=== PATIENT | female | born 1970 | race Caucasian/White ===

== ENCOUNTER 2022-06-29 19:08 | Outpatient (CLI) | payer BC, SELFPAY ==
--- OUTSIDE RECORDS SUMMARY | 2022-06-29 19:13 | XMS_ITS | Encounter Summary ---
:1970 Author Organization [facility] Address [address] [place] [address] Care Team Providers Name Role Phone Karel Gill M.D. Primary Care Provider [phone] Reason for Visit Reason Comments Med Refill Encounter Details Date Type Department Care Team Description 05/21/2022 Refill Department of Family Medicine, Karel Gill I., Med Refill [facility], in [place], [place] 300 [facility] [address] [place] [address] [place] [address] [phone] Social History Tobacco Use Types Packs/Day Years Used Date Smoking Tobacco: Former Cigarettes 0.5 Quit : 01/10/2020 Smokeless Tobacco: Never Alcohol Use Standard Drinks/Week Comments Yes 0 (1 standard drink = 0.6 oz pure alcoho l) Seldom Alcohol Habits Answer Date Recorded How often do you have a drink containing alcohol? Monthly or less 12/25/2021 How many drinks containing alcohol do you have on a 1 or 2 12/25/2021 typical day when you are drinking? How often do you have six or more drinks on one Never 12/25/2021 occasion? Comment: Seldom 03/14/2018 Social Isolation Answer Date Recorded In a typical week, how many times do you Twice a week 12/25/2021 talk on the phone with family, friends, or neighbors? How often do you get together with friends Once a week 12/25/2021 or relatives? How often do you attend buddhist or oriental orthodox More than 4 time s per year 12/25/2021 services? Do you belong to any clubs or organizations Yes 12/25/2021 such as buddhist groups, unions, fraternal or athletic groups, or school groups? How often do you attend meetings of the More than 4 times pe r year 12/25/2021 clubs or organizations you belong to? Are you now , , , 12/25/2021 , never or living with a partner? Physical Activity Answer Date Recorded On average, how many days per week do you engage in moderate to 1 day 12/25/2021 strenuous exercise (like walking fast, running, jogging, dancing, swimming, biking, or other activities that cause a light or heavy sweat)? On average, how many minutes do you engage in exercise at th is 20 min 12/25/2021 level? Stress Answer Date Recorded Do you feel stress - tense, restless, nervous, or anxious, R ather much 12/25/2021 or unable to sleep at night because your mind is troubled all the time - these days? Financial Resource Strain Answer Date Recorded How hard is it for you to pay for the very basics like Not isidro stephen hard 12/25/2021 food, housing, medical care, and heating? Intimate Partner Violence Answer Date Recorded Within the last year, have you been afraid of your partner o r No 12/25/2021 ex-partner? Within the last year, have you been humiliated or emotionall y No 12/25/2021 abused in other ways by your partner or ex-partner? Within the last year, have you been kicked, hit, slapped, or No 12/25/2021 otherwise physically hurt by your partner or ex-partner? Within the last year, have you been raped or forced to have any No 12/25/2021 kind of sexual activity by your partner or ex-partner? Food Insecurity Answer Date Recorded Within the past 12 months, you worried that your food Someti mes true 12/25/2021 would run out before you got money to buy more. Within the past 12 months, the food you bought just Patient refused 12/25/2021 didn't last and you didn't have money to get more. Transportation Needs Answer Date Recorded In the past 12 months, has lack of transportation kept you f rom No 12/25/2021 medical appointments or from getting medications? In the past 12 months, has lack of transportation kept you f rom No 12/25/2021 meetings, work, or getting things needed for daily living? Housing Stability Answer Date Recorded In the last 12 months, was there a time when you were not ab le No 12/25/2021 to pay the mortgage or rent on time? In the last 12 months, how many places have you lived? 1 12/25/2021 In the last 12 months, was there a time when you did not hav e a No 12/25/[address] to [address] or slept in a prison (including now)? Education Answer Date Recorded What is the highest level of school Associate degree: [employer], 12/24/2021 you have completed or the highest technical, or vocational p purnima degree you have received? 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 PCP - General Family Medicine 01/16/21 [address] [place] [address] documented as of this encounter
--- OUTSIDE RECORDS SUMMARY | 2022-06-29 19:13 | XMS_ITS | Encounter Summary ---
:1970 Author Organization [facility] Address [address] [place] [address] Care Team Providers Name Role Phone Karel Gill M.D. Primary Care Provider [phone] Encounter Details Date Type Department Care Team Description 06/25/2022 Hospital Encounter Department of Karel Gill [facility] For Laboratory Medicine Antonio Golden, [facility] in [place] [facility] [place] [address], [place] [phone] Social History Tobacco Use Types Packs/Day Years [...] or relatives? How often do you attend gnosticism or anabaptism More than 4 time s per year 12/25/2021 services? Do you belong to any clubs or organizations Yes 12/25/2021 such as gnosticism groups, unions, fraternal or athletic groups, or [...] pay for the very basics like Not v stephen hard 12/25/2021 food, housing, medical care, [...] place to sleep or slept in a alf (including now)? Education Answer Date Recorded What is the highest level of school Associate degree: [employer], 12/24/2021 you have completed or the highest technical, or vocational tavia felton degree you have received? 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 creamIndications: Insert 1 gram Atrophy Vagina Due To vaginally at bedtime Estrogen Deficiency 2-3 nights per week. fluticasone Inhale 1 puff 2 180 each 3 12/25/2021 propion-salmeteroL (two) times a day. (Advair Diskus) 250-50 Rinse mouth with mcg/dose diskus water after use to inhalerIndications: reduce aftertaste Asthma Mild Intermittent and incidence of (HCC) candidiasis. Do not swallow. fluticasone propionate Administer 2 sprays 16 g 3 12/08 (FLONASE) 50 into each nostril mcg/actuation nasal daily. spray lisinopriL Take 1 tablet (20 mg 90 tablet 3 12/25/2021 (PRINIVIL,ZESTRIL) 20 mg total) by mouth tabletIndications: daily. Hypertension Essential Primary LORazepam (ATIVAN) 0.5 TAKE 1 TABLET BY 10 tablet 0 022 mg tabletIndications: MOUTH AT BEDTIME Anxiety Generalized NEEDED FOR ANXIETY Disorder, Depression Major Single Episode Severe Without Psychotic Features (HCC) ondansetron ODT Dissolve 1 tablet (4 30 tablet 1 04/14/2022 (ZOFRAN-ODT) 4 mg mg total) in the disintegrating tablet mouth every 8 (eight) hours as needed for nausea or vomiting. ProAir HFA 90 Inhale 2 puffs every 25.5 g 3 12/25/2021 mcg/actuation 4 (four) hours as inhalerIndications: needed for wheezing Asthma Mild Intermittent or shortness of (HCC) breath. topiramate (TOPAMAX) 25 Take 50 mg by mouth 0 02/2022 mg tablet 2 (two) times a day. triamterene-hydroCHLOROt Take 1 tablet by 90 tablet 3 12/2512/25/2022 hiazide (MAXZIDE) 75-50 mouth daily. mg per tabletIndications: Hypertension Essential Primary venlafaxine XR Take 1 capsule (150 90 capsule 3 12/25/2021 (EFFEXOR-XR) 150 mg 24 mg total) by mouth hr capsuleIndications: daily. Depression Major Single Episode Severe Without Psychotic Features (HCC) documented as of this encounter Plan of Treatment Upcoming Encounters Date Type Specialty Care Team Description 07/16/2022 Office Visit Family Medicine Karel Gill M.B.B ChuckySChucky, MRadha [address] [place] [address], [place] [phone] (Wo rk) documented as of this encounter Procedures Procedure Name Priority Date/Time Associated Diagnosis Comme nts BASIC METABOLIC Routine 06/25/2022 2:23 PM Monitoring For Resu lts for this PANEL, S/P CDT Therapeutic Drug procedure a re in Therapy the results section. documented in this encounter Results Basic Metabolic Panel (06/25/2022 2:23 PM CDT) P athologist Signature Potassium, P 4.0 3.6 - 5.2 06/25/2022 [facility] mmol/L 4:12 PM CDT Sodium, P 140 135 - 145 06/25/2022 [facility] mmol/L 4:12 PM CDT Chloride, P 101 98 - 107 06/25/2022 [facility] mmol/L 4:12 PM CDT Bicarbonate, P 27 22 - 29 06/25/2022 [facility] mmol/L 4:12 PM CDT Anion Gap, P 12 7 - 15 06/25/2022 [facility] 4:12 PM CDT BUN (Blood Urea 14 6 - 21 06/25/2022 [facility] Nitrogen), P mg/dL 4:12 PM CDT Creatinine 0.67 0.59 - 06/25/2022 [facility] 1.04 mg/dL 4:12 PM CDT eGFR-Black/Afric >90 >=60 06/25/2022 [facility] an Ivorian mL/min/BSA 4:12 PM CDT Comment: ----ADDITIONAL INFORMATION---- Estimated GFR calculated using the 2009 CKD_EPI creatinine equation. eGFR Non-Black/ >90 >=60 mL/min/BSA 06/25/2022 4:12 PM CDT [facility] Comment: ----ADDITIONAL INFORMATION---- Estimated GFR calculated using the 2009 CKD_EPI creatinine equation. Calcium, Total, P 9.4 8.6 - 10.0 mg/dL 06/25/2022 4:12 PM CDT [facility] Glucose, P 131 70 - 140 mg/dL 06/25/2022 4:12 PM CDT O ANUM Specimen Anatomical Collection Method Collection Time Receive d Time (Source) Location / / Volume Laterality Blood (Blood, 06/25/2022 2:23 PM 06/25/20 22 3:27 Venous) CDT PM CDT Karel Alvarez M.D. LAB BLOOD ADD-ON Performing Organization Address City/State/ZIP Code Phon e Number [facility] [address] [place] [address] [facility] [place] [address] System in [place] [address] documented in this encounter Visit Diagnoses Diagnosis Monitoring For Therapeutic Drug Therapy documented in this encounter Additional Health Concerns Assessment Noted Time PHQ-9 Depression Total Score: 10 06/10/2022 9:37 AM CD T documented as of this encounter Care Teams Special Services Coordinator Relationship Specialty Start Date End Date Karel Gill M.B.B.S., M.D. PCP - General Family Medicine 01/16/[address] [place] [phone] documented as of this encounter
--- OUTSIDE RECORDS SUMMARY | 2022-06-29 19:13 | XMS_ITS | Encounter Summary ---
:1970 Author Organization [facility] Address [address] [place] [address] Care Team Providers Name Role Phone Karel Gill M.D. Primary Care Provider [phone] Reason for Visit Reason Comments Med Refill Encounter Details Date Type Department Care Team Description 06/18/2022 Refill Department of Family Medicine, Yvrose Akbar M.D. Med Refill [facility], in [address] [place] [phone] [place] [address] [place] [address] [phone] Social History Tobacco Use Types Packs/Day Years [...] or relatives? How often do you attend presybeterian or catholic More than 4 time s per year 12/25/2021 services? Do you belong to any clubs or organizations Yes 12/25/2021 such as presybeterian groups, unions, fraternal or athletic groups, or [...] place to sleep or slept in a senior living (including now)? Education Answer Date Recorded What is the highest level of school Associate degree: [employer], 12/24/2021 you have completed or the highest technical, or vocational p purnima degree you have received? 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 MAllegra. PCP - General Family Medicine 01/16/21 [address] [place] [phone] documented as of this encounter
--- OUTSIDE RECORDS SUMMARY | 2022-06-29 19:13 | XMS_ITS | Encounter Summary ---
:1970 Author Organization [facility] Address [address] [place] [address] Care Team Providers Name Role Phone Krael Gill M.D. Primary Care Provider [phone] Reason for Visit Reason Comments allergy order Encounter Details Date Type Department Care Team Description 06/16/2022 Clinical Communication Department of Karel Giron allergy order Medicine, Antonio Peraza, Clinic, in [place] [address] [place] [phone] Social History Tobacco Use Types Packs/Day Years [...] or relatives? How often do you attend latter-day or evangelical More than 4 time s per year 12/25/2021 services? Do you belong to any clubs or organizations Yes 12/25/2021 such as latter-day groups, unions, fraternal or athletic groups, or [...] place to sleep or slept in a half-way (including now)? Education Answer Date Recorded What is the highest level of school Associate degree: [employer], 12/24/2021 you have completed or the highest technical, or vocational p purnima degree you have received? 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 Gill 07/16 Telephone Encounter - Mahad Willett V. C.MChuckyAChucky - 06/21/2022 11:11 AM CDT Left message for patient to return call to clinic. Does the patient need to speak to nursing? yes Action needed: Inform patient that a visit is necessary prior to referral Telephone Encounter - Karel Gill M.B.B.S., M.D. - 06/21/2022 10:58 AM CDT Patient will need to be seen. Seasonal allergies are not enough reason to see an interline clerk. Telephone Encounter - Luis Petersly Luciano - 06/16/2022 11:16 AM CDT Patient called in requesting to see an Rate Reviewer, please place order and call her to schedule when placed. documented in this encounter Plan of Treatment Upcoming Encounters Date Type Specialty Care Team Description 07/16/2022 Office Visit Family Medicine Karel Gill M.B.B .S., M.D. [address] [place], [place] [phone] (Wo rk) documented as of this encounter Visit Diagnoses Not on filedocumented in this encounter Additional Health Concerns Assessment Noted Time PHQ-9 Depression Total Score: 10 06/10/2022 9:37 AM CD T documented as of this encounter Care Teams Gang Supervisor Pipe Lines Relationship Specialty Start Date End Date Karel Gill M.B.B.S., M.D. PCP - General Family Medicine 01/16/21 [address] [place] [phone] documented as of this encounter
--- OUTSIDE RECORDS SUMMARY | 2022-06-29 19:13 | XMS_ITS | Encounter Summary ---
:1970 Author Organization [facility] Address [address] [place] [address] Care Team Providers Name Role Phone Karel Gill M.D. Primary Care Provider [phone] Reason for Visit Reason Comments Med Refill Encounter Details Date Type Department Care Team Description 05/29/2022 Refill Department of Family Medicine, Karel Gill I., Med Refill [facility], in [place], [place] 300 [facility] 300 [place] [address] [place] [address] [phone] Social History Tobacco Use Types Packs/Day Years [...] or relatives? How often do you attend yazidism or congregational More than 4 time s per year 12/25/2021 services? 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 PCP - General Family Medicine 01/16/21 [address] [place] [phone] documented as of this encounter
--- OUTSIDE RECORDS SUMMARY | 2022-06-29 19:13 | XMS_ITS | Clinical Summary ---
:1970 Author Organization [facility] Address [address] [place] [address] Care Team Providers Name Role Phone Karel Gill M.D. Primary Care Provider [phone] Source Comments Patient records contain information from all sites at [facility]. For routine questions regarding patient records, call [phone] during business hours, M-F 8:00 AM - 5:00 PM Central Time. Record requests for emergency care only can be directed to [phone] at any time.[facility] Allergies Active Allergy Reactions Severity Noted Date Comments Latex Rash High 04/24/2014 Magnesium Sulfate Anaphylaxis 11/23/2016 Throat deysi sing Valsartan Other (see comments), High 04/24/2014 Unknow n - patient Anaphylaxis unable to provi de information Medications Medication Sig Dispensed Refills Start End Date Status Date topiramate Take 50 mg by 0 Activ e (TOPAMAX) 25 mg mouth 2 (two) 2 tablet times a day. triamterene-hydroCH Take 1 tablet by 90 tablet 3 Active LOROthiazide mouth daily. 2 23 (MAXZIDE) 75-50 mg per tabletIndications: Hypertension Essential Primary lisinopriL Take 1 tablet (20 90 tablet 3 A ctive (PRINIVIL,ZESTRIL) mg total) by 2 20 mg mouth daily. tabletIndications: Hypertension Essential Primary fluticasone Inhale 1 puff 2 180 each 3 Ac tive propion-salmeteroL (two) times a 2 (Advair Diskus) day. Rinse mouth 250-50 mcg/dose with water after diskus use to reduce inhalerIndications: aftertaste and Asthma Mild incidence of Intermittent (HCC) candidiasis. Do not swallow. ProAir HFA 90 Inhale 2 puffs 25.5 g 3 A ctive mcg/actuation every 4 (four) 2 inhalerIndications: hours as needed Asthma Mild for wheezing or Intermittent (HCC) shortness of breath. fluticasone Administer 2 16 g 3 Activ e propionate sprays into each 2 (FLONASE) 50 nostril daily. mcg/actuation nasal spray venlafaxine XR Take 1 capsule 90 capsule 3 Active (EFFEXOR-XR) 150 mg (150 mg total) by 2 24 hr mouth daily. 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 Insert creamIndications: 1 gram vaginally Atrophy Vagina Due at bedtime 2-3 To Estrogen nights per week. Deficiency ondansetron ODT Dissolve 1 tablet 30 tablet 1 Active (ZOFRAN-ODT) 4 mg (4 mg total) in 2 disintegrating the mouth every 8 tablet (eight) hours as needed for nausea or vomiting. LORazepam (ATIVAN) TAKE 1 TABLET BY 10 tablet 0 Active 0.5 mg MOUTH AT BEDTIME 2 tabletIndications: NEEDED FOR Anxiety Generalized ANXIETY Disorder, Depression Major Single Episode Severe Without Psychotic Features (HCC) albuterol 2.5 mg /3 USE 1 VIAL IN 150 mL 11 Active mL nebulizer NEBULIZER EVERY 4 2 solutionIndications HOURS NEEDED : Asthma Mild FOR WHEEZING Intermittent (HCC) albuterol 2.5 mg /3 Inhale 3 mL (2.5 150 mL 3 Discontinued mL nebulizer mg total) by 2 22 solutionIndications nebulization : Asthma Mild every 4 (four) Intermittent (HCC) hours as needed for wheezing. LORazepam (ATIVAN) TAKE 1 TABLET BY 20 tablet 0 05/08 Discontinued 0.5 mg MOUTH AT BEDTIME 2 22 tabletIndications: NEEDED FOR Anxiety Generalized ANXIETY Disorder, Depression Major Single Episode Severe Without Psychotic Features (HCC) Active Problems Problem Noted Date Preventive Gynecological Exam 01/08/2022 Overview: Formatting of this note is dif ferent from the original. Pap smear: 09/18/2018 NILM/-HPV. 022 obtained and pending. Gonorrhea/Chlamydia Screen: 01/08/2022 o btained and pending. Mammogram: 05/28/2021. Lipid panel: 12/25/2021. Diabetic screenin12/25/2021 with hemo globin A1c of 6.2%. Colon screening: ??Cologuard ordered. DEXA Scan: Begin at age 65. Tdap Vaccine: 05/08/2021. ?? Influenza Vaccine: 12/25/2021. COVID-19 Vaccine: Moderna: 01/21/2021 an d 02/18/2021. Discussed and declines booster at this time. Shingles Vaccine: Ordered and scheduled. - Discussed the importance of healthy di et and exercise for overall well-being. - Recommend at least 30 minutes of aerob ic exercise most days of the week. ?? - Recommend 1200 mg of calcium daily. Last Assessment & Plan: Discussed exam findings with patient. I will plan to portal message her with results and recommendations going forward. I do recommend that she return on an annual basis for her preventative health exam or sooner if she has any concerns or problems. Bleeding Dysfunctional Uterine 01/08/2022 Overview: Pap smear, GC chlamydia, EMB, and pelvic ultrasound obtained and pending. I will plan to portal message her with results. We discussed management options for dysfunctional uterine bleeding and menorrhag ia due to perimenopause. Will further di scuss options and implement management as desired. Endometriosis 01/08/2022 Depression Major Single Episode Severe Without Psychot ic Features 05/08/2021 Overview: Managed by PCP. Morbid Obesity Body Mass Index 50.0-59.9 Adult 019 Hypertriglyceridemia 12/22/2016 Overview: Managed by PCP. PreDiabetes 12/22/2016 Overview: Managed by PCP. Hypertension Essential Primary 12/07/2016 Overview: Managed by PCP. Anxiety Generalized Disorder 12/07/2016 Overview: Managed by PCP. Asthma Mild Intermittent 12/07/2016 Overview: Managed by PCP. Migraine Headache Classic 12/07/2016 Overview: Managed by PCP. No aura. Resolved Problems Problem Noted Date Resolved Date History Of Falling 01/02/2021 01/08/2022 Nicotine Dependence Cigarettes With Other Nicotine Induced 0 12/29/2018 01/08/2022 Disorder Abuse Tobacco Smoking 05/13/2017 04/03/2019 Menorrhagia 05/13/2017 01/08/2022 Dermatitis Atopic 05/31/2016 01/08/2022 Encounters Date Type Specialty Care Team Description 06/29/2022 Hospital Encounter Radiology [facility], Screening Mammogram Karel Golden, Breast Cancer JacoboB.SChucky, MRadha 06/25/2022 Hospital Encounter Laboratory Medicine Vin Gill For Luna FlorezB.SEmmanuelle Locke Therapy 06/18/2022 Refill [facility] Yvrose Carballo Med Reflinnette Hodge M.D. 06/16/2022 [facility] Karel Golden M.B.B.SChucky, MRadha 05/29[facility]20[facility] Karel Golden M.B.B.SChucky, MRadha 05/21/2022 Refill [facility] Leonietxchencho, Med Refill Karel Golden M.B.B.SChucky, MRadha 05/12/2022 Orders Only Candida Huff Monitoring Emmanuelle Pineda Therapy 04/14/2022 [facility]ill [facility] Refill Antonio Florez M.D. from Last 3 Months Immunizations Name Administration Dates Next Due Influenza (IM) Preservative Free 08/22/2017 Influenza TIV (IM) 08/01/2010 Influenza, Unspecified 08/02/2016 PPSV23 01/02/2021 SARS-COV-2 (COVID-19) - MODERNA 12/25/2021 (Deferred: Patien t decision) Tdap 05/08/2021, 04/21/2011 influenza vaccine quad 12/25/2021, 08/20/2020, 10/29/2019 (FLUZONE/FLUARIX) (6 months and older)(PF) Family History Medical History Relation Name Comments Cirrhosis Brother stage 4 Hemorrhagic stroke Brother Seizures Brother Anxiety depression Daughter Hyperlipidemia Father Hypertension Father TIA - Transient ischaemic attack Father Breast cancer Grandmother 1 Maternal Diabetes Grandmother 2 Paternal Lung cancer Grandmother 2 Paternal w/ mets to breas t Heart attack Maternal Grandfather Hyperlipidemia Mother Hypertension Mother Colon cancer Neg Hx Relation Name Status Comments Brother (Age 40) cardiac arrest , complications of stage 4 liver ci rrhosis Daughter Alive Father Alive Grandmother 1 Maternal Grandmother 2 Paternal Maternal Grandfather Mother Alive Paternal Grandfather Social History Tobacco Use Types Packs/Day Years [...] or relatives? How often do you attend jainism or baptist More than 4 time s per year 12/25/2021 services? Do you belong to any clubs or organizations Yes 12/25/2021 such as jainism groups, unions, fraternal or athletic groups, or [...] place to sleep or slept in a snf (including now)? Education Answer Date Recorded What is the highest level of school Associate degree: [employer], 12/24/2021 you have completed or the highest technical, or vocational p purnima degree you have received? 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 Last Filed Vital Signs Vital Sign Reading Time Taken Comments Blood Pressure 138/84 01/08/2022 1:51 PM BUS TRANSPORTATION MANAGER Pulse 88 01/08/2022 1:51 PM BUS TRANSPORTATION MANAGER Temperature 36 ??C (96.8 ??F) 12/25/2021 3:33 PM BUS TRANSPORTATION MANAGER Respiratory Rate 20 01/08/2022 1:51 PM BUS TRANSPORTATION MANAGER Oxygen Saturation 93% 11/06/2019 1:48 PM BUS TRANSPORTATION MANAGER Inhaled Oxygen Concentration - - Weight 143 kg (316 lb 4 oz) 01/08/2022 1:51 PM BUS TRANSPORTATION MANAGER Height 156.5 cm (5' 1.61) 01/08/2022 1:51 PM BUS TRANSPORTATION MANAGER Body Mass Index 58.57 01/08/2022 1:51 PM BUS TRANSPORTATION MANAGER Plan of Treatment Upcoming Encounters Date Type Specialty Care Team Description 07/16/2022 Office Visit Family Medicine Karel Gill M.B.B Deb, MRadha [address] [place] [address] [phone] (Wo rk) Health Maintenance Due Date Last Done Comments CT Colonography 1970 Colonoscopy 1970 FIT 1970 Hepatitis B Vaccines (1 of 3 - 1970 3-dose series) COVID-19 Vaccine (3 - Moderna risk 03/18/2021 02/18/2021, 0 01/21/2021 series) Asthma Action Plan 01/02/2022 01/02/2021, 12/07/2016 Pneumococcal vaccine (0-64 years) 01/02/2022 01/02/2021 (2 - PCV) Asthma Control Test Questionnaire 05/08/2022 05/08/2021, , 12/07/2016 Influenza Vaccine (#1) 2022 12/25/2021, 08/20/2020, 10/29/2019, Additional history exists Depression Monitoring (PHQ-9) 10/10/2022 06/10/2022 Fasting Lipid Panel 12/25/2022 12/25/2021, 01/02/2021, 09/29/2018, Additional history exists Visit: Chronic Disease, age 18+ 12/25/2022 12/25/2021 Office Visit for Blood Pressure 01/08/2023 01/08/2022 Check / Re-check Creatinine Level 06/25/2023 06/25/2022, 08/02/2021, 01/02/2021, Additional history exists Fasting Glucose for Diabetes 06/25/2023 06/25/2022, 022, Screening 08/02/2021, Additional history exists Potassium Level 06/25/2023 06/25/2022, 08/02/2021, 01/02/2021, Additional history exists Sodium Level 06/25/2023 06/25/2022, 08/02/2021, 01/02/2021, Additional history exists Mammogram 06/29/2023 06/29/2022, 05/28/2021, 08/07/2019, Additional history exists Cologuard 02/03/2025 02/03/2022 Colorectal Cancer Screening 02/03/2025 Cervical Cancer Screening 01/08/2027 01/08/2022, 01/08/2022 , 09/18/2018, Additional history exists DTaP,Tdap,and Td Vaccines (3 - Td 05/08/2031 05/08/2021, or Tdap) HIV Screening Completed 01/08/2022 Zoster Vaccines Completed 05/16/2022, 02/05/2022 Medical Devices Implanted Type Area Barrel Rifler Button Device Shelf Model / Identifier Expiration Serial / Date Lot Hardware Left Hardware Left: Knee e.g. Knee pins/screws/ rods Description: 2 Screws left knee Procedures Procedure Name Priority Date/Time Associated Comments Diagnosis BI BREAST SCREENING RAD - Routine 06/29/2022 12:03 Screening Res ults for BILATERAL WITH (most inpatients PM CDT Mammogram Breast this procedure TOMOSYNTHESIS and all Cancer are in the outpatients) results section. BASIC METABOLIC Routine 06/25/2022 2:23 Monitoring For Results for PANEL, S/P PM CDT Therapeutic Drug this proced ure Therapy are in the results section. from Last 3 Months Results BI Breast Screening Bilateral with Tomosynthesis (06/29/2022 12:03 PM CDT) Anatomical Region Laterality Modality Breast, Breast Imaging RST LOS, Breast Imaging ARZ LOS, [place] st Bilateral Mammography Imaging FLA LOS Specimen (Source) Anatomical Collection Method Collection Time Re ceived Time Location / / Volume Laterality 06/29/2022 1:48 PM CDT Impressions 06/29/2022 1:49 PM CDT Negative. RECOMMENDATION: ??Annual Screening Mammo gram ASSESSMENT: ??BI-RADS: 1: Negative. Narrative 06/29/2022 1:49 PM CDT EXAM: ??BI BREAST SCREENING BILATERAL WITH TOMOSYNTHESIS Current study was evaluated with a [employer] Aided Detection (CAD) system. INDICATION: ??Screening mammogram. COMPARISON: ??Prior exam(s) were availab le and reviewed for comparison. DENSITY: ??c. The breast(s) are heteroge neously dense, which may obscure small masses. FINDINGS: ??No mammographic findings of malignancy. Procedure Note Kwabena Ritter M.D. - 06/29/2022Formattin g of this note might be different from the original. EXAM: BI BREAST SCREENING BILATERAL WITH TOMOSYNTHESIS Current study was evaluated with a [employer] Aided Detection (CAD) system. INDICATION: Screening mammogram. COMPARISON: Prior exam(s) were available and reviewed for comparison. DENSITY: c. The breast(s) are heterogene ously dense, which may obscure small masses. FINDINGS: No mammographic findings of ma lignancy. IMPRESSION: Negative. RECOMMENDATION: Annual Screening Mammogr am ASSESSMENT: BI-RADS: 1: Negative. Karel Ch[place] Alvarez M.D. IMG BI PROCEDURES Basic Metabolic Panel (06/25/2022 2:23 PM CDT) [...] CDT eGFR-Black/Afric >90 >=60 06/25/2022 OWAT an Eritrean mL/min/BSA 4:12 PM CDT Comment: ----ADDITIONAL INFORMATION---- [...] Laterality Blood (Blood, 06/25/2022 2:23 PM 06/25/20 3:27 Venous) CDT PM CDT Karel Alvarez M.D. LAB BLOOD ADD-ON Performing Organization Address City/State/ZIP Code Phon e Number [facility] [address] [place] [address] [facility] [id number] System in [place] [address] from Last 3 Months Insurance Payer Benefit Plan Subscriber ID Effective Dates Phone Address Type / Group [employer] [place] [id number] 2021-Presen [phone] [address] [address] PPO BLUE SHIELD t [address] [place] [address] Care Teams Oracle Technical Developer Relationship Specialty Start Date End Date Karel Gill M.B.B.S., MAllegra. PCP - General Family Medicine 01/16/[address] [place] [address] [place] [phone]
--- OUTSIDE RECORDS SUMMARY | 2022-06-29 19:13 | XMS_ITS | Encounter Summary ---
:1970 Author Organization [facility] Address [address] [place] [address] Care Team Providers Name Role Phone Karel Gill M.D. Primary Care Provider [phone] [phone] Reason for Referral Outpatient (Routine) - Closed Specialty Diagnoses / Procedures Referred By Contact Refer red To Contact Diagnoses Screening Mammogram Breast Cancer Karel Gill [facility] Region Procedures BI Breast Screening Bilateral with Tomosyntheusha Alvarez M.D. [address] [place] [phone] Referral ID Status Reason Start Date Expiration Date Visits Requ ested Visits Authorized [id number] Closed 06/22/2022 06/22/2023 1 1 utpatient (Routine) - Closed Specialty Diagnoses / Procedures Referred By Contact Refer red To Contact Diagnoses Screening Mammogram Breast Cancer Karel Gill [facility] Region Procedures BI Breast Screening Bilateral with Tomosyntheusha Alvarze M.D. [address] [place] [phone] Referral ID Status Reason Start Date Expiration Date Visits Requ ested Visits Authorized [id number] Closed 06/22/2022 06/22/2023 1 1 Reason for Visit Outpatient (Routine) - Closed Specialty Diagnoses / Procedures Referred By Contact Refer red To Contact Diagnoses Screening Mammogram Breast Cancer Karel Gill I., [facility] Region Procedures BI Breast Screening Bilateral with Tomosynthesis Emmanuelle Alvarez [address] [facility] [place] [phone] Referral ID Status Reason Start Date Expiration Date Visits Requ ested Visits Authorized [id number] Closed 06/22/2022 06/22/2023 1 1 Encounter Details Date Type Department Care Team Description 06/29/2022 Hospital Encounter Department of Karel Gill Mammogram Radiology in Antonio Golden, Breast Cancer Jose Beck M.D. [address] [facility] [address] [place] [phone] Social History Tobacco Use Types Packs/Day Years [...] or relatives? How often do you attend faith or religion More than 4 time s per year 12/25/2021 services? Do you belong to any clubs or organizations Yes 12/25/2021 such as faith groups, unions, fraternal or athletic groups, or [...] place to sleep or slept in a long-term (including now)? Education Answer Date Recorded What is the highest level of school Associate degree: [employer], 12/24/2021 you have completed or the highest technical, or vocational p purnima degree you have received? 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 [address] [place] [address] [phone] (Wo rk) documented as of this encounter Procedures Procedure Name Priority Date/Time Associated Comments Diagnosis BI BREAST SCREENING RAD - Routine 06/29/2022 12:03 Screening Res ults for BILATERAL WITH (most inpatients PM CDT Mammogram Breast this procedure TOMOSYNTHESIS and all Cancer are in the outpatients) results section. documented in this encounter Results BI Breast Screening Bilateral with Tomosynthesis (06/29/2022 12:03 PM CDT) Anatomical Region Laterality Modality Breast, Breast Imaging RST LOS, Breast Imaging ARZ LOS, [place] st Bilateral Mammography Imaging FLA LOS Specimen (Source) Anatomical Collection Method Collection Time Re ceived Time Location / / Volume Laterality 06/29/2022 1:48 PM CDT Impressions 06/29/2022 1:49 PM CDT Negative. RECOMMENDATION: ??Annual Screening Mammo gram ASSESSMENT: ??BI-RADS: 1: Negative. Narrative 06/29/2022 1:49 PM CDT EXAM: ??BI BREAST SCREENING BILATERAL WITH TOMOSYNTHESIS Current study was evaluated with a Compu ter Aided Detection (CAD) system. INDICATION: ??Screening mammogram. [...] TOMOSYNTHESIS Current study was evaluated with a Compu ter Aided Detection (CAD) system. INDICATION: Screening mammogram. COMPARISON: Prior exam(s) were available and reviewed for comparison. DENSITY: c. The breast(s) are heterogene ously dense, which may obscure small masses. FINDINGS: No mammographic findings of ma lignancy. IMPRESSION: Negative. RECOMMENDATION: Annual Screening Mammogr am ASSESSMENT: BI-RADS: 1: Negative. Karel Alvarez M.D. IMG BI PROCEDURES documented in this encounter Visit Diagnoses Diagnosis Screening Mammogram Breast Cancer documented in this encounter Additional Health Concerns Assessment Noted Time PHQ-9 Depression Total Score: 10 06/10/2022 9:37 AM CD T documented as of this encounter Care Teams Pinball Machine Repairer Relationship Specialty Start Date End Date Karel Gill M.B.B.S., M.D. PCP - General Family Medicine 01/16/[address] [place] [phone] documented as of this encounter
--- OUTSIDE RECORDS SUMMARY | 2022-06-29 19:14 | XMS_ITS | Encounter Summary ---
:[address] [facility] Address [address] [place] [address] Care Team Providers Name Role Phone Karel Gill M.D. Primary Care Provider [phone] [phone] Encounter Details Date Type Department Care Team Description 01/09/2022 Orders Only Department of Darline Goyal Screening Colon Cancer Obstetrics and J, ELEVATOR ATTENDANT, C.N.P. Average Risk Gynecology in [address] [place], [place] 200 [facility] [address] [place], [place] [phone] [address] (Work) [phone] Social History Tobacco Use Types Packs/Day Years [...] or relatives? How often do you attend lutheran or temple More than 4 time s per year 12/25/2021 services? Do you belong to any clubs or organizations Yes 12/25/2021 such as lutheran groups, unions, fraternal or athletic groups, or [...] to sleep or slept in a senior care (including now)? Education Answer Date Recorded What is the highest level of school Associate degree: maria del carmen strong, 12/24/2021 you have completed or the highest technical, or vocational tavia felton degree you have received? 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 documented in this encounter Results Cologuard-Sent Out Lab (02/03/2022 5:49 PM CDT) athologist Signature Result Negative Negative 02/10/2022 EXLI 4:39 PM CDT Comment: NEGATIVE TEST RESULT. A negative Cologua rd result indicates a low likelihood that a colorectal cance r (CRC) or advanced adenoma (adenomatous polyps with more ad vanced pre-malignant features) ??is present. Th e chance that a person with a negative Cologuard test capellan s a colorectal cancer is less than 1 in 1500 (negative predictive value >99.9%) or has an ??advanced adenoma is less than ??5.3% (negative predictive value 94.7%). These data are based on a prospective cross-sectional study of 1 0,000 individuals at average risk for colorectal cancer wh o were screened with both Cologuard and colonoscopy. (Im wilson T. et al, N Engl J Med 2014;370(14):4402-0999) The n ormal value (reference range) for this assay is nega tive. COLOGUARD RE-SCREENING RECOMMENDATION: P eriodic colorectal cancer screening is an important part of preventive healthcare for asymptomatic individuals at average risk for colorectal cancer. ??Following a negativ e Cologuard result, the [place] Cancer Society and U.S. Mul ti-Society Task Force screening guidelines recommend a C ologuard re-screening interval of 3 years. References: [place] Cancer Society Kenny soares for Colorectal Cancer Screening: https://www.cancer.org/cancer/colon-rect al-cancer/detection- diagnosis-staging/acs-recommendations.ht ml.; Paul MATTHEWS, Sherrill CR, Jair BurtonK, Colorectal Cancer Scree rao: Recommendations for Physicians and Patie nts from the U.S. Multi-Society Task Force on Colorectal C ancer Screening , Am J Gastroenterology 2017; 112:1016-103 0. TEST DESCRIPTION: Composite algorithmic analysis of stool DNA-biomarkers with hemoglobin immunoass ay. ?? Quantitative values of individual biomarkers are not reportable and are not associated with individual biomarker result reference ranges. Cologuard is intended for colore ctal cancer screening of adults of either sex, 45 ye ars or older, who are at average-risk for colorectal cance r (CRC). Cologuard has been approved for use by the U.S. FD A. The performance of Cologuard was established in a cross sectional study of average-risk adults aged 50-84. Cologuar d performance in patients ages 45 to 49 years was estimat ed by sub-group analysis of near-age groups. Colonoscopi es performed for a positive result may find as the most cli nically significant lesion: colorectal cancer [4.0%], advanc ed adenoma (including sessile serrated polyps great er than or equal to 1cm diameter) [20%] or non- advanced valerie noma [31%]; or no colorectal neoplasia [45%]. These estima yefri are derived from a prospective cross-sectional ellen yeh study of 10,000 individuals at average risk for c olorectal cancer who were screened with both Cologuard an d colonoscopy. (Chris Roy et al, N Engl J Med 2014;3 70(14):0718-7457.) Cologuard may produce a false negative o r false positive result (no colorectal cancer or precance cecil polyp present at colonoscopy follow up). A negative Co loguard test result does not guarantee the absence of CRC or advanced adenoma (pre-cancer). The current Cologuard scre ening interval is every 3 years. ([place] Cancer Society and U.S. Multi-Society Task Force). Cologuard per formance data in a 10,000 patient pivotal study using colon oscopy as the reference method can be accessed at the following location: www.GlobalPay/results. Additional de scription of the Cologuard test process, warnings and pre cautions can be found at www.cologiTherXrd.Picolight. Specimen Anatomical Collection Method Collection Time Receive d Time (Source) Location / / Volume Laterality Stool (Stool) 02/03/2022 5:49 PM 02/06/20 9:06 CDT AM CDT Darline Goyal APRN, C.N.P. LAB BODY FLUIDS AND STO OLS ORDERABLES Performing Organization Address City/State/ZIP Code Phon e Number [facility] [address] [place] [address] 537 13 [place] [address] [place] [address], [address] documented in this encounter Visit Diagnoses Diagnosis Screening Colon Cancer Average Risk documented in this encounter Additional Health Concerns Assessment Noted Time PHQ-9 Depression Total Score: 10 12/08/2021 2:36 AM CS T documented as of this encounter Care Teams Pipe Processor Relationship Specialty Start Date End Date Karel Gill M.B.B.S., M.D. PCP - General Family Medicine 01/16/[address] [place] [address] [place] [phone] documented as of this encounter
--- OUTSIDE RECORDS SUMMARY | 2022-06-29 19:14 | XMS_ITS | Encounter Summary ---
:1970 Author Organization [facility] Address [address] [place] [address] Care Team Providers Name Role Phone Karel Gill M.D. Primary Care Provider [phone] Reason for Referral Specialty Diagnoses / Procedures Referred By Contact Refer red To Contact Karel Gill M.B.B.S., [facility] [address] [place] [address] Referral ID Status Reason Start Date Expiration Date Visits Requ ested Visits Authorized O VISUAL AIDE Encounter Details Date Type Department Care Team Description 09/30/2021 Orders Only [facility] PCP [facility] Karel Gill M.B.B.S., [address] [place], [place] [phone] (Wo rk) Social History Tobacco Use Types Packs/Day Years [...] or relatives? How often do you attend yazidi or oriental orthodox More than 4 time s per year 12/25/2021 services? Do you belong to any clubs or organizations Yes 12/25/2021 such as yazidi groups, unions, fraternal or athletic groups, or [...] What is the highest level of school you have Some college, n o degree 08/01/2020 completed or the highest degree you have received? Sex Assigned at Date Recorded Female 12/02/2017 9:31 AM AUDIO VISUAL AIDE documented as of this encounter Plan of Treatment Upcoming Encounters Date Type Specialty Care Team Description 07/16/2022 Office Visit Family Medicine Karel Gill M.B.B .S., MAllegra. [address] [place] [phone] (Wo rk) Scheduled Referrals Name Type Priority Associated Order Schedule Diagnoses Covid immunization Outpatient Referral Routine Ex pected: office visit Booster 021 (Approximate), Expires: 09/30/2022 documented as of this encounter Visit Diagnoses Not on filedocumented in this encounter Additional Health Concerns Assessment Noted Time PHQ-9 Depression Total Score: 15 06/05/2021 3:03 PM CD T documented as of this encounter Care Teams Fractionating Still Operator Relationship Specialty Start Date End Date Karel Gill M.B.B.S., Francesca. PCP - General Family Medicine 01/16/[address] [place] [address] [place] [address] documented as of this encounter
--- OUTSIDE RECORDS SUMMARY | 2022-06-29 19:14 | XMS_ITS | Encounter Summary ---
:1970 Author Organization [facility] Address [address] [place] [address] Care Team Providers Name Role Phone Karel Gill M.D. Primary Care Provider [phone] Reason for Visit Reason Comments Med Refill Encounter Details Date Type Department Care Team Description 04/08/2021 Refill Department of Family Medicine, Karel Gill I., Med Refill [facility], in [place] Al[place], [place] 300 [facility] [address] [place] [address] [place] [address] [phone] Social History Tobacco Use Types Packs/Day Years [...] or relatives? How often do you attend sikh or hinduism More than 4 time s per year 12/25/2021 services? 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 Telephone Encounter - Karel Gill M.B.B.S., M.D. - 04/12/2021 7:40 PM CDT I will need to taper her off this medication. This prescription should last 2 months. She may come in and see me. documented in this encounter Plan of Treatment Upcoming Encounters Date Type Specialty Care Team Description 07/16/2022 Office Visit Family Medicine Karel Gill M.B.B .S., M.D. 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 PCP - General Family Medicine 01/16/21 [address] [facility] [place] [address] documented as of this encounter
--- OUTSIDE RECORDS SUMMARY | 2022-06-29 19:14 | XMS_ITS | Encounter Summary ---
:1970 Author Organization [facility] Address [address] [place] [address] Care Team Providers Name Role Phone Karel Gill M.D. Primary Care Provider [phone] Encounter Details Date Type Department Care Team Description 01/08/2022 Hospital Encounter Department of Darline Goyal For Venereal Disease; Laboratory Medicine LAKHWINDER Burton, C.N .P. Bleeding Dysfunctional Uterine in [place], [address] [place], [place] 300 [facility] [address] [place], [place] [phone] [phone] (Work) [phone] Social History Tobacco Use Types Packs/Day Years [...] or relatives? How often do you attend rastafari or muslim More than 4 time s per year 12/25/2021 services? Do you belong to any clubs or organizations Yes 12/25/2021 such as rastafari groups, unions, fraternal or athletic groups, or [...] place to sleep or slept in a fdc (including now)? Education Answer Date Recorded What is the highest level of school Associate degree: mar[employer] car[employer] strong, 12/24/2021 you have completed or the highest technical, or vocational tavia felton degree you have received? 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 vaginal Insert 1 gram creamIndications: vaginally at bedtime Atrophy Vagina Due To 2-3 nights per week. Estrogen Deficiency fluticasone Inhale 1 puff 2 (two) 180 each 3 12/25/2021 propion-salmeteroL times a day. Rinse (Advair Diskus) 250-50 mouth with water after mcg/dose diskus use to reduce inhalerIndications: aftertaste and Asthma Mild incidence of Intermittent (HCC) candidiasis. Do not swallow. fluticasone propionate Administer 2 sprays 16 g 3 12/08 (FLONASE) 50 into each nostril mcg/actuation nasal daily. spray lisinopriL Take 1 tablet (20 mg 90 tablet 3 12/25/2021 (PRINIVIL,ZESTRIL) 20 total) by mouth daily. mg tabletIndications: Hypertension Essential Primary ProAir HFA 90 Inhale 2 puffs every 4 25.5 g 3 12/25/2021 mcg/actuation (four) hours as needed inhalerIndications: for wheezing or Asthma Mild shortness of breath. Intermittent (HCC) topiramate (TOPAMAX) Take 50 mg by mouth 2 0 02/2022 25 mg tablet (two) times a day. triamterene-hydroCHLOR Take 1 tablet by mouth 90 tablet 3 0 12/25/2021 12/25/2022 Othiazide (MAXZIDE) daily. 75-50 mg per tabletIndications: Hypertension Essential Primary venlafaxine XR Take 1 capsule (150 mg 90 capsule 3 2 (EFFEXOR-XR) 150 mg 24 total) by mouth daily. hr capsuleIndications: Depression Major Single Episode Severe Without Psychotic Features (HCC) albuterol 2.5 mg /3 mL Inhale 3 mL (2.5 mg 150 mL 3 12/0806/21/2022 nebulizer total) by nebulization solutionIndications: every 4 (four) hours Asthma Mild as needed for Intermittent (HCC) wheezing. LORazepam (ATIVAN) 0.5 TAKE 1 TABLET BY MOUTH 20 tablet 0 1 02/15/2022 mg tabletIndications: AT BEDTIME NEEDED Anxiety Generalized FOR ANXIETY Disorder, Depression Major Single Episode Severe Without Psychotic Features (HCC) documented as of this encounter Plan of Treatment Upcoming Encounters Date Type Specialty Care Team Description 07/16/2022 Office Visit Family Medicine Karel Gill M.B.B ChuckySChucky, M.Be [address] [place] [phone] (Wo rk) documented as of this encounter Procedures Procedure Name Priority Date/Time Associated Diagnosis Comme nts HIV-1/-2 AG AND AB Routine 01/08/2022 3:35 PM Screening For Ve nereal Results for this SCREEN, PLASMA SOLAR ELECTRIC PRACTITIONER Disease procedure are in the results section. HCV RNA Routine 01/08/2022 3:35 PM Results f or this DETECT/QUANT SOLAR ELECTRIC PRACTITIONER procedure are i n the results section. HCV AB W/REFLEX TO Routine 01/08/2022 3:35 PM Screening For Ve nereal Results for this HCV PCR, S SOLAR ELECTRIC PRACTITIONER Disease procedure are i n the results section. CBC WITH Routine 01/08/2022 3:35 PM Bleeding Dysfunctional Results for this DIFFERENTIAL, B SOLAR ELECTRIC PRACTITIONER Uterine procedure ar e in the results section. THYROID-STIMULATIN Routine 01/08/2022 3:35 PM Bleeding Dysfunc tional Results for this G SOLAR ELECTRIC PRACTITIONER Uterine procedure are i n HORMONE-SENSITIVE the result s (S-TSH) section. documented in this encounter Results HCV RNA Detect / Quant, Serum (01/08/2022 3:35 PM SOLAR ELECTRIC PRACTITIONER) [facility] Method Time Signature HCV RNA Undetected Undetected 01/10/2022 [facility] Detect/Quant, IU/mL 5:15 PM SOLAR ELECTRIC PRACTITIONER S Comment: Result in log IU/mL is Undetected. ----ADDITIONAL INFORMATION---- The quantification range of this assay i s 15 to 100,000,000 IU/mL (1.18 log to 8.00 log IU/mL). Testing was performe d using the jose luis HCV test ([employer] with the jose luis 6800 System. Specimen Anatomical Collection Method Collection Time Receive d Time (Source) Location / / Volume Laterality Blood 01/08/2022 3:35 PM 2 3:08 SOLAR ELECTRIC PRACTITIONER PM SOLAR ELECTRIC PRACTITIONER Darline Goyal APRN C.N.PChucky LAB MICROBIOLOGY - BLOO D ORDERABLES Performing Organization Address City/State/ZIP Code Phon e Number [facility] [address] [place], [place] [address] SUPPORT CENTER [facility] [place] [address] Laboratory Medicine and Pathology [address] [place] (ABNORMAL) CBC with Differential, Blood (01/08/2022 3:35 PM SOLAR ELECTRIC PRACTITIONER) [facility] Method Time Signature Hemoglobin 12.9 11.6 - 01/08/2022 FB60 15.0 g/dL 3:52 PM SOLAR ELECTRIC PRACTITIONER Hematocrit 39.5 35.5 - 01/08/2022 FB60 44.9 % 3:52 PM SOLAR ELECTRIC PRACTITIONER Erythrocytes 4.45 3.92 - 01/08/2022 FB60 5.13 3:52 PM SOLAR ELECTRIC PRACTITIONER x10(12)/L MCV 88.8 78.2 - 01/08/2022 FB60 97.9 fL 3:52 PM SOLAR ELECTRIC PRACTITIONER RBC Distrib Width 14.1 12.2 - 01/08/2022 FB60 16.1 % 3:52 PM SOLAR ELECTRIC PRACTITIONER Platelet Count 283 157 - 371 01/08/2022 FB60 x10(9)/L 3:52 PM SOLAR ELECTRIC PRACTITIONER Leukocytes 12.1 (H) 3.4 - 9.6 01/08/2022 FB60 x10(9)/L 3:52 PM SOLAR ELECTRIC PRACTITIONER Neutrophils 7.66 (H) 1.56 - 01/08/2022 FB60 6.45 3:52 PM SOLAR ELECTRIC PRACTITIONER x10(9)/L Lymphocytes 2.97 0.95 - 01/08/2022 FB60 3.07 3:52 PM SOLAR ELECTRIC PRACTITIONER x10(9)/L Monocytes 0.90 (H) 0.26 - 01/08/2022 FB60 0.81 3:52 PM SOLAR ELECTRIC PRACTITIONER x10(9)/L Eosinophils 0.50 (H) 0.03 - 01/08/2022 FB60 0.48 3:52 PM SOLAR ELECTRIC PRACTITIONER x10(9)/L Basophils 0.04 0.01 - 01/08/2022 FB60 0.08 3:52 PM SOLAR ELECTRIC PRACTITIONER x10(9)/L Specimen Anatomical Collection Method Collection Time Receive d Time (Source) Location / / Volume Laterality Blood (Blood, 01/08/2022 3:35 PM 01/09/20 22 3:36 Venous) SOLAR ELECTRIC PRACTITIONER PM SOLAR ELECTRIC PRACTITIONER Darline Goyal APRN, C.N.P. LAB BLOOD ADD-ON Performing Organization Address City/State/ZIP Code Phon e Number [address] [place] [address] [facility] [address] [place] [address] [address] S-TSH (Thyroid-Stimulating Hormone - Sensitive) (01/08/2022 3:35 PM SOLAR ELECTRIC PRACTITIONER) athologist Signature TSH, Sensitive 2.4 0.3 - 4.2 01/08/2022 [facility] mIU/L 6:31 PM SOLAR ELECTRIC PRACTITIONER Specimen Anatomical Collection Method Collection Time Receive d Time (Source) Location / / Volume Laterality Blood (Blood, 01/08/2022 3:35 PM 01/09/20 22 5:51 Venous) SOLAR ELECTRIC PRACTITIONER PM SOLAR ELECTRIC PRACTITIONER Darline Goyal APRN, C.N.P. LAB BLOOD ADD-ON Performing Organization Address City/State/ZIP Code Phon e Number [facility]- [address] [place] [address] [facility] [place] [address] System in [place] [address] HIV-1/-2 Ag and Ab Screen, Plasma (01/08/2022 3:35 PM SOLAR ELECTRIC PRACTITIONER) P athologist Signature HIV Ag/Ab Negative Negative 01/10/2022 [facility] Screen, P 10:17 AM SOLAR ELECTRIC PRACTITIONER Comment: Negative result does not rule out HIV in fection. If exposure to HIV infection occurred <14 d ays ago, contact the laboratory to request additi on of HIV-1 RNA detection / quantification test. HIV-1 p24 Ag Screen, P Negative Negative 01/10/2022 10:17 AM SOLAR ELECTRIC PRACTITIONER [facility] Comment: Negative result does not rule out HIV in fection. If exposure to HIV infection occurred <14 d ays ago, contact the laboratory to request additi on of HIV-1 RNA detection / quantification test. HIV-1 Ab Screen, P Negative Negative 01/10/2022 10:[address] [facility] Comment: Negative result does not rule out HIV in fection. If exposure to HIV infection occurred <14 d ays ago, contact the laboratory to request additi on of HIV-1 RNA detection / quantification test. HIV-2 Ab Screen, P Negative Negative 01/10/2022 10:[address] [facility] Comment: Negative result does not rule out HIV in fection. If exposure to HIV infection occurred <14 d ays ago, contact the laboratory to request additi on of HIV-1 RNA detection / quantification test. Specimen Anatomical Collection Method Collection Time Receive d Time (Source) Location / / Volume Laterality Blood (Blood, 01/08/2022 3:35 PM 01/10/20 5:21 Venous) SOLAR ELECTRIC PRACTITIONER PM SOLAR ELECTRIC PRACTITIONER Elizabeth Jerez APRNN.PChucky LAB MICROBIOLOGY - BLOO D ORDERABLES Performing Organization Address City/State/ZIP Code Phon e Number [facility]- [address] [place] [address] [place], [place] [address] [facility] [place] [address] System in [address] (ABNORMAL) HCV Ab w/Reflex to HCV PCR, Serum (01/08/2022 3:35 PM SOLAR ELECTRIC PRACTITIONER) athologist Signature HCV Ab, S Reactive (A) Negative 01/09/2022 [facility] 11:23 AM SOLAR ELECTRIC PRACTITIONER Comment: Supplemental testing for HCV RNA is orde red to rule out active HCV infection. Czsdfp-gr-qlxmqa ratio is >=1.00 and <8. 00. Specimen Anatomical Collection Method Collection Time Receive d Time (Source) Location / / Volume Laterality Blood (Blood, 01/08/2022 3:35 PM 01/10/20 22 8:52 Venous) SOLAR ELECTRIC PRACTITIONER AM SOLAR ELECTRIC PRACTITIONER Darline Goyal APRN, C.N.P. LAB MICROBIOLOGY - BLOO D ORDERABLES Performing Organization Address City/State/ZIP Code Phon e Number [facility] [address] [place], [place] [address] SUPPORT CENTER [facility] [place] [address] Laboratory Medicine and Pathology [address] [place] documented in this encounter Visit Diagnoses Diagnosis Screening For Venereal Disease Bleeding Dysfunctional Uterine documented in this encounter Additional Health Concerns Assessment Noted Time PHQ-9 Depression Total Score: 10 12/08/2021 2:36 AM CS T documented as of this encounter Care Teams Robotic Maintenance Technician Relationship Specialty Start Date End Date Karel Gill M.B.BFrancesca Boyd. PCP - General Family Medicine 01/16/[address] [place] [phone] documented as of this encounter
--- OUTSIDE RECORDS SUMMARY | 2022-06-29 19:14 | XMS_ITS | Encounter Summary ---
:1970 Author Organization [facility] Address [address] [place] [address] Care Team Providers Name Role Phone Karel Gill M.D. Primary Care Provider +1 [phone] Encounter Details Date Type Department Care Team Description 12/29/2021 Clinical Communication Department of Karel Giron [facility], [facility], in Emmanuel[place] 300 [facility] 300 [place] [phone] Social History Tobacco Use Types Packs/Day Years [...] or relatives? How often do you attend orthodoxy or church More than 4 time s per year 12/25/2021 services? Do you belong to any clubs or organizations Yes 12/25/2021 such as orthodoxy groups, unions, fraternal or athletic groups, or [...] place to sleep or slept in a chcf (including now)? Education Answer Date Recorded What is the highest level of school Associate degree: [employer], 12/24/2021 you have completed or the highest technical, or vocational p purnima degree you have received? 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 - 12/29/2021 10:04 AM METAL TRIMMER SUBJECTIVE CHIEF COMPLAINT / REASON FOR CALL No chief complaint on file. PLAN The following information was provided: A1c slightly went up to 6.2. ??I would stressed weight loss through healthy diet and exercise. ??Hercholesterol numbers are fine. ?? Information/Education: patient/caller able to teach back The following references were used: provider RYAN Farris MD L TRIMMER Telephone Encounter - Tavia Cole - 12/29/2021 9:59 AM CST Reason for Communication: Patient called returning your call Current Can Nursing/Provider leave a detailed message?: yes Did the patient refuse triage through Nurse line? (for symptom based concerns): Action Needed: please call again Name of Medication (if relevant): Please send all scheduling replies to scheduling pool. L TRIMMER Telephone Encounter - Samreen Mclaughlin L.P.N. - 12/29/2021 9:39 AM CST Left message for patient to return call to clinic. Does the patient need to speak to nursing? yes Action needed: A1c slightly went up to 6.2. ??I would stressed weight loss through healthy diet and exercise. ??Her cholesterol numbers are fine. L TRIMMER documented in this encounter Plan of Treatment Upcoming Encounters Date Type Specialty Care Team Description 07/16/2022 Office Visit Family Medicine Karel Gill M.B.B .S., MChuckyD. 300 [facility] [place] [phone] (Wo rk) documented as of this encounter Visit Diagnoses Not on filedocumented in this encounter Additional Health Concerns Assessment Noted Time PHQ-9 Depression Total Score: 10 12/08/2021 2:36 AM CS T documented as of this encounter Care Teams Coreroom Foundry Laborer Relationship Specialty Start Date End Date Karel Gill M.B.B.S., MChuckyD. PCP - General Family Medicine 01/16/21 300 [facility] [place] [address] documented as of this encounter
--- OUTSIDE RECORDS SUMMARY | 2022-06-29 19:14 | XMS_ITS | Encounter Summary ---
:1970 Author Organization [facility] Address [address] [place] [address] Care Team Providers Name Role Phone Karel Gill M.D. Primary Care Provider [phone] Reason for Visit Reason Comments Med Refill Encounter Details Date Type Department Care Team Description 12/02/2021 Refill Department of Family Medicine, Karel Gill I., Med Refill [facility], in [place]aveen Alvarez [place], [place] 300 [facility] 300 [place] [address] [place] [address] [phone] Social History Tobacco Use Types Packs/Day Years [...] or relatives? How often do you attend methodist or taoist More than 4 time s per year 12/25/2021 services? Do you belong to any clubs or organizations Yes 12/25/2021 such as methodist groups, unions, fraternal or athletic groups, or [...] place to sleep or slept in a skilled nursing (including now)? Education Answer Date Recorded What is the highest level of school you have Some college, n o degree 08/01/2020 completed or the highest degree you have received? 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 MRadha 300 [facility] [place], [place] [phone] (Wo rk) documented as of this encounter Visit Diagnoses Diagnosis Hypertension Essential Primary documented in this encounter Additional Health Concerns Assessment Noted Time PHQ-9 Depression Total Score: 15 06/05/2021 3:03 PM CD T documented as of this encounter Care Teams Manager Gift Relationship Specialty Start Date End Date Karel Gill M.B.B.S. MAllegra. PCP - General Family Medicine 01/16/21 300 [facility] [place] [address] documented as of this encounter
--- OUTSIDE RECORDS SUMMARY | 2022-06-29 19:14 | XMS_ITS | Encounter Summary ---
:1970 Author Organization [facility] Address [address] [place] [address] Care Team Providers Name Role Phone Karel Gill M.D. Primary Care Provider [phone] Encounter Details Date Type Department Care Team Description 08/11/2021 Orders Only [facility] Karel Gill M.B.B.S., MRadha 300 [place], [place] [phone] (Wo rk) Social History [...] or relatives? How often do you attend religion or uatsdin More than 4 time s per year 12/25/2021 services? 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 300 [place], [place] [phone] (Wo rk) documented as of this encounter Visit Diagnoses Not on filedocumented in this encounter Additional Health Concerns Assessment Noted Time PHQ-9 Depression Total Score: 15 06/05/2021 3:03 PM CD T documented as of this encounter Care Teams Edge Inker Heels Relationship Specialty Start Date End Date Karel Gill M.B.B.S., MAllegra. PCP - General Family Medicine 01/16/21 300 [place] [address] documented as of this encounter
--- OUTSIDE RECORDS SUMMARY | 2022-06-29 19:14 | XMS_ITS | Encounter Summary ---
:1970 Author Organization [facility] Address [address] [place] [address] Care Team Providers Name Role Phone Karel Gill M.D. Primary Care Provider [phone] Encounter Details Date Type Department Care Team Description 03/03/2021 Clinical Communication Department of Physical [facility], Medicine and D.O. Rehabilitation in [address] [place] [address] Dr Beck, [place], [place] [address] [address] [facility] [place] [place] [phone] [address] (Work) [phone] Social History Tobacco Use Types Packs/Day Years [...] or relatives? How often do you attend mormonism or judaism More than 4 time s per year 12/25/2021 services? Do you belong to any clubs or organizations Yes 12/25/2021 such as mormonism groups, unions, fraternal or athletic groups, or [...] place to sleep or slept in a halfway (including now)? Education Answer Date Recorded What is the highest level of school you have Some college, n o degree 08/01/2020 completed or the highest degree you have received? 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 - 03/11/2021 8:05 AM CDT Called and left a message with the patient. Telephone Encounter - Jordan Roth D.O. - 03/10/2021 8:02 AM CDT Please call the patient back to ask how much % improvement from completion of her left knee intra-articular corticosteroid injection with ultrasound guidance in August 2020 was noted and if improvement was noted for how long to help determine appropriate further medical care/treatment moving forward.Please ask the patient what else she has done for treatment since that time to determine next best steps of care for her as well. Jordan Roth DO, KALLIE Instructor/Veterinary Toxicologist Tableau Developer Department of Physical Medicine & Rehabilitation Telephone Encounter - Yissel Galicia - 03/09/2021 5:14 PM CDT Reason for Communication: Patient called for an update on scheduling this appt for a knee injection.Please call her back to update. Current Can Nursing/Provider leave a detailed message?: Yes Did the patient refuse triage through Nurse line? (for symptom based concerns): Action Needed: Please call pt back to update as to when she can schedule this appt. Name of Medication (if relevant): Telephone Encounter - Jairo Patel A.T.C. - 03/04/2021 8:36 AM CDT Called and left a message with the patient. Telephone Encounter - Osiel Reilly - 03/03/2021 4:11 PM CDT Reason for Communication: Patient called in wanting to schedule another guided injection of her leftknee by Dr. Roth. There is currently no order for this. Patient would also like to know if she has to wait a certain amount of time after her 2nd COVID shoton 02/18. Current Can Nursing/Provider leave a detailed message: Yes Did the patient refuse triage through Nurse line? (for symptom based concerns): N/a Action Needed: Please call patient back. Name of Medication (if relevant): N/a documented in this encounter Plan of Treatment Upcoming Encounters Date Type Specialty Care Team Description 07/16/2022 Office Visit Family Medicine Karel Gill M.B.B .S., M.Miracle. [address] [place] [phone] (Wo rk) documented as of this encounter Visit Diagnoses Not on filedocumented in this encounter Additional Health Concerns Assessment Noted Time PHQ-9 Depression Total Score: 15 12/25/2019 8:50 AM CS T documented as of this encounter Care Teams Quill Buncher And Sorter Relationship Specialty Start Date End Date Karel Gill M.B.B.S., M.D. PCP - General Family Medicine 01/16/[address] [place] [address] [place] [phone] documented as of this encounter
--- OUTSIDE RECORDS SUMMARY | 2022-06-29 19:14 | XMS_ITS | Encounter Summary ---
:1970 Author Organization [facility] Address [address] [place] [address] Care Team Providers Name Role Phone Karel Gill M.D. Primary Care Provider +[phone] Reason for Visit Reason Comments Med Refill Encounter Details Date Type Department Care Team Description 04/14/2022 Refill Department of Family Medicine, Karel Gill I., Med Refill [facility], in [place]en Alvarez [place], [place] 300 [facility] 300 [place] [address] [place] [address] [phone] Social History Tobacco Use Types Packs/Day Years [...] How often do you attend latter-day or alevism More than 4 time s per year [...] place to sleep or slept in a nursing home (including now)? Education Answer Date Recorded What is the highest level of school Associate degree: [employer], 12/24/2021 you have completed or the highest technical, or vocational p purnima degree you have received? 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 MAllegra. PCP - General Family Medicine 01/16/21 300 [place] [address] documented as of this encounter
--- OUTSIDE RECORDS SUMMARY | 2022-06-29 19:14 | XMS_ITS | Encounter Summary ---
:1970 Author Organization [facility] Address [address] [place] [address] Care Team Providers Name Role Phone Karel Gill M.D. Primary Care Provider [phone] Reason for Referral Outpatient (Routine) - Closed Specialty Diagnoses / Procedures Referred By Contact Refer red To Contact Diagnoses Screening Mammogram Breast Cancer Karel Gill [facility] Region Procedures BI Breast Screening Bilateral with Tomosynthesis Emmanuelle Alvarez 300 [place] [address] Referral ID Status Reason Start Date Expiration Date Visits Requ ested Visits Authorized [id number] Closed 05/19/2021 05/19/2022 1 1 Reason for Visit Outpatient (Routine) - Closed Specialty Diagnoses / Procedures Referred By Contact Refer red To Contact Diagnoses Screening Mammogram Breast Cancer Karel Gill [facility] Region Procedures BI Breast Screening Bilateral with Tomosyntheusha Alvarez M.D. 300 [place] [address] Referral ID Status Reason Start Date Expiration Date Visits Requ ested Visits Authorized [id number] Closed 05/19/2021 05/19/2022 1 1 Encounter Details Date Type Department Care Team Description 05/28/2021 Hospital Encounter Department of Karel Gill Mammogram Radiology in [place] Golden, Breast Cancer [place], [place] Emmanuelle 300 [facility] 300 [facility] [phone] Social History Tobacco Use Types Packs/Day Years [...] or relatives? How often do you attend restoration or pentecostalism More than 4 time s per year 12/25/2021 services? Do you belong to any clubs or organizations Yes 12/25/2021 such as restoration groups, unions, fraternal or athletic groups, or [...] minutes do you engage in exercise at is 20 min 12/25/2021 level? Stress Answer [...] place to sleep or slept in a fpc (including now)? Education Answer Date Recorded What is the highest level of school you have Some college, n o degree 08/01/2020 completed or the highest degree you have received? 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 Advair Diskus 250-50 USE 1 INHALATION 180 each 3 1 12/08/2021 mcg/act diskus TWICE A DAY, RINSE inhalerIndications: MOUTH WITH WATER Asthma Mild AFTER USE TO REDUCE Intermittent (HCC) AFTERTASTE AND INCIDENCE OF CANDIDIASIS, DO NOT SWALLOW albuterol (ACCUNEB) 2.5 USE 1 VIAL IN 150 mL 3 1 12/25/2021 mg /3 mL nebulizer NEBULIZER 4 TIMES solutionIndications: DAILY NEEDED FOR Asthma Mild SHORTNESS OF BREATH Intermittent (HCC) FOR WHEEZING fluconazole (DIFLUCAN) Take 1 tablet (150 mg 2 tablet 0 06/05/2021 150 mg tablet total) by mouth See Admin Instructions. Take one tab now. Repeat in 7 days if symptoms persist. fluticasone propionate USE 2 SPRAY(S) IN 6 201812/25/2021 (FLONASE) 50 EACH NOSTRIL ONCE mcg/actuation nasal DAILY NEEDED FOR spray RHINITIS OR ALLERGIES lisinopriL Take 1 tablet (10 mg 90 tablet 3 01/14/2021 07 (PRINIVIL,ZESTRIL) 10 total) by mouth mg tabletIndications: daily. 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 triamterene-hydroCHLORO Take 1 capsule by 90 capsule 3 05/0106/05/2021 thiazide (DYAZIDE) mouth daily. 37.5-25 mg per capsuleIndications: Hypertension Essential Primary venlafaxine XR Take 1 capsule (150 90 capsule 3 01/19/2021 0 12/25/2021 (EFFEXOR-XR) 150 mg 24 mg total) by mouth hr capsuleIndications: daily. 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 Take with Anxiety Generalized food. 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 - 05/29/2021 11:07 AM CDT There are no findings of malignancy on mammogram. Annual screening mammogram is recommended. documented in this encounter Plan of Treatment Upcoming Encounters Date Type Specialty Care Team Description 07/16/2022 Office Visit Family Medicine Karel Gill M.B.B .S., M.D. [address] [place] [phone] (Wo rk) documented as of this encounter Procedures Procedure Name Priority Date/Time Associated Comments Diagnosis BI BREAST SCREENING RAD - Routine 05/28/2021 1:04 Screening Resu lts for BILATERAL WITH (most inpatients PM CDT Mammogram Breast this procedure TOMOSYNTHESIS and all Cancer are in the outpatients) results section. documented in this encounter Results BI Breast Screening Bilateral with Tomosynthesis (05/28/2021 1:04 PM CDT) Anatomical Region Laterality Modality Breast, Breast Imaging RST LOS, Breast Imaging ARZ LOS, [address] st Bilateral Mammography Imaging FLA LOS Specimen (Source) Anatomical Collection Method Collection Time Re ceived Time Location / / Volume Laterality 05/28/2021 4:35 PM CDT Impressions 05/28/2021 4:38 PM CDT Negative. RECOMMENDATION: ??Annual Screening Mammo gram Elevated risk factor(s) for breast cance r have been identified. This patient may benefit from referral to the Breast Cent er for discussion of possible supplemental imaging to improve breast c ancer detection, medications that may lower the risk of developing breast canc er, or genetic counseling. Lifetime calculated risk 19.8% with 2 secondary r elative with history of breast cancer. ASSESSMENT: ??BI-RADS: 1: Negative. Narrative 05/28/2021 4:38 PM CDT EXAM: ??BI BREAST SCREENING BILATERAL WITH TOMOSYNTHESIS Current study was evaluated with a QMCODES Aided Detection (CAD) system. INDICATION: ??Screening mammogram. COMPARISON: ??Dating back to 2015 DENSITY: ??c. The breast(s) are heteroge neously dense, which may obscure small masses. FINDINGS: ??No mammographic findings of malignancy. Procedure Note New Gordon M.D. - 05/28/2021Formatt ing of this note might be different from the original. EXAM: BI BREAST SCREENING BILATERAL WITH TOMOSYNTHESIS Current study was evaluated with a QMCODES Aided Detection (CAD) system. INDICATION: Screening mammogram. COMPARISON: Dating back to 2015 DENSITY: c. The breast(s) are heterogene ously dense, which may obscure small masses. FINDINGS: No mammographic findings of ma lignancy. IMPRESSION: Negative. RECOMMENDATION: Annual Screening Mammogr am Elevated risk factor(s) for breast cance r have been identified. This patient may benefit from referral to the Breast Cent er for discussion of possible supplemental imaging to improve breast c ancer detection, medications that may lower the risk of developing breast canc er, or genetic counseling. Lifetime calculated risk 19.8% with 2 secondary r elative with history of breast cancer. ASSESSMENT: BI-RADS: 1: Negative. Karel Alvarez M.D. IMG BI PROCEDURES documented in this encounter Visit Diagnoses Diagnosis Screening Mammogram Breast Cancer documented in this encounter Additional Health Concerns Assessment Noted Time PHQ-9 Depression Total Score: 20 05/08/2021 2:56 PM CD T documented as of this encounter Care Teams Cottage Master Relationship Specialty Start Date End Date Karel Gill M.B.B.S., M.D. PCP - General Family Medicine 01/16/[address] [place] [address] [place] [phone] documented as of this encounter
--- OUTSIDE RECORDS SUMMARY | 2022-06-29 19:14 | XMS_ITS | Encounter Summary ---
:1970 Author Organization [facility] Address [address] [place] [address] Care Team Providers Name Role Phone Karel Gill M.D. Primary Care Provider [phone] Reason for Visit Reason Comments Medication follow up Discuss anxiety meds and blo od pressure. Appointment Request (Routine) - Closed Specialty Diagnoses / Procedures Referred By Contact Refer red To Contact Family Medicine Referral ID Status Reason Start Date Expiration Date Visits Requ ested Visits Authorized [id number] Closed 05/19/2021 05/19/2022 1 1 Encounter Details Date Type Department Care Team Description 06/05/2021 Office Visit Department of [facility] Karel Gill Hypchristopher rtension Essential Primary; Medicine, [facility], Anxiety Generalized Disorder; Clinic, in [place] Depression Major Single Episode Severe [facility] Psychotic Features (HCC) [place] [address] [facility] [address] [place], [place] [facility] [place] [id number] [phone] Social History Tobacco Use Types Packs/Day Years [...] or relatives? How often do you attend congregational or anabaptist More than 4 time s per year 12/25/2021 services? Do you belong to any clubs or organizations Yes 12/25/2021 such as congregational groups, unions, fraternal or athletic groups, or [...] 12 months, you worried that your food Somebrodie mes true 12/25/2021 would run out before [...] place to sleep or slept in a longterm (including now)? Education Answer Date Recorded What is the highest level of school you have Some college, n o degree 08/01/2020 completed or the highest degree you have received? 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 - 06/05/2021 2:45 PM CDT SUBJECTIVE CHIEF COMPLAINT / REASON FOR VISIT Shanda Masterson is a 50 y.o. female who presents for evaluation of Medication follow up (Discuss anxiety meds and blood pressure.). HISTORY OF PRESENT ILLNESS Shanda Masterson is a 50-year-old female here for follow-up of multiple issues. Patient has a history of hypertension and is currently on lisinopril and Maxzide. Blood pressure control has been poor and lisinopril was doubled from 10-20 mg daily. Although she denies chest pain, palpitations, lower extremity edema or focal weakness, her blood pressure remains elevated. She also has a history of depression and anxiety. She is on venlafaxine which was increased to 225 mg daily. She also uses Ativan for panic attacks. She has not needed any in the last week. PHQ-9 score 15 Patient denies suicidal or homicidal ideations. Although her numbers have improved, she still feels apathetic and depressed. She is having trouble sleeping at night. The following portions of the patient's history were reviewed and updated as appropriate: allergies,current medications, family history, medical history, social history, surgical history and problem list. REVIEW OF SYSTEMS Pertinent items are noted in HPI. OBJECTIVE BP (!) 139/91 (BP Location: Right arm, Patient Position: Sitting, Cuff Size: Large) Pulse 88 Temp 36.2 ??C (Temporal) Resp 16 Ht 156.5 cm Wt (!) 136 kg BMI 55.71 kg/m?? PHYSICAL EXAM General Appearance: healthy, alert, no distress, cooperative. Skin: skin color, texture, turgor normal, no suspicious rashes or lesions. Head: normocephalic, no masses, lesions, tenderness or abnormalities. Eyes: Anicteric sclera. Pupils are equally round and reactive to light. Extraocular movements are intact. Neck: Supple, no adenopathy; thyroid symmetric, normal size, no bruits. Lungs: clear to auscultation. Heart: RRR without murmur, gallop, or rubs. Musculoskeletal: Range of motion normal in hips, knees, shoulders, and spine. 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 Blood pressure is still poorly controlled so will increase her Maxzide from 1 tablet to 2. This would increase triamterene to 75 mg and hydrochlorothiazide to 50 mg. Depression and anxiety have improved significantly but treatment is still suboptimal. I will start her on trazodone 50 mg daily to be taking at night. She may increase this to 100 mg. She may follow-upwith me in 2 months. documented in this encounter Plan of Treatment Upcoming Encounters Date Type Specialty Care Team Description 07/16/2022 Office Visit Family Medicine Karel Gill M.B.B .S., M.D. [address] [facility] [place] [phone] (Wo rk) documented as of this encounter Visit Diagnoses Diagnosis Hypertension Essential Primary Anxiety Generalized Disorder Depression Major Single Episode Severe W ithout Psychotic Features (HCC) documented in this encounter Additional Health Concerns Assessment Noted Time PHQ-9 Depression Total Score: 15 06/05/2021 3:03 PM CD T documented as of this encounter Care Teams Goat Driver Relationship Specialty Start Date End Date Karel Gill M.B.B.S., M.D. PCP - General Family Medicine 01/16/21 [address] [place] [address] documented as of this encounter
--- OUTSIDE RECORDS SUMMARY | 2022-06-29 19:14 | XMS_ITS | Encounter Summary ---
:1970 Author Organization [facility] Address [address] [place] [address] Care Team Providers Name Role Phone Karel Gill M.D. Primary Care Provider [phone] Encounter Details Date Type Department Care Team Description 05/04/2021 Clinical Communication Department of Karel [facility], [facility], Clinic, in [place] [address] [facility] [address] [place] [phone] Social History Tobacco Use Types Packs/Day Years [...] or relatives? How often do you attend pentecostal or methodist More than 4 time s per year 12/25/2021 services? 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 - 05/04/2021 11:22 AM CDT SUBJECTIVE CHIEF COMPLAINT / REASON FOR CALL No chief complaint on file. Information Discussed Contacted and discussed with patient recent test results, patient did show an understanding of results. PLAN Disposition/Recommendation: recommended continue engagement in self-management activities Information/Education: patient/caller able to teach back Caller agreeable to plan of care: yes The following references were used: provider Karel Gill M.D. Telephone Encounter - Silvana William - 05/04/2021 11:15 AM CDT Patient is returning a call to the nurse. I wasn't able to reach the nurse. Please call the patient back. Patient stated it's okay to leave a detailed message if she doesn't answer. Telephone Encounter - Stephani Joseph R.M.A. - 05/04/2021 11:04 AM CDT Left message for patient to return call to clinic. Does the patient need to speak to nursing? yes Action needed: per Karel Gill MD BNP is a protein found in the heart. ??It is usually elevated with significant heart disease like heart failure. ??A low BNP indicates that her shortness of breath is not associated with heart failure. If symptoms persist, we will re-evaluate looking for other causes. ?? documented in this encounter Plan of Treatment Upcoming Encounters Date Type Specialty Care Team Description 07/16/2022 Office Visit Family Medicine Karel Gill M.B.B .S., M.D. [address] [place], [place] [phone] (Wo rk) documented as of this encounter Visit Diagnoses Not on filedocumented in this encounter Additional Health Concerns Assessment Noted Time PHQ-9 Depression Total Score: 15 12/25/2019 8:50 AM CS T documented as of this encounter Care Teams Chicken Handler Relationship Specialty Start Date End Date Karel Gill M.B.B.S., M.D. PCP - General Family Medicine 01/16/21 [address] [place] [phone] documented as of this encounter
--- OUTSIDE RECORDS SUMMARY | 2022-06-29 19:14 | XMS_ITS | Encounter Summary ---
:1970 Author Organization [facility] Address [address] [place] [address] Care Team Providers Name Role Phone Karel Gill M.D. Primary Care Provider [phone] Reason for Visit Reason Comments Weight Gain Has had weight gain, and uri nary frequency , tingling in hands - has been borderline diabetic and is w orried what her levels may be (*has fasted for the last eight hours) Encounter Details Date Type Department Care Team Description 12/25/2021 Office Visit Department of Family Yvrose Carballo, Katrina Diabetes (Primary Dx); Medicine, [place] Hypertension Essential Primary; Clinic, in [place], [facility] [address] Asthma Mild Intermittent ([facility]); [place], [place] Anxiety Generalized Disorder ; [address] [address] Depression Major Single Episode Severe W ithout Psychotic Features ([facility]); [place], [place] [phone] Screening Lipi d; [phone] (Work) Morbid Obesity Body Mass Index 45.0-49.9 Adult ([facility]) [phone] Social History Tobacco Use Types Packs/Day Years [...] or relatives? How often do you attend mosque or confucianist More than 4 time s per year 12/25/2021 services? Do you belong to any clubs or organizations Yes 12/25/2021 such as mosque groups, unions, fraternal or athletic groups, or [...] place to sleep or slept in a usp (including now)? Education Answer Date Recorded What is the highest level of school Associate degree: mar[employer] del [employer] strong, 12/24/2021 you have completed or the highest technical, or vocational p purnima degree you have received? 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 MANAGER documented as of this encounter Last Filed Vital Signs Vital Sign Reading Time Taken Comments Blood Pressure 132/86 12/25/2021 3:33 PM TECHNOLOGY MANAGER Pulse 106 12/25/2021 3:33 PM TECHNOLOGY MANAGER Temperature 36 ??C (96.8 ??F) 12/25/2021 3:33 PM TECHNOLOGY MANAGER Respiratory Rate 16 12/25/2021 3:33 PM TECHNOLOGY MANAGER Oxygen Saturation - - Inhaled Oxygen Concentration - - Weight 144 kg (317 lb 2.1 oz) 12/25/2021 3:33 PM TECHNOLOGY MANAGER Height 156.5 cm (5' 1.61) 12/25/2021 3:33 PM TECHNOLOGY MANAGER Body Mass Index 58.73 12/25/2021 3:33 PM TECHNOLOGY MANAGER documented in this encounter H&P Notes Ayuob, Mysoon M, M.D. - 12/25/2021 3:45 PM CST SUBJECTIVE CHIEF COMPLAINT / REASON FOR VISIT Weight Gain (Has had weight gain, and urinary frequency , tingling in hands - has been borderline diabetic and is worried what her levels may be (*has fasted for the last eight hours)) HISTORY OF PRESENT ILLNESS Shanda Masterson is a 51 y.o. female who has history of hypertension, morbid obesity, former smoker, hypertension, hyperlipidemia, hepatitis C status post treatment in remission, prediabetes, asthma who presented today to the clinic to discuss weight gain concern as well as asthma and get labs for prediabetes. Patient has history of asthma. She is currently on Advair and albuterol. She has not been using Advair recently, she stated that she ran out of prescription and would like it to be refilled. Over the last couple of weeks, she has had cough, shortness of breath, exertional dyspnea and persistent wheezing episodes. She has needed to use her albuterol inhaler 6-7 times a day. She also has history of allergies and she was on Flonase in the past. She stated that she things are allergy exacerbate her symptoms. She quit smoking in January 2020. She has also been experiencing weight gain over the last year. She has been diagnosed with pre diabetes and is trying do intermittent fasting and keto diet. She stated that she has not noticed great improvement in her weight. She has history of hypertension. She is currently on lisinopril 20 mg daily and Maxzide 75/50 mg daily.. Her blood pressure is well control. She has history of depression anxiety. She is currently on Effexor 150 mg daily. She stated that shehas been doing very well. Contracted safety. REVIEW OF SYSTEMS REVIEW OF SYSTEMS Pertinent positive ROS are listed above in HPI. Current Outpatient Medications: ??? albuterol 2.5 mg /3 mL nebulizer solution, Inhale 3 mL (2.5 mg total) by nebulization every 4 (four) hours as needed for wheezing., Disp: 150 mL, Rfl: 3 ??? fluticasone propion-salmeteroL (Advair Diskus) 250-50 mcg/dose diskus inhaler, Inhale 1 puff 2 (two) times a day. Rinse mouth with water after use to reduce aftertaste and incidence of candidiasis.Do not swallow., Disp: 180 each, Rfl: 3 ??? fluticasone propionate (FLONASE) 50 mcg/actuation nasal spray, Administer 2 sprays into each nostril daily., Disp: 16 g, Rfl: 3 ??? lisinopriL (PRINIVIL,ZESTRIL) 20 mg tablet, Take 1 tablet (20 mg total) by mouth daily., Disp: 90 tablet, Rfl: 3 ??? LORazepam (ATIVAN) 0.5 mg tablet, TAKE 1 TABLET BY MOUTH AT BEDTIME NEEDED FOR ANXIETY, Disp:20 tablet, Rfl: 0 ??? ProAir HFA 90 mcg/actuation inhaler, Inhale 2 puffs every 4 (four) hours as needed for wheezing or shortness of breath., Disp: 25.5 g, Rfl: 3 ??? topiramate (TOPAMAX) 25 mg tablet, Take 50 mg by mouth 2 (two) times a day., Disp: , Rfl: ??? triamterene-hydroCHLOROthiazide (MAXZIDE) 75-50 mg per tablet, Take 1 tablet by mouth daily., Disp: 90 tablet, Rfl: 3 ??? venlafaxine XR (EFFEXOR-XR) 150 mg 24 hr capsule, Take 1 capsule (150 mg total) by mouth daily.,Disp: 90 capsule, Rfl: 3 ??? estradioL (ESTRACE) 0.1 mg/g (0.01%) vaginal cream, Insert 1 g into the vagina as directed. Insert 1 gram vaginally at bedtime 2-3 nights per week., Disp: 42.5 g, Rfl: 12 ALLERGIES Latex, Valsartan, and Magnesium sulfate PAST MEDICAL HISTORY Past Medical History: Diagnosis Date ??? Abuse Tobacco Smoking ??? Anxiety Generalized Disorder 12/07/2016 ??? Asthma (HCC) ??? Asthma Mild Intermittent (HCC) 12/07/2016 ??? Dermatitis Atopic 05/31/2016 ??? Dermatitis Eczematoid ??? Hypertension Essential Primary ??? Hypertriglyceridemia ??? Menorrhagia ??? Migraine Headache ??? Migraine Headache Classic 12/07/2016 ??? Morbid Obesity Body Mass Index 50.0-59.9 Adult (HCC) ??? PreDiabetes PAST SURGICAL HISTORY Past Surgical History: Procedure Laterality Date ??? APPENDECTOMY N/A ??? SECTION N/A 1992 with delivery ??? ESOPHAGOSCOPY / EGD 12/19/2017 KIRILL/Shy Chaidez ??? HAND SURGERY Left dislocated 3rd and 4th metacarpal on left hand ??? LAPAROSCOPIC CHOLECYSTECTOMY ??? OVARIAN CYST REMOVAL Right ??? RECONSTRUCTION OF ANTERIOR CRUCIATE LIGAMENT OF KNEE Left with cadevar material STAFFING ACCOUNT MANAGER HISTORY No LMP recorded. FAMILY HISTORY Family History Problem Relation Age of Onset ??? Hyperlipidemia Mother ??? Hypertension Mother ??? Hyperlipidemia Father ??? Hypertension Father ??? TIA - Transient ischaemic attack Father ??? Cirrhosis Brother stage 4 ??? Seizures Brother ??? Hemorrhagic stroke Brother ??? Breast cancer Grandmother 58 ??? Diabetes Grandmother ??? Lung cancer Grandmother w/ mets to breast ??? Heart attack Maternal Grandfather ??? Anxiety depression Daughter ??? Colon cancer Neg Hx SOCIAL HISTORY Social History Socioeconomic History ??? Marital status: Spouse name: Not on file ??? Number of children: Not on file ??? Years of education: Not on file ??? Highest education level: Associate degree: occupational, technical, or vocational program Occupational History ??? Not on file Tobacco Use ??? Smoking status: Former Smoker Packs/day: 0.50 Types: Cigarettes Quit date: 01/10/2020 Years since quittin.0 ??? Smokeless tobacco: Never Used Substance and Sexual Activity ??? Alcohol use: Yes Comment: Seldom ??? Drug use: No ??? Sexual activity: Yes Partners: Male Other Topics Concern ??? Not on file Social History Narrative She is and has one daughter. She works at [employer] in [place]. Social Determinants of Health Financial Resource Strain: Low Risk ??? Difficulty of Paying Living Expenses: Not very hard Food Insecurity: Food Insecurity Present ??? Worried About Running Out of Food in the Last Year: Sometimes true ??? Ran Out of Food in the Last Year: Patient refused Transportation Needs: No Transportation Needs ??? Lack of Transportation (Medical): No ??? Lack of Transportation (Non-Medical): No Physical Activity: Insufficiently Active ??? Days of Exercise per Week: 1 day ??? Minutes of Exercise per Session: 20 min Stress: Stress Concern Present ??? Feeling of Stress : Rather much Social Connections: Socially Integrated ??? Frequency of Communication with Friends and Family: Twice a week ??? Frequency of Social Gatherings with Friends and Family: Once a week ??? Attends Buddhism Services: More than 4 times per year ??? Active Member of Clubs or Organizations: Yes ??? Attends Club or Organization Meetings: More than 4 times per year ??? Marital Status: Intimate Partner Violence: Not At Risk ??? Fear of Current or Ex-Partner: No ??? Emotionally Abused: No ??? Physically Abused: No ??? Sexually Abused: No Housing Stability: Low Risk ??? Unable to Pay for Housing in the Last Year: No ??? Number of Places Lived in the Last Year: 1 ??? Unstable Housing in the Last Year: No OBJECTIVE BP 132/86 (BP Location: Right arm, Patient Position: Sitting, Cuff Size: Large) Pulse 106 Temp 36 ??C (Temporal) Resp 16 Ht 156.5 cm Wt (!) 144 kg BMI 58.73 kg/m?? PHYSICAL EXAMINATION General: Alert, pleasant female appearing in no acute distress. Neuro: Oriented x 3, responds appropriately to questions and follows commands without difficulty. Pupils equal and reactive to light. Cranial nerves II-XII grossly intact. EOMs intact. Muscle tone and strength normal and equal bilaterally without weakness or involuntary movements. Sensation intact to light touch in all extremities. Head: Normocephalic, atraumatic. Eyes: Sclerae clear without injection, conjunctivae without drainage, erythema or matting. RAEANN. Ears: Normal auditory canals and external ears. Tympanic membranes pearly bilaterally. Nontender. Oropharynx: Moist and pink without exudate. Normal buccal mucosa. Dental hygiene adequate. Neck: Supple without lymphadenopathy. No thyromegaly or carotid bruits. Heart: Normal S1, S2 with regular rate and rhythm. No murmurs, rubs, or clicks heard. Lungs: Clear to auscultation bilaterally posteriorly without rhonchi, wheezes, or crackles. No coughon exam today. Respirations are easy and unlabored. Abdomen: Soft, nondistended, nontender to palpation without palpable masses or organomegaly. Musculoskeletal: Back is straight and non-tender, full range of motion of upper and lower extremities. Feet: Good pedal pulses, no lesions, nail hygiene good. Extremities: No upper or lower extremity edema or cyanosis. Skin: Warm and dry without rashes on the visible areas. Psychiatric: Appropriate mood and affect. Makes good eye contact. Dressed appropriately. Contributesmeaningfully to conversation. ASSESSMENT / PLAN #1 Hypertension Essential Primary - triamterene-hydroCHLOROthiazide (MAXZIDE) 75-50 mg per tablet; Take 1 tablet by mouth daily., Starting Tue12/25/2021, Until 12/25/2022, Normal - lisinopriL (PRINIVIL,ZESTRIL) 20 mg tablet; Take 1 tablet (20 mg total) by mouth daily., Starting Tue12/25/2021, Normal Blood pressure well controlled. Refill sent to the pharmacy. She will continue monitoring her blood pressure. #2 Asthma Mild Intermittent (HCC) - fluticasone propion-salmeteroL (Advair Diskus) 250-50 mcg/dose diskus inhaler; Inhale 1 puff 2 (two) times a day. Rinse mouth with water after use to reduce aftertaste and incidence of candidiasis. Do not swallow., Starting Tue12/25/2021, Normal - ProAir HFA 90 mcg/actuation inhaler; Inhale 2 puffs every 4 (four) hours as needed for wheezing orshortness of breath., Starting Tue12/25/2021, Normal - albuterol 2.5 mg /3 mL nebulizer solution; Inhale 3 mL (2.5 mg total) by nebulization every 4 (four) hours as needed for wheezing., Starting Tue12/25/2021, Normal Patient with recent mild asthma exacerbation. I would resume her Advair to help control her asthma. Within the prescription for prednisone 20 mg for for 7 days. She will continue using albuterol every 4 hours as needed. Will follow-up in 1 week. She will receive flu shot today. She declined COVID shot today. 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 Refill on Effexor 10 to the pharmacy. Contracted safety. #5 PreDiabetes - Hemoglobin A1c; Future; Expected date: 12/25/2021 #6 Screening Lipid - Lipid Panel; Future; Expected date: 12/25/2021 She is currently not on any medications. We will check her lipid profile and call her with the result. #7 Morbid Obesity Body Mass Index 45.0-49.9 Adult ([facility]) Had lengthy discussion regarding healthy diet and exercise. We also discussed regarding intermittentfasting and low carb diet. We provided information and books to help with managing her weight. #8 Health maintenance Other orders - predniSONE (DELTASONE) 20 mg tablet; Take 1 tablet (20 mg total) by mouth daily for 7 days., Starting Tue12/25/2021, Until Tue01/01/2022, Normal - fluticasone propionate (FLONASE) 50 mcg/actuation nasal spray; Administer 2 sprays into each nostril daily., Starting Tue12/25/2021, Normal - influenza vaccine quad (FLUZONE/FLUARIX) (6 months and older) (PF) - SARS-COV-2 (COVID-19) - RENATA Carballo M.D. NOLOGY MANAGER documented in this encounter Plan of Treatment Upcoming Encounters Date Type Specialty Care Team Description 07/16/2022 Office Visit Family Medicine Karel Gill M.B.B .S., M.D. [address] [place] [address] [phone] (Wo rk) documented as of this encounter Results (ABNORMAL) Lipid Panel (12/25/2021 4:36 PM TECHNOLOGY MANAGER) athologist Signature Cholesterol, 184 mg/dL 12/25/2021 OW[place] Total 6:20 PM TECHNOLOGY MANAGER Comment: ----REFERENCE VALUE---- Desirable: < 200 Borderline high: 200 - 239 High: > or = 240 Triglycerides 144 mg/dL 12/25/2021 6:20 PM TECHNOLOGY MANAGER OWA T Comment: ----REFERENCE VALUE---- Normal: <150 Borderline high: 150-199 High: 200-499 Very high: > or =500 Cholesterol, HDL 47 (L) >=50 mg/dL 12/25/2021 6:20 PM TECHNOLOGY MANAGER OWAT Calculated LDL 108 mg/dL 12/25/2021 6:20 PM TECHNOLOGY MANAGER OW AT Comment: ----REFERENCE VALUE---- Desirable: <100 mg/dL Above Desirable: 100-129 mg/dL Borderline High: 130-159 mg/dL High: 160-189 mg/dL Very High: >=190 mg/dL Cholesterol, Non-HDL, Calculated 137 mg/dL 022 6:20 PM TECHNOLOGY MANAGER OWAT Comment: ----REFERENCE VALUE---- Desirable: <130 Above Desirable: 130-159 Borderline high: 160-189 High: 190-219 Very high: > or =220 Specimen Anatomical Collection Method Collection Time Receive d Time (Source) Location / / Volume Laterality Blood (Blood, 12/25/2021 4:36 PM 12/25/19 6:04 Venous) TECHNOLOGY MANAGER PM TECHNOLOGY MANAGER Yvrose Carballo M.D. LAB BLOOD ADD-ON Performing Organization Address City/State/ZIP Code Phon e Number [facility] [address] [place] [address] [place] [address] System in [place] [address] (ABNORMAL) Hemoglobin A1c (12/25/2021 4:36 PM TECHNOLOGY MANAGER) P athologist Signature Hemoglobin A1c, 6.2 (H) 4.2 - 5.6 12/25/2021 OW[place] B % 6:22 PM TECHNOLOGY MANAGER Comment: Hemoglobin A1c values of 5.7-6.4 percent indicate an increased risk for developing diabetes manuel dave. In diabetic patients, HbA1c goals should be discussed with healthcare provider. Specimen Anatomical Collection Method Collection Time Receive d Time (Source) Location / / Volume Laterality Blood (Blood, 12/25/2021 4:36 PM 12/25/19 6:04 Venous) TECHNOLOGY MANAGER PM TECHNOLOGY MANAGER Yvrose Carballo M.D. LAB BLOOD ADD-ON Performing Organization Address City/State/ZIP Code Phon e Number [facility]- [address] [address] [facility] [place] [address] System in [place] [address] documented in this encounter Visit Diagnoses Diagnosis PreDiabetes - Primary Hypertension Essential Primary Asthma Mild Intermittent (HCC) Anxiety Generalized Disorder Depression Major Single Episode Severe W ithout Psychotic Features (HCC) Screening Lipid Morbid Obesity Body Mass Index 45.0-49.9 Adult (HCC) documented in this encounter Additional Health Concerns Assessment Noted Time PHQ-9 Depression Total Score: 10 12/08/2021 2:36 AM CS T documented as of this encounter Care Teams Clean Energy Policy Analyst Relationship Specialty Start Date End Date Karel Gill M.B.B.S., M.D. PCP - General Family Medicine 01/16/[address] [place] [address] [place] [id number] documented as of this encounter
--- OUTSIDE RECORDS SUMMARY | 2022-06-29 19:14 | XMS_ITS | Encounter Summary ---
:1970 Author Organization [facility] Address [address] [place] [address] Care Team Providers Name Role Phone Karel Gill M.D. Primary Care Provider [phone] Encounter Details Date Type Department Care Team Description 05/12/2022 Orders Only [facility] P[facility] Candida Schwab Mo nitoring For M.D. Therapeutic Drug [address] [place] [phone] Social History Tobacco Use Types Packs/Day Years [...] or relatives? How often do you attend sabianist or denominational More than 4 time s per year 12/25/2021 services? Do you belong to any clubs or organizations Yes 12/25/2021 such as sabianist groups, unions, fraternal or athletic groups, or [...] place to sleep or slept in a custodial (including now)? Education Answer Date Recorded What is the highest level of school Associate degree: mar[employer] del [employer] strong, 12/24/2021 you have completed or the highest technical, or vocational tavia felton degree you have received? 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 [address] [place] [address] [phone] (Wo rk) documented as of this encounter Results Basic Metabolic Panel (06/25/2022 [...] CDT eGFR-Black/Afric >90 >=60 06/25/2022 OWAT an Swiss mL/min/BSA 4:12 PM CDT Comment: ----ADDITIONAL INFORMATION---- [...] Organization Address City/State/ZIP Code Phon e Number [facility]- [address] [place] [address] [facility] [place] [address] System in [place] [address] documented in this encounter Visit Diagnoses Diagnosis Monitoring For Therapeutic Drug Therapy documented in this encounter Additional Health Concerns Assessment Noted Time PHQ-9 Depression Total Score: 13 03/17/2022 12:36 PM C DT documented as of this encounter Care Teams Tableau Architect Relationship Specialty Start Date End Date Karel Gill M.B.B.S., M.D. PCP - General Family Medicine 01/16/[address] [place] [address] [place] [phone] documented as of this encounter
--- OUTSIDE RECORDS SUMMARY | 2022-06-29 19:14 | XMS_ITS | Encounter Summary ---
:1970 Author Organization [facility] Address [address] [place] [address] Care Team Providers Name Role Phone Karel Gill M.D. Primary Care Provider [phone] Reason for Visit Reason Comments Med Refill Encounter Details Date Type Department Care Team Description 08/16/2021 Refill Department of Family Medicine, Karel Gill I., Med Refill [facility], in [place], [place] [address] [facility] [address] [place] [address] [place] [address] [phone] Social History Tobacco Use Types Packs/Day Years [...] or relatives? How often do you attend uatsdin or pentecostal More than 4 time s per year 12/25/2021 services? 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 [facility] [place] [phone] (Wo rk) documented as of this encounter Visit Diagnoses Diagnosis Anxiety Generalized Disorder Depression Major Single Episode Severe W ithout Psychotic Features (HCC) documented in this encounter Additional Health Concerns Assessment Noted Time PHQ-9 Depression Total Score: 15 06/05/2021 3:03 PM CD T documented as of this encounter Care Teams Data Control Clerk Relationship Specialty Start Date End Date Karel Gill M.B.B.S., M.D. PCP - General Family Medicine 01/16/21 [address] [facility] [place] [phone] documented as of this encounter
--- OUTSIDE RECORDS SUMMARY | 2022-06-29 19:14 | XMS_ITS | Encounter Summary ---
:1970 Author Organization [facility] Address [address] [place] [address] Care Team Providers Name Role Phone Karel Gill M.D. Primary Care Provider [phone] Encounter Details Date Type Department Care Team Description 11/12/2021 Orders Only [facility] MNT Karel Gill M.B.B.S., M. D. [address] [place] [phone] Social History Tobacco Use Types Packs/Day Years [...] or relatives? How often do you attend tenriism or mandaeism More than 4 time s per year 12/25/2021 services? Do you belong to any clubs or organizations Yes 12/25/2021 such as tenriism groups, unions, fraternal or athletic groups, or [...] place to sleep or slept in a correction (including now)? Education Answer Date Recorded What is the highest level of school you have Some college, n o degree 08/01/2020 completed or the highest degree you have received? 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 PCP - General Family Medicine 01/16/21 [address] [place] [phone] documented as of this encounter
--- OUTSIDE RECORDS SUMMARY | 2022-06-29 19:14 | XMS_ITS | Encounter Summary ---
:1970 Author Organization [facility] Address [address] [place] [address] Care Team Providers Name Role Phone Karel Gill M.D. 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 - 04/17/2021 11:48 AM CDT Please help patient schedule appt with one of the PA's in General Surgery for a consult . Thanks Telephone Encounter - Yissel Galicia - 04/17/2021 9:50 AM CDT Reason for Communication: Patient would like to schedule an appt with Dr De Leon for veins on her legs. Current Can Nursing/Provider leave a detailed message?: Yes Did the patient refuse triage through Nurse line? (for symptom based concerns): Action Needed: Please call back to advise Name of Medication (if relevant): documented in this encounter Plan of Treatment Upcoming Encounters Date Type Specialty Care Team Description 07/16/2022 Office Visit Family Medicine Karel Gill M.B.B .S., MRadha [address] [facility] [place], [place] [phone] (Wo rk) documented as of this encounter Visit Diagnoses Not on filedocumented in this encounter Additional Health Concerns Assessment Noted Time PHQ-9 Depression Total Score: 15 12/25/2019 8:50 AM CS T documented as of this encounter Care Teams Drill Grinder Relationship Specialty Start Date End Date Karel Gill M.B.BChuckySChucky, MAllegra. PCP - General Family Medicine 01/16/21 300 [facility] [place] [address] documented as of this encounter
--- OUTSIDE RECORDS SUMMARY | 2022-06-29 19:14 | XMS_ITS | Encounter Summary ---
:1970 Author Organization [facility] Address [address] [place] [address] Care Team Providers Name Role Phone Karel Gill M.D. Primary Care Provider [phone] Reason for Referral Outpatient (Routine) - Closed Specialty Diagnoses / Procedures Referred By Contact Refer red To Contact Diagnoses Palpitations Karel Gill M.B.BDeb, [facility] Region Procedures ECG 12 Lead M.DChucky [address] [place] [phone] Referral ID Status Reason Start Date Expiration Date Visits Requ ested Visits Authorized [id number] Closed 05/01/2021 05/01/2022 1 1 Reason for Visit Reason Comments Other BP check Appointment Request (Routine) - Closed Specialty Diagnoses / Procedures Referred By Contact Refer red To Contact Family Medicine Referral ID Status Reason Start Date Expiration Date Visits Requ ested Visits Authorized [id number] Closed 04/17/2021 04/17/2022 1 1 Encounter Details Date Type Department Care Team Description 05/01/2021 Office Visit Department of Family Karel Gill rtension Essential Primary (Primary Dx); Medicine, Antonio Peraza, [facility] [place] [address] [facility] [address] [facility] [place] [phone] Social History Tobacco Use Types Packs/Day Years [...] or relatives? How often do you attend anglican or holiness More than 4 time s per year 12/25/2021 services? 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 - 05/01/2021 2:45 PM CDT SUBJECTIVE CHIEF COMPLAINT / REASON FOR VISIT Shanda Masterson is a 50 y.o. female who presents for evaluation of Other (BP check). HISTORY OF PRESENT ILLNESS Shanda Masterson is a morbidly obese 50-year-old female with a history of hypertension and asthma here for follow-up. She is on triamterene-hydrochlorothiazide and lisinopril. Blood pressure readings have remained elevated over 140 systolic. She claims consistency with her medications. Today, patient reports that over the last 6 months she has felt her heart running all the time. She reports associated fatigue, orthopnea, PND and exertional dyspnea. She has had no chest pain or diaphoresis. The following portions of the patient's history were reviewed and updated as appropriate: allergies,current medications, family history, medical history, social history, surgical history and problem list. REVIEW OF SYSTEMS Pertinent items are noted in HPI. OBJECTIVE BP 148/83 (BP Location: Left arm, Patient Position: Sitting, Cuff Size: Large) Comment: Second reading Pulse 104 Temp 36.1 ??C (Temporal) Resp 16 Ht 159 cm Wt 134 kg BMI 53.04 kg/m?? PHYSICAL EXAM General Appearance: healthy, alert, [...] / PLAN #1 Hypertension Essential Primary #2 Palpitations 50-year-old morbidly obese female with a history of prediabetes and hypertension. She has cardiac symptoms which are concerning and a blood pressure that is not well controlled. Will increase her lisinopril to 20 mg daily. Will also review with an EKG and BNP. Palpitations might represent worsening anxiety but I believe it would be prudent to do a cardiac workup. She will follow-up with me next week. documented in this encounter Plan of Treatment Upcoming Encounters Date Type Specialty Care Team Description 07/16/2022 Office Visit Family Medicine Karel Gill M.B.B .S., M.D. [address] [place] [phone] (Wo rk) documented as of this encounter Procedures Procedure Name Priority Date/Time Associated Diagnosis Comme nts ECG Routine 05/01/2021 3:34 PM Palpitations Results f or this CDT procedure are i n the results section. NT-PRO B-TYPE Routine 05/01/2021 3:26 PM Hypertension Results for this NATRIURETIC PEPTIDE CDT Essential Pr imary procedure are in (BNP), S Palpitations the results section. documented in this encounter Results ECG 12 Lead (05/01/2021 3:34 PM CDT) P athologist Signature Ventricular Rate 103 BPM MUSE ECG/Min ID Interval 144 ms MUSE QRSD Interval 84 ms MUSE QT Interval 350 ms MUSE QTC Interval 458 ms MUSE P [place] 54 degrees MUSE R [place] 71 degrees MUSE T Wave [place] 40 degrees MUSE Specimen Anatomical Collection Method Collection Time Receive d Time (Source) Location / / Volume Laterality 05/01/2021 3:34 PM 3:41 CDT PM CDT Impressions MUSE - 05/01/2021 3:41 PM CDT Sinus tachycardia Otherwise normal ECG When compared with ECG of 02-JAN-2021 10 :27, No significant change was found Reviewed by MICHAEL Owens Narrative This result has an attachment that is no t available. Procedure Note Zander Charles M.D. - 05/01/2021Forma tting of this note might be different from the original. IMPRESSION: Sinus tachycardia Otherwise normal ECG When compared with ECG of 02-JAN-2021 10 :27, No significant change was found Reviewed by MICHAEL Owens Karel Alvarez M.D. ECG ORDERABLES Performing Organization Address City/State/[facility] Code Phon e Number GABRIELLE ANTHONY NA NT-Pro B-Type Natriuretic Peptide (BNP) (05/01/2021 3:26 PM CDT) P athologist Signature NT-Pro BNP 33 <=146 pg/mL 05/01/2021 OWAT 6:23 PM CDT Comment: NT-proBNP values less than 300 pg/mL hav e a 99% negative predictive value for excluding acute congestive heart rosangela lure. A cutoff of 1200 pg/mL for patients with an eGFR<60 yields a diagno stic sensitivity and specificity of 89% and 72% for acute congestive heart f ailure. ??NT-proBNP values greater than 450 pg/mL are consistent with CHF i n adults under 50 years of age. Biotin has been identified by the jessica gastelum as a potential interfering substance. ??Higher concentr ations of biotin may be found in multivitamins, hair/nail supple ments, and workout supplements. ??If the result does not ma [facility] clinical observations, repeat testing after patient refrains fr om the use of supplements for at least 12 hours. Specimen Anatomical Collection Method Collection Time Receive d Time (Source) Location / / Volume Laterality Blood (Blood, 05/01/2021 3:26 PM 05/01/20 5:44 Venous) CDT PM CDT Karel Alvarez M.D. LAB BLOOD ADD-ON Performing Organization Address City/State/ZIP Code Phon e Number [facility] [address] [place] [address] [place] [address] System in [place] [address] documented in this encounter Visit Diagnoses Diagnosis Hypertension Essential Primary - Primary Palpitations documented in this encounter Additional Health Concerns Assessment Noted Time PHQ-9 Depression Total Score: 15 12/25/2019 8:50 AM CS T documented as of this encounter Care Teams Crystal Grower Relationship Specialty Start Date End Date Karel iGll M.B.B.S., M.D. PCP - General Family Medicine 01/16/[address] [place] [address] [place] [phone] documented as of this encounter
--- OUTSIDE RECORDS SUMMARY | 2022-06-29 19:14 | XMS_ITS | Encounter Summary ---
:1970 Author Organization [facility] Address [address] [place] [address] Care Team Providers Name Role Phone Karel Gill M.D. 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 - 06/01/2021 9:56 AM CDT Letter was mailed to patient on 05/28/21 by Radiology informing patient of mammogram results. Telephone Encounter - Mahad Willett V. C.M.AChucky - 06/01/2021 8:24 AM CDT Left message for patient to return call to clinic. ?? Does the patient need to speak to nursing? no ?? Action needed: patient needs to be informed of the following results per Dr. Jairo M.D. ?? There are no findings of malignancy on mammogram. ??Annual screening mammogram is recommended. ? Telephone Encounter - Joan Lovelace - 05/29/2021 11:14 AM CDT Left message for patient to return call to clinic. Does the patient need to speak to nursing? no Action needed: patient needs to be informed of the following results per Dr. Jairo M.D. There are no findings of malignancy on mammogram. ??Annual screening mammogram is recommended. documented in this encounter Plan of Treatment Upcoming Encounters Date Type Specialty Care Team Description 07/16/2022 Office Visit Family Medicine Karel Gill M.B.B .S., M.D. [address] [facility] [place] [phone] (Wo rk) documented as of this encounter Visit Diagnoses Not on filedocumented in this encounter Additional Health Concerns Assessment Noted Time PHQ-9 Depression Total Score: 20 05/08/2021 2:56 PM CD T documented as of this encounter Care Teams Central Service Supply Distributor Relationship Specialty Start Date End Date Karel Gill M.B.B.S., M.D. PCP - General Family Medicine 01/16/21 300 [facility] [place] [phone] documented as of this encounter
--- OUTSIDE RECORDS SUMMARY | 2022-06-29 19:14 | XMS_ITS | Encounter Summary ---
:1970 Author Organization [facility] Address [address] [place] [address] Care Team Providers Name Role Phone Karel Gill M.D. Primary Care Provider [phone] Reason for Visit Reason Comments Med Refill Encounter Details Date Type Department Care Team Description 10/17/2021 Refill Department of Family Medicine, Karel Gill I., Med Refill [facility], in [place] Al[place], [place] [address] [facility] [address] [place] [address] [place] [address] [phone] Social History Tobacco Use Types Packs/Day Years [...] or relatives? How often do you attend jain or taoism More than 4 time s per year 12/25/2021 services? Do you belong to any clubs or organizations Yes 12/25/2021 such as jain groups, unions, fraternal or athletic groups, or [...] place to sleep or slept in a [place] [facility] (including now)? Education Answer Date Recorded What is the highest level of school you have Some college, n o degree 08/01/2020 completed or the highest degree you have received? 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 PCP - General Family Medicine 01/16/21 300 [facility] [place] [phone] documented as of this encounter
--- OUTSIDE RECORDS SUMMARY | 2022-06-29 19:14 | XMS_ITS | Encounter Summary ---
:1970 Author Organization [facility] Address [address] [place] [address] Care Team Providers Name Role Phone Karel Gill M.D. Primary Care Provider [phone] Reason for Referral Outpatient (Routine) - Authorized Specialty Diagnoses / Procedures Referred By Contact Refer red To Contact Diagnoses Bleeding Dysfunctional Uterine Morbid Obesity Body Mass Index 50.0-59.9 Adult ([facility]) Darline Goyal APRN, [facility] Region Procedures Endometrial Sampling C.N.P. [address] [place] [address] Referral ID Status Reason Start Date Expiration Date Visits V isits Requested Authorized [id number] Authorized 01/08/2022 01/08/2023 1 1 utpatient (Routine) - Authorized Specialty Diagnoses / Procedures Referred By Contact Refer red To Contact Diagnoses Need Vaccine Immunization Shingles Zoster Darline Goyal APRN, [facility] C.N.P. [address] [place] [phone] Referral ID Status Reason Start Date Expiration Date Visits V isits Requested Authorized [id number] Authorized 01/08/2022 01/08/2023 1 1 utpatient (Routine) - Authorized Specialty Diagnoses / Procedures Referred By Contact Refer red To Contact Diagnoses Bleeding Dysfunctional Uterine Darline Goyal, [facility] Region Procedures US Pelvis Transvaginal and Transabdominal LAKHWINDER, C.N.P. [address] [phone] Referral ID Status Reason Start Date Expiration Date Visits V isits Requested Authorized [id number] Authorized 01/08/2022 01/08/2023 1 1 Y ROLLER Reason for Visit Reason Comments Annual Exam Encounter Details Date Type Department Care Team Description 01/08/2022 Comprehensive [facility] MRadha [address] [place] [address] Preventive Gynecological Exam (Primary D x); Obstetrics and Darline Goyal APRN, C.N.P. [address] [phone] Screening Colon Cancer Average Risk; Gynecology in Screening For Venereal Disease; Navarro, [facility] Vaccine Im munization Shingles Zoster; [place] Bleeding Dysfunctional Uteri ne; [address] PreDiabetes; [place], [place] Morbid Obesity Body Mass Index 50.0-59.9 Adult ([facility]); [id number] Hypertension Essential Prima ry; [phone] Hypertriglyceri demia; Depression Katherine r Single Episode Severe Without Psychotic Features ([facility]); Anxiety General ized Disorder; Asthma Mild Int ermittent ([facility]); Migraine Headac he Classic; Atrophy Vagina Due To Estrogen Deficiency; Endometriosis Social History Tobacco Use Types Packs/Day Years [...] or relatives? How often do you attend hinduism or temple More than 4 time s per year 12/25/2021 services? Do you belong to any clubs or organizations Yes 12/25/2021 such as hinduism groups, unions, fraternal or athletic groups, or [...] place to sleep or slept in a penitentiary (including now)? Education Answer Date Recorded What is the highest level of school Associate degree: [employer], 12/24/2021 you have completed or the highest technical, or vocational p purnima degree you have received? Sex Assigned at Date Recorded Female 12/02/2017 9:31 AM CANDY ROLLER documented as of this encounter Last Filed Vital Signs Vital Sign Reading Time Taken Comments Blood Pressure 138/84 01/08/2022 1:51 PM CANDY ROLLER Pulse 88 01/08/2022 1:51 PM CANDY ROLLER Temperature - - Respiratory Rate 20 01/08/2022 1:51 PM CANDY ROLLER Oxygen Saturation - - Inhaled Oxygen Concentration - - Weight 143 kg (316 lb 4 oz) 01/08/2022 1:51 PM CANDY ROLLER Height 156.5 cm (5' 1.61) 01/08/2022 1:51 PM CANDY ROLLER Body Mass Index 58.57 01/08/2022 1:51 PM CANDY ROLLER documented in this encounter H&P Notes Darline Goyal APRN, C.N.P. - 01/08/2022 2:00 PM CST SUBJECTIVE Chief Complaint Patient presents with ??? Annual Exam HISTORY OF PRESENT ILLNESS Shanda is a 51 y.o. ( section x1) female who presents for her Annual Exam. Patient's last menstrual period was 12/30/2021. She does have some concerns surrounding her menses. She notesthat for the last 8 months her cycles have been slightly irregular occurring about every other month. Her bleeding will last for 8-9 days and is very heavy. She notes ???gushing?? . She does admit to history of endometriosis diagnosed surgically in 2007, when she had an endometrioma removed from her ovary. Endometriosis was treated at that time and she completed 6 months of Depo Lupron injections following her surgery. She does note menarche at age 11. She has also been experiencing weight gain over the last year. She has been diagnosed with pre diabetes and is trying to cut carbs and just started walking a week ago. Her is diabetic, so she feels as if she has a good grasp of recommendations for managing prediabetes. She does have history of tobacco use on and off until 2 years ago. Two years ago she quit smoking with the assistance of [employer]. Admits that it worked very well and she has no desire to smoke at this time. She does have history of hypertension and hypertriglyceridemia. This is managed by her see PCP and she takes her medication as prescribed. She also has history of depression and anxiety managed by her PCP. Current medication has been effective. She does admit to some recent emotional instability common is wondering if that could be in relationship to her abnormal periods and possibly perimenopause. She does admit to vaginal dryness. She tried [id number] lubricant, but found that her body absorb did very quickly. She also accidentally purchased a product that made both she and her partner experience a burning sensation. I recommended silicone based lubricant and vaginal estrogen therapy. This was discussed in detail. We discussed the COVID booster and she declines today. She would like to proceed with her shingles vaccine series. We will get this ordered. She states that several years ago she went to give blood and was told that she had hepatitis-C. She notes that she son infectious disease doctor and underwent treatment with interferon. She was told that she no longer had hepatitis C, but that she will always have antigens. She is interested in proceeding with hepatitis C and HIV screening today, as well as gonorrhea and chlamydia screening. Last Pap smear was in 2018 and was normal. She has no history of abnormal. She would like to proceedwith Pap smear today. She denies any family history of any uterine, colon, or ovarian cancer. Her maternal grandmother wasdiagnosed with breast cancer at the age of 58. Her paternal grandmother had lung cancer with metastasis to the breast. She also notes that she had a maternal aunt who underwent hysterectomy for an unknown reason. OB History 1 Para 1 Term 1 AB Living 1 SAB IAB Ectopic Molar Multiple Live Births 1 REVIEW OF SYSTEMS Respiratory: Positive for dyspnea and wheezing. Genitourinary: Positive for decreased libido and menses change or abnormal. Musculoskeletal: Positive for back pain. Psychiatric/Behavioral: Positive for decreased libido. The following systems were negative: Constitutional, Skin, Eyes, ENT, CV, GI, Hematologic, Neuro The patient's allergies, current medications, problem list, family and social history were reviewed and updated as appropriate. PREVENTATIVE HEALTH Last Pap Result Date: 09/21/2018 NILM/-HPV. Obtained and pending. Depression: PHQ 2 score of 2 today. PHQ9 Score 12/08/2021 PHQ-9 Total Score (max 27) 10 Immunization History Administered Date(s) Administered ??? Influenza (IM) Preservative Free 08/22/2017 ??? Influenza TIV (IM) 08/01/2010 ??? Influenza, Unspecified 08/02/2016 ??? PPSV23 01/02/2021 ??? SARS-COV-2 (COVID-19) - MODERNA 01/21/2021, 02/18/2021 ??? Tdap 04/21/2011, 05/08/2021 ??? influenza vaccine quad (FLUZONE/FLUARIX) (6 months and older)(PF) 10/29/2019, 08/20/2020, 12/25/2021 OBJECTIVE BP 138/84 Pulse 88 Resp 20 Ht 156.5 cm Wt (!) 143 kg LMP 12/30/2021 BMI 58.57 kg/m?? PHYSICAL EXAM General: She is a well-appearing female, in no acute distress. SKIN: Warm, dry and pink. No rashes, lesions or bruising. HEENT: Vision and hearing grossly intact. Lymph Nodes: No cervical, axillary, or inguinal lymphadenopathy. No masses or tenderness. Thyroid: No thyromegaly. No tenderness to palpation. Breasts: Symmetrical. No lesions or dimpling of the skin noted. No dominant masses palpable. Nippleswithout inversion or drainage. Heart: Regular rate and rhythm. No murmurs, rubs, or gallops. Lungs: Breathing nonlabored. Lungs clear to auscultation bilaterally. No wheezes or rales. Abdomen: Soft, nontender, nondistended. No masses palpable. Pelvis: External genitalia appears healthy and normal. BUS is negative. Upon speculum exam vaginal mucosa appears mildly atrophic and intact. Cervix is visualized, appears pink and intact. Pap smear and GC chlamydia obtained. Please see procedure note for details surrounding endometrial biopsy. Upon bimanual exam there is no cervical motion tenderness, uterus is small mobile and nontender. Adnexa without masses or tenderness. Extremities: Lower extremities are nontender. No edema. Gait normal. Mental: Alert and oriented x3. Affect pleasant. Mood happy. Decorating Kiln Operator: Tanya Stanton LPN ASSESSMENT / PLAN #1 Preventive Gynecological Exam Overview: Pap smear: 09/18/2018 NILM/-HPV. 01/08/2022 obtained and pending. Gonorrhea/Chlamydia Screen: 01/08/2022 obtained and pending. Mammogram: 05/28/2021. Lipid panel: 12/25/2021. Diabetic screenin12/25/2021 with hemoglobin A1c of 6.2%. Colon screening: ??Cologuard ordered. DEXA Scan: Begin at age 65. Tdap Vaccine: 05/08/2021. ?? Influenza Vaccine: 12/25/2021. COVID-19 Vaccine: Moderna: 01/21/2021 and 02/18/2021. Discussed and declines booster at this time. Shingles Vaccine: Ordered and scheduled. - Discussed the importance of healthy diet and exercise for overall well-being. - Recommend at least 30 minutes of aerobic exercise most days of the week. ?? - Recommend 1200 mg of calcium daily. Assessment & Plan: Discussed exam findings with patient. I will plan to portal message her with results and recommendations going forward. I do recommend that she return on an annual basis for her preventative health exam or sooner if she has any concerns or problems. Orders: - ThinPrep w/HPV Co-Test Screen #2 Screening Colon Cancer Average Risk - Cologuard-Sent Out Lab; Future; Expected date: 01/09/2022 #3 Screening For Venereal Disease - HCV Ab w/Reflex to HCV PCR, Serum; Future; Expected date: 01/08/2022 - HIV-1/-2 Ag and Ab Screen, Plasma; Future; Expected date: 01/08/2022 - Chlamydia / Gonorrhoeae Amplified RNA #4 Need Vaccine Immunization Shingles Zoster - RZV: herpes zoster (SHINGRIX) vaccine (50 years and older); Future; Expected date: 01/08/2022 - RZV: herpes zoster (SHINGRIX) vaccine (50 years and older); Future; Expected date: 04/10/2022 - Primary Care nurse visit (clinic) - [facility]; Medication injection (order medication); Other; Shigrix Vaccine; Future; Expected date: 01/08/2022 #5 Bleeding Dysfunctional Uterine Overview: Pap smear, GC chlamydia, EMB, and pelvic ultrasound obtained and pending. I will plan to portal message her with results. We discussed management options for dysfunctional uterine bleeding and menorrhagia due to perimenopause. Will further discuss options and implement management as desired. Orders: - Surgical Pathology - S-TSH (Thyroid-Stimulating Hormone - Sensitive); Future; Expected date: 01/08/2022 - US Pelvis Transvaginal and Transabdominal; Future; Expected date: 01/08/2022 - CBC with Differential, Blood; Future; Expected date: 01/08/2022 #6 PreDiabetes Overview: Managed by PCP. #7 Morbid Obesity Body Mass Index 50.0-59.9 Adult ([facility]) #8 Hypertension Essential Primary Overview: Managed by PCP. #9 Hypertriglyceridemia Overview: Managed by PCP. #10 Depression Major Single Episode Severe Without Psychotic Features ([facility]) Overview: Managed by PCP. #11 Anxiety Generalized Disorder Overview: Managed by PCP. #12 Asthma Mild Intermittent ([facility]) Overview: Managed by PCP. #13 Migraine Headache Classic Overview: Managed by PCP. No aura. #14 Atrophy Vagina Due To Estrogen Deficiency - estradioL (ESTRACE) 0.1 mg/g (0.01%) vaginal cream; Insert 1 g into the vagina as directed. Insert1 gram vaginally at bedtime 2-3 nights per week., Starting 01/08/2022, Until 01/08/2023 at 2359,Normal #15 Endometriosis Other orders - HPV with Genotyping, PCR, ThinPrep All questions have been answered and those present are in agreement with this plan. Darline Goyal APRN, C.N.PChucyk Patient Education Ready to learn, no apparent learning barriers were identified; learning preferences include listening. Explained diagnosis and treatment plan; patient expressed understanding of the content. Y ROLLER documented in this encounter Procedure Notes Darline Goyal APRN, C.NCarli. - 01/08/2022 2:00 PM CSTAssociated Order(s): Endometrial Sampling Post-Procedure Diagnose(s): Bleeding Dysfunctional Uterine; Morbid Obesity Body Mass Index 50.0-59.9Adult ([facility]) Endometrial Sampling Date/Time: 01/08/2022 3:24 PM Performed by: Darline Goyal APRN, C.N.P. Authorized by: Darline Goyal APRN CChuckyN.P. Care team members present 1. Tanya Stanton L.PKameron PROCEDURE DETAILS Cervix dilated: Yes Single tooth tenaculum applied: Yes Uterus sounded: yes Uterus sound depth (cm): 8 Biopsy instrument: Pipelle Specimen collected: Yes Number of endometrial biopsies: 1 Number of passes: 2 Specimen(s) sent to pathology: Yes CONSENT Consent obtained: written UNIVERSAL PROTOCOL All relevant documentation and testing were reviewed and available. All required blood products, implants, devices and or special equipment were made available as applicable. Pre-procedure verificationwas conducted and the correct site was marked if required. A fire risk assessment was done as applicable. The procedural time-out was conducted prior to performing the procedure and confirmed in a procedural pause. PRE-PROCEDURE DETAILS Assessment - reasonably exclude based on: PREG criteria Indications: Dysfunctional uterine bleeding and menorrhagia Appropriate hand hygiene, gown, cap, mask, protective eyewear, sterile gloves, skin preparation, sterile drape, and strict aseptic technique were utilized as applicable for the procedure.: yes Site preparation: Povidone-iodine SEDATION / ANESTHESIA Anesthesia method: none POST-PROCEDURE DETAILS Procedure completed successfully: yes Complications: no apparent complications Comments Endometrial biopsy WAITER/WAITRESS TAVERN Y ROLLER documented in this encounter Miscellaneous Notes Assessment & Plan Note - Darline Goyal APRN, C.N.P. - 01/08/2022 3:23 PM CSTAssociated Problem(s): Preventive Gynecological Exam Discussed exam findings with patient. I will plan to portal message her with results and recommendations going forward. I do recommend that she return on an annual basis for her preventative health exam or sooner if she has any concerns or problems. Y ROLLER documented in this encounter Plan of Treatment Upcoming Encounters Date Type Specialty Care Team Description 07/16/2022 Office Visit Family Medicine Karel Gill M.B.B .S., MRadha [address] [place] [phone] (Wo rk) Scheduled Orders Name Type Priority Associated Diagnoses [facility] Transvaginal Imaging RAD - Routine Bleeding Expe cted: and Transabdominal (most inpatients Dysfunctional Uter ine 01/08/2022 and all (Approximate), outpatients) Expires: 01/08/2023 Scheduled Referrals Name Type Priority Associated Diagnoses Order [facility] Outpatient Referral Routine Need Vaccine Ex pected: visit (clinic) - Immunization Shingles [facility] Region; Zoster (Approxim ate), Medication Expires: injection (order 04/10/2023 medication); Other; Shigrix Vaccine documented as of this encounter Procedures Procedure Name Priority Date/Time Associated Diagnosis Comme nts [place] BX ENDOMETRIAL WO Routine 01/08/2022 3:24 PM Bleeding R esults for this CERVIX DIL CANDY ROLLER Dysfunctional Ut erine procedure are in Morbid Obesity Body the resu lts Mass Index 50.0-59.9 section . Adult (HCC) THINPREP W/HPV Routine 01/08/2022 3:16 PM Preventive Results for this CO-TEST SCREEN CANDY ROLLER Gynecological Exam procedu re are in the results section. SURGICAL PATHOLOGY Routine 01/08/2022 3:15 PM Bleeding Res ults for this CANDY ROLLER Dysfunctional Uterine proced ure are in the results section. HPV WITH GENOTYPING, Routine 01/08/2022 3:15 PM R esults for this PCR, THINPREP CANDY ROLLER procedure are in the results section. CHLAMYDIA/GONORRHOEA Routine 01/08/2022 3:15 PM Screening For Results for this E AMPLIFIED RNA CANDY ROLLER Venereal Disease procedur e are in the results section. documented in this encounter Results Cologuard-Sent Out [...] were screened with both Cologuard and colonoscopy. (Sarah rachel T. et al, N Engl J Med 2014;370(14):8195-4017) The n ormal value (reference range) for this assay is nega tive. COLOGUARD RE-SCREENING RECOMMENDATION: P eriodic colorectal cancer screening is an important part of preventive healthcare for asymptomatic individuals at average risk for colorectal cancer. ??Following a negativ e Cologuard result, the [place] Cancer Society and U.S. Mul ti-Society Task Force screening guidelines recommend a C ologuard re-screening interval of 3 years. References: [place] [employer] Kenny rodger for Colorectal Cancer Screening: https://www.cancer.org/cancer/colon-rect al-cancer/detection- diagnosis-staging/acs-recommendations.ht ml.; Paul MATTHEWS, Sherrill FIGUEROA, Jair WESTON, Colorectal Cancer Ellen borjag: Recommendations for Physicians and Patie nts from [...] are derived from a prospective cross-sectional ellen borjag study of 10,000 individuals at average risk for c olorectal cancer who were screened with both Cologuard an d colonoscopy. (Chris Roy et al, N Engl J Med 2014;3 70(14):5544-0321.) Cologuard may produce a false negative o r false positive result (no colorectal cancer or precance cecil polyp present at colonoscopy follow up). A negative Co loguard test result does not guarantee the absence of CRC or advanced adenoma (pre-cancer). The current Cologuard scre ening interval is every 3 years. ([place] Cancer Society and U.S. Multi-Society Task Force). Cologuard per formance data in a 10,000 patient pivotal study using colon oscopy as the reference method can be accessed at the following location: www.[employer]/results. Additional de scription of the Cologuard test process, warnings and pre cautions can be found at www.cologuard.com. Specimen Anatomical Collection Method Collection Time Receive d Time (Source) Location / / Volume Laterality Stool (Stool) 02/03/2022 5:49 PM 02/06/20 22 9:06 CDT AM CDT Darline Goyal APRN, C.N.P. LAB BODY FLUIDS AND STO OLS ORDERABLES Performing Organization Address City/State/ZIP Code Phon e Number [facility] [address] [place] [address] [address] [place] [address] [place] [address], [address] (ABNORMAL) CBC with Differential, Blood (01/08/2022 3:35 PM CANDY ROLLER) [facility] gist Method Time Signature Hemoglobin 12.9 11.6 - 01/08/2022 FB60 15.0 g/dL 3:52 PM CANDY ROLLER Hematocrit 39.5 35.5 - 01/08/2022 FB60 44.9 % 3:52 PM CANDY ROLLER Erythrocytes 4.45 3.92 - 01/08/2022 FB60 5.13 3:52 PM CANDY ROLLER x10(12)/L MCV 88.8 78.2 - 01/08/2022 FB60 97.9 fL 3:52 PM CANDY ROLLER RBC Distrib Width 14.1 12.2 - 01/08/2022 FB60 16.1 % 3:52 PM CANDY ROLLER Platelet Count 283 157 - 371 01/08/2022 FB60 x10(9)/L 3:52 PM CANDY ROLLER Leukocytes 12.1 (H) 3.4 - 9.6 01/08/2022 FB60 x10(9)/L 3:52 PM CANDY ROLLER Neutrophils 7.66 (H) 1.56 - 01/08/2022 FB60 6.45 3:52 PM CANDY ROLLER x10(9)/L Lymphocytes 2.97 0.95 - 01/08/2022 FB60 3.07 3:52 PM CANDY ROLLER x10(9)/L Monocytes 0.90 (H) 0.26 - 01/08/2022 FB60 0.81 3:52 PM CANDY ROLLER x10(9)/L Eosinophils 0.50 (H) 0.03 - 01/08/2022 FB60 0.48 3:52 PM CANDY ROLLER x10(9)/L Basophils 0.04 0.01 - 01/08/2022 FB60 0.08 3:52 PM CANDY ROLLER x10(9)/L Specimen Anatomical Collection Method Collection Time Receive d Time (Source) Location / / Volume Laterality Blood (Blood, 01/08/2022 3:35 PM 01/09/20 22 3:36 Venous) CANDY ROLLER PM CANDY ROLLER Darline Goyal APRN, C.N.P. LAB BLOOD ADD-ON Performing Organization Address City/State/ZIP Code Phon e Number [address] [place] [address] [facility] [address]60 [place] [address] [address] S-TSH (Thyroid-Stimulating Hormone - Sensitive) (01/08/2022 3:35 PM CANDY ROLLER) P athologist Signature TSH, Sensitive 2.4 0.3 - 4.2 01/08/2022 OWAT mIU/L 6:31 PM CANDY ROLLER Specimen Anatomical Collection Method Collection Time Receive d Time (Source) Location / / Volume Laterality Blood (Blood, 01/08/2022 3:35 PM 01/09/20 22 5:51 Venous) CANDY ROLLER PM CANDY ROLLER Darline Goyal APRN, C.N.P. LAB BLOOD ADD-ON Performing Organization Address City/State/ZIP Code Phon e Number [facility]- [address] [place] [address] [place] [address] System in [place] [address] HIV-1/-2 Ag and Ab Screen, Plasma (01/08/2022 3:35 PM CANDY ROLLER) P athologist Signature HIV Ag/Ab Negative Negative 01/10/2022 [facility] Screen, P 10:17 AM CANDY ROLLER Comment: Negative result does not rule out HIV in fection. If exposure to HIV infection occurred <14 d ays ago, contact the laboratory to request additi on of HIV-1 RNA detection / quantification test. HIV-1 p24 Ag Screen, P Negative Negative 01/10/2022 10:17 AM CANDY ROLLER [facility] Comment: Negative result does not rule [...] Blood (Blood, 01/08/2022 3:35 PM 01/10/20 22 5:21 Venous) CANDY ROLLER PM CANDY ROLLER Darline Goyal APRN, C.N.P. LAB MICROBIOLOGY - BLOO D ORDERABLES Performing Organization Address City/State/ZIP Code Phon e Number [facility]- [address] [place] [address] [place] [address] (ABNORMAL) HCV Ab w/Reflex to HCV PCR, Serum (01/08/2022 3:35 PM CANDY ROLLER) athologist Signature HCV Ab, S Reactive (A) Negative 01/09/2022 [facility] 11:23 AM CANDY ROLLER Comment: Supplemental testing for HCV RNA is orde red to rule out active HCV infection. Icoygl-in-esftwe ratio is >=1.00 and <8. 00. Specimen Anatomical Collection Method Collection Time Receive d Time (Source) Location / / Volume Laterality Blood (Blood, 01/08/2022 3:35 PM 01/10/20 22 8:52 Venous) CANDY ROLLER AM CANDY ROLLER Darline Goyal APRN, C.N.P. LAB MICROBIOLOGY - BLOO D ORDERABLES Performing Organization Address City/State/ZIP Code Phon e Number [facility] [address] [place], [place] [address] [facility] [place] [address] Laboratory Medicine and Pathology [address] [place] BX ENDOMETRIAL WO CERVIX DIL (01/08/2022 3:24 PM CANDY ROLLER) Narrative [facility]ODAL - 01/08/2022 3:24 PM CANDY ROLLER Darline Goyal APRN, C.N.P. ? 01/08/2022 ??3:24 PM Endometrial Sampling Date/Time: 01/08/2022 3:24 PM Performed by: Darline Goyal APRN, C.N.P. Authorized by: Darline Goyal APRN C.N.P. Care team members present 1. Tanya Stanton L.P.N. PROCEDURE DETAILS ??Cervix dilated: Yes ?Single tooth tenaculum applied: Yes ?Uterus sounded: yes ?Uterus sound depth (cm): ??8 ??Biopsy instrument: ??Pipelle ??Specimen collected: Yes ?Number of endometrial biopsies: ??1 ??Number of passes: ??2 ??Specimen(s) sent to pathology: Yes ?? CONSENT Consent obtained: written UNIVERSAL PROTOCOL All relevant documentation and testing w ere reviewed and available. All required blood products, implants, devic es and or special equipment were made available as applicable. Pre-proced ure verification was conducted and the correct site was marked if required. A fire risk assessment was done as applicable. The procedural time-out w as conducted prior to performing the procedure and confirmed in a procedu ral pause. PRE-PROCEDURE DETAILS ?? Assessment - reas onably exclude based on: ??PREG criteria ??Indications: ??Dysfunctional uterine bleeding and menorrhagia ??Appropriate hand hygiene, gown, cap, mask, protective eyewear, sterile gloves, skin preparation, sterile drape, and strict aseptic technique were utilized as applicable for the procedure .: yes ?Site preparation: ??Povidone-iodine SEDATION / ANESTHESIA Anesthesia method: none POST-PROCEDURE DETAILS ?? Procedure completed successfully: yes ?? Complications: no apparent complications Comments Endometrial biopsy Darline Goyal APRN, C.N.P. OB GYNE ORDERABLES Performing Organization Address City/State/ZIP Code Phon e Number MMODAL MMODAL NA ThinPrep w/HPV Co-Test Screen (01/08/2022 3:16 PM CANDY ROLLER) Component Value Ref Test Analysis Performed Pathologis t Range Method Time At Signature 01/13/2022 [facility] 1:34 PM CANDY ROLLER Report ANNAMARIE Foster(ASCP) 01/13/2022 [facility] electronically 1:34 PM signed by CANDY ROLLER I verify that I have examined all relevant slides/materials for the specimen(s) and rendered or confirmed the diagnosis. Gross Description Received specimen 01/13/2022 [facility] Y in a ThinPrep 1:34 PM vial. CANDY ROLLER Pap Test Source Cervical/Endocervi 01/13/2022 [facility] aruna 1:34 PM CANDY ROLLER Clinical History well woman 01/13/2022 [facility] 1:34 PM CANDY ROLLER Menstrual 01-04-2022 01/13/2022 [facility] Status(LMP, PM, 1:34 PM ) CANDY ROLLER Hormone none 01/13/2022 [facility] Therapy/Contracep 1:34 PM tives CANDY ROLLER Interpretation Cervical/Endocervical ??(ThinPrep): 01/13/2022 [facility] 1:34 PM Satisfactory for Evaluation CANDY ROLLER Negative for Intraepithelial Lesion or Malignancy High Risk HPV: ??Negative Negative for High Risk HPV by nucleic acid amplification. The following High Risk HPV types were not detected: 16, 18, 31, 33, 35, 39, 45, 51, 52, 56, 58, 59, 66, and 68. Specimen Anatomical Collection Method Collection Time Receive d Time (Source) Location / / Volume Laterality Varies 01/08/2022 3:16 PM 8:45 (Cervix/Endocerv CANDY ROLLER AM CANDY ROLLER ix) Narrative This result has an attachment that is no t available. Darline Goyal APRN, ElizabethN.P. LAB PAP PATHDX ORDERABL ES Performing Organization Address City/State/ZIP Code Phon e Number [facility]- [address] [place] [address] [facility] [address] [facility] [address] [place] [address] HPV with Genotyping, PCR, ThinPrep (01/08/2022 3:15 PM CANDY ROLLER) athologist Signature HPV with Negative Negative 01/12/2022 [facility] Genotyping, 7:40 PM CANDY ROLLER ThinPrep, PCR Comment: Negative for high risk HPV by nucleic ac id amplification. ??The following high risk HPV types were not detected: 16, 18, 31, 33, 35, 39, 45, 51, 52, 56, 58, 59, 66, and 68 Specimen Anatomical Collection Method Collection Time Receive d Time (Source) Location / / Volume Laterality Varies 01/08/2022 3:15 PM 2 8:45 CANDY ROLLER AM CANDY ROLLER Darline Goyal APRN, C.N.P. LAB MICROBIOLOGY - GENE RAL ORDERABLES Performing Organization Address City/[facility] Phon e Number [address] [address] [place] [address] [address] Surgical Pathology (01/08/2022 3:15 PM CANDY ROLLER) Component Value Ref Test Analysis Performed Pathologis t Range Method Time At [facility] 01/11/2022 [facility] 10:52 AM CANDY ROLLER Report Marcos Lr 01/11/2022 [facility] electronically MD Jose 10:52 AM signed by CANDY ROLLER Specimen Received A. Endometrial 01/11/2022 [facility] biopsy 10:52 AM CANDY ROLLER Clinical History Dysfunctional 01/11/2022 [facility] uterine bleeding 10:52 AM CANDY ROLLER Gross Description Submitted as endometrium are hemorrhagic mane tiss ue 01/11/2022 [facility] fragments filtering to 1.5 cm. ??ESB, one block. ?bhc/dm s 10:52 AM CANDY ROLLER Interpretation FINAL DIAGNOSIS 01/11/2022 [facility] 10:52 AM Endometrium, biopsy: ??Proliferative endometrium. CANDY ROLLER Specimen Anatomical Collection Method Collection Time Receive d Time (Source) Location / / Volume Laterality Varies 01/08/2022 3:15 PM 2 7:49 CANDY ROLLER AM CANDY ROLLER Narrative This result has an attachment that is no t available. Reese Jerez APRN.N.P. LAB SURG PATH ORDERABLE S Performing Organization Address City/[facility]/ZIP Code Phon e Number [address] [address] [place] [address] System [address] Chlamydia / Gonorrhoeae Amplified RNA (01/08/2022 3:15 PM CANDY ROLLER) [facility] Method Time Signature Source Swab, Vagina 01/08/2022 [facility] 11:39 PM CANDY ROLLER Chlamydia Negative Negative 01/08/2022 [facility] trachomatis 11:39 PM CANDY ROLLER amplified RNA Source Swab, Vagina 01/08/2022 [facility] 11:39 PM CANDY ROLLER Neisseria Negative Negative 01/08/2022 [facility] gonorrhoeae 11:39 PM CANDY ROLLER amplified RNA Specimen Anatomical Collection Method Collection Time Receive d Time (Source) Location / / Volume Laterality Varies (Vagina) 01/08/2022 3:15 PM 2021 7:05 CANDY ROLLER PM CANDY ROLLER Darline Goyal APRN, C.N.P. 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 PCP - General Family Medicine 01/16/[address] [place] [address] [place] [address] documented as of this encounter
--- OUTSIDE RECORDS SUMMARY | 2022-06-29 19:14 | XMS_ITS | Encounter Summary ---
:1970 Author Organization [facility] Address [address] [place] [address] Care Team Providers Name Role Phone Karel Gill M.D. Primary Care Provider [phone] Encounter Details Date Type Department Care Team Description 12/25/2021 Hospital Encounter Department of Yvrose Carballo PreD iabetes; Laboratory Medicine in M.DChucky Screening Lipid [place], [place] [address] [place] [phone] Social History Tobacco Use Types Packs/Day Years [...] How often do you attend restoration or scientology More than 4 time s per year [...] place to sleep or slept in a detention (including now)? Education Answer Date Recorded What is the highest level of school Associate degree: [employer], 12/24/2021 you have completed or the highest technical, or vocational p purnima degree you have received? Sex Assigned at Date Recorded Female 12/02/2017 9:31 AM FLY RAIL OPERATOR documented as of this encounter Medications at Time of Discharge Medication Sig Dispensed Refills Start Date End Date fluticasone Inhale 1 puff 2 (two) 180 [...] Single Episode Severe Without Psychotic Features (HCC) predniSONE (DELTASONE) Take 1 tablet (20 mg 7 tablet 0 01/01/2022 20 mg tablet total) by mouth daily for 7 days. albuterol 2.5 mg /3 mL Inhale 3 [...] Family Medicine Karel Gill M.B.B .S., MRadha [address] [place] [phone] (Wo rk) documented as of this encounter Procedures Procedure Name Priority Date/Time Associated Diagnosis Comme nts LIPID PANEL, S Routine 12/25/2021 4:36 PM Screening Lipid Resu lts for this FLY RAIL OPERATOR procedure are i n the results section. HEMOGLOBIN A1C, B Routine 12/25/2021 4:36 PM PreDiabetes Resu lts for this FLY RAIL OPERATOR procedure are i n the results section. documented in this encounter Results (ABNORMAL) Lipid Panel (12/25/2021 4:36 PM FLY RAIL OPERATOR) athologist Signature Cholesterol, 184 mg/dL 12/25/2021 [facility] Total 6:20 PM FLY RAIL OPERATOR Comment: ----REFERENCE VALUE---- Desirable: < 200 Borderline high: 200 - 239 High: > or = 240 Triglycerides 144 mg/dL 12/25/2021 6:20 PM FLY RAIL OPERATOR OWA T Comment: ----REFERENCE VALUE---- Normal: <150 Borderline high: 150-199 High: 200-499 Very high: > or =500 Cholesterol, HDL 47 (L) >=50 mg/dL 12/25/2021 6:20 PM FLY RAIL OPERATOR OWAT Calculated LDL 108 mg/dL 12/25/2021 6:20 PM FLY RAIL OPERATOR OW AT Comment: ----REFERENCE VALUE---- Desirable: <100 mg/dL Above Desirable: 100-129 mg/dL Borderline High: 130-159 mg/dL High: 160-189 mg/dL Very High: >=190 mg/dL Cholesterol, Non-HDL, Calculated 137 mg/dL 022 6:20 PM FLY RAIL OPERATOR OWAT Comment: ----REFERENCE VALUE---- Desirable: <130 Above Desirable: 130-159 Borderline high: 160-189 High: 190-219 Very high: > or =220 Specimen Anatomical Collection Method Collection Time Receive d Time (Source) Location / / Volume Laterality Blood (Blood, 12/25/2021 4:36 PM 12/25/19 6:04 Venous) FLY RAIL OPERATOR PM FLY RAIL OPERATOR Yvrose Carballo M.D. LAB BLOOD ADD-ON Performing Organization Address City/State/ZIP Code Phon e Number [facility]- [address] [place] [address] [facility] [place] [address] System in [place] [address] [facility] (ABNORMAL) Hemoglobin A1c (12/25/2021 4:36 PM FLY RAIL OPERATOR) P athologist Signature Hemoglobin A1c, 6.2 (H) 4.2 - 5.6 12/25/2021 OW[facility] B % 6:22 PM FLY RAIL OPERATOR Comment: Hemoglobin A1c values of 5.7-6.4 percent indicate an increased risk for developing diabetes manuel dave. In diabetic patients, HbA1c goals should be discussed with healthcare provider. Specimen Anatomical Collection Method Collection Time Receive d Time (Source) Location / / Volume Laterality Blood (Blood, 12/25/2021 4:36 PM 12/25/19 6:04 Venous) FLY RAIL OPERATOR PM FLY RAIL OPERATOR Yvrose Carballo M.D. LAB BLOOD ADD-ON Performing Organization Address City/State/ZIP Code Phon e Number [facility]- [address] [place] [address] [place] [address] System in [place] [address] documented in this encounter Visit Diagnoses Diagnosis PreDiabetes Screening Lipid documented in this encounter Additional Health Concerns Assessment Noted Time PHQ-9 Depression Total Score: 10 12/08/2021 2:36 AM CS T documented as of this encounter Care Teams Sat Math Tutor Relationship Specialty Start Date End Date Karel Gill M.B.B.S., M.D. PCP - General Family Medicine 01/16/[address] [place] [address] [place] [address] documented as of this encounter
--- OUTSIDE RECORDS SUMMARY | 2022-06-29 19:14 | XMS_ITS | Encounter Summary ---
:1970 Author Organization [facility] Address [address] [place] [address] Care Team Providers Name Role Phone Karel Gill M.D. Primary Care Provider [phone] Reason for Visit Reason Comments Follow-up test results- Appointment Request (Routine) - Closed Specialty Diagnoses / Procedures Referred By Contact Refer red To Contact Family Medicine Referral ID Status Reason Start Date Expiration Date Visits Requ ested Visits Authorized [id number] Closed 05/01/2021 05/01/2022 1 1 Encounter Details Date Type Department Care Team Description 05/08/2021 Office Visit Department of [facility] Karel Gill Hypchristopher rtension Essential Primary (Primary Dx); Medicine, Antonio Peraza, Anxiety Generalized Disorder; Clinic, in [place] Beck Depression Major Single Episode [facility] ([facility] [place] [address] [facility] [address] [facility] [place] [address] [phone] Social History Tobacco Use Types Packs/Day Years [...] or relatives? How often do you attend confucianism or advent More than 4 time s per year 12/25/2021 services? Do you belong to any clubs or organizations Yes 12/25/2021 such as confucianism groups, unions, fraternal or athletic groups, or [...] at Date Recorded Female 12/02/2017 9:31 AM CLAM SHOVEL OPERATOR documented as of this encounter Last Filed Vital Signs Vital Sign Reading Time Taken Comments Blood Pressure 139/87 05/08/2021 2:23 PM CDT Pulse 96 05/08/2021 2:23 PM CDT Temperature 36.1 ??C (97 ??F) 05/08/2021 2:23 PM CDT Respiratory Rate 18 05/08/2021 2:23 PM CDT Oxygen Saturation - - Inhaled Oxygen Concentration - - Weight 135 kg (297 lb 4.6 oz) 05/08/2021 2:23 PM CDT Height 159 cm (5' 2.6) 05/08/2021 2:23 PM CDT Body Mass Index 53.34 05/08/2021 2:23 PM CDT documented in this encounter Progress Notes WaribokKarel paiz M.B.B.S., M.D. - 05/08/2021 2:45 PM CDT SUBJECTIVE CHIEF COMPLAINT / REASON FOR VISIT Shanda Masterson is a 50 y.o. female who presents for evaluation of Follow-up (test results- ). HISTORY OF PRESENT ILLNESS Shanda Masterson is a 50-year-old female seen last week with elevated blood pressures. At that time, patient reported palpitations as well. Her lisinopril was increased to 20 mg and she is still on triamterene-hydrochlorothiazide. BNP was not elevated and EKG showed sinus tachycardia with no ST abnormalities. Today, patient reports that she is still having palpitations. She denies chest pain, shortness of breath, exertional dyspnea, orthopnea or lower extremity edema. She has a history of depression and anxiety. She has been on venlafaxine 150 mg daily and as needed Ativan. She takes 1-2 tablets every week. Although she denies suicidal or homicidal ideations, patient reports difficulty sleeping, anxiety and decreased motivation. Her symptoms are significantly better compared to last year before she started antidepressants. She is not in therapy. She reports family stressors that have to do with her 's job. The following portions of the patient's history were reviewed and updated as appropriate: allergies,current medications, family history, medical history, social history, surgical history and problem list. REVIEW OF SYSTEMS Pertinent items are noted in HPI. OBJECTIVE BP 139/87 (BP Location: Right arm, Patient Position: Sitting, Cuff Size: Large) Pulse 96 Temp 36.1 ??C (Temporal) Resp 18 Ht 159 cm Wt 135 kg LMP 05/02/2021 (Exact Date) BMI 53.34 kg/m?? PHYSICAL EXAM General Appearance: healthy, alert, no distress, cooperative. Skin: skin color, texture, turgor normal, no suspicious rashes or lesions. Head: normocephalic, no masses, lesions, tenderness or abnormalities. Eyes: Anicteric sclera. Pupils are equally round and reactive to light. Extraocular movements are intact. Lungs: clear to auscultation. Heart: RRR without murmur, gallop, or rubs. Musculoskeletal: Range of motion normal in hips, knees, shoulders, and spine. Neurologic: Gait normal. Reflexes normal and symmetric. Sensation grossly intact. Psychiatric Orientation: oriented times three. Level of consciousness: Patient is awake and alert, cooperative. Appearance: Well groomed Behaviors: pleasant, interactive, not tearful Memory: intact Cooperation: reliable, forthcoming Affect: congruent with self-description of mood Speech: within normal limits for volume, rate and tone Thought form: logical, goal-directed Thought content: no abnormality observed Perceptions: no evidence of auditory or visual hallucinations, no evidence of internal stimuli Judgment: intact, as evidenced by acknowledging depression and seeking help Insight: intact, as evidenced by acknowledging depression Personal safety: denies suicidal ideation Aggression/homicidality: denies homicidal ideation ASSESSMENT / PLAN #1 Hypertension Essential Primary #2 Anxiety Generalized Disorder #3 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 EKG and BMP were within normal limits. Patient's blood pressure has improved. Will continue with her current antihypertensive plan. She will keep monitoring her blood pressure 2 to 3 times a week. I have also recommended a low-salt diet andregular exercise. Patient screening for depression and anxiety today were significant. I have increased her venlafaxine to 225 mg extended release daily. Will re-evaluate this in 2 weeks and consider starting her on a 2nd medication as well. She should continue using Ativan infrequently. documented in this encounter Plan of Treatment Upcoming Encounters Date Type Specialty Care Team Description 07/16/2022 Office Visit Family Medicine Karel Gill M.B.B .S. MRadha [address] [place] [phone] (Wo rk) documented as of this encounter Visit Diagnoses Diagnosis Hypertension Essential Primary - Primary Anxiety Generalized Disorder Depression Major Single Episode Severe W ithout Psychotic Features (HCC) documented in this encounter Additional Health Concerns Assessment Noted Time PHQ-9 Depression Total Score: 20 05/08/2021 2:56 PM CD T documented as of this encounter Care Teams Lan Analyst Relationship Specialty Start Date End Date Karel Gill M.B.B.S., M.D. PCP - General Family Medicine 01/16/[address] [place] [address] Steve MARQUIS Beck [phone] documented as of this encounter
--- OUTSIDE RECORDS SUMMARY | 2022-06-29 19:14 | XMS_ITS | Encounter Summary ---
:[address] [facility] Address [address] [place] [address] Care Team Providers Name Role Phone Karel Gill M.D. Primary Care Provider [phone] Reason for Visit Reason Comments Med Refill Encounter Details Date Type Department Care Team Description 02/11/2022 Refill Department of Family Medicine, Karel Gill I., Med Refill [facility], in [place] Al[place], [place] [address] [facility] [address] [place] [address] [place] [address] [phone] Social History Tobacco Use Types Packs/Day Years [...] or relatives? How often do you attend evangelical or religion More than 4 time s per year 12/25/2021 services? Do you belong to any clubs or organizations Yes 12/25/2021 such as evangelical groups, unions, fraternal or athletic groups, or [...] at Date Recorded Female 12/02/2017 9:31 AM SAMPLER AND TEST PREPARER documented as of this encounter Plan of Treatment Upcoming Encounters Date Type Specialty Care Team Description 07/16/2022 Office Visit Family Medicine Karel Gill M.B.B .S., MAllegra. [address] [place], [place] [phone] (Wo rk) documented as of this encounter Visit Diagnoses Diagnosis Anxiety Generalized Disorder Depression Major Single Episode Severe W ithout Psychotic Features (HCC) documented in this encounter Additional Health Concerns Assessment Noted Time PHQ-9 Depression Total Score: 10 12/08/2021 2:36 AM CS T documented as of this encounter Care Teams White Sugar Pan Tank Operator Relationship Specialty Start Date End Date Karel Gill M.B.B.S., MAllegra. PCP - General Family Medicine 01/16/21 [address] [place] [address] documented as of this encounter
--- OUTSIDE RECORDS SUMMARY | 2022-06-29 19:14 | XMS_ITS | Encounter Summary ---
:1970 Author Organization [facility] Address [address] [place] [address] Care Team Providers Name Role Phone Karel Gill M.D. Primary Care Provider [phone] Reason for Visit Reason Comments Med Refill Encounter Details Date Type Department Care Team Description 06/09/2021 Refill Department of Family Medicine, Karel Gill I., Med Refill [facility], in [place] Alvarez [place], [place] [address] [facility] [address] [place] [address] [place] [address] [phone] Social History Tobacco Use Types Packs/Day Years [...] or relatives? How often do you attend restorationism or samaritan More than 4 time s per year 12/25/2021 services? Do you belong to any clubs or organizations Yes 12/25/2021 such as restorationism groups, unions, fraternal or athletic groups, or [...] at Date Recorded Female 12/02/2017 9:31 AM DIAMOND SIZER AND GRADER documented as of this encounter Plan of Treatment Upcoming Encounters Date Type Specialty Care Team Description 07/16/2022 Office Visit Family Medicine Karel Gill M.B.B .S., MRadha [address] [facility] [place] [phone] (Wo rk) documented as of this encounter Visit Diagnoses Diagnosis Anxiety Generalized Disorder Depression Major Single Episode Severe W ithout Psychotic Features (HCC) documented in this encounter Additional Health Concerns Assessment Noted Time PHQ-9 Depression Total Score: 15 06/05/2021 3:03 PM CD T documented as of this encounter Care Teams Shared Services Representative Relationship Specialty Start Date End Date Karel Gill M.B.B.S., M.D. PCP - General Family Medicine 01/16/21 [address] [facility] [place] [address] documented as of this encounter
--- OUTSIDE RECORDS SUMMARY | 2022-06-29 19:15 | XMS_ITS | Encounter Summary ---
:1970 Author Organization [facility] Address [address] [place] [address] Care Team Providers Name Role Phone Odalys Contreras APRN, C.N.P. Primary Care Provider [phone] Reason for Visit Reason Comments Med Refill Encounter Details Date Type Department Care Team Description 12/29/2020 Refill Department of Family Medicine, Erin Contreras APRN, Med Refill [facility], [place] [address] [place] [address] [place] [address] [phone] Social History Tobacco Use Types Packs/Day Years [...] or relatives? How often do you attend zoroastrianism or worship More than 4 time s per year 12/25/2021 services? Do you belong to any clubs or organizations Yes 12/25/2021 such as zoroastrianism groups, unions, fraternal or athletic groups, or [...] place to sleep or slept in a long term (including now)? Education Answer Date Recorded What is the highest level of school you have Some college, n o degree 08/01/2020 completed or the highest degree you have received? Sex Assigned at Date Recorded Female 12/02/2017 9:31 AM FABRIC SOURCER documented as of this encounter Miscellaneous Notes Telephone Encounter - Chelo Duran L.P.N. - 12/29/2020 10:50 AM FABRIC SOURCER SB: Insurance will no longer cover Ventolin, pharmacy requesting Albuterol. AR: Albuterol pended with a note they may substitute with an equivalent if needed. Please route response or any follow-up needed to the shared [facility] Primary Care Nurse Rx Renewal in basket pool. Thank you. IC SOURCER Telephone Encounter - Letty Moraes - 12/29/2020 8:59 AM CST Images from the original note were not included. CLARIFICATION NEEDED Nurse Review: Pharmacy Communication Provider: Odalys Contreras APRN, C.N.P. Medication: Pharmacy: [facility] [place] IC SOURCER documented in this encounter Plan of Treatment Upcoming Encounters Date Type Specialty Care Team Description 07/16/2022 Office Visit Family Medicine Karel Gill M.B.B .S., M.D. [address] [place] [phone] (Wo rk) documented as of this encounter Visit Diagnoses Diagnosis Asthma Mild Intermittent (HCC) documented in this encounter Additional Health Concerns Assessment Noted Time PHQ-9 Depression Total Score: 15 12/25/2019 8:50 AM CS T documented as of this encounter Care Teams Medical Instructor Relationship Specialty Start Date End Date Odalys Contreras, LAKHWINDER, C.N.P. PCP - General 04/21/17 01/15/21 [address], [place] [address] documented as of this encounter
--- OUTSIDE RECORDS SUMMARY | 2022-06-29 19:15 | XMS_ITS | Encounter Summary ---
:1970 Author Organization [facility] Address [address] [place] [address] Care Team Providers Name Role Phone Karel Gill M.D. Primary Care Provider [phone] Reason for Visit Reason Comments Rash Encounter Details Date Type Department Care Team Description 02/03/2021 Nurse Triage Department of Hermelinda Lauren R.N. Rash Medicine, [facility], [address] [facility] in [place], [place] [address] [id number] [place] [address] [phone] Social History Tobacco Use Types Packs/Day Years [...] How often do you attend mosque or judaism More than 4 time s [...] place to sleep or slept in a residential (including now)? Education Answer Date Recorded What is the highest level of school you have Some college, n o degree 08/01/2020 completed or the highest degree you have received? 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 - 02/03/2021 9:00 AM CDT COVID-19 Nurse Line Screening ASSESSMENT Region Select appropriate region: : [place] Age Pathway Select approprite pathway: : Adult Have you had close contact* with a person who has a LABORATORY CONFIRMED case of COVID-19 in the past 14 days?: No (Continue Screening) In the last 48 hours, have you had a fever* OR symptoms that are unrelated to a preexisting illness?: No symptoms noted (Continue Screening) Have you tested positive for COVID-19 in the last 90 days?: No (Continue Screening) Have you been advised to undergo testing or are you requesting testing?: No, testing not recommended(End Screening) Testing Recommendation Endpoint Is testing recommended? : Not recommended to test PLAN Endpoint recommendation: Screening negative, testing not indicated at this time Care Points: -Wash hands frequently with soap and water for at least 20 seconds -If soap and water are not available, use a hand health care marketing specialist -Avoid touching your eyes, nose and mouth. -Clean and disinfect high-touch surfaces routinely. -Wear a mask over your nose and mouth. A cloth face cover is not a substitute for social distancing -Continue to keep about 6 feet between yourself and others. -Avoid public areas and public transportation. Asymptomatic without exposure Carepoints: Testing is not recommended at this time. If you become symptomatic, please call back for additional screening. Education: Patient/caregiver able to teach back Patient agreeable to plan of care: Yes The following references were used: [facility] novel coronavirus (COVID- 19) resources Telephone Encounter - Bridget Jeff R.N. - 02/03/2021 8:43 AM CDT Chief Complaint / Reason for Call Patient is a 50 y.o. female calling regarding Rash. Assessment Concern: Red, itchy, rash on face Present for: 2 days Home cares tried: Cool compress, allergy pill Calling to request: An appointment The recommended disposition is Home Care. Appointment scheduled for Tuesday at 1425 Reason for Disposition ??? Mild localized rash Protocols used: RASH OR REDNESS - [id number]-NI Care Advice Patient/Caregiver understands and will follow care advice?: Yes, able to teach back LOCAL COLD: Apply ice or soak in cold water for 20 minutes every 3 or 4 hours to reduce itching or pain. CALL BACK IF: * Rash spreads or becomes worse * Rash lasts over 1 week * You become worse. HYDROCORTISONE CREAM FOR ITCHING: * You can use hydrocortisone for very itchy spots. * Put 1% hydrocortisone cream on the itchy area(s) 3 times a day. Use it for a couple days, until itfeels better. This will help decrease the itching. * This is an rjze-ugc-agrooek (OTC) drug. You can buy it at the drugstore. * Some people like to keep the cream in the refridgerator. It feels even better if the cream is usedwhen it is cold. * CAUTION: Do not use hydrocortisone cream for more than 1 week without talking to your doctor. * CAUTION: Do not use if the cause is ringworm, impetigo, Jock Itch, or Athlete's Foot. * Read the instructions and warnings on the package insert for all medicines you take. documented in this encounter Plan of Treatment Upcoming Encounters Date Type Specialty Care Team Description 07/16/2022 Office Visit Family Medicine Karel Gill M.B.B .S., Emmanuelle [address] [facility] [place], [place] [phone] (Wo rk) documented as of this encounter Visit Diagnoses Not on filedocumented in this encounter Additional Health Concerns Assessment Noted Time PHQ-9 Depression Total Score: 15 12/25/2019 8:50 AM CS T documented as of this encounter Care Teams Home Lending Officer Relationship Specialty Start Date End Date Karel Gill M.B.B.S., MAllegra. PCP - General Family Medicine 01/16/21 [address] [facility] [place] [id number] documented as of this encounter
--- OUTSIDE RECORDS SUMMARY | 2022-06-29 19:15 | XMS_ITS | Encounter Summary ---
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 How often do you attend sabianism or church More than 4 time s per year 12/25/2021 services? 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 PCP - General 04/21/17 01/15/21 [address], [place] [phone] documented as of this encounter
--- OUTSIDE RECORDS SUMMARY | 2022-06-29 19:15 | XMS_ITS | Encounter Summary ---
:1970 Author Organization [facility] Address [address] [place] [address] Care Team Providers Name Role Phone Odalys Contreras APRN, C.N.P. Primary Care Provider [phone] Reason for Referral Outpatient (Routine) - Closed Specialty Diagnoses / Procedures Referred By Contact Refer red To Contact Diagnoses Hypertension Essential Primary Karel Gill I., [facility] Procedures ECG 12 Lead Naveen.BChuckyBEmmanuelle [address] [place] [address] Referral ID Status Reason Start Date Expiration Date Visits Requ ested Visits Authorized [id number] Closed 01/02/2021 01/02/2022 1 1 [place] Reason for Visit Reason Comments Annual Exam Other Asthma concerns Appointment Request (Routine) - Closed Specialty Diagnoses / Procedures Referred By Contact Refer red To Contact Family Medicine Referral ID Status Reason Start Date Expiration Date Visits Requ ested Visits Authorized [id number] Closed 12/30/2020 12/30/2021 1 1 Encounter Details Date Type Department Care Team Description 01/02/2021 Office Visit Department of [place] Asthma Moderat e Persistent (HCC) (Primary Dx); Family MedicineKarel I., Hypertensio n Essential Primary; [facility] Morbid Obesity Body Mass Index 45.0-49.9 Adult (HCC); in [place] [address] PreDiabetes; [place], [place] Anxiety Generalized Disorder ; [address] [address] Hypertriglyceridemia MARQUIS CLITFON [phone] (Work) [phone] Social History Tobacco Use Types Packs/Day Years [...] or relatives? How often do you attend bahai or jehovah's witness More than 4 time s per year 12/25/2021 services? Do you belong to any clubs or organizations Yes 12/25/2021 such as bahai groups, unions, fraternal or athletic groups, or [...] at Date Recorded Female 12/02/2017 9:31 AM [place] documented as of this encounter Last Filed Vital Signs Vital Sign Reading Time Taken Comments Blood Pressure 146/95 01/02/2021 9:09 AM [place] Pulse 91 01/02/2021 9:00 AM [place] Temperature 36.7 ??C (98.1 ??F) 01/02/2021 9:00 AM [place] Respiratory Rate 16 01/02/2021 9:00 AM [place] Oxygen Saturation - - Inhaled Oxygen Concentration - - Weight 131 kg (289 lb 6 oz) 01/02/2021 9:00 AM [place] Height - - Body Mass Index 53.25 08/11/2020 3:10 PM CDT documented in this encounter Progress Notes Karel Gill M.D. - 01/02/2021 9:00 AM CST Physical Note HPI Shanda Masterson is a 50 y.o. female who presents for an annual exam. She has a history of asthma which is usually controlled with Advair and albuterol. Over the last 2 weeks, she has had cough, shortness of breath, exertional dyspnea and persistent wheezing episodes. She has needed to use her albuterol inhaler 40 5 times a day. She quit smoking in January 2020. Patient has a history of hypertension. She reports consistency with her medications. Her blood pressure was elevated in the office today. She has had weight gain since her last visit. She admits and inactive lifestyle but has recently made dietary changes. She is on Effexor and Ativan as needed for anxiety. She feels her anxiety has increased in recent weeks. FRANCISCO-7 score 14. PHQ-9 score 2. She denies homicidal or suicidal ideations. Patient Active Problem List Diagnosis ??? Hypertension Essential Primary ??? Anxiety Generalized Disorder ??? Asthma Mild Intermittent (HCC) ??? Dermatitis Atopic ??? Hypertriglyceridemia ??? Menorrhagia ??? Migraine Headache Classic ??? PreDiabetes ??? Morbid Obesity Body Mass Index 45.0-49.9 Adult (HCC) ??? Nicotine Dependence Cigarettes With Other Nicotine Induced Disorder ??? History Of Falling Past Medical History: Diagnosis Date ??? Abuse Tobacco Smoking ??? Anxiety Generalized Disorder 12/07/2016 ??? Asthma (HCC) ??? Asthma Mild Intermittent (HCC) 12/07/2016 ??? Dermatitis Atopic 05/31/2016 ??? Dermatitis Eczematoid ??? Hypertension Essential Primary ??? Hypertriglyceridemia ??? Menorrhagia ??? Migraine Headache ??? Migraine Headache Classic 12/07/2016 ??? Morbid Obesity Body Mass Index 50.0-59.9 Adult (HCC) ??? PreDiabetes Family History Problem Relation Age of Onset ??? Hyperlipidemia Mother ??? Hypertension Mother ??? Hyperlipidemia Father ??? Hypertension Father ??? Stroke Father ??? Cirrhosis Brother stage 4 ??? Breast cancer Grandmother ??? Diabetes Grandmother ??? Breast cancer Grandmother ??? Colon cancer Neg Hx Review of Systems: GENERAL: No weight gain, no weight loss, no fever in past month, no chills, no sweats, no fatigue. HEENT: No blurred vision, no double vision, no eye pain, no sinus problems, no hoarseness, no difficulty swallowing, no mouth sores, no diminished hearing, no ringing in ears, no enlarged glands. PULMONARY: No shortness of breath, no cough, no wheezing, no sputum, no hemoptysis. CARDIAC: No valve problems, no chest pain, no chest pressure, no rapid beating, no irregular beating, no dependent edema, pain in calves or with walking, no difficulty moving arms and legs. GI: No heartburn, no nausea, no vomiting, no stomach trouble, no constipation, no diarrhea, no bloodin BMs, no change in Bms. REPRODUCTIVE: Is heterosexual , no change in sex drive or performance. : No burning/pain with urination, no difficulty starting stream, no difficulty emptying bladder, no excessive urination. MUSCULOSKELETAL: No joint pain, no joint swelling, no joint stiffness, no muscle pain, no muscle stiffness, no back pain, no back stiffness. SKIN: No skin rashes, no skin sores, no change in moles. NEURO: No significant headaches, no slurred speech, no seizures, no dizziness, no loss of consciousness, no memory loss. PSYCH: + mood change. Sleep is okay. Social History Social History Socioeconomic History ??? Marital status: Spouse name: Not on file ??? Number of children: Not on file ??? Years of education: Not on file ??? Highest education level: Some college, no degree Occupational History ??? Not on file Social Needs ??? Financial resource strain: Not very hard ??? Food insecurity Worry: Sometimes true Inability: Sometimes true ??? Transportation needs Medical: No Non-medical: No Tobacco Use ??? Smoking status: Former Smoker Packs/day: 0.50 Types: Cigarettes Quit date: 01/10/2020 Years since quittin.9 ??? Smokeless tobacco: Never Used Substance and Sexual Activity ??? Alcohol use: Yes Frequency: Monthly or less Drinks per session: 1 or 2 Binge frequency: Never Comment: Seldom ??? Drug use: No ??? Sexual activity: Defer Lifestyle ??? Physical activity Days per week: 3 days Minutes per session: 10 min ??? Stress: Rather much Relationships ??? Social connections Talks on phone: More than three times a week Gets together: Once a week Attends jehovah's witness service: More than 4 times per year Active member of club or organization: Yes Attends meetings of clubs or organizations: More than 4 times per year Relationship status: ??? Intimate partner violence Fear of current or ex partner: No Emotionally abused: No Physically abused: No Forced sexual activity: No Other Topics Concern ??? Not on file Social History Narrative She is and has one daughter. She works at [employer] in [place]. Marital Status: Marital Status: Who lives in your household? 3 Has anyone hurt you physically, for example by pushing, hitting, slapping or kicking you or forcing you to have sex? No Do you feel threatened or controlled by a partner, ex-partner or anyone in your life? No Sexual Health Sexual concerns: No STI History: Never History:The patient reports 1 previous . Menstrual Hx and Pap Hx: periods are regular no unusual pelvic pain no unusual vaginal discharge no previous abnormal Pap tests no family or personal history of cervical cancer Last Pap Smear Date: No results found for: PAP Recommended Screening Female Preventative: Mammogram is due Last PAP was 09/18/2018. Cholesterol screening is up to date Physical Exam: Vitals: BP (!) 146/95 (BP Location: Right arm, Patient Position: Sitting, Cuff Size: Large) Pulse 91 Temp 36.7 ??C (Temporal) Resp 16 Wt 131 kg LMP 01/02/2021 BMI 53.25 kg/m?? BMI= Body mass index is 53.25 kg/m??. GENERAL: Patient is in no distress. Capable of full communication without difficulty. Patient is polite and cooperative. Appropriately dressed and normal hygiene. HEENT: Normocephalic. EOMI, PERRLA, Canals patent, TMs normal. Oropharynx without lesion of mucosa. Pharyngeal rises symmetrically without exudate. NECK: No nodes, no thyromegaly. No bruit auscultated. HEART: Regular rate and rhythm. No murmurs, gallops or rubs noted. LUNGS: Clear to auscultation bilaterally. No expiratory wheeze. No accessory muscles of respiration noted. ABDOMEN: Nontender to palpation. Non-distended. No mass. Normal bowel sounds in all 4 quadrants. EXTREMITIES: No neurovascular compromise. No cyanosis, clubbing or edema. No abnormal limb length. ENDOCRINE: No purple striae, oneill faces or buffalo hump. NEUROLOGIC: strength and tone- normal, sensory exam- grossly normal, mentation- intact, speech- normal, reflexes- symmetric PSYCHIATRIC: Alert and oriented times 3; speech- coherent , normal rate and volume; able to articulate logical thoughts LYMPHATICS: ant. cervical- normal, post. cervical- normal SKIN: No lesion, rash or bruising. Assessment and Plan Shanda was seen today for annual exam and other. Diagnoses and all orders for this visit: Asthma Moderate Persistent (HCC) - azithromycin (ZITHROMAX) 250 mg tablet; Take 500 mg (2 tablets) by mouth the first day then 250 mg(1 tablet) by mouth for 4 more days. Hypertension Essential Primary - Comprehensive Metabolic Panel - CBC with Differential, Blood - S-TSH (Thyroid-Stimulating Hormone - Sensitive) - lisinopriL (PRINIVIL,ZESTRIL) 10 mg tablet; Take 1 tablet (10 mg total) by mouth daily. - Family Medicine office visit (clinic); Future Morbid Obesity Body Mass Index 45.0-49.9 Adult (HCC) - CBC with Differential, Blood - S-TSH (Thyroid-Stimulating Hormone - Sensitive) PreDiabetes - Hemoglobin A1c Anxiety Generalized Disorder - S-TSH (Thyroid-Stimulating Hormone - Sensitive) Hypertriglyceridemia - Lipid Panel Other orders - PPSV23: pneumococcal polysaccharide vaccine (24 months and older) 50-year-old female with a history of hypertension and asthma here for her physical. Today, she reports worsening anxiety and she has had weight gain as well. She is needing her rescue inhaler more frequently. 1. Considering her smoking history, will go ahead and treat with a five-day course of azithromycin. She will also use her rescue inhaler every 4 hours for the next 48 hours. If her symptoms persist, especially exertional dyspnea, will consider a stress test. 2. Blood pressure remains elevated in the office. Will increase her lisinopril to 10 mg daily and encouraged her to stay consistent on her other medications. We also discussed the need for regular exercise a low-sodium diet. She will follow-up with me in 3 months for blood pressure check. 3. Will make no changes to her current anxiety treatment even though her score is significant. 4. Patient has had weight gain and increased stress levels. Will screen with a TSH and check her labs today. We also discussed strategies for healthy living including regular exercise, a healthy diet and limited alcohol intake. I congratulated her on almost 1 year of nonsmoking. Options for treatment and follow-up care were reviewed with the patient . Shanda Masterson engagedin the decision making process and verbalized understanding of the options discussed and agreed withthe final plan. Karel Gill M.D. [place] documented in this encounter Miscellaneous Notes Result Encounter Note - Karel Gill M.D. - 01/05/2021 7:31 AM [place] Labs showed no significant abnormalities. However, HDL which represents good cholesterol is low. This responds well to a diet high in fresh fruits and vegetables. I would also recommend regular exercise. Although patient is not diabetic, hemoglobin A1c is borderline which increases her risk of developing diabetes in the future. I would recommend maintaining a low-carbohydrate diet and exercising regularly to reduce insulin resistance. I would recommend following up in 1 year for repeat A1c. [place] documented in this encounter Plan of Treatment Upcoming Encounters Date Type Specialty Care Team Description 07/16/2022 Office Visit Family Medicine Karel Gill M.B.B .S., Emmanuelle [address] [place] [address] [phone] (Wo rk) documented as of this encounter Procedures Procedure Name Priority Date/Time Associated Diagnosis Comme nts ECG Routine 01/02/2021 Hypertension Essential Resul ts for 10:27 AM [place] Primary this procedure are in the results section. LIPID PANEL, S Routine 01/02/2021 Hypertriglyceridemia Resul ts for 10:11 AM [place] this procedure are in the results section. CBC WITH Routine 01/02/2021 Hypertension Essential Resul ts for DIFFERENTIAL, B 10:11 AM [place] Primary this procedure Morbid Obesity Body Mass are in the Index 45.0-49.9 Adult result s (HCC) section. THYROID-STIMULATING Routine 01/02/2021 Hypertension Essentia l Results for HORMONE-SENSITIVE 10:11 AM [place] Primary this procedure (S-TSH) Morbid Obesity Body Mass are in the Index 45.0-49.9 Adult result s (HCC) section. Anxiety Generalized Disorder HEMOGLOBIN A1C, B Routine 01/02/2021 PreDiabetes Results fo r 10:11 AM [place] this procedure are in the results section. COMPREHENSIVE Routine 01/02/2021 Hypertension Essential Resu lts for METABOLIC PANEL, S/P 10:11 AM [place] Primary this pr ocedure are in the results section. documented in this encounter Results ECG 12 Lead (01/02/2021 10:27 AM [place]) P athologist Signature Ventricular Rate 86 BPM MUSE ECG/Min IN Interval 152 ms MUSE QRSD Interval 88 ms MUSE QT Interval 372 ms MUSE QTC Interval 445 ms MUSE P [place] 55 degrees MUSE R [place] 50 degrees MUSE T Wave [place] 29 degrees MUSE Specimen Anatomical Collection Method Collection Time Receive d Time (Source) Location / / Volume Laterality 01/02/2021 10:27 01/02/2021 AM [place] 10:28 AM [place] Impressions MUSE - 01/02/2021 10:28 AM [place] Normal sinus rhythm Normal ECG No previous ECGs available Reviewed by MICHAEL Rawls Narrative This result has an attachment that is no t available. Procedure Note Chano Mcdermott M.D., Ph.D. - 1 IMPRESSION: Normal sinus rhythm Normal ECG No previous ECGs available Reviewed by Jazz Rodriguez, CRAT aKrel Alvarez M.D. ECG ORDERABLES Performing Organization Address City/State/ZIP Code Phon e Number [facility] S-TSH (Thyroid-Stimulating Hormone - Sensitive) (01/02/2021 10:11 AM [place]) athologist Signature TSH, Sensitive 1.5 0.3 - 4.2 01/02/2021 [place] mIU/L 2:00 PM [place] Specimen Anatomical Collection Method Collection Time Receive d Time (Source) Location / / Volume Laterality Blood (Blood, 01/02/2021 10:11 01/02/2021 1:34 Venous) AM [place] PM [place] Karel Alvarez M.D. LAB BLOOD ADD-ON Performing Organization Address City/State/ZIP Code Phon e Number [facility]- [address] [place] [address] [place] [address] System in [place] [address] CBC with Differential, Blood (01/02/2021 10:11 AM [place]) athologist Signature Hemoglobin 13.2 11.6 - 01/02/2021 FB60 15.0 g/dL 10:17 AM [place] Hematocrit 40.9 35.5 - 01/02/2021 FB60 44.9 % 10:17 AM [place] Erythrocytes 4.62 3.92 - 01/02/2021 FB60 5.13 10:17 AM [place] x10(12)/L MCV 88.5 78.2 - 01/02/2021 FB60 97.9 fL 10:17 AM [place] RBC Distrib Width 14.0 12.2 - 01/02/2021 FB60 16.1 % 10:17 AM [place] Platelet Count 283 157 - 371 01/02/2021 FB60 x10(9)/L 10:17 AM [place] Leukocytes 9.4 3.4 - 9.6 01/02/2021 FB60 x10(9)/L 10:17 AM [place] Neutrophils 6.44 1.56 - 01/02/2021 FB60 6.45 10:17 AM [place] x10(9)/L Lymphocytes 1.85 0.95 - 01/02/2021 FB60 3.07 10:17 AM [place] x10(9)/L Monocytes 0.62 0.26 - 01/02/2021 FB60 0.81 10:17 AM [place] x10(9)/L Eosinophils 0.43 0.03 - 01/02/2021 FB60 0.48 10:17 AM [place] x10(9)/L Basophils 0.02 0.01 - 01/02/2021 FB60 0.08 10:17 AM [place] x10(9)/L Specimen Anatomical Collection Method Collection Time Receive d Time (Source) Location / / Volume Laterality Blood (Blood, 01/02/2021 10:11 01/02/2021 Venous) AM [place] 10:11 AM [place] Karel Alvarez M.D. LAB BLOOD ADD-ON Performing Organization Address City/State/ZIP Code Phon e Number [facility]- [address] [place] [address] [place] [address] [facility] [place] [address] System [address] (ABNORMAL) Hemoglobin A1c (01/02/2021 10:11 AM [place]) P athologist Signature Hemoglobin A1c, 5.7 (H) 4.2 - 5.6 01/02/2021 OW B % 1:54 PM [place] Comment: Hemoglobin A1c values of 5.7-6.4 percent indicate an increased risk for developing diabetes m ellitus. In diabetic patients, HbA1c goals should be discussed with healthcare provider. Specimen Anatomical Collection Method Collection Time Receive d Time (Source) Location / / Volume Laterality Blood (Blood, 01/02/2021 10:11 01/02/2021 1:34 Venous) AM [place] PM [place] Karel Alvarez M.D. LAB BLOOD ADD-ON Performing Organization Address City/State/ZIP Code Phon e Number [facility]- [address] [facility] [place] [address] [facility] [place] [address] System in [place] [address] Comprehensive Metabolic Panel (01/02/2021 10:11 AM [place]) P athologist Signature Potassium, P 4.5 3.6 - 5.2 01/02/2021 [place] mmol/L 1:50 PM [place] Sodium, P 138 135 - 145 01/02/2021 [place] mmol/L 1:50 PM [place] Chloride, P 104 98 - 107 01/02/2021 [place] mmol/L 1:50 PM [place] Bicarbonate, P 27 22 - 29 01/02/2021 [place] mmol/L 2:07 PM [place] Anion Gap, P 7 7 - 15 01/02/2021 [place] 2:07 PM [place] BUN (Blood Urea 11 6 - 21 01/02/2021 [place] Nitrogen), P mg/dL 2:07 PM [place] Creatinine 0.64 0.59 - 01/02/2021 [place] 1.04 mg/dL 2:07 PM [place] eGFR-Black/Afric >90 >=60 01/02/2021 [place] an Omani mL/min/BSA 2:07 PM [place] Comment: ----ADDITIONAL INFORMATION---- Estimated GFR calculated using the 2009 CKD_EPI creatinine equation. eGFR Non-Black/ >90 >=60 mL/min/BSA 01/02/2021 2:07 PM [place] Comment: ----ADDITIONAL INFORMATION---- Estimated GFR calculated using the 2009 CKD_EPI creatinine equation. Calcium, Total, P 8.7 8.6 - 10.0 mg/dL 01/02/2021 2:07 PM [place] Glucose, P 104 70 - 140 mg/dL 01/02/2021 2:07 PM [place] O ANUM Protein, Total, P 7.4 6.3 - 7.9 g/dL 01/02/2021 2:07 P M [place] Albumin, P 4.1 3.5 - 5.0 g/dL 01/02/2021 1:50 PM [place] O ANUM Aspartate Aminotransferase 26 8 - 43 U/L 01/02/2021 2 :07 PM [place] P Alkaline Phosphatase, P 67 35 - 104 U/L 01/02/2021 1: 50 PM [place] Alanine Aminotransferase (ALT), 24 7 - 45 U/L 021 2:07 PM [place] P Bilirubin, Total, P 0.3 <=1.2 mg/dL 01/02/2021 2:07 PM [place] Specimen Anatomical Collection Method Collection Time Receive d Time (Source) Location / / Volume Laterality Blood (Blood, 01/02/2021 10:11 01/02/2021 1:34 Venous) AM [place] PM [place] Karel Alvarez M.D. LAB BLOOD ADD-ON Performing Organization Address City/State/ZIP Code Phon e Number [facility]- [address] [place] [address] [place] [address] System in [place] [address] (ABNORMAL) Lipid Panel (01/02/2021 10:11 AM [place]) athologist Signature Cholesterol, 179 mg/dL 01/02/2021 [place] Total 2:07 PM [place] Comment: ----REFERENCE VALUE---- Desirable: < 200 Borderline high: 200 - 239 High: > or = 240 Triglycerides 142 mg/dL 01/02/2021 2:07 PM [place] OWA T Comment: ----REFERENCE VALUE---- Normal: <150 Borderline high: 150-199 High: 200-499 Very high: > or =500 Cholesterol, HDL 48 (L) >=50 mg/dL 01/02/2021 2:07 PM [place] Calculated LDL 103 mg/dL 01/02/2021 2:07 PM [place] OW AT Comment: ----REFERENCE VALUE---- Desirable: <100 Above Desirable: 100-129 Borderline high: 130-159 High: 160-189 Very high: > or =190 Cholesterol, Non-HDL, Calculated 131 mg/dL 021 2:07 PM [place] [facility] Comment: ----REFERENCE VALUE---- Desirable: <130 Above Desirable: 130-159 Borderline high: 160-189 High: 190-219 Very high: > or =220 Specimen Anatomical Collection Method Collection Time Receive d Time (Source) Location / / Volume Laterality Blood (Blood, 01/02/2021 10:11 01/02/2021 1:34 Venous) AM [place] PM [place] Karelglenn Alvarez M.D. LAB BLOOD ADD-ON Performing Organization Address City/State/ZIP Code Phon e Number [facility] [address] [place] [address] [place] [address] System in [place] [address] documented in this encounter Visit Diagnoses Diagnosis Asthma Moderate Persistent (HCC) - Prima ry Hypertension Essential Primary Morbid Obesity Body Mass Index 45.0-49.9 Adult (HCC) PreDiabetes Anxiety Generalized Disorder Hypertriglyceridemia documented in this encounter Additional Health Concerns Assessment Noted Time PHQ-9 Depression Total Score: 15 12/25/2019 8:50 AM CS T documented as of this encounter Care Teams Furniture Packer Relationship Specialty Start Date End Date Odalys Contreras, VICE PRESIDENT PAYER, C.N.P. PCP - General 04/21/17 01/15/[address] [place] [address] documented as of this encounter
--- OUTSIDE RECORDS SUMMARY | 2022-06-29 19:15 | XMS_ITS | Encounter Summary ---
:[address] [facility] Address [address] [place] [address] Care Team Providers Name Role Phone Odalys Contreras APRN, C.N.P. Primary Care Provider [phone] Reason for Visit Reason Comments Med Refill Encounter Details Date Type Department Care Team Description 11/25/2020 Refill Department of Family Medicine, Erin Contreras APRN, Med Refill [facility], [place] [address] [address] [place] [address] [phone] Social History Tobacco Use Types Packs/Day Years [...] or relatives? How often do you attend sikhism or samaritan More than 4 time s per year 12/25/2021 services? 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 PCP - General 04/21/17 01/15/21 [address], [place] [address] documented as of this encounter
--- OUTSIDE RECORDS SUMMARY | 2022-06-29 19:15 | XMS_ITS | Encounter Summary ---
:1970 Author Organization [facility] Address [address] [place] [address] Care Team Providers Name Role Phone Odalys Contreras APRN, C.NChip Primary Care Provider [phone] Reason for Referral Outpatient (Routine) - Closed Specialty Diagnoses / Procedures Referred By Referred To Contact Contact Physical Medicine and Diagnoses Pain Knee Left Disruption Anterior Cruciate Ligament Initial Left Secondary Osteoarthritis Knee Left Disruption Anterior Cruciate Ligament Subsequent Left Romeo Mayberry [facility] Region Rehabilitation Procedures PMR Peripheral injection/USGI (Procedure Only) [facility] [address] [place] [address] Referral ID Status Reason Start Date Expiration Date Visits Requ ested Visits Authorized [id number] Closed 08/11/2020 08/11/2021 1 1 Reason for Visit Reason Comments Injury Pain Appointment Request (Routine) - Closed Specialty Diagnoses / Procedures Referred By Contact Refer red To Contact Orthopedic Surgery Diagnoses [facility] Region Procedures ORS EST Referral ID Status Reason Start Date Expiration Date Visits Requ ested Visits Authorized [id number] Closed 08/05/2020 08/05/2021 1 1 Encounter Details Date Type Department Care Team Description 08/11/2020 Office Visit Department of Romeo Mayberry Pain Knee Left (Primary Dx); Orthopedic Surgery in [place] Disruption Anterior Cruciate Ligament In itial Left; [place], [place] [address] Secondary Osteoarthritis Knee Left; [address] [place] Disruption Anterior Cruciate Ligament Subsequent [place]; [place] [address] Effusion Knee Left; [address] Morbid Obesity (HCC) Social History Tobacco Use Types Packs/Day Years [...] How often do you attend sikhism or methodist More than 4 time s [...] for the very basics like Not isidro mitchell hard 12/25/2021 food, housing, medical care, and [...] at Date Recorded Female 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 - 08/11/2020 3:30 PM CDT HPI: Shanda is a pleasant 49-year-old female who I am seeing in consultation from Dr. Jordan hardy today in regards to left knee injury. She fell and twisted her left knee about a month ago. She recalls hearing a very faint pop at the time but nothing like when she originally tore her ACL. She have a cortisone injection shortly after at [facility]. She notes the injection immediately made her pain much worse and she is barely able to walk out of the clinic. She has a history of a previous ACLreconstruction done in another facility. This was in 2007. She has continued pain since his fall. She feels like if she walks for a long time her knee becomes fatigued and feels like it might give out on her. The pain is in the front and medial side of her knee. Please see Electronic Medical Record for past medical history, medications, allergies, past surgicalhistory, family history, social history, and review of systems. I did personally review all of thesesections. PHYSICAL EXAM: She is a healthy-appearing female no acute distress. Examination of her left knee reveals benign skin. Previous incisions are well healed. Range of motion 0- 110 degrees. She has tenderness significantly over the medial joint line. She has no lateral tenderness. She does have some laxity anterior drawer. Jesus's testing is difficult due to body habitus. She is stable to varus and valgus. IMAGING: X-rays and MRI reviewed. She is developing significant degenerative joint disease with moderate narrowing of the medial joint space. She has [address] from previous ACL reconstruction.Her ACL graft appears completely torn but this does not appear to be an acute injury. ASSESSMENT AND PLAN: Shanda is a pleasant 49-year-old female who is developing significant osteoarthritis of the left knee and has an ACL deficiency. I do not think her torn ACL graft is necessarily acute in appearance. Ithink the degenerative changes are knee are too much to consider a revision ACL reconstruction. I do suspect that the cortisone injection she had was not intra-articular due to the history of her increased pain afterwards. I did recommend sending her back to Dr. Jordan Mendoza for an ultrasound-guided cortisone injection. I prescribed her physical therapy. I will see her back on an as-needed basis. documented in this encounter Plan of Treatment Upcoming Encounters Date Type Specialty Care Team Description 07/16/2022 Office Visit Family Medicine Karel Gill M.B.B .S., M.D. [address] [place] [phone] (Wo rk) documented as of this encounter Results ND ARTHCS ASP/INJ MJR JT W US (09/01/2020 8:30 AM CDT) Specimen (Source) Anatomical Location Collection Method / Collectio n Time Received Time / Laterality Volume Narrative MMODAL - 09/01/2020 8:30 AM CDT Jordan Roth D.O. ? 09/01/2020 ??9:03 AM Knee site- L knee joint : injection only Date/Time: 09/01/2020 8:36 AM Performed by: Jordan Roth D.O. Authorized by: Romeo Mayberry M.D. Care team members present 1. Jairo Patel, A.TChuckyCChucky PROCEDURE DETAILS Pre procedure pain score: 8/10 Post procedure pain score: 5/10 Procedure Location knee Knee site: L knee joint Patient position: supine Procedural approach: anterior Procedure performed: injection only Needle gauge: 25 G, length: 2 in Image guidance Ultrasound The use of direct ultrasound visualizati on of the needle was required (rather than a non-guided injection) to ensure accurate injection delivery and to maximize clinical benefit beyond that obtained with a non-guided injection. ??Additionally, there can be diagnostic specificity when evaluating effectiveness of the injectio n, and for safety purposes to minimize risk of bleeding or injury to s urrounding structures. Images saved: yes Pre-procedure image guidance used to loc jose target and identify at risk structures, and plan approach and site w as marked using indelible marker. Probe: linear mid-frequency Needle approach: lateral to medial Ultrasound visualization: combined in-pl ane and caf-aq-utjmg Procedural Medication The following medications were administe red at the target site(s) Local anesthetic: 3 mL ropivacaine (PF) 2 mg/mL (0.2 %) Corticosteroid: 40 mg methylPREDNISolone acetate 40 mg/mL CONSENT Consent obtained: written UNIVERSAL PROTOCOL All [...] in a procedu ral pause. PRE-PROCEDURE DETAILS Procedure purpose: therapeutic Skin preparation: chlorhexidine SEDATION / ANESTHESIA Anesthesia method: none POST-PROCEDURE DETAILS Procedure completed successfully: yes Complications: no apparent complications ?? Post-procedure instructions: avoid stren uous activity for 2 days, avoid submersion of procedure site for 48 hour s and post-procedure activity instructions provided Discharge instructions: ice area as need ed for comfort and medications and side effects Other procedure detail: PPE use informat ion for possible contact monitoring: PPE used during visit: Provider was wear ing a mask and eye protection throughout entire session. Patient and spouse/assistant reading teacher or both wer e wearing a mask throughout the entire session. Additional person present and PPE use: A TC, Surgical mask and Eye protection Romeo Mayberry M.D. PROCEDURE/MINOR SURGICAL ORD ERABLES Performing Organization Address City/State/ZIP Code Phon e Number MMODAL MMODAL NA documented in this encounter Visit Diagnoses Diagnosis Pain Knee Left - Primary Disruption Anterior Cruciate Ligament In itial Left Secondary Osteoarthritis Knee Left Disruption Anterior Cruciate Ligament Clements bsequent Left Effusion Knee Left Morbid Obesity (HCC) Pain Knee Left - Primary Secondary Osteoarthritis Knee Left Disruption Anterior Cruciate Ligament Clements bsequent Left Morbid Obesity (HCC) documented in this encounter Additional Health Concerns Assessment Noted Time PHQ-9 Depression Total Score: 15 12/25/2019 8:50 AM CS T documented as of this encounter Care Teams Wash Mill Operator Relationship Specialty Start Date End Date Odalys Contreras APRN, C.N.P. PCP - General 04/21/17 01/15/21 [address] [address] documented as of this encounter
--- OUTSIDE RECORDS SUMMARY | 2022-06-29 19:15 | XMS_ITS | Encounter Summary ---
:1970 Author Organization [facility] Address [address] [place] [address] Care Team Providers Name Role Phone Karel Gill M.D. Primary Care Provider [phone] Encounter Details Date Type Department Care Team Description 01/19/2021 Clinical Communication Department of Karel Giron [facility], [facility], in [place] [address] [facility] [address] [place] [phone] Social History Tobacco Use Types Packs/Day Years [...] or relatives? How often do you attend hindu or advent More than 4 time s per year 12/25/2021 services? Do you belong to any clubs or organizations Yes 12/25/2021 such as hindu groups, unions, fraternal or athletic groups, or [...] place to sleep or slept in a group home (including now)? Education Answer Date Recorded What is the highest level of school you have Some college, n o degree 08/01/2020 completed or the highest degree you have received? 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 - 01/19/2021 2:48 PM CDT SUBJECTIVE CHIEF COMPLAINT / REASON FOR CALL No chief complaint on file. Information Discussed Contacted the pharmacy to verify that they did receive the medication. Pharmacy staff informed me that they did. No further actions needed. PLAN Disposition/Recommendation: recommended continue engagement in self-management activities Information/Education: patient/caller able to teach back Caller agreeable to plan of care: yes The following references were used: provider Karel Gill M.D. Telephone Encounter - Karel Gill M.D. - 01/19/2021 2:26 PM CDT Prescription has been changed to ProAir. Telephone Encounter - Tova Brown - 01/19/2021 9:33 AM CDT Reason for Communication: [facility] called and stated that Ventolin is not covered by pt's insurance and they need authorization to change it to albuterol Pro-Air inhaler Current Ref#[id number] Can Nursing/Provider leave a detailed message?: Did the patient refuse triage through Nurse line? (for symptom based concerns): Action Needed: please call [facility] and advise Name of Medication (if relevant): ProAir documented in this encounter Plan of Treatment Upcoming Encounters Date Type Specialty Care Team Description 07/16/2022 Office Visit Family Medicine Karel Gill M.B.B .S. MRadha [address] [place], [place] [phone] (Wo rk) documented as of this encounter Visit Diagnoses Diagnosis Asthma Mild Intermittent (HCC) - Primary documented in this encounter Additional Health Concerns Assessment Noted Time PHQ-9 Depression Total Score: 15 12/25/2019 8:50 AM CS T documented as of this encounter Care Teams Product Applications Engineer Relationship Specialty Start Date End Date Karel Gill M.B.B.S., MAllegra. PCP - General Family Medicine 01/16/21 [address] [place] [address] documented as of this encounter
--- OUTSIDE RECORDS SUMMARY | 2022-06-29 19:15 | XMS_ITS | Encounter Summary ---
:1970 Author Organization [facility] Address [address] [place] [address] Care Team Providers Name Role Phone Odalys Contreras APRN, C.N.P. Primary Care Provider [phone] Reason for Visit Reason Comments Med Refill Encounter Details Date Type Department Care Team Description 10/06/2020 Refill Department of Family Medicine, Erin Contreras APRN, Med Refill [facility], [place] [address] [place] [address] [place], [place] [address] [phone] Social History Tobacco Use Types Packs/Day Years [...] or relatives? How often do you attend spiritism or confucianism More than 4 time s per year 12/25/2021 services? 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 documented as of this encounter Miscellaneous Notes Telephone Encounter - Jennifer Goyal - 10/07/2020 1:59 PM CST Sent to [facility] 10/06/20 #90 3 refills DECORATOR documented in this encounter Plan of Treatment Upcoming Encounters Date Type Specialty Care Team Description 07/16/2022 Office Visit Family Medicine Karel Gill M.B.B ChuckySChucky, M.DChucky [address] [place], [place] [phone] (Wo rk) documented as of this encounter Visit Diagnoses Diagnosis 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 PCP - General 04/21/17 01/15/21 [address], [place] [address] documented as of this encounter
--- OUTSIDE RECORDS SUMMARY | 2022-06-29 19:15 | XMS_ITS | Encounter Summary ---
:1970 Author Organization [facility] Address [address] [place] [address] Care Team Providers Name Role Phone Odalys Contreras APRN, C.N.P. Primary Care Provider [phone] Reason for Visit Reason Comments Med Refill Encounter Details Date Type Department Care Team Description 11/20/2020 Refill Department of Family Medicine, Erin Contreras APRN, Med Refill [facility], [place] [address] [address] [place] [address] [phone] Social History Tobacco Use Types Packs/Day Years [...] or relatives? How often do you attend hoahaoism or nondenominational More than 4 time s per year 12/25/2021 services? 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 [address] [place] [phone] (Wo rk) documented as of this encounter Visit Diagnoses Diagnosis Asthma Mild Intermittent (HCC) documented in this encounter Additional Health Concerns Assessment Noted Time PHQ-9 Depression Total Score: 15 12/25/2019 8:50 AM CS T documented as of this encounter Care Teams Supervisor Parking Lot Relationship Specialty Start Date End Date Odalys Contreras, CONSTRUCTION PROJECT MGR, C.N.P. PCP - General 04/21/17 01/15/21 [address], [place] [address] documented as of this encounter
--- OUTSIDE RECORDS SUMMARY | 2022-06-29 19:15 | XMS_ITS | Encounter Summary ---
:1970 Author Organization [facility] Address [address] [place] [address] Care Team Providers Name Role Phone Odalys Contreras APRN, C.NChip Primary Care Provider [phone] Encounter Details Date Type Department Care Team Description 09/01/2020 Ancillary Procedure Department of Physical Medicine and Rehab Social History Tobacco Use Types Packs/Day Years [...] How often do you attend restoration or mormonism More than 4 time s per year [...] place to sleep or slept in a jail (including now)? Education Answer Date Recorded What is the highest level of school you have Some college, n o degree 08/01/2020 completed or the highest degree you have received? 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 [address] [place] [phone] (Wo rk) documented as of this encounter Procedures Procedure Name Priority Date/Time Associated Diagnosis Comme nts PHYSICAL MEDICINE Routine 09/01/2020 8:10 AM Resu lts for this AND REHAB IMAGE CDT procedure ar e in EXAM the results section. documented in this encounter Results Non-Radiology Image-Physical Medicine And Rehab Image Exam (09/01/2020 8:10 AM CDT) Specimen (Source) Anatomical Collection Method Collection Time Re ceived Time Location / / Volume Laterality 09/01/2020 8:08 AM CDT Narrative [facility] - 09/01/2020 10:01 AM CDT This order has been created and auto-finalized to support the import of images acquired without order. The clini aruna documentation to support these images can be found on the encounter harsh t produced images. Provider Not In System IMG NON RAD IMAGING PROCEDUR ES Performing Organization Address City/State/ZIP Code Phon e Number IIMS IIMS NA documented in this encounter Visit Diagnoses Not on filedocumented in this encounter Additional Health Concerns Assessment Noted Time PHQ-9 Depression Total Score: 15 12/25/2019 8:50 AM CS T documented as of this encounter Care Teams Cashier General Relationship Specialty Start Date End Date Odalys Contreras, FINISHING AREA OPERATOR, C.N.P. PCP - General 04/21/17 01/15/21 [address], [place] [address] documented as of this encounter
--- OUTSIDE RECORDS SUMMARY | 2022-06-29 19:15 | XMS_ITS | Encounter Summary ---
:[address] [facility] Address [address] [place] [address] Care Team Providers Name Role Phone Karel Gill M.D. 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 Left a voicemail. This is thethird attempt to contact the patient, will be sending out a letter of the results to the patient. PLAN Disposition/Recommendation: N/A Information/Education: not applicable Caller agreeable to plan of care: no N/A The following references were used: provider Karel Gill M.D. L PHOTOGRAPHER Telephone Encounter - Mahad Willett C.MSean - 01/06/2021 10:00 AM STILL PHOTOGRAPHER Left message for patient to return call to clinic. Does the patient need to speak to nursing? yes Action needed: Inform patient of the following - Labs showed no significant abnormalities. ??However, HDL which represents good cholesterol is low. ??This responds well to a diet high in fresh fruits and vegetables. ??I would also recommend regular exercise. Although patient is not diabetic, hemoglobin A1c is borderline which increases her risk of developing diabetes in the future. ??I would recommend maintaining a low-carbohydrate diet and exercising regularly to reduce insulin resistance. ??I would recommend following up in 1 year for repeat A1c. -Dr. Karel Gill L PHOTOGRAPHER Telephone Encounter - Idalia Malone C.M.A. - 01/05/2021 10:34 AM STILL PHOTOGRAPHER Left message for patient to return call to clinic. Does the patient need to speak to nursing? no Action needed: The patient needs to be informed of the information listed below as per Dr. Gill. Labs showed no significant abnormalities. ??However, HDL which represents good cholesterol is low. ??This responds well to a diet high in fresh fruits and vegetables. ??I would also recommend regular exercise. Although patient is not diabetic, hemoglobin A1c is borderline which increases her risk of developing diabetes in the future. ??I would recommend maintaining a low-carbohydrate diet and exercising regularly to reduce insulin resistance. ??I would recommend following up in 1 year for repeat A1c. L PHOTOGRAPHER documented in this encounter Plan of Treatment Upcoming Encounters Date Type Specialty Care Team Description 07/16/2022 Office Visit Family Medicine Karel Gill M.B.B .S., M.D. [address] [place] [phone] (Wo rk) documented as of this encounter Visit Diagnoses Not on filedocumented in this encounter Additional Health Concerns Assessment Noted Time PHQ-9 Depression Total Score: 15 12/25/2019 8:50 AM CS T documented as of this encounter Care Teams Direct Care Provider Relationship Specialty Start Date End Date Karel Gill M.B.B.S., M.D. PCP - General Family Medicine 3/12/[address] [place] [address] [place] [address] documented as of this encounter
--- OUTSIDE RECORDS SUMMARY | 2022-06-29 19:15 | XMS_ITS | Encounter Summary ---
:1970 Author Organization [facility] Address [address] [place] [address] Care Team Providers Name Role Phone Odalys Contreras APRN, C.N.P. Primary Care Provider [phone] Reason for Visit Reason Comments Med Refill Encounter Details Date Type Department Care Team Description 01/14/2021 Refill Department of Family Medicine, Erin Contreras APRN, Med Refill [facility], [place] [address] [address] [place] [address] [phone] Social History Tobacco Use Types Packs/Day Years [...] or relatives? How often do you attend taoist or synagogue More than 4 time s per year 12/25/2021 services? Do you belong to any clubs or organizations Yes 12/25/2021 such as taoist groups, unions, fraternal or athletic groups, or [...] at Date Recorded Female 12/02/2017 9:31 AM CAN WORKER documented as of this encounter Plan of Treatment Upcoming Encounters Date Type Specialty Care Team Description 07/16/2022 Office Visit Family Medicine Karel Gill M.B.B Deb, M.DChucky [address] [place] [phone] (Wo rk) documented as of this encounter Visit Diagnoses Diagnosis Hypertension Essential Primary documented in this encounter Additional Health Concerns Assessment Noted Time PHQ-9 Depression Total Score: 15 12/25/2019 8:50 AM CS T documented as of this encounter Care Teams Physicians Assistant Relationship Specialty Start Date End Date Odalys Contreras, WARRANTY COORDINATOR, C.N.P. PCP - General 04/21/17 01/15/21 [address], [place] [address] documented as of this encounter
--- OUTSIDE RECORDS SUMMARY | 2022-06-29 19:15 | XMS_ITS | Encounter Summary ---
:1970 Author Organization [facility] Address [address] [place] [address] Care Team Providers Name Role Phone Odalys Contreras APRN, C.NChip Primary Care Provider [phone] Reason for Visit Reason Comments COVID Inquiry Encounter Details Date Type Department Care Team Description 12/03/2020 Clinical Communication Central Appointment [facility] Office in [address] [phone] Social History Tobacco Use Types Packs/Day Years [...] or relatives? How often do you attend advent or protestant More than 4 time s per year 12/25/2021 services? Do you belong to any clubs or organizations Yes 12/25/2021 such as advent groups, unions, fraternal or athletic groups, or [...] place to sleep or slept in a assisted (including now)? Education Answer Date Recorded What is the highest level of school you have Some college, n o degree 08/01/2020 completed or the highest degree you have received? Sex Assigned at Date Recorded Female 12/02/2017 9:31 AM ACTUARIAL SCIENCE TEACHER documented as of this encounter Miscellaneous Notes Telephone Encounter - Lien Sinha - 12/03/2020 9:41 AM CST What is the purpose of the call?: Symptomatic (Calling PCP Office) Calling [facility] In the past 14 days are any of the following symptoms new to you and not related to an existing health condition?: Fever*, New chills, New headache, New cough, New change or loss of taste sensation, New sore throat, New diarrhea, New nausea Because of symptoms, transfer patient to: : [facility] Nurse Line (End Screening) Symptom Onset Date of symptom onset: 11/29/20 Testing Recommendation Endpoint Is testing recommended? : Transferred to nursing call line Plan: Endpoint recommendation: Transferred to Nursing/COVID Line/Care Team *Reminder if sending patient for testing in [facility] or [facility], route encounter to the correct testing pool. ARIAL SCIENCE TEACHER documented in this encounter Plan of Treatment Upcoming Encounters Date Type Specialty Care Team Description 07/16/2022 Office Visit Family Medicine Karel Gill M.B.B .S., MAllegra. [address] [place] [phone] (Wo rk) documented as of this encounter Visit Diagnoses Not on filedocumented in this encounter Additional Health Concerns Assessment Noted Time PHQ-9 Depression Total Score: 15 12/25/2019 8:50 AM CS T documented as of this encounter Care Teams Water Attendant Relationship Specialty Start Date End Date Odalys Contreras, LAKHWINDER, C.N.P. PCP - General 04/21/17 01/15/21 [address], [place] [phone] documented as of this encounter
--- OUTSIDE RECORDS SUMMARY | 2022-06-29 19:15 | XMS_ITS | Encounter Summary ---
:1970 Author Organization [facility] Address [address] [place] [address] Care Team Providers Name Role Phone Karel Gill M.D. Primary Care Provider [phone] Reason for Visit Reason Comments Med Refill Encounter Details Date Type Department Care Team Description 01/16/2021 Refill Department of Family Medicine, Erin Contreras APRN, Med Refill [facility], in [place], [place] [address] [place] [address] [place], [place] [address] [phone] Social History Tobacco Use Types Packs/Day Years [...] or relatives? How often do you attend buddhism or taoism More than 4 time s per year 12/25/2021 services? 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 MAllegra. PCP - General Family Medicine 01/16/21 [address] [facility] [place] [address] documented as of this encounter
--- OUTSIDE RECORDS SUMMARY | 2022-06-29 19:15 | XMS_ITS | Encounter Summary ---
:1970 Author Organization [facility] Address [address] [place] [address] Care Team Providers Name Role Phone Karel Gill M.D. Primary Care Provider [phone] Encounter Details Date Type Department Care Team Description 01/15/2021 Orders Only Pharmacy Prior Auth RO Elsewhere, Pcp [phone] Social History Tobacco Use Types Packs/Day Years [...] or relatives? How often do you attend synagogue or gnosticist More than 4 time s per year 12/25/2021 services? Do you belong to any clubs or organizations Yes 12/25/2021 such as synagogue groups, unions, fraternal or athletic groups, or school groups? How often do you attend meetings of the More than 4 times pe donna year 12/25/2021 clubs or organizations you belong [...] place to sleep or slept in a mcfp (including now)? Education Answer Date Recorded What is the highest level of school you have Some college, n o degree 08/01/2020 completed or the highest degree you have received? Sex Assigned at Date Recorded Female 12/02/2017 9:31 AM DIRECTOR OF CONSULTING SERVICES documented as of this encounter Plan of Treatment Upcoming Encounters Date Type Specialty Care Team Description 07/16/2022 Office Visit Family Medicine Karel Gill M.B.B .S., MAllegra. [address] [place], [place] [phone] (Wo rk) documented as of this encounter Visit Diagnoses Not on filedocumented in this encounter Additional Health Concerns Assessment Noted Time PHQ-9 Depression Total Score: 15 12/25/2019 8:50 AM CS T documented as of this encounter Care Teams Erp Developer Relationship Specialty Start Date End Date Karel Gill M.B.B.S., MChuckyD. PCP - General Family Medicine 01/16/21 300 [facility] [place] [address] documented as of this encounter
--- OUTSIDE RECORDS SUMMARY | 2022-06-29 19:15 | XMS_ITS | Encounter Summary ---
:1970 Author Organization [facility] Address [address] [place] [address] Care Team Providers Name Role Phone Karel Gill M.D. Primary Care Provider [phone] Reason for Visit Reason Comments Med Refill Encounter Details Date Type Department Care Team Description 02/11/2021 Refill Department of Family Medicine, Erin Contreras APRN, Med Refill [facility], in [place], [place] [address] [place] [address] [place], [place] [address] [phone] Social History Tobacco Use Types Packs/Day Years [...] or relatives? How often do you attend mandaen or taoist More than 4 time s per year 12/25/2021 services? Do you belong to any clubs or organizations Yes 12/25/2021 such as mandaen groups, unions, fraternal or athletic groups, or [...] at Date Recorded Female 12/02/2017 9:31 AM HUMAN RESOURCES TRAINER documented as of this encounter Miscellaneous Notes Telephone Encounter - Karel Gill M.B.B.S., M.D. - 02/23/2021 7:34 AM CDT That appointment should be fine. Thank you Telephone Encounter - Letty Moraes - 02/19/2021 1:41 PM CDT Nurse review: FYI - appt recommended. Telephone Encounter - Karel Gill M.B.B.S., M.D. - 02/19/2021 11:09 AM CDT She will need an appointment to deal with her worsening anxiety and taper off ativan. I do not plan on keeping her on this medication adjunct faculty for medical terminology. documented in this encounter Plan of Treatment Upcoming Encounters Date Type Specialty Care Team Description 07/16/2022 Office Visit Family Medicine Karel Gill M.B.B .S., M.D. 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 PCP - General Family Medicine 01/16/21 [address] [facility] [place] [address] documented as of this encounter
--- OUTSIDE RECORDS SUMMARY | 2022-06-29 19:15 | XMS_ITS | Encounter Summary ---
:1970 Author Organization [facility] Address [address] [place] [address] Care Team Providers Name Role Phone Odalys Contreras APRN, C.N.P. Primary Care Provider [phone] Reason for Visit Reason Comments Med Refill Encounter Details Date Type Department Care Team Description 12/26/2020 Refill Department of Family Medicine, Erin Contreras APRN, Med Refill [facility], [place], [place] [address] [place] [address] [place] [address] [phone] Social History Tobacco Use Types Packs/Day Years [...] or relatives? How often do you attend denominational or taoist More than 4 time s per year 12/25/2021 services? Do you belong to any clubs or organizations Yes 12/25/2021 such as denominational groups, unions, fraternal or athletic groups, or [...] at Date Recorded Female 12/02/2017 9:31 AM COMMERCIAL LAWN SPECIALIST documented as of this encounter Plan of Treatment Upcoming Encounters Date Type Specialty Care Team Description 07/16/2022 Office Visit Family Medicine Karel Gill M.B.B .SChucky, M.D. 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 PCP - General 04/21/17 01/15/21 [address] [place] [address] documented as of this encounter
--- OUTSIDE RECORDS SUMMARY | 2022-06-29 19:15 | XMS_ITS | Encounter Summary ---
:1970 Author Organization [facility] Address [address] [place] [address] Care Team Providers Name Role Phone Karel Gill M.D. Primary Care Provider [phone] Reason for Visit Reason Comments Med Refill Encounter Details Date Type Department Care Team Description 01/19/2021 Refill Department of Family Medicine, Karel Gill I., Med Refill [facility], in [place], [place] 300 [facility] [address] [place] [address] [place] [address] [phone] Social History Tobacco Use Types Packs/Day Years [...] or relatives? How often do you attend orthodox or presybeterian More than 4 time s per year 12/25/2021 services? Do you belong to any clubs or organizations Yes 12/25/2021 such as orthodox groups, unions, fraternal or athletic groups, or [...] at Date Recorded Female 12/02/2017 9:31 AM INSPECTOR FLOOR documented as of this encounter Plan of Treatment Upcoming Encounters Date Type Specialty Care Team Description 07/16/2022 Office Visit Family Medicine Karel Gill M.B.B .S., M.D. 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 PCP - General Family Medicine 01/16/21 300 [facility] [address] documented as of this encounter
--- OUTSIDE RECORDS SUMMARY | 2022-06-29 19:15 | XMS_ITS | Encounter Summary ---
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 Procedures PMR Peripheral injection/USGI (Procedure Only) Emmanuelle Kaplan [address] [address] Referral ID Status Reason Start Date Expiration Date Visits Requ ested Visits Authorized [id number] Closed 08/11/2020 08/11/2021 1 1 Encounter Details Date Type Department Care Team Description 09/01/2020 Procedure visit Department of Physical GonzalezJordan P ainabeel Knee Left (Primary Dx); Medicine and D.O. Secondary Osteoarthritis Knee [place] [place] [address] [facility] Subsequent Left; [place] Morbid Obesity (HCC) [address] [place], [place] [address] Social History Tobacco Use Types Packs/Day [...] or relatives? How often do you attend christianity or samaritan More than 4 time s per year 12/25/2021 services? Do you belong to any clubs or organizations Yes 12/25/2021 such as christianity groups, unions, fraternal or athletic groups, or [...] at Date Recorded Female 12/02/2017 9:31 AM HOT PRESS OPERATOR documented as of this encounter Patient Instructions Patient InstructionsJordan Roth D.O. - 09/01/2020 8:30 AM CDT Follow-Up Plan: ?? Prescription medication(s): None ?? Referrals/labs/imaging/procedures/DME (orders): Left knee intra-articular corticosteroid injection with ultrasound guidance completed in clinic today; continue with formal physical therapy as prescribed for further treatment purposes along with home exercises; weight loss ?? Follow-up phone call/portal message: 2 weeks with the results of your pain log to review to determine appropriate further medical care moving forward; In 4 weeks if no improvement of symptoms to your satisfaction for further evaluation/medical care; if interested in a knee brace as discussed for treatm ent purposes ?? Follow-up clinic appointment: As needed for further evaluation/medical care ?? Please feel free to call ([phone] - medical record administrator or [phone] - appointments) or message me on the [facility] Patient Portal if you have any questions (clinic days - Tuesday-). ?? Your feedback is very important to us. You may soon receive either a paper survey by mail or an electronic survey. Please complete this survey if you are able as your input provides us information to improve the services we provide to you and other patients at [facility]. Post Procedure Home Care Instructions Activity: -Avoid strenuous activity for 24-72 hours -Return to work if you feel comfortable doing so -Resume normal day to day activities if you feel comfortable and physical therapy/home exercises if applicable in 2-3 days -May shower, however no swimming, soaking tub baths, whirlpool, sauna, or hot tubs for 48-72 hours following the procedure(s) -Remove your adhesive bandage(s) before showering -Resume your usual diet unless told otherwise Pain: -May experience injection site soreness for 1-2 days (normal - will go away soon) -Use ice 15-20 minutes every hour as needed for the first 24-48 hours, repeating every 4-6 hours as needed after -Do not apply a heating pad or any form of heat to the procedure(s) site for the first 48 hours -May use Acetaminophen up to 3000 grams/day, Ibuprofen 3200 mg/day, or other pain medications as directed -It may be about 2 weeks after the procedure before you feel the greatest pain relief Common Side Effects: -Increased blood sugars in diabetic patients (few days), short-term facial flushing, feeling of warmth, brief increase in pain or soreness, difficulty sleep and/or feeling very alert, mood swings, etc. Contact Office: -Fevers (temperature of 100.0 degrees Fahrenheit or higher), other signs of infection (chills, redness, warmth, swelling, or drainage), increased pain or tenderness at the procedure site that cannot berelieved with pain medication, etc. -If you need immediate attention, recommend hospital emergency room evaluation (do not drive yourself if you are able) or dialing 911 if you have bleeding that does not stop after putting ice on the area for 10 minutes, signs of an allergic reaction (rash, swelling in your throat, difficulty swallowing, wheezing or difficulty with breathing, etc.), etc. documented in this encounter Procedure Notes Jordan Roth D.O. - 09/01/2020 8:30 AM CDTAssociated Order(s): PMR Peripheral injection/USGI (Procedure Only): L knee joint Pre-Procedure Diagnose(s): Pain Knee Left Post-Procedure Diagnose(s): Pain Knee Left; Secondary Osteoarthritis Knee Left; Disruption Anterior Cruciate Ligament Subsequent Left Knee site- L knee joint : injection only Date/Time: 09/01/2020 8:36 AM Performed by: Jordan Roth D.O. Authorized by: Romeo Mayberry M.D. Care team members present 1. Jairo Patel, A.TChuckyC. PROCEDURE DETAILS Pre procedure pain score: 8/10 Post procedure pain score: 5/10 Procedure Location knee Knee site: L knee joint Patient position: supine Procedural approach: anterior Procedure performed: injection only Needle gauge: 25 G, length: 2 in Image guidance Ultrasound The use of direct ultrasound visualization of the needle was required (rather than a non-guided injection) to ensure accurate injection delivery and to maximize clinical benefit beyond that obtained with a non-guided injection. Additionally, there can be diagnostic specificity when evaluating effectiveness of the injection, and for safety purposes to minimize risk of bleeding or injury to surroundingstructures. Images saved: yes Pre-procedure image guidance used to localize target and identify at risk structures, and plan approach and site was marked using indelible marker. Probe: linear mid-frequency Needle approach: lateral to medial Ultrasound visualization: combined in-plane and [id number] Procedural Medication The following medications were administered at the target site(s) Local anesthetic: 3 [...] confirmed in a procedural pause. PRE-PROCEDURE DETAILS Procedure purpose: therapeutic Skin preparation: chlorhexidine SEDATION / ANESTHESIA Anesthesia method: none POST-PROCEDURE DETAILS Procedure completed successfully: yes Complications: no apparent complications Post-procedure instructions: avoid strenuous activity for 2 days, avoid submersion of procedure sitefor 48 hours and post-procedure activity instructions provided Discharge instructions: ice area as needed for comfort and medications and side effects Other procedure detail: PPE use information for possible contact monitoring: PPE used during visit: Provider was wearing a mask and eye protection throughout entire session. Patient and spouse/director of pupil personnel program or both were wearing a mask throughout the entire session. Additional person present and PPE use: ATC, Surgical mask and Eye protection documented in this encounter Plan of Treatment Upcoming Encounters Date Type Specialty Care Team Description 07/16/2022 Office Visit Family Medicine Karel Gill M.B.B .S., MRadha [address] [place] [phone] (Wo rk) documented as of this encounter Procedures Procedure Name Priority Date/Time Associated Diagnosis Comme nts FL ARTHCS ASP/INJ Routine 09/01/2020 8:30 AM Pain Knee L eft Results for this MJR JT W US CDT Secondary procedure are i n Osteoarthritis Knee the resu lts Left section. Disruption Anterior Cruciate Ligament Subsequent Left documented in this encounter Results FL ARTHCS ASP/INJ MJR JT W US (09/01/2020 [...] M.D. Care team members present 1. Jairo Patel A.T.C. PROCEDURE DETAILS Pre procedure pain score: 8/10 [...] medial Ultrasound visualization: combined in-pl ane and [id number] Procedural Medication The following medications were administe [...] eye protection throughout entire session. Patient and spouse/director of pupil personnel program or both wer e wearing a mask throughout the entire session. Additional person present and PPE use: A TC, Surgical mask and Eye protection Romeo Mayberry M.D. 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 Clements bsequent Left Morbid Obesity (HCC) documented in this encounter Administered Medications Inactive Administered Medications - up to 3 most recent administrations Medication Order MAR Action Action Date Dose Rate Site methylPREDNISolone acetate Given 09/01/2020 8:36 AM CDT 40 mg injection 40 mg (DEPO-Medrol) 40 mg, intra-articular, One-Time Injection, Starting on Tue09/01/20 at 0836, For 1 dose ropivacaine (PF) 2 mg/mL (0.2 %) injection 3 mL Given 09/01/2020 8:36 AM CDT 3 mL (NAROPIN) 3 mL, One-Time Injection, Starting on Tue09/01/20 at 0836, For 1 dose documented in this encounter Additional Health Concerns Assessment Noted Time PHQ-9 Depression Total Score: 15 12/25/2019 8:50 AM CS T documented as of this encounter Care Teams Sales Program Manager Relationship Specialty Start Date End Date Odalys Contreras, LAKHWINDER, C.N.P. PCP - General 04/21/17 01/15/[address] [address] documented as of this encounter
--- OUTSIDE RECORDS SUMMARY | 2022-06-29 19:15 | XMS_ITS | Encounter Summary ---
:1970 Author Organization [facility] Address [address] [place] [address] Care Team Providers Name Role Phone Odalys Contreras APRN, C.N.P. Primary Care Provider [phone] Reason for Visit Reason Comments Med Refill Encounter Details Date Type Department Care Team Description 10/03/2020 Refill Department of Family Medicine, Erin Contreras APRN, Med Refill [facility], [place] [address] [place] [address] [place], [place] [phone] [phone] Social History Tobacco Use Types Packs/Day Years [...] How often do you attend methodist or temple More than 4 time s [...] at Date Recorded Female 12/02/2017 9:31 AM SURGICAL ELASTIC KNITTER HAND FRAME documented as of this encounter Plan of Treatment Upcoming Encounters Date Type Specialty Care Team Description 07/16/2022 Office Visit Family Medicine Karel Gill M.B.B .S., M.D. 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 PCP - General 04/21/17 01/15/[address] [address] documented as of this encounter
--- OUTSIDE RECORDS SUMMARY | 2022-06-29 19:15 | XMS_ITS | Encounter Summary ---
:[address] [facility] Address [address] [place] [address] Care Team Providers Name Role Phone Odalys Contreras APRN, C.NChuckyPChucky Primary Care Provider [phone] Encounter Details Date Type Department Care Team Description 08/11/2020 Orders Only Department of [facility] Jennifer Ramirez Medicine, [facility] -[facility]. in [facility] [address] [place] [phone] (Wo rk) Social History Tobacco Use Types [...] or relatives? How often do you attend alevism or hinduism More than 4 time s per year 12/25/2021 services? Do you belong to any clubs or organizations Yes 12/25/2021 such as alevism groups, unions, fraternal or athletic groups, or [...] at Date Recorded Female 12/02/2017 9:31 AM HIGH CLIMBER documented as of this encounter Plan of Treatment Upcoming Encounters Date Type Specialty Care Team Description 07/16/2022 Office Visit Family Medicine Karel Gill M.B.B .S., MRadha [address] [place] [phone] (Wo rk) documented as of this encounter Visit Diagnoses Not on filedocumented in this encounter Additional Health Concerns Assessment Noted Time PHQ-9 Depression Total Score: 15 12/25/2019 8:50 AM CS T documented as of this encounter Care Teams Curtain Fitter Relationship Specialty Start Date End Date Odalys Contreras, LAKHWINDER, C.N.P. PCP - General 04/21/17 01/15/21 [address] [place] [address] documented as of this encounter
--- OUTSIDE RECORDS SUMMARY | 2022-06-29 19:15 | XMS_ITS | Encounter Summary ---
:1970 Author Organization [facility] Address [address] [place] [address] Care Team Providers Name Role Phone Karel Gill M.D. Primary Care Provider [phone] Encounter Details Date Type Department Care Team Description 02/06/2021 Orders Only [facility] PCP TH Yoni David Jr., M.D. [address] [place] [phone] (Wo rk) Social History Tobacco Use Types [...] or relatives? How often do you attend zoroastrian or lutheran More than 4 time s per year 12/25/2021 services? 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 PCP - General Family Medicine 01/16/21 [address] [place] [address] documented as of this encounter
--- OUTSIDE RECORDS SUMMARY | 2022-06-29 19:15 | XMS_ITS | Encounter Summary ---
:1970 Author Organization [facility] Address [address] [place] [address] Care Team Providers Name Role Phone Odalys Contreras APRN, C.N.P. Primary Care Provider [phone] Encounter Details Date Type Department Care Team Description 12/03/2020 Admin Visit Department of Family Medicine, [address] [address] [facility] [phone] Social History Tobacco Use Types Packs/Day Years [...] or relatives? How often do you attend taoism or muslim More than 4 time s per year 12/25/2021 services? Do you belong to any clubs or organizations Yes 12/25/2021 such as taoism groups, unions, fraternal or athletic groups, or [...] at Date Recorded Female 12/02/2017 9:31 AM GROUND CREWMAN AIRCRAFT SUPPORT documented as of this encounter Plan of Treatment Upcoming Encounters Date Type Specialty Care Team Description 07/16/2022 Office Visit Family Medicine Karel Gill M.B.B .S., M.DChucky [address] [place] [phone] (Wo rk) documented as of this encounter Visit Diagnoses Not on filedocumented in this encounter Additional Health Concerns Infection Onset Date Last Indicated Resolved Time COVID19 Pending 12/03/2020 12/03/2020 12/04/2020 1:47 AM GROUND CREWMAN AIRCRAFT SUPPORT Assessment Noted Time PHQ-9 Depression Total Score: 15 12/25/2019 8:50 AM CS T documented as of this encounter Care Teams Intranet Developer Relationship Specialty Start Date End Date Odalys Contreras, LIQUOR STORES AND AGENCIES SUPERVISOR, C.N.P. PCP - General 04/21/17 01/15/21 [address], [place] [phone] documented as of this encounter
--- OUTSIDE RECORDS SUMMARY | 2022-06-29 19:15 | XMS_ITS | Encounter Summary ---
:1970 Author Organization [facility] Address [address] [place] [address] Care Team Providers Name Role Phone Odalys Contreras APRN C.NChuckyPChucky Primary Care Provider [phone] Reason for Visit Reason Comments LENY Nurse Line Encounter Details Date Type Department Care Team Description 12/03/2020 Clinical Communication Division of [facility] Flores Nurse [facility] Patricia Wolf R.N. [facility] [address] [facility], in [place], [place] [address] [address] [facility] [phone] [place] (Work) [phone] Social History Tobacco Use Types Packs/Day Years [...] or relatives? How often do you attend latter day or scientologist More than 4 time s per year 12/25/2021 services? Do you belong to any clubs or organizations Yes 12/25/2021 such as latter day groups, unions, fraternal or athletic groups, or [...] at Date Recorded Female 12/02/2017 9:31 AM TRY ON BASTER documented as of this encounter Miscellaneous Notes Telephone Encounter - Patricia Flores R.N. - 12/03/2020 9:49 AM CST COVID-19 Nurse Line Screening ASSESSMENT Region Select appropriate region: : [place] Age Pathway Select approprite pathway: : Adult Have you had close contact* with a person who has a LABORATORY CONFIRMED case of COVID-19 in the past 14 days?: No (Continue Screening) In the last 48 hours, have you had a fever* OR symptoms that are unrelated to a preexisting illness?: Fever, New cough, New shortness of breath, New respiratory distress (fast breathing), New sore throat, New diarrhea, New nausea, New chills, New muscle aches, New headache, New loss of smell, New change or loss of taste sensation Have you received a COVID-19 vaccine in the last 72 hours? : No vaccine received (Continue Screening) Do you have any of the following urgent symptoms?: No urgent symptoms noted (Continue Screening) Have you tested positive for COVID-19 in the last 45 days?: No (Continue Screening) Are ALL the following criteria met: age between 18 to 75 yrs, main symptom is a sore throat with duration of 24 hrs to 7 days, onset of sore throat not associated with new upper respiratory symptoms*? : Yes, COVID + Strep testing is recommended (End Screening) Symptom Onset Date of symptom onset: 11/29/20 Testing Recommendation Endpoint Is testing recommended? : Recommended to test PLAN Endpoint recommendation: Screening positive, testing indicated, advised to be swabbed for COVID-19 and Group A Strep (age 3 - 75 only), sent to [facility] located at [address] [place] [address]. The entrance is on the north side of the building. You must call [phone] for an appointment time.Testing hours are Daily 9 am to 5 pm.When you arrive at the testing site: Remain in your vehicle and check-in by phone using the same appointment line number. Please avoid using public transportation per CDC recommendation. If you do not have personal transportation please self-quarantine until a personal transportationoption is available. Care Points: -Wash hands frequently with soap and water for at least 20 seconds -If soap and water are not available, use a hand pan devulcanizer -Avoid touching your eyes, nose and mouth. -Clean and disinfect high-touch surfaces routinely. -Wear a mask over your nose and mouth. A cloth face cover is not a substitute for social distancing -Continue to keep about 6 feet between yourself and others. -Avoid public areas and public transportation. -Find new ways to connect with family and friends, get support and share feelings. -Seek emergent care if any of the following occur Trouble breathing Bluish lips or face Persistent pain or pressure in the chest New confusion or inability to rouse. -Notify your regular care provider of any new or worsening symptoms. Symptomatic Carepoints: Separate yourself from others and stay in a specific sick room if able. Avoid sharing personal or household items. Rest. Hydrate. Take Acetaminophen/Ibuprofen as needed to control fever and muscles aches. Use over the counter medications as needed for other symptoms. Education: Patient/caregiver able to teach back Patient agreeable to plan of care: Yes The following references were used: [facility] novel coronavirus (COVID- 19) resources CDC web site https://www.cdc.gov/coronavirus/2019-ncov/summary.html Nursing judgement ON BASTER documented in this encounter Plan of Treatment Upcoming Encounters Date Type Specialty Care Team Description 07/16/2022 Office Visit Family Medicine Karel Gill M.B.B .S., MRadha [address] [place] [phone] (Wo rk) documented as of this encounter Visit Diagnoses Not on filedocumented in this encounter Additional Health Concerns Assessment Noted Time PHQ-9 Depression Total Score: 15 12/25/2019 8:50 AM CS T documented as of this encounter Care Teams Deposit Refund Clerk Relationship Specialty Start Date End Date Odalys Contreras, LAKHWINDER, C.N.P. PCP - General 04/21/17 01/15/21 [address], [place] [address] documented as of this encounter
--- OUTSIDE RECORDS SUMMARY | 2022-06-29 19:15 | XMS_ITS | Encounter Summary ---
:1970 Author Organization [facility] Address [address] [place] [address] Care Team Providers Name Role Phone Odalys Contreras APRN, C.N.P. Primary Care Provider Encounter Details Date Type Department Care Team Description 11/10/2020 Orders Only [facility] PCP TH MNT Odalys Contreras, A PRN, C.N.P. 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 PCP - General 04/21/17 01/15/21 [address], [place] [address] documented as of this encounter
--- OUTSIDE RECORDS SUMMARY | 2022-06-29 19:15 | XMS_ITS | Encounter Summary ---
:1970 Author Organization [facility] Address [address] [place] [address] Care Team Providers Name Role Phone Odalys Contreras APRN, C.N.P. Primary Care Provider Reason for Visit Reason Comments COVID Inquiry Encounter Details Date Type Department Care Team Description 12/30/2020 Clinical Communication Department of Karel Giron Medicine, [facility], in [address] [phone] Social History Tobacco Use Types Packs/Day Years [...] How often do you attend methodist or yazidi More than 4 time s per year [...] at Date Recorded Female 12/02/2017 9:31 AM APPRENTICESHIP TRAINING REPRESENTATIVE documented as of this encounter Miscellaneous Notes Telephone Encounter - Sofia Fish - 12/30/2020 3:42 PM CST What is the purpose of the call?: Standard Appointment Process Standard Appointment Process Have you tested positive for COVID-19 in the last 20 days OR do you have a pending COVID-19 test because you had symptoms?: No, neither apply What region is the appointment being requested?: Less than 20 days [facility], [facility] or [facility] In the past 14 days are any of the following symptoms new to you and not related to an existing health condition?: No symptoms noted In the past 14 days have you had close contact* with a person who has a LABORATORY CONFIRMED case ofCOVID-19?: No exposure noted, follow appt process (End Screening) Testing Recommendation Endpoint Is testing recommended? : Not recommended to test Plan: Endpoint recommendation: Followed regional OTG *Reminder if sending patient for testing in [facility] or [facility], route encounter to the correct testing pool. ENTICESHIP TRAINING REPRESENTATIVE documented in this encounter Plan of Treatment Upcoming Encounters Date Type Specialty Care Team Description 07/16/2022 Office Visit Family Medicine Karel Gill M.B.B .S., Emmanuelle [address] [place] [phone] (Wo rk) documented as of this encounter Visit Diagnoses Not on filedocumented in this encounter Additional Health Concerns Assessment Noted Time PHQ-9 Depression Total Score: 15 12/25/2019 8:50 AM CS T documented as of this encounter Care Teams Spike Machine Heater Relationship Specialty Start Date End Date Odalys Contreras, LAKHWINDER, C.N.P. PCP - General 04/21/17 01/15/21 [address] [address] documented as of this encounter
--- OUTSIDE RECORDS SUMMARY | 2022-06-29 19:15 | XMS_ITS | Encounter Summary ---
:1970 Author Organization [facility] Address [address] [place] [address] Care Team Providers Name Role Phone Odalys Contreras APRN, C.N.P. 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 PCP - General 04/21/17 01/15/[address] [phone] documented as of this encounter
--- OUTSIDE RECORDS SUMMARY | 2022-06-29 19:15 | XMS_ITS | Encounter Summary ---
:1970 Author Organization [facility] Address [address] [place] [address] Care Team Providers Name Role Phone Odalys Contreras APRN, C.N.P. Primary Care Provider [phone] Encounter Details Date Type Department Care Team Description 08/11/2020 Orders Only [facility] PCP TH MNT Odalys Contreras, S creening Mammogram LAKHWINDER, C.N.P. Breast Cancer [address] [place] [phone] Social History Tobacco Use Types Packs/Day Years [...] How often do you attend religion or yazidi More than 4 time s [...] at Date Recorded Female 12/02/2017 9:31 AM SUGAR LABORATORY ASSISTANT documented as of this encounter Plan of Treatment Upcoming Encounters Date Type Specialty Care Team Description 07/16/2022 Office Visit Family Medicine Karel Gill M.B.B .S., MRadha [address] [place] [phone] (Wo rk) documented as of this encounter Visit Diagnoses Diagnosis Screening Mammogram Breast Cancer documented in this encounter Additional Health Concerns Assessment Noted Time PHQ-9 Depression Total Score: 15 12/25/2019 8:50 AM CS T documented as of this encounter Care Teams Unit Secy Relationship Specialty Start Date End Date Odalys Contreras, LEVEL VIAL SEALER, C.N.P. PCP - General 04/21/17 01/15/[address] [phone] documented as of this encounter
--- OUTSIDE RECORDS SUMMARY | 2022-06-29 19:15 | XMS_ITS | Encounter Summary ---
:1970 Author Organization [facility] Address [address] [place] [address] Care Team Providers Name Role Phone Odalys Contreras APRN, C.N.P. Primary Care Provider [phone] Reason for Visit Reason Onset Date Comments Testing For Upper Respiratory Virus Symptoms 12/03/2020 Encounter Details Date Type Department Care Team Description 12/03/2020 External Outreach Department of [facility] Karan Louise Contact With And (Suspected) Exposure To COVID-19; [facility], [facility] Alondra Burton Infection Upper Respiratory Building, in [address] [place] [address] [address] [place], [place] [phone] [address] (Work) [phone] Social History Tobacco Use Types Packs/Day Years [...] How often do you attend sabianism or latter day More than 4 time s per year [...] at Date Recorded Female 12/02/2017 9:31 AM PARALEGALS documented as of this encounter Progress Notes Natalee Alberto, L.P.N. - 12/03/2020 10:12 AM CST Encounter created for symptomatic infectious disease screening with possible COVID, Influenza, RSV, and/or Group A Strep testing. LEGALS documented in this encounter Plan of Treatment Upcoming Encounters Date Type Specialty Care Team Description 07/16/2022 Office Visit Family Medicine Karel Gill M.B.B .S., Emmanuelle [address] [place] [phone] (Wo rk) documented as of this encounter Procedures Procedure Name Priority Date/Time Associated Diagnosis Comme nts SARS CORONAVIRUS-2 Routine 12/03/2020 11:54 AM Contact With An d Results for this RNA, V PARALEGALS (Suspected) Exposure procedu re are in To COVID-19 the results section. documented in this encounter Results SARS Coronavirus-2 RNA, V Symptomatic (12/03/2020 11:54 AM PARALEGALS) [facility] Method Time Signature SARS-CoV-2 Swab, 12/04/2020 MKTO Specimen Nasopharynx 1:46 AM PARALEGALS Source SARS CoV-2 Undetected Undetected 12/04/2020 MKTO RNA, TMA 1:46 AM PARALEGALS Comment: SARS-CoV-2 RNA absent. This result does not rule out COVID-19 in the patient, as the sensitivity of the test depends o n the timing of the specimen collection and the quality of the specim en. Result should be correlated with patient's history and clinical presentat ion. ----ADDITIONAL INFORMATION---- This molecular amplification test was pe rformed using the Aptima SARS-CoV-2 assay ([employer] on the Birch[employer] tem under emergency use authorization (EUA) by the U.S. Food and Drug Administ ration. Fact sheets for this EUA assay can be fo und at the following links: For Healthcare Providers: https://www.Flinqer a.gov/media/315883/download For Patients: https://www.fda.gov/media/ 682412/download Specimen Anatomical Collection Method Collection Time Receive d Time (Source) Location / / Volume Laterality Varies 12/03/2020 11:54 12/03/2020 8:49 (Nasopharynx) AM PARALEGALS PM PARALEGALS Karan Louise D.O. LAB MICROBIOLOGY - GENERAL O SOHEILA Performing Organization Address City/State/ZIP Code Phon e Number [facility]- [address] [place] [phone] [place] [address] [place] [address] System in [address] documented in this encounter Visit Diagnoses Diagnosis Contact With And (Suspected) Exposure To COVID-19 Infection Upper Respiratory documented in this encounter Additional Health Concerns Infection Onset Date Last Indicated Resolved Time COVID19 Pending 12/03/2020 12/03/2020 12/04/2020 1:47 AM PARALEGALS Assessment Noted Time PHQ-9 Depression Total Score: 15 12/25/2019 8:50 AM CS T documented as of this encounter Care Teams Manager Clinical Informatics Relationship Specialty Start Date End Date Odalys Contreras, LAKHWINDER, C.N.P. PCP - General 04/21/17 01/15/21 [address], [place] [address] documented as of this encounter
--- OUTSIDE RECORDS SUMMARY | 2022-06-29 19:16 | XMS_ITS | Encounter Summary ---
:1970 Author Organization [facility] Address [address] [place] [address] Care Team Providers Name Role Phone Odalys Contreras APRN, C.NChip Primary Care Provider [phone] Reason for Visit Reason Comments Follow-up medication check Appointment Request (Routine) - Closed Specialty Diagnoses / Procedures Referred By Contact Refer red To Contact Family Medicine Referral ID Status Reason Start Date Expiration Date Visits Requ ested Visits Authorized [id number] Closed 10/16/2019 10/15/2020 1 1 Encounter Details Date Type Department Care Team Description 10/29/2019 Office Visit Department of Family Karel Gill [facility] Medicine, [place] Jacobo GoldenBChuckySChucky, Single Episode Severe Clinic, in [facility] Without Psychotic [place] [address] Features ([facility]) [address] [facility] [place] [phone] Social History Tobacco Use Types Packs/Day Years Used Date Smoking Tobacco: Every Day Cigarettes 0.5 Smokeless Tobacco: Never Alcohol Use Standard Drinks/Week [...] or relatives? How often do you attend roman catholic or anabaptist More than 4 time s per year 12/25/2021 services? Do you belong to any clubs or organizations Yes 12/25/2021 such as roman catholic groups, unions, fraternal or athletic groups, or [...] place to sleep or slept in a care home (including now)? Education Answer Date Recorded What is the highest level of school you have GED or equivale nt 08/02/2019 completed or the highest degree you have received? Sex Assigned at Date Recorded Female 12/02/2017 9:31 AM LAUNDRY SUPERINTENDENT documented as of this encounter Last Filed Vital Signs Vital Sign Reading Time Taken Comments Blood Pressure 136/80 10/29/2019 1:05 PM LAUNDRY SUPERINTENDENT Pulse 88 10/29/2019 1:05 PM LAUNDRY SUPERINTENDENT Temperature 37.3 ??C (99.1 ??F) 10/29/2019 1:05 PM LAUNDRY SUPERINTENDENT Respiratory Rate 16 10/29/2019 1:05 PM LAUNDRY SUPERINTENDENT Oxygen Saturation - - Inhaled Oxygen Concentration - - Weight 117 kg (257 lb 15 oz) 10/29/2019 1:05 PM LAUNDRY SUPERINTENDENT Height - - Body Mass Index 48.7 12/15/2018 9:13 AM LAUNDRY SUPERINTENDENT documented in this encounter Progress Notes Karel Gill M.B.B.S. MAllegra. - 10/29/2019 1:30 PM CST SUBJECTIVE CHIEF COMPLAINT / REASON FOR VISIT Shanda Masterson is a 48 y.o. female who presents for evaluation of Follow-up (medication check). HISTORY OF PRESENT ILLNESS The nusrat moulton is a pleasant 48-year-old female with a history of anxiety and depression here for follow-up. She had previously been on Prozac which was helpful but worsened her anxiety and made her feel tired all the time. She has been on Effexor since August. This was increased to 75 mg in September. She has been on thisdose for the last 6 weeks. She reports that her anxiety has improved significantly. She was having panic attacks several times a day but these now occur 1 to 2 times a week. She is having very vivid dreams with occasional nightmares on Effexor but she denies any suicidal ideations. There has been no depression in her sex drive. She denies palpitations, shortness of breath,abdominal discomfort or change in bowel habits. The following portions of the patient's history were reviewed and updated as appropriate: allergies,current medications, family history, medical history, social history, surgical history and problem list. REVIEW OF SYSTEMS Pertinent items are noted in HPI. OBJECTIVE BP 136/80 (BP Location: Left arm, Patient Position: Sitting, Cuff Size: Large) Pulse 88 Temp 37.3 ??C (Temporal) Resp 16 Wt 117 kg BMI 48.70 kg/m?? PHYSICAL EXAM General Appearance: healthy, alert, no distress, cooperative. Skin: skin color, texture, turgor normal, no suspicious rashes or lesions. Head: normocephalic, no masses, lesions, tenderness or abnormalities. Eyes: Anicteric sclera. Pupils are equally round and reactive to light. Extraocular movements are intact. . Lungs: clear to auscultation. Heart: RRR without murmur, gallop, or rubs. 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 We discussed possible side effects and if she cannot tolerate this dose, we will go back to 75 mg. We also discussed the possibility of using benzodiazepines for panic attacks. I do not believe it is indicated at this time; however, if these episodes continue we will reconsider. We agreed that she will probably benefit from psychotherapy. She would like to hold off on this option for now partly for financial reasons. 25 minutes of this visit was spent in [id number] care including counseling on management of depression. DRY SUPERINTENDENT documented in this encounter Plan of Treatment Upcoming Encounters Date Type Specialty Care Team Description 07/16/2022 Office Visit Family Medicine Karel Gill M.B.B .S., M.D. 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 PCP - General 04/21/17 01/15/[address] [phone] documented as of this encounter
--- OUTSIDE RECORDS SUMMARY | 2022-06-29 19:16 | XMS_ITS | Encounter Summary ---
:1970 Author Organization [facility] Address [address] [place] [address] Care Team Providers Name Role Phone Odalys Contreras APRN, C.N.P. Primary Care Provider [phone] Encounter Details Date Type Department Care Team Description 12/04/2019 Orders Only [facility] PCP [facility] MNT Odalys Contreras, S creening Examination Diabetes Mellitus; LAKHWINDER, C.N.P. Monitoring For Therapeutic Drug Therapy [address] [place] [address] Social History Tobacco Use Types Packs/Day Years [...] or relatives? How often do you attend samaritan or anabaptist More than 4 time s per year 12/25/2021 services? Do you belong to any clubs or organizations Yes 12/25/2021 such as samaritan groups, unions, fraternal or athletic groups, or [...] at Date Recorded Female 12/02/2017 9:31 AM CHILD CARE EDUCATION COORDINATOR documented as of this encounter Plan of Treatment Upcoming Encounters Date Type Specialty Care Team Description 07/16/2022 Office Visit Family Medicine Karel Gill M.B.B .S., M.D. [address] [place] [phone] (Wo rk) documented as of this encounter Results Potassium (06/25/2020 10:22 AM CDT) P athologist Signature Potassium, P 4.1 3.6 - 5.2 06/25/2020 [facility] mmol/L 3:40 PM CDT Specimen Anatomical Collection Method Collection Time Receive d Time (Source) Location / / Volume Laterality Blood (Blood, 06/25/2020 10:22 06/25/2020 1:06 Venous) AM CDT PM CDT Odalys Contreras APRN, C.N.P. LAB BLOOD ADD-ON Performing Organization Address City/State/ZIP Code Phon e Number [facility]- [address] [place] [address] [facility] [place] [address] System in [place] [address] Creatinine with Estimated GFR (06/25/2020 10:22 AM CDT) athologist Signature Creatinine 0.63 0.59 - 06/25/2020 [facility] 1.04 mg/dL 3:40 PM CDT eGFR-Black/Afric >90 >=60 06/25/2020 [facility] an Vietnamese mL/min/BSA 3:40 PM CDT Comment: ----ADDITIONAL INFORMATION---- Estimated GFR calculated using the 2009 CKD_EPI creatinine equation. eGFR Non-Black/ >90 >=60 mL/min/BSA 06/25/2020 3:40 PM CDT [facility] Comment: ----ADDITIONAL INFORMATION---- Estimated GFR calculated using the 2009 CKD_EPI creatinine equation. Specimen Anatomical Collection Method Collection Time Receive d Time (Source) Location / / Volume Laterality Blood (Blood, 06/25/2020 10:22 06/25/2020 1:06 Venous) AM CDT PM CDT Odalys Contreras APRN, C.N.P. LAB BLOOD ADD-ON Performing Organization Address City/State/ZIP Code Phon e Number [facility]- [address] [place] [address] [place] [address] System in [place] [address] Glucose, Fasting (06/25/2020 10:22 AM CDT) athologist Signature Glucose, P 99 70 - 100 06/25/2020 [facility] mg/dL 3:31 PM CDT Last Intake 15 hr 06/25/2020 [facility] 1:06 PM CDT Specimen Anatomical Collection Method Collection Time Receive d Time (Source) Location / / Volume Laterality Blood (Blood, 06/25/2020 10:22 06/25/2020 1:06 Venous) AM CDT PM CDT Odalys Contreras APRN, C.N.P. LAB BLOOD NON ADD-ON Performing Organization Address City/State/ZIP Code Phon e Number [facility] [address] [facility] [place] [address] [facility] [place] [address] System in [place] [address] documented in this encounter Visit Diagnoses Diagnosis Screening Examination Diabetes Mellitus Monitoring For Therapeutic Drug Therapy documented in this encounter Additional Health Concerns Assessment Noted Time PHQ-9 Depression Total Score: 19 08/07/2019 1:45 PM CD T documented as of this encounter Care Teams Cold Working Supervisor Relationship Specialty Start Date End Date Odalys Contreras, LAKHWINDER, C.N.P. PCP - General 04/21/17 01/15/21 [address], [place] [phone] documented as of this encounter
--- OUTSIDE RECORDS SUMMARY | 2022-06-29 19:16 | XMS_ITS | Encounter Summary ---
:1970 Author Organization [facility] Address [address] [place] [address] Care Team Providers Name Role Phone Odalys Contreras APRN C.NChuckyPChucky Primary Care Provider [phone] Reason for Referral MRI/CAT/PET Scan (Routine) - Closed Specialty Diagnoses / Procedures Referred By Contact Refer red To Contact Radiology Diagnoses Pain Knee Left Injury Knee Initial Left Secondary Osteoarthritis Knee Left Jordan Roth D.O. [facility] [place] [facility] Procedures MR Knee Left without IV Contrast [place] MRI LWR EXT JOINT WO CNTRST [id number] [place] [address] [id number] Referral ID Status Reason Start Date Expiration Date Visits Requ ested Visits Authorized [id number] Closed 08/04/2020 09/02/2020 1 1 utpatient (Routine) - Closed Specialty Diagnoses / Referred By Contact Referred To Contact Procedures Physical Medicine and Diagnoses PAR REVIEW Jordan Roth D.O. [facility] [place] [facility] Rehabilitation Procedures VIDEO ANYPLACE EXTENDED [id number] [place] [address] [id number] Referral ID Status Reason Start Date Expiration Date Visits Requ ested Visits Authorized [id number] Closed 08/04/2020 08/04/2021 1 1 Scheduling Instructions 30 minute appointment - Dr. Jordan Roth - virtual or F2F appointment per patient preference after left knee x-rays and MR I of the left knee without IV contrast in [place] Reason for Visit Reason Comments Knee Pain Left Appointment Request (Routine) - Closed Specialty Diagnoses / Referred By Contact Referred To Contact Procedures Physical Medicine and Diagnoses par [facility] Rehabilitation Procedures PMR EST LONG Referral ID Status Reason Start Date Expiration Date Visits Requ ested Visits Authorized [id number] Closed 07/21/2020 07/21/2021 1 1 Encounter Details Date Type Department Care Team Description 08/04/2020 Office Visit Department of Physical Jordan Roth, Pain Knee Left (Primary Dx); Medicine and D.OChucky Injury Knee Initial Left; [place] [address] [address] [place] Osteoarthritis Knee Left; [place] [place] [facility] ([facility]) [address], [place] [facility] [place] [id number] [phone] Social History Tobacco Use Types Packs/Day Years [...] How often do you attend spiritism or anglican More than 4 time s per year [...] at Date Recorded Female 12/02/2017 9:31 AM CRT documented as of this encounter Last Filed Vital Signs Vital Sign Reading Time Taken Comments Blood Pressure 145/87 08/04/2020 8:17 AM CDT Pulse 88 08/04/2020 8:17 AM CDT Temperature 36.2 ??C (97.2 ??F) 08/04/2020 8:17 AM CDT Respiratory Rate - - Oxygen Saturation - - Inhaled Oxygen Concentration - - Weight 129 kg (284 lb 9.8 oz) 08/04/2020 8:17 AM CDT Height - - Body Mass Index 52.38 11/06/2019 1:48 PM CRT documented in this encounter Patient Instructions Patient Jordan Rao D.O. - 08/04/2020 8:30 AM CDT Follow-Up Plan: Prescription medication(s): None Referrals/labs/imaging/procedures/DME (orders): Radiology & Imaging [facility] - call [phone] extension [phone] to schedule your MRI test; left knee x-rays in Radiology; weight loss as discussed Follow-up phone call/portal message: None Follow-up clinic or video appointment: 1-2 business days upon completion of further diagnostic testing to discuss results to determine appropriate further medical care moving forward Please feel free to call ([phone]) or message me on the [facility] Patient Portal if you have any questions related to your medical care/treatment (clinic days - Tuesday-). Call Patient Account Services ( ) if you have questions regarding your account. Your feedback is very important to us. You may soon receive either a paper survey by mail or an electronic survey. Please complete this survey if you are able as your input provides us information to improve the services we provide to you and other patients at [facility]. I want to thank you for coming into the clinic today. I enjoyed meeting you and am happy that you have trusted us to provide medical care for you today and beyond. I take pride in getting to know to mypatients and understanding their medical history and conditions. This allows me to work with each individual patient on designing an individualized treatment plan to provide the best medical care to optimize improving pain and/or function. As a PM&R (physical medicine & rehabilitation) and sports medicine physician/pallet rectifier (expert in bone, joint, ligament, tendon, muscle, and nerve), my main goal is to help patients like you restore movement and function so you can remain as active as possible. I treat non-surgical/non-operative musculoskeletal, orthopedic, and sports medicine conditions including, but not limited to: ??? Neck pain (disc disease/arthritis, herniated disc, spinal stenosis, strain) ??? Shoulder pain (rotator cuff tears, tendonitis, bursitis, frozen shoulder, impingement) ??? Elbow pain (tennis elbow, golfers elbow, bursitis) ??? Wrist/hand pain (tendonitis, trigger finger, ganglion cysts) ??? Low back pain (disc disease/arthritis, herniated disc, spinal stenosis, strain) ??? Knee pain (tendonitis, Lozano???s cyst, meniscus tears, sprains, IT band) ??? Foot/ankle pain (sprains, tendonitis, plantar fasciitis, andrea splints) ??? Fractures (stress fractures, compression fractures) ??? Arthritis (knee, shoulder, hip, wrist/hand, elbow, foot/ankle) ??? Adult and pediatric sports medicine ??? Sports-related concussions ??? Ligament, joint and tendon injuries, conditions and disorders ??? Nerve disorders (sciatica, carpal tunnel, tarsal tunnel) Advanced technology that I use to treat patients like yourself includes musculoskeletal ultrasound, steroid injections, platelet rich plasma (PRP) injections, and TENEX, that have benefits that includeimproving pain and providing faster recovery times. For more information about the services I offer or for my full profile, I invite you to visit [email or web address]. If you are in need of a clinic appointment for any of the additional services I provide, please call to schedule an appointment at your convenience. documented in this encounter Consult Notes Jordan Roth D.O. - 08/04/2020 8:30 AM CDT Physical Medicine & Rehabilitation Clinic Note Shanda Masterson (Shanda) is a 49 y.o. female who is seen in consultation [id number] as self referral for evaluation of left knee pain/injury. SUBJECTIVE Symptoms began approximately 1 month ago when she fell and twisted her left knee at that time with apop noted. Presented to [facility] on 07/25/2020 with left knee x-rays ordered that were noted to be negative for fracture with a left knee corticosteroid injection completed at that time with some relief of symptoms noted per the patient. Currently notes left anterior knee pain that is 9/10 at its worst and 6/10 at its best. Symptoms areworse with sitting, stairs, standing, kneeling, walking, and with increased physical activities and better with rest, heat, and ice. Other treatment has included Advil as needed. Previously completed formal physical therapy after her left anterior cruciate ligament reconstruction in 2007 when she fellon ice at that time with surgical intervention completed at [facility]. Notes intermittent weakness of theleft knee. Notes swelling and locking of the left knee. Notes intermittent clicking of the left knee. Denies any popping, catching, or bruising of the left knee. Denies any fevers or chills. Denies any numbness/tingling of the left lower extremity. Denies any recent weight loss. Notes difficulty sleeping. Notes falls in the last year. Constitutional: Negative for fever. Skin: Negative for skin rash. Eyes: Negative for visual problems. ENT: Negative for difficulty hearing. Respiratory: Negative for dyspnea. Cardiovascular: Negative for chest pain, pressure or tightness. Neurological: Negative for numbness or shooting pain in hands, arms, legs, or feet. Psychiatric/Behavioral: Positive for sleep disturbance. The following systems were negative: GI, The following portions of the patient's history were reviewed and updated as appropriate: allergies,surgical history, current medications, problem list, family history, medical history and social history OBJECTIVE Vitals: 08/04/20 0817 BP: 145/87 Pulse: 88 Temp: 36.2 ??C BMI Readings from Last 3 Encounters: 12/25/19 48.18 kg/m?? 11/06/19 47.37 kg/m?? 10/29/19 48.70 kg/m?? Wt Readings from Last 3 Encounters: 12/25/19 119 kg 11/06/19 117 kg 10/29/19 117 kg Physical Exam General: alert, morbidly obese, and in mild distress Eyes: anicteric eyes ENT: mucous membranes moist Skin: no suspicious lesions or rashes Hematologic: no bruising or ecchymosis Psych: no acute distress Cardiovascular: no pedal edema Respiratory: normal respiratory effort without conversational dyspnea Neurologic: motor strength as noted below Musculoskeletal: Left knee Inspection: No erythema, ecchymosis, or swelling present Palpation: Tenderness - medial joint line and medial tibial plateau No tenderness - patellar tendon, distal quadriceps insertion, lateral femoral condyle, medial femoral condyle, lateral joint line and lateral tibial plateau Effusion - absent Patellofemoral crepitus - present Active Range of Motion: -5--10 0 extension Passive Range of Motion: 100-105 0 flexion Strength: Extension - 4+/5 Extensor mechanism intact Special Tests: Positive: bounce home, Thessaly's and single leg squatting Negative: lateral patella apprehension, patellar grind, ballottement, Jesus's, Kojo's, valgus stress (Grade I) and varus stress (Grade I) Diagnostics none Lab Results Component Value Date HGBA1C 5.6 12/22/2016 Lab Results Component Value Date NA 142 12/15/2018 K 4.1 06/25/2020 CL 106 12/15/2018 HCO3 26 12/15/2018 CREATININE 0.63 06/25/2020 EGFR >90 06/25/2020 BUN 10 12/15/2018 ANIONGAP 10 12/15/2018 GLUCOSE 105 12/15/2018 CALCIUM 9.4 12/15/2018 Lab Results Component Value Date ALT 20 12/29/2018 AST 20 12/29/2018 ALKPHOS 61 12/29/2018 BILITOT 0.4 12/29/2018 ASSESSMENT / PLAN #1 Left knee pain #2 Left knee injury #3 Secondary left knee osteoarthrosis #4 Morbid obesity Discussed further treatment options with the patient today including medication management, formal physical therapy, aqua therapy, injection therapy, knee bracing, and potential surgical intervention along with potential need for further diagnostic imaging/testing. Recommend that repeat left knee x-rays be completed in Radiology as ordered as the patient is in agreement with proceeding with these as unable to review previous left knee x-rays completed at [facility] on 07/25/2020. Because of mechanical symptoms noted, MRI of the left knee without IV contrast has been ordered to be completed in [place] for further evaluation. Instructed to use Tylenol/Advil/ice/heat as needed for improvement pain/discomfort will hold on initiation of formal physical therapy, aqua therapy, knee bracing, and further injection therapy until after completion of further diagnostic imaging/discussion of results. Informed the patient that 1 pound of weight loss is equivalent to 3-4 pounds of less weight/stress through the knee(s). Instructed the patient to attempt to lose 0.5-1.5 pounds/week to help with their current symptoms. Follow-up clinical appointment or video visit to occur 1-2 business days uponcompletion of further diagnostic imaging to review results to help determine appropriate further medical care/treatment moving forward. Jordan Roth DO, CAQSM Instructor/Military Analyst Food Safety Coordinator Department of Physical Medicine & Rehabilitation Division of Sports Medicine, Department of Orthopedics PPE use information for possible contact monitoring: PPE used during visit: Provider was wearing a mask and eye protection throughout entire session. Patient was wearing a mask throughout entire session. documented in this encounter Plan of Treatment Upcoming Encounters Date Type Specialty Care Team Description 07/16/2022 Office Visit Family Medicine Karel Gill M.B.B Deb, MRadha [address] [place] [address] [phone] (Wo rk) Scheduled Referrals Name Type Priority Associated Order Schedule Diagnoses Physical Medicine and Outpatient Referral Routine Expected: Rehabilitation office 2019 visit (clinic) (Approximate) , Expires: 08/04/2023 documented as of this encounter Results MR Knee Left without IV Contrast (08/04/2020 12:10 PM CDT) Anatomical Region Laterality Modality Lower Extremity, Knee, Musculoskeletal RST LOS, Left Magnetic Resonance Musculoskeletal ARZ LOS, Muskuloskeletal FLA LOS Specimen (Source) Anatomical Collection Method Collection Time Re ceived Time Location / / Volume Laterality 08/04/2020 12:38 PM CDT Impressions 08/04/2020 1:09 PM CDT 1. ??Probable complete tearing of the prior anterior cruciate ligament reconstruction. 2. ??Mild/moderate fraying along the oniel e edges of the medial meniscus. No discrete tears or disruptions are identi fied which extends or free articular surface. 3. ??Mild/moderate chondromalacia involv ing the medial and to lesser extent lateral knee joint compartment. Moderate chondromalacia involving the pa tellofemoral joint space more pronounced medially. Narrative 08/04/2020 1:09 PM CDT EXAM: MR KNEE LEFT WITHOUT IV CONTRAST COMPARISON: July 27, 2020 FINDINGS: Technically limited evaluation due to metallic susceptibility artifact related to right anterior cruciate ligam ent reconstruction anchors, large body habitus preventing use of dedicated knee coil. Best possible images obtained. ANTERIOR CRUCIATE LIGAMENT: ??Probable c omplete tearing of the prior anterior cruciate ligament reconstruction. POSTERIOR CRUCIATE LIGAMENT: ??Mild, chr onic appearing thickening of the posterior cruciate ligament without disc rete tear or disruption of the posterior cruciate ligament MEDIAL COLLATERAL LIGAMENT: ??Chronic ap pearing thickening of the proximal superficial and deep fibers of the media l collateral ligament complex without discrete tearing or disruption. LATERAL COLLATERAL LIGAMENT: ??Intact/no rmal POSTEROLATERAL CORNER: ??Intact/normal IT BAND: ??Intact/normal MEDIAL MENISCUS: ??Mild/moderate fraying along the free edges of the medial meniscus. No discrete tears or disruptio ns are identified which extends or free articular surface. LATERAL MENISCUS: ??Slight fraying along the free edges of the lateral meniscus. No discrete tears or disruptions are mckenzie ntified which extends or free articular surface. CHONDROMALACIA: ??Mild/moderate chondrom alacia involving the medial and to lesser extent lateral knee joint compartment. Moderate chondromalacia involving the pa tellofemoral joint space more pronounced medially. PATELLAR LOCATION: ??Currently neutral MEDIAL PATELLOFEMORAL RETINACULUM: ??Int act/normal EXTENSOR MECHANISM: ??Trace tendinopathy of the distal quadriceps tendon. BONES: ??No stress or insufficiency frac tures. No contusions. No AVN. Postop changes prior anterior cruciate ligament reconstruction anchors with associated metallic susceptibility artifact. JOINT EFFUSION: ??Spwwy-[id number]-[id number] kne e joint effusion POPLITEAL CYST: ??Trace popliteal fluid MUSCLES, ARTERIES, VEINS, AND NERVES: ?? Intact/normal Procedure Note Jordan Castro M.D. - 08/04/2020Forma tting of this note might be different from the original. EXAM: MR KNEE LEFT WITHOUT IV CONTRAST COMPARISON: July 27, 2020 FINDINGS: Technically limited evaluation due to metallic susceptibility artifact related to right anterior cruciate ligam ent reconstruction anchors, large body habitus preventing use of dedicated knee coil. Best possible images obtained. ANTERIOR CRUCIATE LIGAMENT: Probable com plete tearing of the prior anterior cruciate ligament reconstruction. POSTERIOR CRUCIATE LIGAMENT: Mild, chron ic appearing thickening of the posterior cruciate ligament without disc rete tear or disruption of the posterior cruciate ligament MEDIAL COLLATERAL LIGAMENT: Chronic appe aring thickening of the proximal superficial and deep fibers of the media l collateral ligament complex without discrete tearing or disruption. LATERAL COLLATERAL LIGAMENT: Intact/norm al POSTEROLATERAL CORNER: Intact/normal IT BAND: Intact/normal MEDIAL MENISCUS: Mild/moderate fraying a long the free edges of the medial meniscus. No discrete tears or disruptio ns are identified which extends or free articular surface. LATERAL MENISCUS: Slight fraying along t he free edges of the lateral meniscus. No discrete tears or disruptions are mckenzie ntified which extends or free articular surface. CHONDROMALACIA: Mild/moderate chondromal acia involving the medial and to lesser extent lateral knee joint compartment. Moderate chondromalacia involving the pa tellofemoral joint space more pronounced medially. PATELLAR LOCATION: Currently neutral MEDIAL PATELLOFEMORAL RETINACULUM: Intac t/normal EXTENSOR MECHANISM: Trace tendinopathy o f the distal quadriceps tendon. BONES: No stress or insufficiency fractu res. No contusions. No AVN. Postop changes prior anterior cruciate ligament reconstruction anchors with associated metallic susceptibility artifact. JOINT EFFUSION: [id number] knee joint effusion POPLITEAL CYST: Trace popliteal fluid MUSCLES, ARTERIES, VEINS, AND NERVES: In tact/normal IMPRESSION: 1. Probable complete tearing of the prio r anterior cruciate ligament reconstruction. 2. Mild/moderate fraying along the free edges of the medial meniscus. No discrete tears or disruptions are identi fied which extends or free articular surface. 3. Mild/moderate chondromalacia involvin g the medial and to lesser extent lateral knee joint compartment. Moderate chondromalacia involving the pa tellofemoral joint space more pronounced medially. Jordan Roth D.O. [facility] PROCEDURES documented in this encounter Visit Diagnoses Diagnosis Pain Knee Left - Primary Injury Knee Initial Left Secondary Osteoarthritis Knee Left Morbid Obesity (HCC) Pain Knee Left Injury Knee Initial Left Secondary Osteoarthritis Knee Left documented in this encounter Additional Health Concerns Assessment Noted Time PHQ-9 Depression Total Score: 15 12/25/2019 8:50 AM CS T documented as of this encounter Care Teams Hot Knife Cutter Relationship Specialty Start Date End Date Odalys Contreras, COIL TESTER, C.N.P. PCP - General 04/21/17 01/15/[address] [id number] documented as of this encounter
--- OUTSIDE RECORDS SUMMARY | 2022-06-29 19:16 | XMS_ITS | Encounter Summary ---
:1970 Author Organization [facility] Address [address] [place] [address] Care Team Providers Name Role Phone Odalys Contreras APRN, C.NChip Primary Care Provider [phone] Reason for Referral MRI/CAT/PET Scan (Routine) - Closed Specialty Diagnoses / Procedures Referred By Contact Refer red To Contact Radiology Diagnoses Pain Knee Left Injury Knee Initial Left Secondary Osteoarthritis Knee Left Jordan Roth D.O. [facility] [place] [facility] Procedures MR Knee Left without IV Contrast [place] [facility] LWR EXT JOINT WO CNTRST [address] [place] [address] Referral ID Status Reason Start Date Expiration Date Visits Requ ested Visits Authorized [id number] Closed 08/04/2020 09/02/2020 1 1 Reason for Visit MRI/CAT/PET Scan (Routine) - Closed Specialty Diagnoses / Procedures Referred By Contact Refer red To Contact Radiology Diagnoses Pain Knee Left Injury Knee Initial Left Secondary Osteoarthritis Knee Left Jordan Roth D.O. [facility] [place] [facility] Procedures MR Knee Left without IV Contrast [place] LWR EXT JOINT [place] CNTRST [address] [place] [address] Referral ID Status Reason Start Date Expiration Date Visits Requ ested Visits Authorized [id number] Closed 08/04/2020 09/02/2020 1 1 Encounter Details Date Type Department Care Team Description 08/04/2020 Hospital Encounter Department of Jordan Roth, Pain Kn ee Left; Radiology in [place] 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 RINSE inhalerIndications: MOUTH WITH WATER Asthma Mild Intermittent AFTER USE TO REDUCE (HCC) AFTERTASTE AND INCIDENCE OF CANDIDIASIS. DO NOT SWALLOW albuterol (ACCUNEB) 2.5 USE 1 VIAL IN 150 mL 0 0 08/11/2020 mg /3 mL nebulizer NEBULIZER 4 TIMES solutionIndications: DAILY NEEDED FOR Asthma Mild Intermittent SHORTNESS OF BREATH (HCC) FOR WHEEZING albuterol (Ventolin HFA) Inhale 2 puffs by 1 Inhaler 11 01/0612/29/2020 inhalerIndications: mouth every 4 hr as Asthma Mild Intermittent needed for shortness (HCC) of breath and wheezing. butalbital-acetaminophen Take 1 tablet by 0 05/1905/01/2021 -caff (FIORICET, ESGIC) mouth. 50-325-40 mg per tablet clobetasol (TEMOVATE) Apply 1 application 30 g 3 09/1805/01/2021 0.05 % topically 2 (two) ointmentIndications: times a day as Dermatitis Atopic needed (Eczema). fluocinonide (LIDEX) Apply 1 application 120 g 2 201911/25/2020 0.05 % creamIndications: topically 2 (two) Dermatitis Atopic times a day as needed for irritation or rash. fluticasone propionate USE 2 SPRAY(S) IN 6 201812/25/2021 (FLONASE) 50 EACH NOSTRIL ONCE mcg/actuation nasal DAILY NEEDED FOR spray RHINITIS OR ALLERGIES hydrOXYzine (ATARAX) 10 Take 1 tablet (10 mg 30 tablet 0 01/02/2021 mg tablet total) by mouth 4 (four) times a day as needed for itching or anxiety. lisinopriL Take 1 tablet (5 mg 90 tablet 1 01/28/202012/29 (PRINIVIL,ZESTRIL) 5 mg total) by mouth tabletIndications: daily. 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 triamterene-hydroCHLOROt Take 1 capsule by 90 capsule 1 01/0605/01/2021 hiazide (DYAZIDE) mouth daily. 37.5-25 mg per capsuleIndications: Hypertension Essential Primary venlafaxine XR Take 1 capsule (150 90 capsule 1 01/28/2020 1 12/06/2019 (EFFEXOR-XR) 150 mg 24 mg total) by mouth hr capsuleIndications: daily. 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 (HCC) documented as of this encounter Plan of Treatment Upcoming Encounters Date Type Specialty Care Team Description 07/16/2022 Office Visit Family Medicine Karel Gill M.B.B .S., M.D. [address] [place] [phone] (Wo rk) documented as of this encounter Procedures Procedure Name Priority Date/Time Associated Diagnosis Comme nts MR KNEE LEFT RAD - Routine 08/04/2020 12:10 Pain Knee Left Results for WITHOUT IV (most inpatients PM CDT Injury Knee Initial this procedure CONTRAST and all Left are in the outpatients) Secondary results Osteoarthritis Knee section. Left documented in this encounter Results MR Knee Left without [...] with associated metallic susceptibility artifact. JOINT EFFUSION: ??Adxnc-rkcecv-shzhk kne e joint effusion POPLITEAL CYST: ??Trace [...] with associated metallic susceptibility artifact. JOINT EFFUSION: Kfdxw-kmptcq-hikyz knee joint effusion POPLITEAL CYST: Trace popliteal [...] tellofemoral joint space more pronounced medially. Jordan VELAZCO MRI PROCEDURES documented in this encounter Visit Diagnoses Diagnosis Pain Knee Left Injury Knee Initial Left Secondary Osteoarthritis Knee Left documented in this encounter Additional Health Concerns Assessment Noted Time PHQ-9 Depression Total Score: 15 12/25/2019 8:50 AM CS T documented as of this encounter Care Teams Retail Marketing Coordinator Relationship Specialty Start Date End Date Odalys Contreras, LAKHWINDER, C.N.P. PCP - General 04/21/17 01/15/[address] [phone] documented as of this encounter
--- OUTSIDE RECORDS SUMMARY | 2022-06-29 19:16 | XMS_ITS | Encounter Summary ---
:1970 Author Organization [facility] Address [address] [place] [address] Care Team Providers Name Role Phone Odalys Contreras APRN, C.N.P. Primary Care Provider [phone] Encounter Details Date Type Department Care Team Description 11/06/2019 Hospital Encounter Department of Lois Madrigal M.D. 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 predniSONE (DELTASONE) Take 1 tablet (50 mg 7 tablet 0 11/13/2019 50 mg tablet total) by mouth daily for 7 days. With food albuterol (ACCUNEB) 2.5 Take 3 mL (2.5 mg 180 mL 0 11/0601/21/2020 mg /3 mL nebulizer total) by solution nebulization 4 (four) times a day as needed for wheezing or shortness of breath. albuterol (VENTOLIN Inhale 2 puffs by 1 Inhaler 8 01/28/2020 HFA) 90 mcg/actuation mouth every 4 hr as inhalerIndications: needed for shortness Asthma Mild of breath and Intermittent (HCC) wheezing. butalbital-acetaminophe Take 1 tablet by 0 201505/01/2021 n-caff (FIORICET, mouth. ESGIC) 50-325-40 mg per tablet clobetasol (TEMOVATE) Apply 1 application 30 g 3 09/1805/01/2021 0.05 % topically 2 (two) ointmentIndications: times a day as needed Dermatitis Atopic (Eczema). FLUoxetine (PROzac) 20 Take 1 capsule (20 mg 60 capsule 0 12/25/2019 mg capsuleIndications: total) by mouth Anxiety Generalized daily. 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 Rinse mcg/dose diskus mouth with water inhalerIndications: after use to reduce Asthma Mild aftertaste and Intermittent (HCC) incidence of candidiasis. Do not swallow. lisinopril Take 1 tablet (5 mg 90 tablet 3 05/21/201901/27 (PRINIVIL,ZESTRIL) 5 mg total) by mouth tabletIndications: daily. Hypertension Essential Primary LORazepam (ATIVAN) 0.5 Take 1 tablet (0.5 mg 30 tablet 0 12/25/2019 mg tabletIndications: total) by mouth at Anxiety Generalized bedtime as needed for Disorder, Depression anxiety. Major Single Episode Severe Without Psychotic Features (HCC) nystatin (NYSTOP) Apply 1 application 15 g 0 9 01/21/2020 100,000 unit/gram topically 3 (three) powder times a day. ondansetron ODT Take 1 tablet (4 mg 30 tablet 3 12/13/2018 01/28/2020 (ZOFRAN-ODT) 4 mg total) by mouth every disintegrating 8 (eight) hours as tabletIndications: needed for nausea or Nausea And Vomiting vomiting. triamterene-hydroCHLORO Take 1 capsule by 90 capsule 3 05/2101/28/2020 thiazide (DYAZIDE) mouth daily. 37.5-25 mg per capsuleIndications: Hypertension Essential Primary venlafaxine XR Take 1 capsule (150 60 capsule 0 10/29/2019 0 12/25/2019 (EFFEXOR-XR) 150 mg 24 mg total) by mouth hr capsuleIndications: daily. 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 - 11/08/2019 11:21 AM GAS TURBINE MECHANIC Left message for patient to return our call. TURBINE MECHANIC documented in this encounter Plan of Treatment Upcoming Encounters Date Type Specialty Care Team Description 07/16/2022 Office Visit Family Medicine Karel Gill M.B.B .S., M.D. [address] [place] [phone] (Wo rk) documented as of this encounter Procedures Procedure Name Priority Date/Time Associated Comments Diagnosis DX CHEST AP OR PA RAD - Routine 11/06/2019 2:21 Sinusitis Acute Res ults for this AND LATERAL 2 (most inpatients PM GAS TURBINE MECHANIC Maxillary procedure are in VIEWS and all Bronchitis Acute the results outpatients) Tobacco Use section. Hypertension Essential Primary documented in this encounter Results DX Chest AP or PA and Lateral 2 Views (11/06/2019 2:21 PM GAS TURBINE MECHANIC) Anatomical Region Laterality Modality Chest, Thoracic RST LOS, Thoracic ARZ LOS, Thoracic N/A Digital Radiography FLA LOS Specimen (Source) Anatomical Collection Method Collection Time Re ceived Time Location / / Volume Laterality 11/06/2019 2:25 PM GAS TURBINE MECHANIC Impressions 11/06/2019 2:26 PM GAS TURBINE MECHANIC 1. No acute findings. Narrative 11/06/2019 2:26 PM GAS TURBINE MECHANIC EXAM: DX CHEST AP OR PA AND LATERAL 2 VIEWS COMPARISON: None FINDINGS: No focal areas of consolidatio n. No pneumothorax. Chest otherwise negative for acute findi ngs. Procedure Note Jordan Castro M.D. - 12/31/2019Forma tting of this note might be different from the original. EXAM: DX CHEST AP OR PA AND LATERAL 2 EWS COMPARISON: None FINDINGS: No focal areas of consolidatio n. No pneumothorax. Chest otherwise negative for acute findi ngs. IMPRESSION: 1. No acute findings. Lois Madrigal M.D. IMRosaura DIAGNOSTIC IMAGING PROCE EDUARDO documented in this encounter Visit Diagnoses Diagnosis Sinusitis Acute Maxillary Bronchitis Acute Tobacco Use Hypertension Essential Primary documented in this encounter Additional Health Concerns Assessment Noted Time PHQ-9 Depression Total Score: 19 08/07/2019 1:45 PM CD T documented as of this encounter Care Teams Administrative Asst Relationship Specialty Start Date End Date Odalys Contreras, CORPORATE LIBRARIAN, C.N.P. PCP - General 04/21/17 01/15/21 [address] [place] [phone] documented as of this encounter
--- OUTSIDE RECORDS SUMMARY | 2022-06-29 19:16 | XMS_ITS | Encounter Summary ---
:1970 Author Organization [facility] Address [address] [place] [address] Care Team Providers Name Role Phone Odalys Contreras APRN, C.N.P. Primary Care Provider Encounter Details Date Type Department Care Team Description 07/17/2020 Clinical Communication Department of Jorge Hill, Orthopedic Surgery in [place], [place] [address] [phone] Social History Tobacco Use Types Packs/Day Years [...] How often do you attend spiritism or oriental orthodox More than 4 time [...] at Date Recorded Female 12/02/2017 9:31 AM CRNA documented as of this encounter Miscellaneous Notes Telephone Encounter - Elza Shabazz R.N. - 07/18/2020 11:28 AM CDT Called patient back, left a message to call back. Please schedule patient with provider of her preference for an appointment at her convenience. Telephone Encounter - Jannet Barragan - 07/17/2020 4:50 PM CDT Reason for Communication: Patient states she had a total ACL replacement a few years ago, not at [place] and L knee is starting to bother her and would like to discuss injections. Current Can Nursing/Provider leave a detailed message?: YES Did the patient refuse triage through Nurse line? (for symptom based concerns): na Action Needed: Please advise Name of Medication (if relevant): documented in this encounter Plan of Treatment Upcoming Encounters Date Type Specialty Care Team Description 07/16/2022 Office Visit Family Medicine Karel Gill M.B.B DebEmmanuelle [address] [place], [place] [address], [place] [phone] (Wo rk) documented as of this encounter Visit Diagnoses Not on filedocumented in this encounter Additional Health Concerns Assessment Noted Time PHQ-9 Depression Total Score: 15 12/25/2019 8:50 AM CS T documented as of this encounter Care Teams Log Inspector Relationship Specialty Start Date End Date Odalys Contreras, FOAM DISPENSER, C.N.P. PCP - General 04/21/17 01/15/21 [address] [place] [phone] documented as of this encounter
--- OUTSIDE RECORDS SUMMARY | 2022-06-29 19:16 | XMS_ITS | Encounter Summary ---
:1970 Author Organization [facility] Address [address] [place] [address] Care Team Providers Name Role Phone Odalys Contreras APRN, C.N.P. Primary Care Provider [phone] Encounter Details Date Type Department Care Team Description 09/16/2019 Orders Only Department of [facility] Karel Gill [facility] Medicine, Jacobo PerazaBChuckySChucky, Episode Severe Without Clinic, in Emmanuelle Beck Psychotic Features [place] [address] [facility] ([facility]) (Primary Dx) [address] [place] [phone] Social History Tobacco Use Types Packs/Day Years [...] or relatives? How often do you attend catholic or orthodoxy More than 4 time s per year 12/25/2021 services? Do you belong to any clubs or organizations Yes 12/25/2021 such as catholic groups, unions, fraternal or athletic groups, [...] at Date Recorded Female 12/02/2017 9:31 AM CAR EXAMINER documented as of this encounter Plan of Treatment Upcoming Encounters Date Type Specialty Care Team Description 07/16/2022 Office Visit Family Medicine Karel Gill M.B.B ChuckySChucky, M.D. [address] [place] [phone] (Wo rk) documented as of this encounter Visit Diagnoses Diagnosis Depression Major Single Episode Severe W ithout Psychotic Features (HCC) - Primary documented in this encounter Additional Health Concerns Assessment Noted Time PHQ-9 Depression Total Score: 19 08/07/2019 1:45 PM CD T documented as of this encounter Care Teams Vocational Aide Relationship Specialty Start Date End Date Odalys Contreras, WIRE HARNESS ASSEMBLER, C.N.P. PCP - General 04/21/17 01/15/[address] [phone] documented as of this encounter
--- OUTSIDE RECORDS SUMMARY | 2022-06-29 19:16 | XMS_ITS | Encounter Summary ---
:1970 Author Organization [facility] Address [address] [place] [address] Care Team Providers Name Role Phone Odalys Contreras APRN, C.N.P. Primary Care Provider [phone] Reason for Visit Reason Comments Other Spot on left breast noticed a month ago Anxiety Encounter Details Date Type Department Care Team Description 08/07/2019 Office Visit Department of Family Karel Gill etsisi Generalized Disorder (Primary Dx); Medicine, Elizabeth PerazaSChucky, Depress ion Major Single Episode Severe Without Psychotic Features (HCC); Clinic, in [place] Beck Screening Mammogram Average Risk Patient [place] [address] [facility] 300 [place], [place] [facility] [place] [phone] [phone] Social History Tobacco Use Types Packs/Day Years [...] or relatives? How often do you attend anabaptist or baptism More than 4 time s per year 12/25/2021 services? Do you belong to any clubs or organizations Yes 12/25/2021 such as anabaptist groups, unions, fraternal or athletic groups, or [...] at Date Recorded Female 12/02/2017 9:31 AM FAMILY MEDICINE RESIDENT documented as of this encounter Last Filed Vital Signs Vital Sign Reading Time Taken Comments Blood Pressure 124/80 08/07/2019 1:41 PM CDT Pulse 68 08/07/2019 1:41 PM CDT Temperature 36.4 ??C (97.5 ??F) 08/07/2019 1:41 PM CDT Respiratory Rate 16 08/07/2019 1:41 PM CDT Oxygen Saturation - - Inhaled Oxygen Concentration - - Weight 121 kg (266 lb 13.9 oz) 08/07/2019 1:41 PM CDT Height - - Body Mass Index 50.38 12/15/2018 9:13 AM FAMILY MEDICINE RESIDENT documented in this encounter Progress Notes Karel Gill M.B.BDeb, M.Miracle. - 08/07/2019 2:00 PM CDT SUBJECTIVE CHIEF COMPLAINT / REASON FOR VISIT Shanda Masterson is a 48 y.o. female who presents for evaluation of Other (Spot on left breast noticed a month ago) and Anxiety. HISTORY OF PRESENT ILLNESS 48-year-old female with a history of anxiety disorder and panic attacks here for follow-up. Patient's last FRANCISCO-7 was 3. She usually uses lorazepam for panic attacks which occur 3 to 5 times a year. However, in April she was laid off and has been job hunting since then. She lives at home with her and 3 step kids who are teenagers. She has a college graduate daughter who is moving to [place]. She reports her episodes consist of sudden onset of sweating, hyperventilation, shortness of breath,anxiety and chest tightness. They usually last about 45 minutes but do respond to lorazepam. The now occur 3 to 4 times a week and drain or kinds of activity. Patient had previously been on Prozac for anxiety and depression but this was tapered off several years ago. FRANCISCO-7 score 18 PHQ-9 score 19 Patient also reports itching and discoloration on her left breast for the last 1 month. She has had no pain or swelling. There has been no discharge from her nipples. She gets yearly mammograms and reports a history of breast cancer in both grandmothers. The following portions of the patient's history were reviewed and updated as appropriate: allergies,current medications, family history, medical history, social history, surgical history and problem list. REVIEW OF SYSTEMS Pertinent items are noted in HPI. OBJECTIVE BP 124/80 (BP Location: Right arm, Patient Position: Sitting, Cuff Size: Large) Pulse 68 Temp 36.4 ??C (Temporal) Resp 16 Wt 121 kg BMI 50.38 kg/m?? PHYSICAL EXAM General Appearance: healthy, alert, no distress, cooperative. Skin: skin color, texture, turgor normal, no suspicious rashes or lesions. Head: normocephalic, no masses, lesions, tenderness or abnormalities. Eyes: Anicteric sclera. Pupils are equally round and reactive to light. Extraocular movements are intact. . Lungs: clear to auscultation. Breast: Inspection negative. No nipple discharge or bleeding. No palpable mass. There is small air with a macular rash on the underside of her left pendulous breast Musculoskeletal: Range of motion normal in hips, knees, shoulders, and spine, No joint swelling, deformity, or tenderness. General: alert, Psychiatric Orientation: oriented times three. Level of consciousness: Patient is awake and alert, cooperative. Appearance: Not in any distress; looks well groomed. 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 Discussed methods to manage it, stressing the importance of wellness behaviors as well as cognitive-behavioral therapy and medication. Discussed SSRIs and anxiolytics. Depression Reviewed with patient criteria for diagnosis and usual course of disease. Discussed importance of good nutrition, adequate sleep, exercise and personal time. Encouraged counseling when patient is interested. Discussed indications for and side effects of medication. Will begin Prozac 20 mg daily and increase to 40 mg in two to four weeks. Recheck in four to six weeks, sooner if necessary. She is due for her annual mammogram which we will order today. Treat her rash with nystatin. Total time was 30 minutes; more than 50% was spent in counseling. documented in this encounter Plan of Treatment Upcoming Encounters Date Type Specialty Care Team Description 07/16/2022 Office Visit Family Medicine Karel Gill M.B.B .S. MRadha [address] [place] [phone] (Wo rk) documented as of this encounter Results BI Breast Screening Bilateral (08/07/2019 2:56 PM CDT) Anatomical Region Laterality Modality Breast, Breast Imaging RST LOS, Breast Imaging ARZ LOS, [address] st Bilateral Mammography Imaging FLA LOS Specimen (Source) Anatomical Collection Method Collection Time Re ceived Time Location / / Volume Laterality 08/07/2019 3:34 PM CDT Impressions 08/07/2019 3:39 PM CDT Negative. RECOMMENDATION: ??Annual Screening Mammo gram ASSESSMENT: ??BI-RADS: 1: Negative. Narrative 08/07/2019 3:39 PM CDT EXAM: ??BI BREAST SCREENING BILATERAL Current study was evaluated with a Compu ter Aided Detection (CAD) system. INDICATION: ??Screening mammogram. COMPARISON: ??Prior exam(s) were availab le and reviewed for comparison. DENSITY: ??c. The breast(s) are heteroge neously dense, which may obscure small masses. FINDINGS: ??No mammographic findings of malignancy. Procedure Note Jordan Castro M.D. - 08/07/2019Forma tting of this note might be different from the original. EXAM: BI BREAST SCREENING BILATERAL Current study was evaluated with a Compu [...] documented in this encounter Visit Diagnoses Diagnosis Anxiety Generalized Disorder - Primary Depression Major Single Episode Severe W ithout Psychotic Features (HCC) Screening Mammogram Average Risk Patient Screening Mammogram Average Risk Patient documented in this encounter Additional Health Concerns Assessment Noted Time PHQ-9 Depression Total Score: 19 08/07/2019 1:45 PM CD T documented as of this encounter Care Teams Internal Combustion Engine Inspector Relationship Specialty Start Date End Date Odalys Contreras, PRODUCT DEMONSTRATOR, C.N.P. PCP - General 04/21/17 01/15/[address] [phone] documented as of this encounter
--- OUTSIDE RECORDS SUMMARY | 2022-06-29 19:16 | XMS_ITS | Encounter Summary ---
:1970 Author Organization [facility] Address [address] [place] [address] Care Team Providers Name Role Phone Odalys Contreras APRN, C.N.P. Primary Care Provider [phone] Encounter Details Date Type Department Care Team Description 08/04/2020 Hospital Encounter Department of Jordan Roth, Pain Kn ee Left; Radiology in [place] Injury Knee Initial Left; [facility], [address] [place] Secondary Ost eoarthritis Knee [place] [phone] Social History Tobacco Use Types Packs/Day Years [...] How often do you attend buddhist or rastafari More than 4 time s per year [...] at Date Recorded Female 12/02/2017 9:31 AM CYTOLOGY MANAGER documented as of this encounter Medications at [...] HFA) Inhale 2 puffs by 1 Inhaler 01/0612/29/2020 inhalerIndications: mouth every 4 hr as [...] Family Medicine Karel Gill M.B.B .S., M.D. [address] [place] [address] [place], [place] [phone] (Wo rk) documented as of this encounter Procedures Procedure Name Priority Date/Time Associated Diagnosis Comme nts DX KNEE LEFT 4+ RAD - Routine 08/04/2020 9:39 Pain Knee Left Results for VIEWS (most inpatients AM CDT Injury Knee Initial this procedure and all Left are in the outpatients) Secondary results Osteoarthritis Knee section. Left documented in this encounter Results DX Knee Left 4+ Views (08/04/2020 9:39 AM CDT) Anatomical Region Laterality Modality Lower Extremity, Knee, Musculoskeletal RST LOS, Left Digital Radiography Musculoskeletal ARZ LOS, Muskuloskeletal FLA LOS Specimen (Source) Anatomical Collection Method Collection Time Re ceived Time Location / / Volume Laterality 08/04/2020 9:41 AM CDT Impressions 08/04/2020 9:42 AM CDT Postop changes prior left anterior cruciate ligament reconstruction. Left knee joint effusion. Moderate scattered degenerative changes of the left knee. Marginal osteophytes left knee. No appreciable acute osseous injury of t he left knee. If pain persists consider follow-up imag ing. Narrative 08/04/2020 9:42 AM CDT EXAM: DX KNEE LEFT 4+ VIEWS COMPARISON: None Procedure Note Jordan Castro M.D. - 08/04/2020Forma tting of this note might be different from the original. EXAM: DX KNEE LEFT 4+ VIEWS COMPARISON: None IMPRESSION: Postop changes prior left anterior cruci ate ligament reconstruction. Left knee joint effusion. Moderate scattered degenerative changes of the left knee. Marginal osteophytes left knee. No appreciable acute osseous injury of t he left knee. If pain persists consider follow-up imag ing. Jordan [facility] EDUARDO documented in this encounter Visit Diagnoses Diagnosis Pain Knee Left Injury Knee Initial Left Secondary Osteoarthritis Knee Left documented in this encounter Additional Health Concerns Assessment Noted Time PHQ-9 Depression Total Score: 15 12/25/2019 8:50 AM CS T documented as of this encounter Care Teams Commercial Fisher Relationship Specialty Start Date End Date Odalys Contreras, PARTICLEBOARD FACTORY WORKER, C.N.P. PCP - General 04/21/17 01/15/21 [address] [place] [address] documented as of this encounter
--- OUTSIDE RECORDS SUMMARY | 2022-06-29 19:16 | XMS_ITS | Encounter Summary ---
:1970 Author Organization [facility] Address [address] [place] [address] Care Team Providers Name Role Phone Odalys Contreras APRN, C.NChip Primary Care Provider [phone] Encounter Details Date Type Department Care Team Description 01/11/2020 Orders Only Department of Family Rah Kilpatrick, Medicine, [facility] -C. 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 [address] [place] [phone] (Wo rk) documented as of this encounter Visit Diagnoses Not on filedocumented in this encounter Additional Health Concerns Assessment Noted Time PHQ-9 Depression Total Score: 15 12/25/2019 8:50 AM CS T documented as of this encounter Care Teams Airframe And Powerplant Mechanic Relationship Specialty Start Date End Date Odalys Contreras, LOOM FIXER HELPER, C.N.P. PCP - General 04/21/17 01/15/21 [address] [address] documented as of this encounter
--- OUTSIDE RECORDS SUMMARY | 2022-06-29 19:16 | XMS_ITS | Encounter Summary ---
:1970 Author Organization [facility] Address [address] [place] [address] Care Team Providers Name Role Phone Odalys Contreras APRN, C.N.P. Primary Care Provider [phone] Encounter Details Date Type Department Care Team Description 06/25/2020 Hospital Encounter Department of Odalys Contreras Screeni ng Examination Diabetes Mellitus; Laboratory Medicine LAKHWINDER Burton, C.N .P. Monitoring For Therapeutic Drug Therapy in [place], [address] [place], [place] 300 [facility] [address] [place], [place] [phone] (Work) [phone] Social History Tobacco Use Types Packs/Day Years [...] or relatives? How often do you attend shinto or gnosticist More than 4 time s per year 12/25/2021 services? Do you belong to any clubs or organizations Yes 12/25/2021 such as shinto groups, unions, fraternal or athletic groups, or [...] at Date Recorded Female 12/02/2017 9:31 AM PHOTOLITHOGRAPHER documented as of this encounter Medications at [...] Family Medicine Karel Gill M.B.B .S., M.D. [address] [place] [address] [place] [phone] (Wo rk) documented as of this encounter Procedures Procedure Name Priority Date/Time Associated Diagnosis Comme nts POTASSIUM, S/P Routine 06/25/2020 10:22 Monitoring For Results for this AM CDT Therapeutic Drug procedure a re in Therapy the results section. GLUCOSE, FASTING, Routine 06/25/2020 10:22 Screening Result s for this S/P AM CDT Examination Diabetes procedu re are in Mellitus the results section. CREATININE WITH Routine 06/25/2020 10:22 Monitoring For Result s for this EGFR, S/P AM CDT Therapeutic Drug procedure a re in Therapy the results section. documented in this encounter Results Potassium (06/25/2020 10:22 AM CDT) athologist Signature Potassium, P 4.1 3.6 - 5.2 06/25/2020 [place] mmol/L 3:40 PM CDT Specimen Anatomical Collection Method Collection Time Receive d Time (Source) Location / / Volume Laterality Blood (Blood, 06/25/2020 10:22 06/25/2020 1:06 Venous) AM CDT PM CDT Odalys Contreras APRN, C.N.P. LAB BLOOD ADD-ON Performing Organization Address City/State/ZIP Code Phon e Number [facility]- [address] [place] [address] [place] [address] System in [place] [address] Creatinine with Estimated GFR (06/25/2020 10:22 AM CDT) athologist Signature Creatinine 0.63 0.59 - 06/25/2020 [place] 1.04 mg/dL 3:40 PM CDT eGFR-Black/Afric >90 >=60 06/25/2020 [place] an Nigerien mL/min/BSA 3:40 PM CDT Comment: ----ADDITIONAL INFORMATION---- [...] Organization Address City/State/ZIP Code Phon e Number [facility]- [address] [place] [address] [place] [address] System in [place] [address] Glucose, Fasting (06/25/2020 10:22 AM CDT) P athologist Signature Glucose, P 99 70 - [...] Organization Address City/State/ZIP Code Phon e Number [facility]- [address] [place] [address] [place] [address] System in [place] [address] documented in this encounter Visit Diagnoses Diagnosis Screening Examination Diabetes Mellitus Monitoring For Therapeutic Drug Therapy documented in this encounter Additional Health Concerns Assessment Noted Time PHQ-9 Depression Total Score: 15 12/25/2019 8:50 AM CS T documented as of this encounter Care Teams Echo Tech Relationship Specialty Start Date End Date Odalys Contreras APRN, C.N.P. PCP - General 04/21/17 01/15/[address] [place] [address] documented as of this encounter
--- OUTSIDE RECORDS SUMMARY | 2022-06-29 19:16 | XMS_ITS | Encounter Summary ---
:1970 Author Organization [facility] Address [address] [place] [address] Care Team Providers Name Role Phone Odalys Contreras APRN, C.N.P. Primary Care Provider [phone] Encounter Details Date Type Department Care Team Description 09/21/2019 Orders Only Department of [facility] Karel Gill [facility] Medicine, Jacobo PerazaBChuckySChucky, Episode Severe Without Clinic, in [place] eBck Psychotic Features [place] [address] [facility] ([facility] [address] [place] [phone] Social History Tobacco Use Types Packs/Day Years [...] How often do you attend sikhism or hindu More than 4 time s per year [...] at Date Recorded Female 12/02/2017 9:31 AM FOOD GENERAL MANAGER documented as of this encounter Plan of Treatment Upcoming Encounters Date Type Specialty Care Team Description 07/16/2022 Office Visit Family Medicine Karel Gill M.B.B .S., M.D. 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 PCP - General 04/21/17 01/15/21 [address], [place] [address] documented as of this encounter
--- OUTSIDE RECORDS SUMMARY | 2022-06-29 19:16 | XMS_ITS | Encounter Summary ---
:1970 Author Organization [facility] Address [address] [place] [address] Care Team Providers Name Role Phone Odalys Contreras APRN, C.N.P. Primary Care Provider [phone] Reason for Visit Reason Comments Med Refill Encounter Details Date Type Department Care Team Description 11/09/2019 Refill Department of Family Medicine, Erin Contreras APRN, Med Refill [facility], [place] [address] [place] [address] [place], [place] [address] [phone] Social History Tobacco Use Types Packs/Day Years [...] How often do you attend anglican or yazidi More than 4 time s [...] at Date Recorded Female 12/02/2017 9:31 AM BUCKLE SEWER MACHINE documented as of this encounter Plan of Treatment Upcoming Encounters Date Type Specialty Care Team Description 07/16/2022 Office Visit Family Medicine Karel Gill M.B.B .S., MRadha [address] [place] [phone] (Wo rk) documented as of this encounter Visit Diagnoses Diagnosis Asthma Mild Intermittent (HCC) documented in this encounter Additional Health Concerns Assessment Noted Time PHQ-9 Depression Total Score: 19 08/07/2019 1:45 PM CD T documented as of this encounter Care Teams Produce Shipper Relationship Specialty Start Date End Date Odalys Contreras, LAKHWINDER, C.N.P. PCP - General 04/21/17 01/15/21 [address], [place] [address] documented as of this encounter
--- OUTSIDE RECORDS SUMMARY | 2022-06-29 19:16 | XMS_ITS | Encounter Summary ---
:1970 Author Organization [facility] Address [address] [place] [address] Care Team Providers Name Role Phone Odalys Contreras APRN, C.N.P. Primary Care Provider [phone] Encounter Details Date Type Department Care Team Description 08/07/2019 Hospital Encounter Department of Karel Gill Mammogram Radiology in I., M.B.B.S., Average Risk P [place], [place] M.D. [address] [facility] [address] [place] [phone] Social History Tobacco Use Types Packs/Day Years [...] How often do you attend orthodoxy or yazdanism More than 4 time s per year [...] Date Recorded Female 12/02/2017 9:31 AM ELECTRONIC WARFARE OPERATOR documented as of this encounter Medications at Time of Discharge Medication Sig Dispensed Refills Start Date End Date albuterol (ACCUNEB) 2.5 USE 3 ML (1 VIAL) IN 180 mL 3 11/06/2019 mg /3 mL nebulizer NEBULIZER 4 TIMES solutionIndications: DAILY NEEDED FOR Asthma Mild Intermittent SHORTNESS OF BREATH (HCC) AND WHEEZING albuterol (VENTOLIN HFA) Inhale 2 puffs by 1 Inhaler 11 09/0701/28/2020 90 mcg/actuation mouth every 4 hr as inhalerIndications: needed for shortness Asthma Mild Intermittent of breath and (HCC) wheezing. butalbital-acetaminophen Take 1 tablet by 0 05/1905/01/2021 -caff (FIORICET, ESGIC) mouth. 50-325-40 mg per tablet clobetasol (TEMOVATE) Apply 1 application 30 g 3 09/1805/01/2021 0.05 % topically 2 (two) ointmentIndications: times a day as Dermatitis Atopic needed (Eczema). FLUoxetine (PROzac) 20 Take 1 capsule (20 60 capsule 0 08/0712/25/2019 mg capsuleIndications: mg total) by mouth Anxiety Generalized daily. Disorder, Depression Major Single Episode Severe Without Psychotic Features (HCC) fluticasone propionate USE 2 SPRAY(S) IN 6 201812/25/2021 (FLONASE) 50 EACH NOSTRIL ONCE mcg/actuation nasal DAILY NEEDED FOR spray RHINITIS OR ALLERGIES fluticasone-salmeterol Inhale 1 puff 2 3 each 3 09/18/20 18 11/12/2019 (ADVAIR DISKUS) 250-50 (two) times a day. mcg/dose diskus Rinse mouth with inhalerIndications: water after use to Asthma Mild Intermittent reduce aftertaste (HCC) and incidence of candidiasis. Do not swallow. lisinopril Take 1 tablet (5 mg 90 tablet 3 05/21/201901/27 (PRINIVIL,ZESTRIL) 5 mg total) by mouth tabletIndications: daily. Hypertension Essential Primary LORazepam (ATIVAN) 0.5 Take 1 tablet (0.5 30 tablet 0 08/0712/25/2019 mg tabletIndications: mg total) by mouth Anxiety Generalized at bedtime as needed Disorder, Depression for anxiety. Major Single Episode Severe Without Psychotic Features (HCC) nystatin (NYSTOP) Apply 1 application 15 g 0 9 01/21/2020 100,000 unit/gram powder topically 3 (three) times a day. ondansetron ODT Take 1 tablet (4 mg 30 tablet 3 12/13/2018 01/28/2020 (ZOFRAN-ODT) 4 mg total) by mouth disintegrating every 8 (eight) tabletIndications: hours as needed for Nausea And Vomiting nausea or vomiting. triamterene-hydroCHLOROt Take 1 capsule by 90 capsule 3 05/0701/28/2020 hiazide (DYAZIDE) mouth daily. 37.5-25 mg per capsuleIndications: Hypertension Essential Primary VENTOLIN HFA 90 INHALE 2 PUFFS BY 54 g 3 02/25/2019 mcg/actuation MOUTH EVERY 4 HOURS inhalerIndications: NEEDED FOR Asthma Mild Intermittent SHORTNESS OF BREATH (HCC) AND FOR WHEEZING documented as of this encounter Plan of Treatment Upcoming Encounters Date Type Specialty Care Team Description 07/16/2022 Office Visit Family Medicine Karel Gill M.B.B ChuckyS., M.D. [address] [place] [address] [place] [phone] (Wo rk) documented as of this encounter Procedures Procedure Name Priority Date/Time Associated Comments Diagnosis BI BREAST RAD - Routine 08/07/2019 2:56 Screening Results for this SCREENING (most inpatients PM CDT Mammogram Average proced ure are in BILATERAL and all Risk Patient the results outpatients) section. documented in this encounter Results BI [...] ASSESSMENT: BI-RADS: 1: Negative. Karel Alvarez M.D. IM BI PROCEDURES documented in this encounter Visit Diagnoses Diagnosis Screening Mammogram Average Risk Patient documented in this encounter Additional Health Concerns Assessment Noted Time PHQ-9 Depression Total Score: 19 08/07/2019 1:45 PM CD T documented as of this encounter Care Teams Playground Worker Relationship Specialty Start Date End Date Odalys Contreras, LAKHWINDER, C.N.P. PCP - General 04/21/17 01/15/21 [address] [phone] documented as of this encounter
--- OUTSIDE RECORDS SUMMARY | 2022-06-29 19:16 | XMS_ITS | Encounter Summary ---
:1970 Author Organization [facility] Address [address] [place] [address] Care Team Providers Name Role Phone Odalys Contreras APRN, C.N.P. Primary Care Provider [phone] Reason for Visit Reason Comments Med Refill Encounter Details Date Type Department Care Team Description 06/17/2019 Refill Department of Family Medicine, Karel Gill I., Med Refill [facility], in [place], Naveen Dinh. [place], [place] 300 [facility] 300 [place] [address] [place] [address] [phone] Social History Tobacco Use Types Packs/Day Years [...] How often do you attend alevism or mormon More than 4 time s per year [...] place to sleep or slept in a mcc (including now)? Sex Assigned at Date Recorded Female 12/02/2017 9:31 AM SPREADER OPERATOR AUTOMATIC documented as of this encounter Miscellaneous Notes Telephone Encounter - Lynn Arreguin L.PChukcyN. - 06/20/2019 2:53 PM CDT Have made several attempts to contact Shanda. No return calls. Telephone Encounter - Ai Lamb C.MSean - 06/19/2019 3:00 PM CDT Left message for patient to call back. Telephone Encounter - Ai Lamb C.MSean - 06/18/2019 5:49 PM CDT Left message for patient to call back. Telephone Encounter - Wilda Raya L.P.NChucky - 06/18/2019 1:46 PM CDT Left message for patient to return our call. documented in this encounter Plan of Treatment Upcoming Encounters Date Type Specialty Care Team Description 07/16/2022 Office Visit Family Medicine Karel Gill M.B.B .S., Emmanuel[place] [address] [place] [phone] (Wo rk) documented as of this encounter Visit Diagnoses Not on filedocumented in this encounter Additional Health Concerns Assessment Noted Time PHQ-9 Depression Total Score: 4 05/21/2019 9:58 AM CDT documented as of this encounter Care Teams Engineering Aide Relationship Specialty Start Date End Date Odalys Contreras, LAKHWINDER, C.N.P. PCP - General 04/21/17 01/15/21 [address] [address] documented as of this encounter
--- OUTSIDE RECORDS SUMMARY | 2022-06-29 19:16 | XMS_ITS | Encounter Summary ---
:1970 Author Organization [facility] Address [address] [place] [address] Care Team Providers Name Role Phone Odalys Contreras APRN, C.NChip Primary Care Provider [phone] Reason for Visit Reason Comments Cough productive cough, sinus pres sure, SOB, chest congestion, febrile- onset: for the last four days Appointment Request (Routine) - Closed Specialty Diagnoses / Procedures Referred By Contact Refer red To Contact Family Medicine Referral ID Status Reason Start Date Expiration Date Visits Requ ested Visits Authorized [id number] Closed 11/06/2019 11/05/2020 1 1 Encounter Details Date Type Department Care Team Description 11/06/2019 Office Visit Department of Lois Madrigal M.D . Bronchitis Acute (Primary Dx); [facility] [address], Sin usitis Acute Maxillary; Medicine in [place] [address] Tobacco Use; [place], [place], [place] Hypertension Essential Prima ry [address] [address] [place] [address] Social History Tobacco Use Types Packs/Day [...] or relatives? How often do you attend worship or muslim More than 4 time s per year 12/25/2021 services? Do you belong to any clubs or organizations Yes 12/25/2021 such as worship groups, unions, fraternal or athletic groups, or [...] at Date Recorded Female 12/02/2017 9:31 AM NEWS WIRE PHOTO OPERATOR documented as of this encounter Last Filed Vital Signs Vital Sign Reading Time Taken Comments Blood Pressure 151/92 11/06/2019 1:50 PM NEWS WIRE PHOTO OPERATOR Pulse 100 11/06/2019 1:50 PM NEWS WIRE PHOTO OPERATOR Temperature 36.9 ??C (98.4 ??F) 11/06/2019 1:48 PM NEWS WIRE PHOTO OPERATOR Respiratory Rate 20 11/06/2019 1:48 PM NEWS WIRE PHOTO OPERATOR Oxygen Saturation 93% 11/06/2019 1:48 PM NEWS WIRE PHOTO OPERATOR Inhaled Oxygen Concentration - - Weight 117 kg (257 lb 6.2 oz) 11/06/2019 1:48 PM NEWS WIRE PHOTO OPERATOR Height 157 cm (5' 1.81) 11/06/2019 1:48 PM NEWS WIRE PHOTO OPERATOR Body Mass Index 47.37 11/06/2019 1:48 PM NEWS WIRE PHOTO OPERATOR documented in this encounter Progress Notes Lois Madrigal M.D. - 11/06/2019 2:15 PM CST SUBJECTIVE CHIEF COMPLAINT/ REASON FOR VISIT 1. Productive cough with shortness of breath and chest congestion 2. Sinus congestion with pressure HISTORY OF PRESENT ILLNESS Shanda Masterson is a 48 y.o. female who presents to the clinic today for above complaints. She isnew to Internal Medicine Department at [facility] in [place]. Her primary care provider is Odalys Contreras. She has history of asthma and she smokes cigarettes every day. She hasn't been feeling well since last Tuesday. She started having chest congestion, wheezing and productive cough.She has been coughing up dark yellow sputum. She has chest discomfort with excessive coughing. She has problem with sleep because of coughing spell. She also complaining of sinus congestion and sinus pressure over the maxillary sinuses. She had fever this morning. According to her, she is using AdvairDiskus 2 times a day. She needs new prescription for albuterol nebulizer solution. She denies nausea, vomiting or diarrhea. She does not take Zofran regularly. She also complaining of discomfort in left ear. There is no ear drainage. According to patient she is not . She has menstrual period. I reviewed and updated medical record. Medication reconciliation was done. I answered all of their questions. Patient does not have additional questions, concerns, or complaints. MEDICATIONS Current Outpatient Medications Medication Sig Dispense Refill ??? albuterol (ACCUNEB) 2.5 mg /3 mL nebulizer solution Take 3 mL (2.5 mg total) by nebulization 4 (four) times a day as needed for wheezing or shortness of breath. 180 mL 0 ??? albuterol (VENTOLIN HFA) 90 mcg/actuation inhaler Inhale 2 puffs by mouth every 4 hr as needed for shortness of breath and wheezing. 1 Inhaler 11 ??? clobetasol (TEMOVATE) 0.05 % ointment Apply 1 application topically 2 (two) times a day as needed (Eczema). 30 g 3 ??? lisinopril (PRINIVIL,ZESTRIL) 5 mg tablet Take 1 tablet (5 mg total) by mouth daily. 90 tablet 3 ??? LORazepam (ATIVAN) 0.5 mg tablet Take 1 tablet (0.5 mg total) by mouth at bedtime as needed for anxiety. 30 tablet 0 ??? ondansetron ODT (ZOFRAN-ODT) 4 mg disintegrating tablet Take 1 tablet (4 mg total) by mouth every 8 (eight) hours as needed for nausea or vomiting. 30 tablet 3 ??? triamterene-hydroCHLOROthiazide (DYAZIDE) 37.5-25 mg per capsule Take 1 capsule by mouth daily. 90 capsule 3 ??? venlafaxine XR (EFFEXOR-XR) 150 mg 24 hr capsule Take 1 capsule (150 mg total) by mouth daily. 60 capsule 0 ??? azithromycin (Zithromax Z-Max) 250 mg tablet Take 2 tablets the first day, then 1 tablet daily for 4 days. 6 tablet 0 ??? fvjlsczhky-vopnybmxibrhs-fnyr (FIORICET, ESGIC) 50-325-40 mg per tablet Take 1 tablet by mouth. ??? FLUoxetine (PROzac) 20 mg capsule Take 1 capsule (20 mg total) by mouth daily. 60 capsule 0 ??? fluticasone propionate (FLONASE) 50 mcg/actuation nasal spray USE 2 SPRAY(S) IN EACH NOSTRIL ONCE DAILY NEEDED FOR RHINITIS OR ALLERGIES 6 ??? fluticasone-salmeterol (ADVAIR DISKUS) 250-50 mcg/dose diskus inhaler Inhale 1 puff 2 (two) times a day. Rinse mouth with water after use to reduce aftertaste and incidence of candidiasis. Do not swallow. 3 each 3 ??? nystatin (NYSTOP) 100,000 unit/gram powder Apply 1 application topically 3 (three) times a day. (Patient not taking: Reported on 11/06/2019 ) 15 g 0 ??? predniSONE (DELTASONE) 50 mg tablet Take 1 tablet (50 mg total) by mouth daily for 7 days. With food 7 tablet 0 ??? VENTOLIN HFA 90 mcg/actuation inhaler INHALE 2 PUFFS BY MOUTH EVERY 4 HOURS NEEDED FOR SHORTNESS OF BREATH AND FOR WHEEZING 54 g 3 No current facility-administered medications for this visit. ALLERGIES/CONTRAINDICATIONS Allergies Allergen Reactions ??? Latex Rash ??? Valsartan Other (see comments) and Anaphylaxis Unknown - patient unable to provide information ??? Bupropion Rash Wellbutrin ??? Magnesium Sulfate Anaphylaxis Throat closing SYSTEMS REVIEW Please see history of present illness for pertinent positives, otherwise rest of review of systems negative. MEDICAL HISTORY Past Medical History: Diagnosis Date ??? Abuse Tobacco Smoking ??? Anxiety Generalized Disorder 12/07/2016 ??? Asthma (HCC) ??? Asthma Mild Intermittent (HCC) 12/07/2016 ??? Dermatitis Atopic 05/31/2016 ??? Dermatitis Eczematoid ??? Hypertension Essential Primary ??? Hypertriglyceridemia ??? Menorrhagia ??? Migraine Headache ??? Migraine Headache Classic 12/07/2016 ??? Morbid Obesity Body Mass Index 50.0-59.9 Adult (HCC) ??? PreDiabetes SURGICAL HISTORY Past Surgical History: Procedure Laterality Date ??? APPENDECTOMY N/A ??? SECTION N/A 1992 with delivery ??? ESOPHAGOSCOPY / EGD 12/19/2017 KIRILL/Shy Chaidez ??? HAND SURGERY Left dislocated 3rd and 4th metacarpal on left hand ??? LAPAROSCOPIC CHOLECYSTECTOMY ??? OVARIAN CYST REMOVAL Right ??? RECONSTRUCTION OF ANTERIOR CRUCIATE LIGAMENT OF KNEE Left with cadevar material SOCIAL HISTORY Social History Socioeconomic History ??? Marital status: Spouse name: None ??? Number of children: None ??? Years of education: None ??? Highest education level: GED or equivalent Occupational History ??? None Social Needs ??? Financial resource strain: Somewhat hard ??? Food insecurity Worry: Sometimes true Inability: Never true ??? Transportation needs Medical: No Non-medical: No Tobacco Use ??? Smoking status: Current Every Day Smoker Packs/day: 0.50 Types: Cigarettes ??? Smokeless tobacco: Never Used Substance and Sexual Activity ??? Alcohol use: Yes Frequency: Monthly or less Drinks per session: 1 or 2 Binge frequency: Never Comment: Seldom ??? Drug use: No ??? Sexual activity: Defer Lifestyle ??? Physical activity Days per week: 1 day Minutes per session: 20 min ??? Stress: Very much Relationships ??? Social connections Talks on phone: Once a week Gets together: Once a week Attends muslim service: 1 to 4 times per year Active member of club or organization: No Attends meetings of clubs or organizations: Never Relationship status: ??? Intimate partner violence Fear of current or ex partner: No Emotionally abused: No Physically abused: No Forced sexual activity: No Other Topics Concern ??? None Social History Narrative She is and has one daughter. She works at [employer] in [place]. Social History Substance and Sexual Activity Drug Use No Social History Substance and Sexual Activity Alcohol Use Yes ??? Frequency: Monthly or less ??? Drinks per session: 1 or 2 ??? Binge frequency: Never Comment: Seldom FAMILY HISTORY Family History Problem Relation Age of Onset ??? Hyperlipidemia Mother ??? Hypertension Mother ??? Hyperlipidemia Father ??? Hypertension Father ??? Stroke Father ??? Cirrhosis Brother stage 4 ??? Breast cancer Grandmother ??? Diabetes Grandmother ??? Breast cancer Grandmother ??? Colon cancer Neg Hx OBJECTIVE VITAL SIGNS Vitals: 11/06/19 1348 11/06/19 1350 BP: (!) 148/95 (!) 151/92 Patient Position: Sitting Sitting Pulse: 105 100 Temp: 36.9 ??C Resp: 20 Height: 157 cm Weight: 117 kg SpO2: 93% TempSrc: Temporal PHYSICAL EXAMINATION General: Patient is sitting. No distress. Able to talk without interruption. Head: She has tenderness over the bilateral maxillary sinuses. No facial rash or asymmetry. Eyes: PERRLA. EOMI. No pallor, icterus or conjunctivitis. ENT: No nasal congestion, discharge or bleeding. There is no ear infection or discharge. No mastoid tenderness. Tongue is moist and midline. No oral lesions. Lymph nodes: No cervical or supraclavicular lymphadenopathy. Thyroid: No thyromegaly. No thyroid thrill or bruit. Peripheral vessels: Good radial pulses. Heart: No carotid bruit. No JVD. Regular rhythm. There is no S3, gallop, murmur or thrill. Lungs: Normal respiratory effort. She has rhonchi and wheezing especially in right posterior lung. Abdomen: Moves with respiration. Bowel sounds present. Soft. No rebound tenderness, guarding or rigidity. Extremities: No clubbing, cyanosis, edema, infection or calf tenderness. Gait: No abnormal gait. Mental: Alert and oriented x 3. Normal mood and affect. ASSESSMENT / PLAN #1 Sinusitis Acute Maxillary #2 Bronchitis Acute #3 Tobacco Use She is stable from respiratory and cardiac standpoint. There is no tachypnea or hypoxia. She has mild tachycardia. Advised her to take Z-Max for 5 days and prednisone 50 mg by mouth daily with food for7 days. She should use Advair Diskus regularly. She should continue albuterol therapy as needed for chest congestion, wheezing and shortness of breath. She should drink plenty of water. Advised her to take ogsi-eok-foxwkod antihistamine either Zyrtec or Claritin or Anita daily for the time being. She needs to quit smoking cigarettes. Advised her to go to hospital ED if she continued to have problemor worsening of symptoms. She needs to follow with her primary care provider. Advised her not to take Zofran while she is taking Z-Max. #4 Hypertension Essential Primary Her blood pressure is slightly high. She should continue current medication and follow with her primary care provider. #5 Today Studies Following studies were done today: Chest x-ray. #6 Follow-up Visit Return to the clinic as needed. WIRE PHOTO OPERATOR documented in this encounter Plan of Treatment Upcoming Encounters Date Type Specialty Care Team Description 07/16/2022 Office Visit Family Medicine Karel Gill M.B.B .S., M.D. [address] [place] [address] [phone] (Wo rk) documented as of this encounter Results DX Chest AP or PA and Lateral 2 Views (11/06/2019 2:21 PM NEWS WIRE PHOTO OPERATOR) Anatomical Region Laterality Modality Chest, Thoracic RST LOS, Thoracic ARZ LOS, Thoracic N/A Digital Radiography FLA LOS Specimen (Source) Anatomical Collection Method Collection Time Re ceived Time Location / / Volume Laterality 11/06/2019 2:25 PM NEWS WIRE PHOTO OPERATOR Impressions 11/06/2019 2:26 PM NEWS WIRE PHOTO OPERATOR 1. No acute findings. Narrative 11/06/2019 2:26 PM NEWS WIRE PHOTO OPERATOR EXAM: DX CHEST AP OR PA AND LATERAL 2 VIEWS COMPARISON: None FINDINGS: No focal areas of consolidatio n. No pneumothorax. Chest otherwise negative for acute findi ngs. Procedure Note Jordan Castro M.D. - 11/06/2019Forma tting of this note might be different from the original. EXAM: DX CHEST AP OR PA AND LATERAL 2 EWS COMPARISON: None FINDINGS: No focal areas of consolidatio n. No pneumothorax. Chest otherwise negative for acute findi ngs. IMPRESSION: 1. No acute findings. Lois [facility] EDUARDO documented in this encounter Visit Diagnoses Diagnosis Bronchitis Acute - Primary Sinusitis Acute Maxillary Tobacco Use Hypertension Essential Primary Sinusitis Acute Maxillary Bronchitis Acute Tobacco Use Hypertension Essential Primary documented in this encounter Additional Health Concerns Assessment Noted Time PHQ-9 Depression Total Score: 19 08/07/2019 1:45 PM CD T documented as of this encounter Care Teams Card Hand Relationship Specialty Start Date End Date Odalys Contreras, LAKHWINDER, C.N.P. PCP - General 04/21/17 01/15/21 [address] [place] [phone] documented as of this encounter
--- OUTSIDE RECORDS SUMMARY | 2022-06-29 19:16 | XMS_ITS | Encounter Summary ---
:1970 Author Organization [facility] Address [address] [place] [address] Care Team Providers Name Role Phone Odalys Contreras APRN, C.N.P. Primary Care Provider [phone] Reason for Visit Reason Comments Med Refill Encounter Details Date Type Department Care Team Description 01/19/2020 Refill Department of Family Medicine, Erin Contreras APRN, Med Refill [facility] [place] [address] [place] [id number] [place], [place] [phone] Social History Tobacco Use Types Packs/Day Years [...] or relatives? How often do you attend judaism or evangelical More than 4 time s per year 12/25/2021 services? Do you belong to any clubs or organizations Yes 12/25/2021 such as judaism groups, unions, fraternal or athletic groups, or [...] at Date Recorded Female 12/02/2017 9:31 AM LACE SEWER documented as of this encounter Plan of Treatment Upcoming Encounters Date Type Specialty Care Team Description 07/16/2022 Office Visit Family Medicine Karel Gill M.B.B .S., M.Miracle. [address] [place] [address] [phone] (Wo rk) documented as of this encounter Visit Diagnoses Diagnosis Asthma Mild Intermittent (HCC) documented in this encounter Additional Health Concerns Assessment Noted Time PHQ-9 Depression Total Score: 15 12/25/2019 8:50 AM CS T documented as of this encounter Care Teams Continuous Pickling Line Pickler Relationship Specialty Start Date End Date Odalys Contreras, LAKHWINDER, C.N.P. PCP - General 04/21/17 01/15/21 [address] [place] [address] documented as of this encounter
--- OUTSIDE RECORDS SUMMARY | 2022-06-29 19:16 | XMS_ITS | Encounter Summary ---
:1970 Author Organization [facility] Address [address] [place] [address] Care Team Providers Name Role Phone Odalys Contreras APRN, C.N.P. Primary Care Provider [phone] Reason for Referral Outpatient (Routine) - Closed Specialty Diagnoses / Procedures Referred By Contact Refer red To Contact Orthopedic Surgery Diagnoses Pain Knee Left Secondary Osteoarthritis Knee Left Disruption Anterior Cruciate Ligament Subsequent Left Effusion Knee Left Morbid Obesity (HCC) Jordan Roth D.O. [facility] Region [address] [place] [address] Referral ID Status Reason Start Date Expiration Date Visits Requ ested Visits Authorized [id number] Closed 08/05/2020 08/05/2021 [address] Romeo Mayberry/Dr. Rolando Hill Reason for Visit Outpatient (Routine) - Closed Specialty Diagnoses / Referred By Contact Referred To Contact Procedures Physical Medicine and Diagnoses PAR REVIEW [facility]. [facility] Region Rehabilitation Procedures VIDEO ANYPLACE EXTENDED [id number] [id number] Referral ID Status Reason Start Date Expiration Date Visits Requ ested Visits Authorized [id number] Closed 08/04/2020 08/04/2021 1 1 Encounter Details Date Type Department Care Team Description 08/05/2020 Telemedicine Department of Physical Gonzalez, Jordan A, Pain Knee Left (Primary Dx); Medicine and D.O. Secondary Osteoarthritis [place]nee [place]; [place] [address] [address] on Anterior Cruciate Ligament Subsequent Left; [place], [place] Dr Effusion Knee Left; [address] [place], [place] Morbid Obesity (HCC) [place] [id number] [phone] Social History Tobacco Use Types Packs/Day Years [...] How often do you attend taoist or zoroastrian More than 4 time s per year [...] at Date Recorded Female 12/02/2017 9:31 AM DEAN OF MEN documented as of this encounter Patient Instructions Patient InstructionsJordan Roth D.O. - 08/05/2020 9:30 AM CDT Follow-Up Plan: Prescription medication(s): None Referrals/labs/imaging/procedures/DME (orders): Referral to orthopedic surgery for consideration of operative intervention for further treatment purposes; weight loss as discussed Follow-up phone call/portal message: If interested in moving forward with non- surgical management including custom knee brace, formal physical therapy referral, and/or further injections/procedural therapy as discussed for further treatment purposes Follow-up clinic appointment: As needed for further evaluation/medical care Please feel free to call ([phone] - medical delivery driver or [phone] - appointments) or message me on the [facility] Patient Portal if you have any questions (clinic days - Tuesday-). Your feedback is very important to us. You may soon receive either a paper survey by mail or an electronic survey. Please complete this survey if you are able as your input provides us information to improve the services we provide to you and other patients at [facility]. documented in this encounter Progress Notes Jordan Roth D.O. - 08/05/2020 9:30 AM CDT Physical Medicine & Rehabilitation Follow-Up Virtual Note Shanda Masterson is a 49 y.o. female who is seen virtually in follow up for MRI of the left knee without IV contrast results. SUBJECTIVE Last clinic visit was on 08/04/2020. Symptoms have been the same since her last clinical appointment.Been using ice for improvement of pain. Notes left anterior/medial/lateral knee pain that is worse with walking. Notes locking, catching, and swelling of the left knee. Denies any weakness, popping, clicking, or bruising the left knee. Denies any falls/trauma since her last clinical visit. The following portions of the patient's history were reviewed and updated as appropriate: allergies,surgical history, current medications, problem list, family history, medical history and social history OBJECTIVE There were no vitals filed for this visit. BMI Readings from Last 3 Encounters: 08/04/20 52.38 kg/m?? 12/25/19 48.18 kg/m?? 11/06/19 47.37 kg/m?? Wt Readings from Last 3 Encounters: 08/04/20 129 kg 12/25/19 119 kg 11/06/19 117 kg Physical Exam PHYSICAL EXAMINATION LIMITED GIVEN THAT THIS IS A VIRTUAL ENCOUNTER General: alert, cooperative, morbidly obese, and in no acute distress Psych: answers questions appropriately Respiratory: normal respiratory effort/rate of breathing without conversational dyspnea or presence of cough Neurologic: normal rate of speech Diagnostics no x-rays indicated during today's clinical visit and previous film(s) were reviewed today, independent interpretation/visualization of images was completed, and results were discussed with the patient Dx Knee Left 4+ Views Result Date: 08/04/2020 EXAM: DX KNEE LEFT 4+ VIEWS COMPARISON: None Postop changes of prior left anterior cruciate ligament reconstruction. Left knee joint effusion. Moderate scattered degenerative changes of the left knee. Marginal osteophytes of the left knee. No appreciable acute osseous injury of the left knee. If pain persists consider follow-up imaging. Mr Knee Left Without Iv Contrast Result Date: 08/04/2020 EXAM: MR KNEE LEFT WITHOUT IV CONTRAST COMPARISON: July 27, 2020 FINDINGS: Technically limited evaluation due to metallic susceptibility artifact related to right anterior cruciate ligament reconstruction anchors, large body habitus preventing use of dedicated knee coil. Best possible images obtained. ANTERIOR CRUCIATE LIGAMENT: Probable complete tearing of the prior anterior cruciate ligament reconstruction. POSTERIOR CRUCIATE LIGAMENT: Mild, chronic appearing thickening of the posterior cruciate ligament without discrete tear or disruption of the posterior cruciate ligament MEDIAL COLLATERALLIGAMENT: Chronic appearing thickening of the proximal superficial and deep fibers of the medial collateral ligament complex without discrete tearing or disruption. LATERAL COLLATERAL LIGAMENT: Intact/normal POSTEROLATERAL CORNER: Intact/normal IT BAND: Intact/normal MEDIAL MENISCUS: Mild/moderate fraying along the free edges of the medial meniscus. No discrete tears or disruptions are identified which extends or free articular surface. LATERAL MENISCUS: Slight fraying along the free edges of the lateral meniscus. No discrete tears or disruptions are identified which extends or free articular surface. CHONDROMALACIA: Mild/moderate chondromalacia involving the medial and to lesser extent lateral knee joint compartment. Moderate chondromalacia involving the patellofemoral joint space more pronounced medially. PATELLAR LOCATION: Currently neutral MEDIAL PATELLOFEMORAL RETINACULUM: Intact/normal EXTENSOR MECHANISM: Trace tendinopathy of the distal quadriceps tendon. BONES: No stress or insufficiency fractures. No contusions. No AVN. Postop changes prior anterior cruciate ligament reconstruction anchors with associated metallic susceptibility artifact. JOINT EFFUSION: Dsfrw-gfpwqh-[id number] knee jointeffusion POPLITEAL CYST: Trace popliteal fluid MUSCLES, ARTERIES, VEINS, AND NERVES: Intact/normal 1. Probable complete tearing of the prior anterior cruciate ligament reconstruction. 2. Mild/moderate fraying along the free edges of the medial meniscus. No discrete tears or disruptions are identified which extends or free articular surface. 3. Mild/moderate chondromalacia involving the medial and to lesser extent lateral knee joint compartment. Moderate chondromalacia involving the patellofemoral joint space more pronounced medially. Lab Results Component Value Date HGBA1C 5.6 12/22/2016 Lab Results Component Value Date GLUF 99 06/25/2020 LDLCALC 108 09/29/2018 CREATININE 0.63 06/25/2020 Lab Results Component Value Date NA 142 [...] injury #3 Secondary left knee osteoarthrosis #4 Tear of the left anterior cruciate ligament #5 Medial/lateral meniscus degeneration of the left knee #6 Morbid obesity Discussed further non-surgical treatment options with the patient today including a custom knee brace, formal physical therapy referral, and a left knee intra-articular viscosupplementation and/or platelet rich plasma injection with ultrasound guidance. Also discussed potential operative intervention including a left knee arthroscopy, a left anterior cruciate ligament reconstruction, and a left totalknee arthroplasty. Discussed that a left knee arthroscopy and/or a left anterior cruciate ligament reconstruction would be unpredictable as far as long-term outcomes with either of these because of themultiple pain/symptom generators that the patient has at this time. Discussed a left total knee arthr oplasty would be the complete operative fix for her current medical state, but informed the patient because of her young age would like to optimize other treatment as besides a left total knee arthroplasty at this time. Referral placed to be seen by orthopedic surgery for consideration of operative int ervention as noted above for further treatment purposes. Recommended Tylenol/ice as needed for improvement pain/discomfort. Informed the patient to continue work on her weight to help with her overall symptomatic state. Instructed the patient to reach back out if interested in moving forward with non-surgical treatment options if the patient is interested and/or operative intervention is not recommended by orthopedic surgery at this time. Otherwise, follow up in clinic as needed at this time for further evaluation/medical care. Jordan Roth DO, KALLIE Instructor/Consignee Structural Steel Erector Department of Physical Medicine & Rehabilitation Division of Sports Medicine, Department of Orthopedics Virtual video visit conducted via real-time audio/video technology from [facility] to thepatient in their home. This Video Visit was performed during the - emergency, when many states had issued [id number]-[id number] orders. documented in this encounter Plan of Treatment Upcoming Encounters Date Type Specialty Care Team Description 07/16/2022 Office Visit Family Medicine Karel Gill M.B.B .S., M.D. [address] [place] [phone] (Wo rk) Scheduled Referrals Name Type Priority Associated Diagnoses [facility] Outpatient Referral Routine Pain Knee Left Expected: - Knee (no prior Secondary 08/05/2020 replacement) Osteoarthritis Knee (Approxi mate), surgical consult Left Expires: (clinic) Disruption Anterior 08/05/20 23 Cruciate Ligament Subsequent Left Effusion Knee Le ft Morbid Obesity (HCC) documented as of this encounter Visit Diagnoses Diagnosis Pain Knee Left - Primary Secondary Osteoarthritis Knee Left Disruption Anterior Cruciate Ligament Celments bsequent Left Effusion Knee Left Morbid Obesity (HCC) documented in this encounter Additional Health Concerns Assessment Noted Time PHQ-9 Depression Total Score: 15 12/25/2019 8:50 AM CS T documented as of this encounter Care Teams Hazardous Materials Driver Relationship Specialty Start Date End Date Myrom, Odalys J, LAKHWINDER, C.N.P. PCP - General 04/21/17 01/15/[address] [place] [phone] documented as of this encounter
--- OUTSIDE RECORDS SUMMARY | 2022-06-29 19:16 | XMS_ITS | Encounter Summary ---
:1970 Author Organization [facility] Address [address] [place] [address] Care Team Providers Name Role Phone Odalys Contreras APRN, C.N.P. Primary Care Provider [phone] Reason for Visit Reason Comments Other medication follow up Eczema Appointment Request (Routine) - Closed Specialty Diagnoses / Procedures Referred By Contact Refer red To Contact Family Medicine Referral ID Status Reason Start Date Expiration Date Visits Requ ested Visits Authorized [id number] Closed 12/19/2019 12/18/2020 1 1 Encounter Details Date Type Department Care Team Description 12/25/2019 Office Visit Department of Family Karel Gill atitis Atopic (Primary Dx); Medicine, Elizabeth PerazaSChucky, Depress ion Major Single Episode Severe Without Psychotic Features (HCC); Clinic, in [facility] Anxiety Generalized Disorder [place] [address] [facility] [place] [phone] Social History Tobacco Use Types Packs/Day Years [...] or relatives? How often do you attend muslim or worship More than 4 time s per year 12/25/2021 services? Do you belong to any clubs or organizations Yes 12/25/2021 such as muslim groups, unions, fraternal or athletic groups, or [...] place to sleep or slept in a intermediate (including now)? Education Answer Date Recorded What is the highest level of school you have GED or equivale nt 08/02/2019 completed or the highest degree you have received? 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 CLOTH INSPECTOR documented as of this encounter Last Filed Vital Signs Vital Sign Reading Time Taken Comments Blood Pressure 138/88 12/25/2019 8:45 AM ASBESTOS CLOTH INSPECTOR Pulse 88 12/25/2019 8:42 AM ASBESTOS CLOTH INSPECTOR Temperature 36.7 ??C (98.1 ??F) 12/25/2019 8:42 AM ASBESTOS CLOTH INSPECTOR Respiratory Rate 16 12/25/2019 8:42 AM ASBESTOS CLOTH INSPECTOR Oxygen Saturation - - Inhaled Oxygen Concentration - - Weight 119 kg (261 lb 12.7 oz) 12/25/2019 8:42 AM ASBESTOS CLOTH INSPECTOR Height - - Body Mass Index 48.18 11/06/2019 1:48 PM ASBESTOS CLOTH INSPECTOR documented in this encounter Progress Notes Karel Gill M.B.B.S., MAllegra. - 12/25/2019 8:45 AM CST SUBJECTIVE CHIEF COMPLAINT / REASON FOR VISIT Shanda Masterson is a 48 y.o. female who presents for evaluation of Other (medication follow up) and Eczema. HISTORY OF PRESENT ILLNESS To ashok is a 48-year-old female with a history of depression, anxiety with panic attacks and atopic dermatitis. She has been using tacrolimus and clobetasol with minimal relief. 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 She is on Effexor for depression but with the current rash, she is uncertain how well this medication is working for her. She does reports panic attacks 2 to 3 times a week. The last 30 minutes on a and start with palpitations, chest pain and dry mouth. She has increased anxiety and a feeling of claustrophobia. She denies suicidal or homicidal ideations. Symptoms have responded to lorazepam in the past. The following portions of the patient's history were reviewed and updated as appropriate: allergies,current medications, family history, medical history, social history, surgical history and problem list. REVIEW OF SYSTEMS Pertinent items are noted in HPI. OBJECTIVE BP 138/88 (BP Location: Left arm, Patient Position: Sitting, Cuff Size: Large) Pulse 88 Temp 36.7 ??C (Temporal) Resp 16 Wt 119 kg BMI 48.18 kg/m?? PHYSICAL EXAM General Appearance: healthy, alert, no distress, cooperative. Skin: Generalized erythematous papular rash with excoriations appearing in clusters on her hands, arms and torso. Head: normocephalic, no masses, lesions, tenderness or abnormalities. Eyes: Anicteric sclera. Pupils are equally round and reactive to light. Extraocular movements are intact. . Neck: Supple, no adenopathy; thyroid symmetric, normal size, no bruits. Lungs: clear to auscultation, no wheezing or rhonchi. Musculoskeletal: Range of motion normal in hips, knees, shoulders, and spine, No joint swelling, deformity, or tenderness. Neurologic: Gait normal. Reflexes normal and symmetric. Sensation grossly intact. 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 I have reviewed her history and she has been treated successfully with fluocinonide. Will start on this topical cream with occlusive dressing. Will continue Effexor on current dose and treated panic attacks with a short- term course of Ativan. 25 minutes of this visit was spent in gydk-gi-dsad care and counseling on management of atopic dermatitis and panic attacks. STOS CLOTH INSPECTOR documented in this encounter Plan of Treatment Upcoming Encounters Date Type Specialty Care Team Description 07/16/2022 Office Visit Family Medicine Karel Gill M.B.B .S., M.D. [address] [place], [place] [phone] (Wo rk) documented as of this encounter Visit Diagnoses Diagnosis Dermatitis Atopic - Primary Depression Major Single Episode Severe W ithout Psychotic Features (HCC) Anxiety Generalized Disorder documented in this encounter Additional Health Concerns Assessment Noted Time PHQ-9 Depression Total Score: 15 12/25/2019 8:50 AM CS T documented as of this encounter Care Teams Training Development Specialist Relationship Specialty Start Date End Date Odalys Contreras, LAKHWINDER, C.N.P. PCP - General 04/21/17 01/15/21 [address] [phone] documented as of this encounter
--- OUTSIDE RECORDS SUMMARY | 2022-06-29 19:16 | XMS_ITS | Encounter Summary ---
:1970 Author Organization [facility] Address [address] [place] [address] Care Team Providers Name Role Phone Odalys Contreras APRN, C.N.P. Primary Care Provider [phone] Reason for Visit Reason Comments Med Refill Encounter Details Date Type Department Care Team Description 08/07/2020 Refill Department of Family Medicine, Erin Contreras APRN, Med Refill [facility], [place] [address] [place] [address] [place], [place] [phone] Social History Tobacco Use Types Packs/Day Years [...] How often do you attend restoration or muslim More than 4 time s [...] at Date Recorded Female 12/02/2017 9:[address] GANG SUPERVISOR documented as of this encounter Miscellaneous Notes Telephone Encounter - Jennifer Ramirez P.A.-C. - 08/11/2020 9:46 AM CDT Albuterol inhaler refilled. One month prescription of Ativan provided. She will need to have additional refills filled by PCP inthe future. Telephone Encounter - Tanya Coles APRN, C.N.P. - 08/11/2020 8:30 AM CDT Please forward this to Family practice, not Geriatrics. documented in this encounter Plan of Treatment Upcoming Encounters Date Type Specialty Care Team Description 07/16/2022 Office Visit Family Medicine Karel Gill M.B.B .S., MRadha [address] [place] [phone] (Wo rk) documented as of this encounter Visit Diagnoses Diagnosis Anxiety Generalized Disorder Depression Major Single Episode Severe W ithout Psychotic Features (HCC) Asthma Mild Intermittent (HCC) documented in this encounter Additional Health Concerns Assessment Noted Time PHQ-9 Depression Total Score: 15 12/25/2019 8:50 AM CS T documented as of this encounter Care Teams Media Services Director Relationship Specialty Start Date End Date Odalys Contreras, LAKHWINDER, C.N.P. PCP - General 04/21/17 01/15/21 [address] [address] documented as of this encounter
--- OUTSIDE RECORDS SUMMARY | 2022-06-29 19:16 | XMS_ITS | Encounter Summary ---
:1970 Author Organization [facility] Address [address] [place] [address] Care Team Providers Name Role Phone Odalys Contreras APRN, C.N.P. Primary Care Provider [phone] Encounter Details Date Type Department Care Team Description 06/23/2020 Clinical Communication Department of Erin Lozano, Medicine, Warren LAKHWINDER, C.N.P. 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 1. Do you have a pending COVID test because you had symptoms or exposure to someone with COVID or you have tested positive for COVID in the last 30 days? no 2. In the past 14 days, do you, anyone in the household, or anyone you have had prolonged exposure have any of the following? a. Fever greater than or equal to 37.8 C (100.0 F)? no b. New symptoms (Specifically: headache, cough, shortness of breath, respiratory distress, sore throat, diarrhea, nausea, vomiting, chills and repeated shaking with chills, myalgia's (muscle aches), loss of smell, or change or loss of taste sensation)? no c. Had close contact with a patient with known or possible COVID-19 in the last 14 days? no Route reply to: Scheduling Contact Number: [phone] documented in this encounter Plan of Treatment Upcoming Encounters Date Type Specialty Care Team Description 07/16/2022 Office Visit Family Medicine Karel Gill M.B.B .S., M.DChucky [address] [place] [phone] (Wo rk) documented as of this encounter Visit Diagnoses Not on filedocumented in this encounter Additional Health Concerns Assessment Noted Time PHQ-9 Depression Total Score: 15 12/25/2019 8:50 AM CS T documented as of this encounter Care Teams Package Handler Relationship Specialty Start Date End Date Odalys Contreras, RETAIL CASHIER, C.N.P. PCP - General 04/21/17 01/15/21 [address] [place] [address] documented as of this encounter
--- OUTSIDE RECORDS SUMMARY | 2022-06-29 19:16 | XMS_ITS | Encounter Summary ---
:1970 Author Organization [facility] Address [address] [place] [address] Care Team Providers Name Role Phone Odalys Contreras APRN, C.N.P. Primary Care Provider Encounter Details Date Type Department Care Team Description 08/05/2020 Clinical Communication Department of Erin Lozano, Medicine, [place] [facility], C[facility], in [facility] [address] [address] [place], [place] [phone] [address] (Work) [phone] Social History Tobacco Use Types Packs/Day Years [...] How often do you attend zoroastrian or bahai More than 4 time s per year [...] at Date Recorded Female 12/02/2017 9:31 AM APPLIED PSYCHOLOGY PROFESSOR documented as of this encounter Miscellaneous Notes Telephone Encounter - Harveytez Lawrence Carballo - 08/05/2020 2:06 PM CDT 1. Is the patient requesting a COVID test only or other appointments? Other Appointments 2. Have you tested positive for COVID-19 in the last 30 days or do you have a pending COVID-19 test because you had symptoms? no 3. In the last 14 days have you had close contact with a lab confirmed positive case of COVID-19 (close contact is defined as a household case of COVID or being within 6 feet of a COVID-19 patient for more than 5 minutes or having direct contact with infectious secretions, e.g., being coughed on)? no 4. In the past 14 days, are any of the following symptoms new to you and not related to an existing health condition? a. Fever greater than or equal to 37.8 C (100.0 F)? no b. New symptoms (Specifically: headache, cough, shortness of breath, respiratory distress, sore throat, diarrhea, nausea, vomiting, chills and repeated shaking with chills, myalgia's (muscle aches), loss of smell, or change or loss of taste sensation)? no 5. Are you having NEW trouble breathing, worsening breathing, or feeling as though you're going to collapse when you stand or sit up? no 6. Have you tested positive for COVID in the last 90 days? no Route reply to: Scheduling Contact Number: [phone] documented in this encounter Plan of Treatment Upcoming Encounters Date Type Specialty Care Team Description 07/16/2022 Office Visit Family Medicine Karel Gill M.B.B .S., MRadha [address] [place] [phone] (Wo rk) documented as of this encounter Visit Diagnoses Not on filedocumented in this encounter Additional Health Concerns Assessment Noted Time PHQ-9 Depression Total Score: 15 12/25/2019 8:50 AM CS T documented as of this encounter Care Teams Rubber Boots And Shoes Repairer Relationship Specialty Start Date End Date Odalys Contreras, LAKHWINDER, C.N.P. PCP - General 04/21/17 01/15/21 [address], [place] [phone] documented as of this encounter
--- OUTSIDE RECORDS SUMMARY | 2022-06-29 19:16 | XMS_ITS | Encounter Summary ---
:1970 Author Organization [facility] Address [address] [place] [address] Care Team Providers Name Role Phone Odalys Contreras APRN, C.N.P. Primary Care Provider [phone] Encounter Details Date Type Department Care Team Description 01/11/2020 Clinical Communication Department of [facility] Rah Kilpatrick [facility], [place] [facility], in [address] [facility] [address] [place], [place] [phone] (Work) [phone] Social History Tobacco Use Types Packs/Day Years [...] How often do you attend yazidi or baptist More than 4 time s [...] at Date Recorded Female 12/02/2017 9:31 AM ESTHETICIAN SPA documented as of this encounter Miscellaneous Notes Telephone Encounter - Rah Kilpatrick P.A.-C. - 01/11/2020 4:09 PM ESTHETICIAN SPA The patient was seen today in conjunction with her . She did not have an office visit but I reviewed her chart and she is interested in quitting smoking. This is along with her . He wantsto try Chantix and she would like to try it as well. We discussed the risks and benefits of this. She does have a history of anxiety but says that is been well controlled. We talked about the risks of u sing Chantix in the situation and she was interested wanted to give it a try. She will start with a starter pack and if she has any symptoms or problems she will let us know otherwise follow up as needed ETICIAN SPA documented in this encounter Plan of Treatment Upcoming Encounters Date Type Specialty Care Team Description 07/16/2022 Office Visit Family Medicine Karel Gill M.B.B .S., Emmanuelle [address] [place] [phone] (Wo rk) documented as of this encounter Visit Diagnoses Not on filedocumented in this encounter Additional Health Concerns Assessment Noted Time PHQ-9 Depression Total Score: 15 12/25/2019 8:50 AM CS T documented as of this encounter Care Teams Society Reporter Relationship Specialty Start Date End Date Odalys Contreras APRN, C.N.P. PCP - General 04/21/17 01/15/[address] [address] documented as of this encounter
--- OUTSIDE RECORDS SUMMARY | 2022-06-29 19:16 | XMS_ITS | Encounter Summary ---
:1970 Author Organization [facility] Address [address] [place] [address] Care Team Providers Name Role Phone Odalys Cnotreras APRN, C.N.P. Primary Care Provider [phone] Encounter Details Date Type Department Care Team Description 08/28/2019 Orders Only Department of [facility] Karel Gill I., Medicine, [facility], MLalo Beckham M.D. in [facility] [address] [facility] [address] [place] [address] [phone] (Wo rk) Social History Tobacco Use Types [...] How often do you attend restorationism or yazdanism More than 4 time s [...] at Date Recorded Female 12/02/2017 9:31 AM TUBE CUTTER documented as of this encounter Plan of Treatment Upcoming Encounters Date Type Specialty Care Team Description 07/16/2022 Office Visit Family Medicine Karel Gill M.B.B .S., MRadha [address] [place] [phone] (Wo rk) documented as of this encounter Visit Diagnoses Not on filedocumented in this encounter Additional Health Concerns Assessment Noted Time PHQ-9 Depression Total Score: 19 08/07/2019 1:45 PM CD T documented as of this encounter Care Teams Polysomnographer Relationship Specialty Start Date End Date Odalys Contreras, CAMPUS SAFETY OFFICER, C.N.P. PCP - General 04/21/17 01/15/21 [address] [place] [address] documented as of this encounter
--- OUTSIDE RECORDS SUMMARY | 2022-06-29 19:16 | XMS_ITS | Encounter Summary ---
:1970 Author Organization [facility] Address [address] [place] [address] Care Team Providers Name Role Phone Odalys Contreras APRN, C.N.P. Primary Care Provider Reason for Visit Reason Comments Med Refill Encounter Details Date Type Department Care Team Description 06/13/2020 Refill Department of Family Medicine, Erin Contreras APRN, Med Refill [facility], [place] [address] [place] [address] [place], [place] [phone] Social History Tobacco Use Types Packs/Day Years [...] or relatives? How often do you attend druze or protestant More than 4 time s per year 12/25/2021 services? Do you belong to any clubs or organizations Yes 12/25/2021 such as druze groups, unions, fraternal or athletic groups, or [...] AM PHOTOLITHOGRAPHER documented as of this encounter Plan of Treatment Upcoming Encounters Date Type Specialty Care Team Description 07/16/2022 Office Visit Family Medicine Karel iGll M.B.B .S., MAllegra. 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 PCP - General 04/21/17 01/15/21 [address] [place] [address] documented as of this encounter
--- OUTSIDE RECORDS SUMMARY | 2022-06-29 19:17 | XMS_ITS | Encounter Summary ---
:1970 Author Organization [facility] Address [address] [place] [address] Care Team Providers Name Role Phone Odalys Contreras APRN, C.N.P. Primary Care Provider [phone] Encounter Details Date Type Department Care Team Description 09/29/2018 Hospital Encounter Department of Odalys Contreras Hypertr iglyceridemia Laboratory Medicine LAKHWINDER Burton, C.N .PChucky in [place], [address] [place], [place] [address] [facility] [address] [place], [place] [phone] [address] (Work) [phone] Social History Tobacco Use Types Packs/Day Years [...] or relatives? How often do you attend jewish or congregation More than 4 time s per year 12/25/2021 services? Do you belong to any clubs or organizations Yes 12/25/2021 such as jewish groups, unions, fraternal or athletic groups, or [...] or slept in a chcf (including now)? Sex Assigned at Date Recorded Female 12/02/2017 9:31 AM DATA BASE DESIGN ANALYST documented as of this encounter Medications at Time of Discharge Medication Sig Dispensed Refills Start Date End Date albuterol (ACCUNEB) 2.5 Use 1 vial in 180 mL 3 8 03/30/2019 mg /3 mL nebulizer nebulizer 4 times solutionIndications: daily as needed for Asthma Mild Intermittent shortness of breath (HCC) and wheezing. albuterol (VENTOLIN HFA) Inhale 2 puffs by 1 Inhaler 11 09/0701/28/2020 90 mcg/actuation mouth every 4 hr as inhalerIndications: needed for shortness Asthma Mild Intermittent of breath and (HCC) wheezing. amoxicillin-pot 0 09/12/2018 9 clavulanate (AUGMENTIN) 875-125 mg per tablet atenolol (TENORMIN) 25 Take 1 tablet (25 mg 90 tablet 3 10/201804/03/2019 mg tabletIndications: total) by mouth Hypertension Essential daily. Primary butalbital-acetaminophen Take 1 tablet by 0 05/1905/01/2021 -caff (FIORICET, ESGIC) mouth. 50-325-40 mg per tablet clobetasol (TEMOVATE) Apply 1 application 30 g 3 09/1805/01/2021 0.05 % topically 2 (two) ointmentIndications: times a day as needed Dermatitis Atopic (Eczema). fluticasone (FLONASE) 50 Administer 2 sprays 16 g 6 04/03/2019 mcg/actuation nasal into each nostril sprayIndications: daily as needed for Sinusitis Acute rhinitis or Maxillary allergies. fluticasone-salmeterol Inhale 1 puff 2 (two) 3 each 3 11/12/2019 (ADVAIR DISKUS) 250-50 times a day. Rinse mcg/dose diskus mouth with water inhalerIndications: after use to reduce Asthma Mild Intermittent aftertaste and (HCC) incidence of candidiasis. Do not swallow. LORazepam (ATIVAN) 0.5 Take 0.5 mg by mouth. 0 04/09/2019 mg tablet ondansetron ODT Take 1 tablet (4 mg 90 tablet 3 09/18/2018 12/13/2018 (ZOFRAN-ODT) 4 mg total) by mouth every disintegrating 8 (eight) hours as tabletIndications: needed for nausea or Nausea And Vomiting vomiting. triamterene-hydroCHLOROt Take 1 capsule by 0 06/0705/21/2019 hiazide (DYAZIDE) mouth. 37.5-25 mg per capsule triamterene-hydroCHLOROt Take 1 tablet by 90 tablet 3 09/1804/03/2019 hiazide (MAXZIDE-25) mouth daily. 37.5-25 mg per tabletIndications: Hypertension Essential Primary documented as of this encounter Plan of Treatment Upcoming Encounters Date Type Specialty Care Team Description 07/16/2022 Office Visit Family Medicine Karel Gill M.B.B ChuckySChucky, MRadha [address] [place] [phone] (Wo rk) documented as of this encounter Procedures Procedure Name Priority Date/Time Associated Diagnosis Comme nts LIPID PANEL, S Routine 09/29/2018 8:16 AM Hypertriglyceridemia Results for this DATA BASE DESIGN ANALYST procedure are i n the results section . documented in this encounter Results (ABNORMAL) Lipid Panel (09/29/2018 8:16 AM DATA BASE DESIGN ANALYST) P athologist Signature Cholesterol, 185 mg/dL 09/29/2018 [facility] Total 10:57 AM [facility] [place] [facility] Comment: ----REFERENCE VALUE---- Desirable: < 200 Borderline high: 200 - 239 High: > or = 240 Triglycerides 179 (H) mg/dL 09/29/2018 10:57 AM DATA BASE DESIGN ANALYST [facility] [place] [facility] Comment: ----REFERENCE VALUE---- Normal: <150 Borderline high: 150-199 High: 200-499 Very high: > or =500 Cholesterol, HDL, S 41 (L) >=50 mg/dL 09/29/2018 10:57 AM DATA BASE DESIGN ANALYST [facility] [place] [facility] Calculated LDL 108 mg/dL 09/29/2018 10:57 AM DATA BASE DESIGN ANALYST [facility] [place] [facility] Comment: ----REFERENCE VALUE---- Desirable: <100 Above Desirable: 100-129 Borderline high: 130-159 High: 160-189 Very high: > or =190 Cholesterol, Non-HDL, 144 mg/dL 09/29/2018 10:57 A M DATA BASE DESIGN ANALYST [facility] [place] [facility] Comment: ----REFERENCE VALUE---- Desirable: <130 Above Desirable: 130-159 Borderline high: 160-189 High: 190-219 Very high: > or =220 Specimen Anatomical Collection Method Collection Time Receive d Time (Source) Location / / Volume Laterality Blood (Blood, 09/29/2018 8:16 AM 09/29/20 18 Venous) DATA BASE DESIGN ANALYST 10:37 AM DATA BASE DESIGN ANALYST Odalys Contreras APRN, C.N.P. LAB BLOOD ADD-ON Performing Organization Address City/State/ZIP Code Phon e Number [facility] [phone] [place], [place] [address] [address] LAB documented in this encounter Visit Diagnoses Diagnosis Hypertriglyceridemia documented in this encounter Care Teams Signs And Displays Salesperson Relationship Specialty Start Date End Date Odalys Contreras APRN, C.N.P. PCP - General 04/21/17 01/15/212199 [place] [address] documented as of this encounter
--- OUTSIDE RECORDS SUMMARY | 2022-06-29 19:17 | XMS_ITS | Encounter Summary ---
:1970 Author Organization [facility] Address [address] [place] [address] Care Team Providers Name Role Phone Odalys Contreras APRN, C.N.P. Primary Care Provider [phone] Reason for Visit Reason Onset Date Comments Asthma 02/09/2018 ACT/AMQ mailed Encounter Details Date Type Department Care Team Description 02/09/2018 Clinical Communication Department of Alejandra Brown Asthma (ACT/AMQ Family Medicine, [address] [place] [address] mailed) [place], [place] in [facility] [address] [place] [phone] [place] [address] ([facility]) [place] [address] Social History Tobacco Use Types Packs/Day Years Used Date Smoking Tobacco: Every Day Cigarettes Smokeless Tobacco: Never Alcohol Use Standard Drinks/Week Comments Yes 1 (1 standard drink = 0.6 oz pure alcoho l) Alcohol Habits Answer Date Recorded How often do you have a drink containing alcohol? Monthly or less 12/25/2021 How many drinks containing alcohol do you have on a 1 or 2 12/25/2021 typical day when you are drinking? How often do you have six or more drinks on one Never 12/25/2021 occasion? Comment: Not asked Social Isolation Answer Date Recorded In a typical week, how many times do you Twice a week 12/25/2021 talk on the phone with family, friends, or neighbors? How often do you get together with friends Once a week 12/25/2021 or relatives? How often do you attend adventism or advent More than 4 time s per year 12/25/2021 services? Do you belong to any clubs or organizations Yes 12/25/2021 such as adventism groups, unions, fraternal or athletic groups, or [...] or slept in a intermediate (including now)? Sex Assigned at Date Recorded Female 12/02/2017 9:31 AM DENTAL COORDINATOR documented as of this encounter Miscellaneous Notes Telephone Encounter - Kavita Andrade - 08/23/2018 2:13 PM CDT ACT/AMQ mailed Telephone Encounter - Kavita Andrade - 08/15/2018 2:51 PM CDT Second attempt to updated ACT/AMQ, left message for patient to return call to [phone] Telephone Encounter - Kavita Andrade - 08/08/2018 3:54 PM CDT ACT/AMQ needs updating, left message for patient to return call to [phone] Telephone Encounter - [place] Brown - 03/14/2018 1:23 PM CDT Fam Med appointment on 03/14/2018 asking care team to update ACT. Telephone Encounter - [place] Brown - 02/22/2018 10:29 AM CDT After two attempts by phone, ACT will be sent by mail. Telephone Encounter - Kina Browneliseo Pena - 02/09/2018 3:03 PM CDT 2nd attempt; Patient needs ACT update. If patient call, please transfer to [phone]. documented in this encounter Plan of Treatment Upcoming Encounters Date Type Specialty Care Team Description 07/16/2022 Office Visit Family Medicine Karel Gill M.B.B .S., MRadha [address] [place] [phone] (Wo rk) documented as of this encounter Visit Diagnoses Not on filedocumented in this encounter Care Teams Photographer Aerial Relationship Specialty Start Date End Date Odalys Contreras, LAKHWINDER, C.N.P. PCP - General 04/21/17 01/15/21 [address] [place] [address] documented as of this encounter
--- OUTSIDE RECORDS SUMMARY | 2022-06-29 19:17 | XMS_ITS | Encounter Summary ---
:1970 Author Organization [facility] Address [address] [place] [address] Care Team Providers Name Role Phone Odalys Contreras APRN, C.N.P. Primary Care Provider [phone] Reason for Visit Reason Onset Date Comments Results 05/21/2019 Encounter Details Date Type Department Care Team Description 05/21/2019 Clinical Communication Department of Karel Giron [facility], [place], [facility], Clinic, in [place]ha [address] [phone] Social History Tobacco Use Types Packs/Day Years [...] or relatives? How often do you attend cheondoism or quaker More than 4 time s per year 12/25/2021 services? Do you belong to any clubs or organizations Yes 12/25/2021 such as cheondoism groups, unions, fraternal or athletic groups, or [...] slept in a nursing home (including now)? Sex Assigned at Date Recorded Female 12/02/2017 9:31 AM GRISTMILL OPERATOR documented as of this encounter Miscellaneous Notes Telephone Encounter - Caroline Armstrong L.P.N. - 05/22/2019 2:19 PM CDT noted Telephone Encounter - Tavia Cole - 05/21/2019 2:13 PM CDT Reason for Communication: patient is calling to see if results are ready Current Can Nursing/Provider leave a detailed message: yes Did the patient refuse triage through Nurse line? (for symptom based concerns): Action Needed: Please call Name of Medication (if relevant): documented in this encounter Plan of Treatment Upcoming Encounters Date Type Specialty Care Team Description 07/16/2022 Office Visit Family Medicine Karel Gill M.B.B .S., M.D. [address] [place] [phone] (Wo rk) documented as of this encounter Visit Diagnoses Not on filedocumented in this encounter Additional Health Concerns Assessment Noted Time PHQ-9 Depression Total Score: 4 05/21/2019 9:58 AM CDT documented as of this encounter Care Teams Pickling Solution Maker Relationship Specialty Start Date End Date Odalys Contreras, LAKHWINDER, C.N.P. PCP - General 04/21/17 01/15/21 [address], [place] [address] documented as of this encounter
--- OUTSIDE RECORDS SUMMARY | 2022-06-29 19:17 | XMS_ITS | Encounter Summary ---
:1970 Author Organization [facility] Address [address] [place] [address] Care Team Providers Name Role Phone Odalys Contreras APRN, C.N.P. Primary Care Provider [phone] Reason for Visit Reason Comments Med Refill Encounter Details Date Type Department Care Team Description 08/12/2018 Refill Department of Family Medicine, Erin Contreras APRN, Med Refill [facility], [place] [address] [place] [address] [place], [place] [phone] Social History Tobacco Use Types Packs/Day Years [...] or relatives? How often do you attend islam or catholic More than 4 time s per year 12/25/2021 services? Do you belong to any clubs or organizations Yes 12/25/2021 such as islam groups, unions, fraternal or athletic groups, or [...] place to sleep or slept in a retirement (including now)? Sex Assigned at Date Recorded Female 12/02/2017 9:31 AM HR ADVISOR documented as of this encounter Miscellaneous Notes Telephone Encounter - Vidhya Rodriguez LChuckyP.N. - 08/14/2018 8:16 AM CDT Notified script was refilled documented in this encounter Plan of Treatment Upcoming Encounters Date Type Specialty Care Team Description 07/16/2022 Office Visit Family Medicine Karel Gill M.B.B .S., M.D. [address] [place] [address] [phone] (Wo rk) documented as of this encounter Visit Diagnoses Diagnosis Hypertension Essential Primary - Primary documented in this encounter Care Teams Acting Section Chief Relationship Specialty Start Date End Date Odalys Contreras, LACEWORKER, C.N.P. PCP - General 04/21/17 01/15/21 [address], [place] [address] documented as of this encounter
--- OUTSIDE RECORDS SUMMARY | 2022-06-29 19:17 | XMS_ITS | Encounter Summary ---
:1970 Author Organization [facility] Address [address] [place] [address] Care Team Providers Name Role Phone Odalys Contreras APRN, C.N.P. Primary Care Provider Reason for Visit Reason Comments Other Rash - Upper chest and upper arms x 1 week. ACT update Encounter Details Date Type Department Care Team Description 03/14/2018 Office Visit Department of [facility] Janak Terry De rmjh Atopic (Primary Dx); Kat Bach M.D. Asthma ([facility]) Clinic, in [facility] [place] [address] [address] [facility] [phone] [place], [place] (Work) [address] [phone] Social History Tobacco Use Types Packs/Day Years [...] How often do you attend spiritism or hoahaoism More than 4 time s per year [...] or slept in a [facility] (including now)? Sex Assigned at Date Recorded Female 12/02/2017 9:31 AM [employer]OT[employer] documented as of this encounter Last Filed Vital Signs Vital Sign Reading Time Taken Comments Blood Pressure 144/102 03/14/2018 2:04 PM CDT Pulse 84 03/14/2018 2:04 PM CDT Temperature 36.5 ??C (97.7 ??F) 03/14/2018 2:04 PM CDT Respiratory Rate - - Oxygen Saturation 97% 03/14/2018 2:04 PM CDT Inhaled Oxygen Concentration - - Weight 127 kg (279 lb 8.7 oz) 03/14/2018 2:04 PM CDT Height - - Body Mass Index 52.1 12/02/2017 10:01 AM [employer] DES[employer] documented in this encounter Patient Instructions Patient InstructionsJanak Terry M.D. - 03/14/2018 2:15 PM CDT [facility] 0.1 % ointment morning and at bedtime. Apply cotton gloves after administering bedtime dose. Lidex cream to arms, chest, neck - twice daily. See Laly Benson as scheduled on 03/24. documented in this encounter Progress Notes Janak Terry M.D. - 03/14/2018 2:15 PM CDT SUBJECTIVE CHIEF COMPLAINT / REASON FOR VISIT Shanda Masterson is a 47 y.o. female who presents for evaluation of Other (Rash - Upper chest and upper arms x 1 week. ACT update). HISTORY OF PRESENT ILLNESS Shanda Masterson is a 47 y.o. patient of Odalys Contreras APRN, C.N.P. in today for review of dermatitis and asthma. She has had very difficult to treat dermatitis of both hands for about the last 6 years. States she was seen within the last couple of years by [facility] in [place]. She has previously utilized clobetasol cream without much benefit. Denies any exposures. In addition to the hand dermatitis, she also has some rash about the neck, chest, and arms. She was seen at [facility] in [place] on 01/25/18 and was given ivermectin and prednisone with a working diagnosis of scabies. She did not respond to that treatment. She is scheduled to see Laly Benson for Dermatology review next week. Patient also request update of her prescriptions for asthma. States she was previously controlled onAdvair 250. For reasons unclear, her refill prescriptions went through at the reduced dosage of Advair 100. She is seen increase in symptoms with that dose change. Per patient request, we refilled her Advair 250 today. ACT was updated today, and an asthma control plan was completed. Current Outpatient Prescriptions: ??? albuterol (for_ACCUNEB) 2.5 mg /3 mL nebulizer solution, Take 3 mL by nebulization 4 (four) times a day as needed., Disp: , Rfl: ??? albuterol (VENTOLIN HFA) 90 mcg/actuation inhaler, Inhale 2 puffs every 4 (four) hours as needed., Disp: , Rfl: ??? loratadine (CLARITIN) 10 mg tablet, Take 10 mg by mouth at bedtime. for Seasonal Allergies, Disp: , Rfl: ??? ondansetron ODT (for_ZOFRAN-ODT) 4 mg disintegrating tablet, Take 1 tablet (4 mg total) by mouthevery 8 (eight) hours as needed for nausea or vomiting., Disp: 90 tablet, Rfl: 3 ??? tacrolimus (for_PROTOPIC) 0.1 % ointment, Apply topically daily. , Disp: , Rfl: ??? triamterene-hydroCHLOROthiazide (for_MAXZIDE-25) 37.5-25 mg per tablet, Take 1 tablet by mouth daily., Disp: , Rfl: ??? fluocinonide (LIDEX) 0.05 % cream, Apply 1 application topically 2 (two) times a day. Apply thinlayer to affected areas., Disp: 60 g, Rfl: 1 ??? fluticasone-salmeterol (ADVAIR DISKUS) 250-50 mcg/dose diskus inhaler, Inhale 1 puff 2 (two) times a day. Rinse mouth with water after use to reduce aftertaste and incidence of candidiasis. Do not swallow., Disp: 1 each, Rfl: 3 ??? triamcinolone (KENALOG) 0.1 % ointment, Apply 1 application topically 2 (two) times a day. Applythin layer to affected areas of hands., Disp: 30 g, Rfl: 2 Allergies Allergen Reactions ??? Latex Rash ??? Valsartan Other (see comments) and Anaphylaxis Unknown - patient unable to provide information ??? Bupropion Rash Wellbutrin ??? Magnesium Sulfate Anaphylaxis Throat closing Past Medical History: Diagnosis Date ??? Abuse Tobacco Smoking ??? Anxiety Generalized Disorder 12/07/2016 ??? Asthma (HCC) ??? Asthma Mild Intermittent (HCC) 12/07/2016 ??? Dermatitis Atopic 05/31/2016 ??? Dermatitis Eczematoid ??? Hypertension Essential Primary ??? Hypertriglyceridemia ??? Menorrhagia ??? Migraine Headache ??? Migraine Headache Classic 12/07/2016 ??? Morbid Obesity Body Mass Index 50.0-59.9 Adult (HCC) ??? PreDiabetes Past Surgical History: Procedure Laterality Date ??? APPENDECTOMY N/A ??? SECTION N/A 1992 with delivery ??? ESOPHAGOSCOPY / EGD 12/19/2017 [facility]/Shy Chaidez ??? HAND SURGERY Left dislocated 3rd and 4th metacarpal on left hand ??? LAPAROSCOPIC CHOLECYSTECTOMY ??? OVARIAN CYST REMOVAL Right ??? RECONSTRUCTION OF ANTERIOR CRUCIATE LIGAMENT OF KNEE Left with cadevar material The following portions of the patient's history were reviewed and updated as appropriate: allergies,current medications, family history, medical history, social history, surgical history and problem list. OBJECTIVE Vitals: 03/14/18 1404 BP: (!) 144/102 Pulse: 84 Temp: 36.5 ??C TempSrc: Oral SpO2: 97% Weight: 126.8 kg PHYSICAL EXAM Constitutional: She is oriented to person, place, and time. She appears well- developed and well-nourished. No distress. Cardiovascular: Normal rate, regular rhythm and normal heart sounds. No murmur heard. Pulmonary/Chest: Effort normal and breath sounds normal. She has no wheezes. She has no rales. Neurological: She is alert and oriented to person, place, and time. Skin: Rash noted. Moderately severe dermatitis noted of hands with some excoriation. Erythematous rash in scattered areas about the upper chest, base of the neck (right greater than left), and upper arms. Some follicular involvement on the arms. ASSESSMENT / PLAN #1 Dermatitis Atopic Recommend treating the hands with triamcinolone ointment twice daily. White cotton gloves to be applied over the triamcinolone at bedtime. Lidex cream for other affected areas of arms and torso. Keep existing appointment for Dermatology review next week. Plan of care discussed in detail with patient. #2 Asthma (HCC) Resume Advair 250. Continue albuterol as needed. Further follow-up if not improving. Other orders - fluocinonide (LIDEX) 0.05 % cream; Apply 1 application topically 2 (two) times a day. Apply thin layer to affected areas., Starting Tue03/14/2018, Until Tue03/14/2019, Normal - fluticasone-salmeterol (ADVAIR DISKUS) 250-50 mcg/dose diskus inhaler; Inhale 1 puff 2 (two) timesa day. Rinse mouth with water after use to reduce aftertaste and incidence of candidiasis. Do not swallow., Starting Tue03/14/2018, Until Tue03/14/2019, Normal - triamcinolone (KENALOG) 0.1 % ointment; Apply 1 application topically 2 (two) times a day. Apply thin layer to affected areas of hands., Starting Tue03/14/2018, Until Tue07/12/2018, Normal Total time: 25 minutes Counselin minutes documented in this encounter Plan of Treatment Upcoming Encounters Date Type Specialty Care Team Description 07/16/2022 Office Visit Family Medicine Karel Gill M.B.B .S., M.D. [address] [place] [address] [phone] (Wo rk) documented as of this encounter Visit Diagnoses Diagnosis Dermatitis Atopic - Primary Asthma (HCC) documented in this encounter Care Teams Commutator Assembler Relationship Specialty Start Date End Date Odalys Contreras, INSTRUCTOR WEAVING, C.N.P. PCP - General 04/21/17 01/15/21 [address] [address] documented as of this encounter
--- OUTSIDE RECORDS SUMMARY | 2022-06-29 19:17 | XMS_ITS | Encounter Summary ---
:1970 Author Organization [facility] Address [address] [place] [address] Care Team Providers Name Role Phone Odalys Contreras APRN, C.N.P. Primary Care Provider [phone] Reason for Referral Outpatient (Routine) - Closed Specialty Diagnoses / Procedures Referred By Contact Refer red To Contact Family Medicine Diagnoses Hypertension Essential Primary FAM EST NURSE Odalys Contreras APRN, [facility] [place] C.N.P. [address] [place] [address] Referral ID Status Reason Start Date Expiration Date Visits Requ ested Visits Authorized [id number] Closed 09/18/2018 09/18/2019 1 1 Scheduling Instructions Recheck blood pressure E BREEDER Reason for Visit Reason Comments Annual Exam Appointment Request (Routine) - Closed Specialty Diagnoses / Procedures Referred By Contact Refer red To Contact Family Medicine Diagnoses FAM PHYS [facility] Procedures FAM PHYS Referral ID Status Reason Start Date Expiration Date Visits Requ ested Visits Authorized [id number] Closed 08/23/2018 08/23/2019 1 1 Encounter Details Date Type Department Care Team Description 09/18/2018 Comprehensive Visit Department of Odalys Contreras Medical Examination Adult (Primary Dx); Family Medicine, LAKHWINDER Burton, C.N.P. Asthma Mild Intermittent (HCC); [facility], [address] Hypertension Essential Primary; [facility] [place] Hypertriglycer idemia; [place] [address] Sinusitis Acute Maxillary; [address] [phone] Nausea And Vomiting; [facility] [place] (Work) Dermatitis Atopic; [id number] Pap Smear Examination Social History Tobacco Use Types Packs/Day Years [...] How often do you attend sikhism or zoroastrian More than 4 time s [...] or slept in a correction (including now)? Sex Assigned at Date Recorded Female 12/02/2017 9:31 AM MOUSE BREEDER documented as of this encounter Last Filed Vital Signs Vital Sign Reading Time Taken Comments Blood Pressure 132/100 09/18/2018 1:36 PM MOUSE BREEDER Pulse 93 09/18/2018 1:23 PM MOUSE BREEDER Temperature 37 ??C (98.6 ??F) 09/18/2018 1:23 PM MOUSE BREEDER Respiratory Rate 18 09/18/2018 1:23 PM MOUSE BREEDER Oxygen Saturation 97% 09/18/2018 1:23 PM MOUSE BREEDER Inhaled Oxygen Concentration - - Weight 120 kg (263 lb 10.7 oz) 09/18/2018 1:23 PM MOUSE BREEDER Height 157 cm (5' 1.81) 09/18/2018 1:23 PM MOUSE BREEDER Body Mass Index 48.52 09/18/2018 1:23 PM MOUSE BREEDER documented in this encounter Patient Instructions AttachmentsThe following attachments cannot be sent through Care Everywhere.High Blood Pressure (Hypertension) ([place] Islander)documented in this encounter H&P Notes Odalys Contreras, LAKHWINDER, C.N.P. - 09/18/2018 1:30 PM CST CHIEF COMPLAINT: Chief Complaint Patient presents with ??? Annual Exam HISTORY OF PRESENT ILLNESS: Shanda is here for health care maintenance exam. Mammogram is scheduled today. She is not fasting for labs. She is due for Pap smear. Asthma is stable on Advair daily and albuterol as needed. She is currently on Augmentin for acute sinusitis. She has been having to use her albuterol neb more frequently since she has been ill. ACT score today 10. Asthma action Plan will be updated. Blood pressure elevated on 2 checks today. We discussed adding atenolol 25 mg daily to her triamterene-hydrochlorothiazide 37.5-25 mg daily. She continues to work on diet and exercise with weight loss for elevated triglycerides. She uses clobetasol as needed for eczema. She uses Zofran as needed for nausea. MEDICATIONS: Current Outpatient Prescriptions: ??? albuterol (ACCUNEB) 2.5 mg /3 mL nebulizer solution, Use 1 vial in nebulizer 4 times daily as needed for shortness of breath and wheezing., Disp: 180 mL, Rfl: 3 ??? albuterol (VENTOLIN HFA) 90 mcg/actuation inhaler, Inhale 2 puffs by mouth every 4 hr as needed for shortness of breath and wheezing., Disp: 1 Inhaler, Rfl: 11 ??? amoxicillin-pot clavulanate (AUGMENTIN) 875-125 mg per tablet, , Disp: , Rfl: ??? atenolol (TENORMIN) 25 mg tablet, Take 1 tablet (25 mg total) by mouth daily., Disp: 90 tablet, Rfl: 3 ??? clobetasol (TEMOVATE) 0.05 % ointment, Apply 1 application topically 2 (two) times a day as needed (Eczema)., Disp: 30 g, Rfl: 3 ??? fluticasone (FLONASE) 50 mcg/actuation nasal spray, Administer 2 sprays into each nostril daily as needed for rhinitis or allergies., Disp: 16 g, Rfl: 6 ??? fluticasone-salmeterol (ADVAIR DISKUS) 250-50 mcg/dose diskus inhaler, Inhale 1 puff 2 (two) times a day. Rinse mouth with water after use to reduce aftertaste and incidence of candidiasis. Do not swallow., Disp: 3 each, Rfl: 3 ??? ondansetron ODT (ZOFRAN-ODT) 4 mg disintegrating tablet, Take 1 tablet (4 mg total) by mouth every 8 (eight) hours as needed for nausea or vomiting., Disp: 90 tablet, Rfl: 3 ??? triamterene-hydroCHLOROthiazide (MAXZIDE-25) 37.5-25 mg per tablet, Take 1 tablet by mouth daily., Disp: 90 tablet, Rfl: 3 ALLERGIES: Allergies Allergen Reactions ??? Latex Rash ??? Valsartan Other (see comments) and Anaphylaxis Unknown - patient unable to provide information ??? Bupropion Rash Wellbutrin ??? Magnesium Sulfate Anaphylaxis Throat closing REVIEW OF SYSTEMS: GENERAL: No weight gain, no weight loss, no fever in past month, no chills, no sweats, no fatigue EENT: No blurred vision, no double vision, no eye pain, no sinus problems, no hoarseness, no difficulty swallowing, no mouth sores, no diminished hearing, no ringing in ears, no enlarged glands PULMONARY: No shortness of breath, no cough, no wheezing, no sputum, no hemoptysis CARDIAC: No valve problems, no Chest pain, no Chest pressure, no rapid beating, no irregular beating, no dependent edema, pain in calves or with walking, no difficulty moving arms and legs GI: No heartburn, no nausea, no vomiting, no stomach trouble, no constipation, no diarrhea, no blood in BM, no change in BM BREAST: No lumps of breast, no nipple discharge, no pain in breast : No vaginal discharge, no burning/pain with urination, no difficulty starting stream, no difficulty emptying bladder, no excessive urination MUSCULOSKELETAL: No joint pain, no joint swelling, no joint stiffness, no muscle pain, no muscle stiffness, no back pain, no back stiffness SKIN: No skin rashes, no skin sores, no change in moles NEURO: No significant headaches, no slurred speech, no seizures, no dizziness, no loss of consciousness, no memory loss ENDOCRINE: No excessive thirst, no excessive bruising PAST MEDICAL HISTORY: Past Medical History: Diagnosis Date ??? Abuse Tobacco Smoking ??? Anxiety Generalized Disorder 12/07/2016 ??? Asthma (HCC) ??? Asthma Mild Intermittent (HCC) 12/07/2016 ??? Dermatitis Atopic 05/31/2016 ??? Dermatitis Eczematoid ??? Hypertension Essential Primary ??? Hypertriglyceridemia ??? Menorrhagia ??? Migraine Headache ??? Migraine Headache Classic 12/07/2016 ??? Morbid Obesity Body Mass Index 50.0-59.9 Adult (HCC) ??? PreDiabetes PAST SURGICAL HISTORY: Past Surgical History: Procedure Laterality Date ??? APPENDECTOMY N/A ??? SECTION N/A 1992 with delivery ??? ESOPHAGOSCOPY / EGD 12/19/2017 KIRILL/Shy Chaidez ??? HAND SURGERY Left dislocated 3rd and 4th metacarpal on left hand ??? LAPAROSCOPIC CHOLECYSTECTOMY ??? OVARIAN CYST REMOVAL Right ??? RECONSTRUCTION OF ANTERIOR CRUCIATE LIGAMENT OF KNEE Left with cadevar material SOCIAL HISTORY: Social History Substance Use Topics ??? Smoking status: Current Every Day Smoker Packs/day: 0.50 Types: Cigarettes ??? Smokeless tobacco: Never Used ??? Alcohol use Yes Comment: Seldom FAMILY HISTORY: Family History Problem Relation Age of Onset ??? Hyperlipidemia Mother ??? Hypertension Mother ??? Hyperlipidemia Father ??? Hypertension Father ??? Stroke Father ??? Cirrhosis Brother stage 4 ??? Breast cancer Grandmother ??? Diabetes Grandmother ??? Colon cancer Neg Hx VITALS: Temperature: [37 ??C] 37 ??C Resp Rate: [18] 18 Blood Pressure: (132)/(94-100) 132/100 SpO2: [97 %] 97 % Pulse Rate: [93] 93 LABS and DIAGNOSTICS: Pap smear is pending. Mammogram is pending. PHYSICAL EXAM: GENERAL: In general, the patient is a pleasant female who appears her stated age. SKIN: Without lesion. EYES: PERRLA. EOMI intact. Fundi sharp discs. Conjunctiva and lids normal. ENT: Tympanic membranes clear bilaterally. Nasal mucosa without erythema or congestion. Mouth without erythema or exudate. LYMPH NODES: Neck: Supple without adenopathy, no thyromegaly. Carotid pulses are equal bilaterally. BREASTS: No skin or nipple retraction. No palpable mass. No axillary adenopathy. No nipple discharge. PERIPHERAL VESSELS: Femoral, dorsal, pedal and posterior tibial pulses are equal. HEART: Regular rate and rhythm without murmur. LUNGS: Clear to auscultation, good inspiratory effort. ABDOMEN: Soft, nontender, no palpable mass, no hepatosplenomegaly. GENITALIA: Bartholin, urethra, vagina and cervix are without lesion. ThinPrep Pap smear done with spatula and cytobrush. Bimanual examination reveals uterus is midline, mobile, nontender. No adnexal masses. SPINE: Normal range of motion. No CVA tenderness. JOINTS: Normal range of motion. EXTREMITIES: Warm, dry, no cyanosis or peripheral edema. MENTAL: Alert and oriented times three. NEUROLOGIC: Deep tendon reflexes are +2 and symmetrical. ASSESSMENT/PLAN: #1 General Medical Examination Adult Continue to work on healthy diet and regular exercise program. I will contact her with laboratory results. Return for complete physical exam in one year. #2 Asthma Mild Intermittent (HCC) Continue Advair daily and albuterol as needed. ACT score today 10. Asthma action plan updated. We will call her in 2 weeks to recheck ACT once she has completed antibiotic for sinusitis. #3 Hypertension Essential Primary Continue triamterene-hydrochlorothiazide 37.5-25 mg daily. Add atenolol 25 mg daily. Return for blood pressure recheck in 2 weeks. #4 Hypertriglyceridemia Continue to work on diet and exercise with weight loss. She will return for fasting lipids. #5 Nausea Zofran 4 mg, 1 tablet every 8 hr as needed for nausea. Refill provided. #6 Dermatitis Atopic Clobetasol 0.05% ointment, apply to axilla as needed twice daily for no longer than 2 weeks. HEALTH MAINTENANCE: Influenza immunization declined today. E BREEDER documented in this encounter Plan of Treatment Upcoming Encounters Date Type Specialty Care Team Description 07/16/2022 Office Visit Family Medicine Karel Gill M.B.B .S., M.D. [address] [place], [place] [phone] (Wo rk) Scheduled Referrals Name Type Priority Associated Diagnoses Order S [facility] Family Medicine Outpatient Referral Routine Hypertension Expec kaci: nurse visit Essential Primary 10/02/2018 (clinic) (Approximate), Expires: 09/18/2021 documented as of this encounter Procedures Procedure Name Priority Date/Time Associated Diagnosis Comme nts THINPREP W/HPV Routine 09/18/2018 2:00 PM Pap Smear Results for this CO-TEST SCREEN MOUSE BREEDER Examination procedure are in the results section. HPV WITH Routine 09/18/2018 2:00 PM Results f or this GENOTYPING, PCR, MOUSE BREEDER procedure a re in THINPREP the results section. documented in this encounter Results (ABNORMAL) Lipid Panel (09/29/2018 8:16 AM MOUSE BREEDER) P athologist Signature Cholesterol, 185 mg/dL 09/29/2018 [facility] Total 10:57 AM [facility] Comment: ----REFERENCE VALUE---- Desirable: < 200 Borderline high: 200 - 239 High: > or = 240 Triglycerides 179 (H) mg/dL 09/29/2018 10:57 AM MOUSE BREEDER [facility] Comment: ----REFERENCE VALUE---- Normal: <150 Borderline high: 150-199 High: 200-499 Very high: > or =500 Cholesterol, HDL, S 41 (L) >=50 mg/dL 09/29/2018 10:[address] [facility] Calculated LDL 108 mg/dL 09/29/2018 10:57 AM [facility] Comment: ----REFERENCE VALUE---- Desirable: <100 Above Desirable: 100-129 Borderline high: 130-159 High: 160-189 Very high: > or =190 Cholesterol, Non-HDL, 144 mg/dL 09/29/2018 10:57 A M [facility]ED[facility] Comment: ----REFERENCE VALUE---- Desirable: <130 Above Desirable: 130-159 Borderline high: 160-189 High: 190-219 Very high: > or =220 Specimen Anatomical Collection Method Collection Time Receive d Time (Source) Location / / Volume Laterality Blood (Blood, 09/29/2018 8:16 AM 09/29/20 18 Venous) MOUSE BREEDER 10:37 AM MOUSE BREEDER Odalys Contreras APRN, C.N.P. LAB BLOOD ADD-ON Performing Organization Address City/State/ZIP Code Phon e Number [facility] [address] [place] [phone] LAB HPV with Genotyping, PCR, ThinPrep (09/18/2018 2:00 PM MOUSE BREEDER) athologist [facility] HPV with Negative Negative 09/19/2018 [facility] Genotyping, 2:23 PM [facility] ThinPrep, PCR [facility] Comment: Negative for high risk HPV by nucleic ac id amplification. ??The following high risk HPV types were not detected: 16, 18, 31, 33, 35, 39, 45, 51, 52, 56, 58, 59, 66, and 68 Specimen Anatomical Collection Method Collection Time Receive d Time (Source) Location / / Volume Laterality Varies 09/18/2018 2:00 PM 8 7:34 MOUSE BREEDER AM MOUSE BREEDER Odalys Contreras APRN, C.N.P. LAB MICROBIOLOGY - GENERAL ORDERABLES Performing Organization Address City/[facility]/ZIP Code Phon e Number [facility] [address] [place] [address] LAB ThinPrep w/HPV Co-Test Screen (09/18/2018 2:00 PM MOUSE BREEDER) Component Value Ref Test Analysis Performed Pathologis t Range Method Time At Signature 09/21/2018 [facility] 8:32 AM [facility] MOUSE BREEDER [facility] CYTOLOGY Report Es Salazar MD 09/21/2018 [facility] electronically I verify that I have examined all relevant slides/ma terials 8:32 AM HEALTH signed by for the specimen(s) and rendered or confirmed the diagnosi s. MOUSE BREEDER SYSTEM- [facility] CYTOLOG[facility] Gross Description Received specimen 09/21/2018 [facility] in a ThinPrep 8:32 AM HEALTH vial. [facility] Pap Test Source Cervical/Endocervi 09/21/2018 [facility] aruna 8:32 AM HEALTH [facility] BREED[facility] Clinical History none 09/21/2018 [facility] 8:32 AM HEALTH [facility]ED[facility] Menstrual LMP August 29, 09/21/2018 [facility] Status(LMP, PM, 2017 8:32 AM HEALTH ) [facility]ED[facility] Hormone None/Not known 09/21/2018 [facility] Therapy/Contracep 8:32 AM HEALTH tives [facility] BREED[facility] Interpretation Cervical/Endocervical ??(ThinPrep): 09/21/2018 [facility] Satisfactory for Evaluation 8:32 AM HE ALTH Negative for Intraepithelial Lesion or Malignancy MOUSE BREEDER SYSTEM- Reactive cellular changes associated with: [place] ? Reparative or inflammatory changes CYTOLOGY High Risk HPV Testing results are NEGATIVE. HPV by Cloak Room Attendant-Mediated Amplification ??(TMA) for E6/E7 viral messenger RNA (mRNA) is an in-vitro diagnostic test for the detection of 14 high-risk Human Papilloma (HPV) types (16, 18, 31, 33, 35, 39, 45, 51, 52, 56, 58, 59, 66, and 68) in cervical specimens. Additional testing performed at [facility], [address] [place] [address]. Specimen Anatomical Collection Method Collection Time Receive d Time (Source) Location / / Volume Laterality Varies 09/18/2018 2:00 PM 8 7:34 (Cervix/Endocerv MOUSE BREEDER AM MOUSE BREEDER ix) Narrative This result has an attachment that is no t available. Odalys Contreras APRN C.N.PChucky LAB PAP PATHDX ORDERABLES Performing Organization Address City/State/Z[place] [address] CYTOLOGY documented in this encounter Visit Diagnoses Diagnosis General Medical Examination Adult - Prim julieta Asthma Mild Intermittent (HCC) Hypertension Essential Primary Hypertriglyceridemia Sinusitis Acute Maxillary Nausea And Vomiting Dermatitis Atopic Pap Smear Examination documented in this encounter Care Teams Air Tool Operator Relationship Specialty Start Date End Date Odalys Contreras, LAKHWINDER, C.N.P. PCP - General 04/21/17 01/15/[address] [address] documented as of this encounter
--- OUTSIDE RECORDS SUMMARY | 2022-06-29 19:17 | XMS_ITS | Encounter Summary ---
:1970 Author Organization [facility] Address [address] [place] [address] Care Team Providers Name Role Phone Odalys Contreras APRN, C.N.P. Primary Care Provider [phone] Reason for Visit Reason Comments Diarrhea and vomitting past 4 days Appointment Request (Routine) - Closed Specialty Diagnoses / Procedures Referred By Contact Refer red To Contact Family Medicine Referral ID Status Reason Start Date Expiration Date Visits Requ ested Visits Authorized [id number] Closed 12/13/2018 12/13/2019 1 1 Encounter Details Date Type Department Care Team Description 12/13/2018 Office Visit Department of Dong Dumont (Primary Dx); Medicine, [place] [facility], in [address] [place] [address] [place], [place] [phone] (Work) [phone] Social History Tobacco Use Types Packs/Day Years [...] How often do you attend zoroastrian or adventism More than 4 time s per year [...] 12 months, you worried that your food Bia mes true 12/25/2021 would run out before [...] at Date Recorded Female 12/02/2017 9:31 AM DEHAIRER documented as of this encounter Last Filed Vital Signs Vital Sign Reading Time Taken Comments Blood Pressure 128/78 12/13/2018 1:09 PM DEHAIRER Pulse 84 12/13/2018 1:09 PM DEHAIRER Temperature 36.3 ??C (97.3 ??F) 12/13/2018 1:09 PM DEHAIRER Respiratory Rate - - Oxygen Saturation - - Inhaled Oxygen Concentration - - Weight 114 kg (251 lb 5.2 oz) 12/13/2018 1:09 PM DEHAIRER Height - - Body Mass Index 46.25 09/18/2018 1:23 PM DEHAIRER documented in this encounter Progress Notes Rah Kilpatrick P.A.-C. - 12/13/2018 1:30 PM CST CHIEF COMPLAINT / REASON FOR VISIT Shanda Masterson is a 47 y.o. female who presents for evaluation of Diarrhea (and vomitting past 4days). HISTORY OF PRESENT ILLNESS Shanda presents today with complaints of nausea vomiting and diarrhea for about the last 4 days. He does not recall eating anything specific no one else has been sick in her house. She says that she has been vomiting multiple times during the day she had 3 loose bowel movements yesterday she does not think there is any blood in her stool. She has a history of nausea in the past in addition to othermedical comorbidities. She has been using Zofran she says it has not helped a whole lot. She continues to have emesis. OBJECTIVE Vitals: 12/13/18 1309 BP: 128/78 BP Location: Right arm Patient Position: Sitting Cuff Size: Large Pulse: 84 Temp: 36.3 ??C Weight: 114 kg Body mass index is 46.25 kg/m??. PHYSICAL EXAM General: Patient appears uncomfortable ENT: TMs no erythema. Throat no erythema. Neck: No lymphadenopathy. No thyroid masses. Heart: Regular rate and rhythm. No murmurs. Lungs: Clear to auscultation. Abdomen: Soft and nontender to palpation. Obese IMPRESSION / REPORT / PLAN #1 Gastroenteritis We had a good discussion about this today. I think most likely this is a viral etiology. I stressed the importance of keeping herself well hydrated. She is going to continue with the Zofran which she has been using. She will use 4 mg or possibly 8 mg if necessary. I want her to take frequent small sips of fluids she may try anything it sounds good I told her to stay away from milk or other dairy products but otherwise anything else would be acceptable. She does not really need to eat but she does need to continue drinking. She does not seem clinically dehydrated today but certainly if her symptoms do not improve within the next couple days she should be seen again if her symptoms worsened all she should also be seen again we would consider further evaluation with laboratory work or possibly some imaging. She is in agreement with this plan #2 Nausea And Vomiting So continue to use the Zofran as necessary. Total time spent with her today was 25 min of which 20 was [id number] coordination of care and counseling Rah Kilpatrick P.A.-C. IRER documented in this encounter Plan of Treatment Upcoming Encounters Date Type Specialty Care Team Description 07/16/2022 Office Visit Family Medicine Karel Gill M.B.B .S., M.D. [address] [place] [address], [place] [phone] (Wo rk) documented as of this encounter Visit Diagnoses Diagnosis Gastroenteritis - Primary Nausea And Vomiting documented in this encounter Care Teams Gasket Former Relationship Specialty Start Date End Date Odalys Contreras APRN, C.N.P. PCP - General 04/21/17 01/15/[address] [phone] documented as of this encounter
--- OUTSIDE RECORDS SUMMARY | 2022-06-29 19:17 | XMS_ITS | Encounter Summary ---
:1970 Author Organization [facility] Address [address] [place] [address] Care Team Providers Name Role Phone Odalys Contreras APRN C.NChuckyPChucky Primary Care Provider [phone] Reason for Visit Reason Comments Nausea continues X 3 weeks Appointment Request (Routine) - Closed Specialty Diagnoses / Procedures Referred By Contact Refer red To Contact Family Medicine Diagnoses FAM EST [facility] Procedures [facility] EST Referral ID Status Reason Start Date Expiration Date Visits Requ ested Visits Authorized [id number] Closed 12/27/2018 12/27/2019 1 1 Encounter Details Date Type Department Care Team Description 12/29/2018 Office Visit Department of [facility] Coni Beltran Ast hma Mild Intermittent (HCC) (Primary Dx); Kiran Bach M.D. Hypertension Essential Primary; Clinic, in [address] Hypertriglyceridemia; [place], [place] Morbid Obesity Body Mass Ind ex 45.0-49.9 Adult (HCC); [address] [address] Change In Bowel Habit; [place], [place] [phone] Diarrhea; [address] (Work) Nausea And Vomiting; [phone] Nicotine Depend ence Cigarettes With Other Nicotine Induced Disorder; (Fax) Pain Generalize d Abdominal; Cholecystectomy Laparoscopic Status Post Social History Tobacco Use Types Packs/Day Years [...] How often do you attend yazidi or gnosticism More than 4 time s per year [...] or slept in a alf (including now)? Sex Assigned at Date Recorded Female 12/02/2017 9:31 AM UNDERWATER TRAPPER documented as of this encounter Last Filed Vital Signs Vital Sign Reading Time Taken Comments Blood Pressure 136/92 12/29/2018 11:57 AM UNDERWATER TRAPPER Pulse 84 12/29/2018 11:57 AM UNDERWATER TRAPPER Temperature 37.4 ??C (99.3 ??F) 12/29/2018 11:57 AM UNDERWATER TRAPPER Respiratory Rate - - Oxygen Saturation - - Inhaled Oxygen Concentration - - Weight 116 kg (255 lb 11.7 oz) 12/29/2018 11:57 AM UNDERWATER TRAPPER Height - - Body Mass Index 48.28 12/15/2018 9:13 AM UNDERWATER TRAPPER documented in this encounter Progress Notes Coni Beltran M.D. - 12/29/2018 12:15 PM CST CHIEF COMPLAINT/REASON FOR VISIT Abdominal pain, nausea and vomiting HISTORY OF PRESENT ILLNESS This 48-year old female presents to clinic secondary to abdominal pain, nausea and vomiting. She hashad several visits for this issue. It has been going on for several weeks. She has had emesis twice per day of food product. She has had a change in her bowel regimen, having loose stools 3-4 times perday, watery with flecks occurring on occasion. She had negative stool cultures 12/15/2018. She has had a limited laboratory evaluation in recent past as well. She finds Zofran somewhat helpful but is having some difficulties with insurance coverage. Her asthma is stable if she takes her Advair on a regular basis, and she only needs her albuterol less than once and occasionally twice per week, if thisis the case. She is having no urinary symptoms. She has thought about immunization update with influenza but is currently declining this option. She continues to smoke. She recently stop taking her triamterene hydrochlorothiazide as she felt this might be contributing to her nausea. She has had no travel or change in her dietary intake. No one in her family or relationship is ill. She is taking her other medications as prescribed. EMR reviewed. CURRENT MEDICATIONS Current Outpatient Prescriptions: ??? albuterol (ACCUNEB) 2.5 mg /3 mL nebulizer solution, Use 1 vial in nebulizer 4 times daily as needed for shortness of breath and wheezing., Disp: 180 mL, Rfl: 3 ??? albuterol (VENTOLIN HFA) 90 mcg/actuation inhaler, Inhale 2 puffs by mouth every 4 hr as needed for shortness of breath and wheezing., Disp: 1 Inhaler, Rfl: 11 ??? clobetasol (TEMOVATE) 0.05 % ointment, Apply 1 application topically 2 (two) times a day as needed (Eczema)., Disp: 30 g, Rfl: 3 ??? fluticasone-salmeterol (ADVAIR DISKUS) 250-50 mcg/dose diskus [...] as needed for nausea or vomiting., Disp: 30 tablet, Rfl: 3 ??? atenolol (TENORMIN) 25 mg tablet, Take 1 tablet (25 mg total) by mouth daily. (Patient not taking: Reported on 12/13/2018 ), Disp: 90 tablet, Rfl: 3 ??? fluticasone (FLONASE) 50 mcg/actuation nasal spray, Administer 2 sprays into each nostril daily as needed for rhinitis or allergies. (Patient not taking: Reported on 12/13/2018 ), Disp: 16 g, Rfl: 6 ??? triamterene-hydroCHLOROthiazide (MAXZIDE-25) 37.5-25 mg per tablet, Take 1 tablet by mouth daily. (Patient not taking: Reported on 12/29/2018 ), Disp: 90 tablet, Rfl: 3 Allergies Allergen Reactions ??? Latex Rash ??? Valsartan Other (see comments) and Anaphylaxis Unknown - patient unable to provide information ??? Bupropion Rash Wellbutrin ??? Magnesium Sulfate Anaphylaxis Throat closing REVIEW OF SYSTEMS Negative review of major organ systems apart from that noted in the HPI and past medical surgical history. Past Medical History: Diagnosis Date ??? Abuse [...] LIGAMENT OF KNEE Left with cadevar material PREVENTIVE SERVICES Tobacco a half a pack per day with limited plans for cessation Mammogram 09/18/2018 Pap smear 09/18/2018 Depression no Asthma yes documentation completed by her primary care provider Lipids 09/29/2018, elevated Tdap 04/21/2011 Influenza declined for the season SOCIAL HISTORY Alcohol a few times per year at most Social drugs none Caffeine 1 cup of coffee each day Family History Problem Relation Age of Onset ??? Hyperlipidemia Mother ??? Hypertension Mother ??? Hyperlipidemia Father ??? Hypertension Father ??? Stroke Father ??? Cirrhosis Brother stage 4 ??? Breast cancer Grandmother ??? Diabetes Grandmother ??? Colon cancer Neg Hx Vitals: 12/29/18 1157 BP: (!) 136/92 Patient Position: Sitting Pulse: 84 Temp: 37.4 ??C Weight: 116 kg PHYSICAL EXAM General: Neatly dressed well groomed. HEENT: PERRL. EOMs are full. Ears: TMs are pickering, good visualization of landmarks. Nose: Mucosal membranes pink and moist. Oral: No exudates. Teeth in good condition. No pharyngeal erythema. Neck: Rangeof motion consistent with patient's stated age body habitus. Trachea midline. Lymph nodes: No cervical adenopathy. Thyroid: No thyroid masses, tenderness or enlargement. Heart: Regular rate and rhythm. No clicks, rubs or murmurs. Lungs: Clear to auscultation. No palpable chest wall masses. Abdomen: Soft, nontender, bowel sounds present, no organomegaly. ASSESSMENT/PLAN 1. Nausea and vomiting with change bowel habit with episodic diarrhea and abdominal pain-evaluation in process 2. 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 Morbid obesity-progressive 4. Essential primary hypertension with fair control and treatment reassessment in process 5. Nicotine dependence with other nicotine induced disorder with some plans for cessation 6. Mild intermittent asthma aggravated by 5. Currently at baseline 7. Hypertriglyceridemia currently at baseline Supportive measures discussed in detail. Will check hepatic function study, lipase and amylase following up accordingly. Given the duration of her symptoms will obtain abdominal ultrasound, following up accordingly. Will consider cholestyramine after above laboratory assessment has been completed. Mayneed to consider GI evaluation if the symptoms do not stabilize. Reviewed recent evaluations including negative cultures and stable laboratory evaluation. Patient's weight is increasing rather than decreasing which is reassuring. Continue on the Zofran and her other medications including all of her blood pressure medications. Risks and benefits of medications discussed. All questions answered. Signs and symptoms to lead to emergent evaluation are reviewed. See the medication reconciliation and preventive services. She and her significant other will consider the options. Spent 15 of the 25 minute visit in discussion. RWATER TRAPPER documented in this encounter Plan of Treatment Upcoming Encounters Date Type Specialty Care Team Description 07/16/2022 Office Visit Family Medicine Karel Gill M.B.B .S., M.D. [address] [place], [place] [phone] (Wo rk) documented as of this encounter Procedures Procedure Name Priority Date/Time Associated Diagnosis Comme nts HEPATIC FUNCTION Routine 12/29/2018 12:37 PM Change In Bowel R esults for this PANEL, S UNDERWATER TRAPPER Habit procedure are in Diarrhea the results Nausea And Vomiting section. LIPASE, S/P Routine 12/29/2018 12:37 PM Change In Bowel Resul ts for this UNDERWATER TRAPPER Habit procedure are in Diarrhea the results Nausea And Vomiting section. AMYLASE, TOT, S Routine 12/29/2018 12:37 PM Change In Bowel Re sults for this UNDERWATER TRAPPER Habit procedure are in Diarrhea the results Nausea And Vomiting section. documented in this encounter Results Amylase, Total (12/29/2018 12:37 PM UNDERWATER TRAPPER) athologist Signature Amylase, Total, 48 26 - 102 12/29/2018 [facility] S U/L 4:12 PM [facility] LAB Specimen Anatomical Collection Method Collection Time Receive d Time (Source) Location / / Volume Laterality Blood (Blood, 12/29/2018 12:37 12/29/2018 3:33 Venous) PM UNDERWATER TRAPPER PM UNDERWATER TRAPPER Coni Beltran M.D. LAB BLOOD ADD-ON Performing Organization Address City/State/ZIP Code Phon e Number [facility] [address] [place] [address] LAB Lipase (12/29/2018 12:37 PM UNDERWATER TRAPPER) athologist Signature Lipase, S 32 13 - 60 U/L 12/29/2018 [facility] 4:12 PM [facility] LAB Specimen Anatomical Collection Method Collection Time Receive d Time (Source) Location / / Volume Laterality Blood (Blood, 12/29/2018 12:37 12/29/2018 3:33 Venous) PM UNDERWATER TRAPPER PM UNDERWATER TRAPPER Coni Beltran M.D. LAB BLOOD ADD-ON Performing Organization Address City/State/ZIP Code Phon e Number [facility] [address] [place] [address] LAB Hepatic Function Panel (12/29/2018 12:37 PM UNDERWATER TRAPPER) [facility] Method Time Signature Bilirubin, Total, S 0.4 <=1.2 12/29/2018 [facility] mg/dL 4:12 PM [facility] Bilirubin, Direct, S <0.2 0.0 - 0.3 12/29/2018 [facility] mg/dL 4:32 PM [facility] Aspartate 20 8 - 43 12/29/2018 [facility] Aminotransferase U/L 4:12 PM [facility] Alanine 20 7 - 45 12/29/2018 [facility] Aminotransferase U/L 4:12 PM [facility] Alkaline 61 35 - 104 12/29/2018 [facility] Phosphatase, S U/L 4:12 PM [facility] Albumin, S 4.1 3.5 - 5.0 12/29/2018 [facility] g/dL 4:12 PM [facility] Protein, Total, S 6.4 6.3 - 7.9 12/29/2018 [facility] g/dL 4:12 PM [facility] Specimen Anatomical Collection Method Collection Time Receive d Time (Source) Location / / Volume Laterality Blood (Blood, 12/29/2018 12:37 12/29/2018 3:33 Venous) PM UNDERWATER TRAPPER PM UNDERWATER TRAPPER Coni Beltran M.D. LAB BLOOD ADD-ON Performing Organization Address City/State/ZIP Code Phon e Number [facility] [address] [place] [address] LAB documented in this encounter Visit Diagnoses Diagnosis Asthma Mild Intermittent (HCC) - Primary Hypertension Essential Primary Hypertriglyceridemia Morbid Obesity Body Mass Index 45.0-49.9 Adult (HCC) Change In Bowel Habit Diarrhea Nausea And Vomiting Nicotine Dependence Cigarettes With Othe r Nicotine Induced Disorder Pain Generalized Abdominal Cholecystectomy Laparoscopic Status Post documented in this encounter Care Teams Beauty School Instructor Relationship Specialty Start Date End Date Odalys Contreras, LAKHWINDER, C.N.P. PCP - General 04/21/17 01/15/[address] [address] documented as of this encounter
--- OUTSIDE RECORDS SUMMARY | 2022-06-29 19:17 | XMS_ITS | Encounter Summary ---
:1970 Author Organization [facility] Address [address] [place] [address] Care Team Providers Name Role Phone Odalys Contreras APRN, C.N.P. Primary Care Provider [phone] Reason for Visit Reason Comments Med Refill Encounter Details Date Type Department Care Team Description 03/30/2019 Refill Department of Family Medicine, Erin Contreras APRN, Med Refill [facility], [place] [address] [place] [address] [place], [place] [address] [phone] Social History Tobacco Use Types Packs/Day Years [...] or relatives? How often do you attend anabaptism or pentecostalism More than 4 time s per year 12/25/2021 services? Do you belong to any clubs or organizations Yes 12/25/2021 such as anabaptism groups, unions, fraternal or athletic groups, or [...] or slept in a halfway (including now)? Sex Assigned at Date Recorded Female 12/02/2017 9:31 AM FISH TENDER documented as of this encounter Plan of Treatment Upcoming Encounters Date Type Specialty Care Team Description 07/16/2022 Office Visit Family Medicine Karel Gill M.B.B .S., M.Be [address] [place] [phone] (Wo rk) documented as of this encounter Visit Diagnoses Diagnosis Asthma Mild Intermittent (HCC) documented in this encounter Care Teams Physician Pediatrician Relationship Specialty Start Date End Date Odalys Contreras APRN, C.N.P. PCP - General 04/21/17 01/15/[address] [address] documented as of this encounter
--- OUTSIDE RECORDS SUMMARY | 2022-06-29 19:17 | XMS_ITS | Encounter Summary ---
:1970 Author Organization [facility] Address [address] [place] [address] Care Team Providers Name Role Phone Odalys Contreras APRN, C.N.P. Primary Care Provider [phone] Encounter Details Date Type Department Care Team Description 11/13/2018 Orders Only Department of Family Odalys Contreras, Hyp ertension Essential Medicine, [place] LAKHWINDER, C.N.P. Primary (Primary Dx) Clinic, in [facility] [address] [address] [place], [place] [phone] (Work) [phone] Social History Tobacco Use Types Packs/Day Years [...] How often do you attend cheondoism or yazidism More than 4 time s [...] or slept in a jail (including now)? Sex Assigned at Date Recorded Female 12/02/2017 9:31 AM PERSONAL DEVELOPMENT COACH documented as of this encounter Plan of Treatment Upcoming Encounters Date Type Specialty Care Team Description 07/16/2022 Office Visit Family Medicine Karel Gill M.B.B .S., M.DChucky [address] [place] [phone] (Wo rk) documented as of this encounter Visit Diagnoses Diagnosis Hypertension Essential Primary - Primary documented in this encounter Care Teams Wind Turbine Mechanic Relationship Specialty Start Date End Date Odalys Contreras APRN, C.N.P. PCP - General 04/21/17 01/15/[address] [address] documented as of this encounter
--- OUTSIDE RECORDS SUMMARY | 2022-06-29 19:17 | XMS_ITS | Encounter Summary ---
:1970 Author Organization [facility] Address [address] [place] [address] Care Team Providers Name Role Phone Odalys Contreras APRN, C.N.P. Primary Care Provider [phone] Encounter Details Date Type Department Care Team Description 10/05/2018 Clinical Communication Department of [facility] Micheal Arreguin [facility] [place], [facility], [facility] [address] [place], [place] [address] [facility] [address] [place], [place] [phone] [address] (Work) [phone] Social History Tobacco Use Types Packs/Day Years [...] or relatives? How often do you attend protestant or bahai More than 4 time s per year 12/25/2021 services? Do you belong to any clubs or organizations Yes 12/25/2021 such as protestant groups, unions, fraternal or athletic groups, or [...] at Date Recorded Female 12/02/2017 9:31 AM EXHIBIT DESIGNER documented as of this encounter Miscellaneous Notes Telephone Encounter - Odalys Contreras APRN, C.N.P. - 10/10/2018 5:07 PM EXHIBIT DESIGNER Noted BIT DESIGNER Telephone Encounter - Lynn Arreguin L.P.N. - 10/10/2018 4:39 PM EXHIBIT DESIGNER Have made attempts to contact Shanda to complete a ACT. Messages left and no return calls. BIT DESIGNER Telephone Encounter - Lynn Arreguin L.PChuckyN. - 10/09/2018 9:38 AM EXHIBIT DESIGNER Attempted to contact Shanda. Message left to return my call. BIT DESIGNER Telephone Encounter - Lynn Arreguin L.P.N. - 10/05/2018 10:54 AM EXHIBIT DESIGNER Attempted to contact Shanda. Message left to return my call. BIT DESIGNER documented in this encounter Plan of Treatment Upcoming Encounters Date Type Specialty Care Team Description 07/16/2022 Office Visit Family Medicine Karel Gill M.B.B .S., MAllegra. [address] [place] [phone] (Wo rk) documented as of this encounter Visit Diagnoses Not on filedocumented in this encounter Care Teams Motion Pictures Cartoonist Relationship Specialty Start Date End Date Odalys Contreras, LAKHWINDER, C.N.P. PCP - General 04/21/17 01/15/21 [address], [place] [address] documented as of this encounter
--- OUTSIDE RECORDS SUMMARY | 2022-06-29 19:17 | XMS_ITS | Encounter Summary ---
:1970 Author Organization [facility] Address [address] [place] [address] Care Team Providers Name Role Phone Odalys Contreras APRN, C.N.P. Primary Care Provider [phone] Reason for Visit Reason Comments Med Refill Encounter Details Date Type Department Care Team Description 02/23/2019 Refill Department of Family Medicine, Erin Contreras APRN, Med Refill [facility], [place] [address] [place] [address] [place], [place] [address] [phone] Social History Tobacco Use Types Packs/Day Years [...] How often do you attend adventism or confucianism More than 4 time s [...] at Date Recorded Female 12/02/2017 9:31 AM PACKING HOUSE LABORER documented as of this encounter Plan of Treatment Upcoming Encounters Date Type Specialty Care Team Description 07/16/2022 Office Visit Family Medicine Karel Gill M.B.B .S., M.Be [address] [place] [phone] (Wo rk) documented as of this encounter Visit Diagnoses Diagnosis Asthma Mild Intermittent (HCC) documented in this encounter Care Teams Aircraft Machinist Relationship Specialty Start Date End Date Odalys Contreras APRN, C.N.P. PCP - General 04/21/17 01/15/[address] [address] documented as of this encounter
--- OUTSIDE RECORDS SUMMARY | 2022-06-29 19:17 | XMS_ITS | Encounter Summary ---
:1970 Author Organization [facility] Address [address] [place] [address] Care Team Providers Name Role Phone Odalys Contreras APRN, C.NChip Primary Care Provider [phone] Reason for Visit Reason Comments Other nausea, dizziness, late with period - 16 days late Appointment Request (Routine) - Closed Specialty Diagnoses / Procedures Referred By Contact Refer red To Contact Family Medicine Referral ID Status Reason Start Date Expiration Date Visits Requ ested Visits Authorized [id number] Closed 05/21/2019 05/20/2020 1 1 Encounter Details Date Type Department Care Team Description 05/21/2019 Office Visit Department of Family Karel Gill rtension Essential Primary (Primary Dx); Medicine, Elizabeth PerazaSChucky, [facility]; Clinic, in [place] Morbid Obesity Body Mass Index 45.0-49.9 Adult ([facility]) [place] [address] [facility] [address] [place] [address] [phone] Social History Tobacco Use Types Packs/Day Years [...] How often do you attend restorationism or moravian More than 4 time s per year [...] or slept in a prison (including now)? Sex Assigned at Date Recorded Female 12/02/2017 9:31 AM SCRAPER HAND documented as of this encounter Last Filed Vital Signs Vital Sign Reading Time Taken Comments Blood Pressure 148/88 05/21/2019 9:56 AM CDT Pulse 78 05/21/2019 9:54 AM CDT Temperature 37 ??C (98.6 ??F) 05/21/2019 9:54 AM CDT Respiratory Rate 16 05/21/2019 9:54 AM CDT Oxygen Saturation - - Inhaled Oxygen Concentration - - Weight 118 kg (259 lb 9.5 oz) 05/21/2019 9:54 AM CDT Height - - Body Mass Index 49.01 12/15/2018 9:13 AM SCRAPER HAND documented in this encounter H&P Notes Karel Gill M.B.B.S., M.D. - 05/21/2019 10:00 AM CDT SUBJECTIVE CHIEF COMPLAINT / REASON FOR VISIT Shanda Masterson is a 48 y.o. female who presents for evaluation of Other (nausea, dizziness, latewith period - 16 days late). HISTORY OF PRESENT ILLNESS Pleasant 48-year-old female with a history of uncontrolled hypertension here for follow-up. Patient's blood pressure control has been poor with triamterene and hydrochlorothiazide. She was started on lisinopril 1 month ago. Blood pressure control has improved. She reports not being consistent with this medication however. Patient denies any chest pain, shortness of breath, difficulty breathing, rash or throat swelling. She is also concerned because she has had 2 weeks of amenorrhea. LMP 04/11/2019 She is sexually active and not on control. She reports a history of regular menstrual cycles. Menarche was at 11. She denies hot flashes or vaginal dryness. She has felt more stress than usual since she got laid off a few weeks ago. She denies depression oranxiety but feels like she has occasional panic attacks thinking about the future. She denies suicidal ideations. PHQ-9 score 4 FRANCISCO-7 score 3 The following portions of the patient's history were reviewed and updated as appropriate: allergies,current medications, family history, medical history, social history, surgical history and problem list. REVIEW OF SYSTEMS Pertinent items are noted in HPI. OBJECTIVE BP 148/88 (BP Location: Right arm, Patient Position: Sitting, Cuff Size: Large) Pulse 78 Temp 37??C Resp 16 Wt 118 kg BMI 49.01 kg/m?? PHYSICAL EXAM General Appearance: healthy, alert, no distress, cooperative. Skin: skin color, texture, turgor normal, no suspicious rashes or lesions. Head: normocephalic, no masses, lesions, tenderness or abnormalities. Eyes: Anicteric sclera. Pupils are equally round and reactive to light. Extraocular movements are intact. . Neck: Supple, no adenopathy; thyroid symmetric, normal size, no bruits. Lungs: Lungs clear to auscultation. No wheezing or rhonchi.. Heart: RRR without murmur, gallop, or rubs. Musculoskeletal: Range of motion normal in hips, knees, shoulders, and spine, No joint swelling, deformity, or tenderness. Neurologic: Gait normal. Reflexes normal and symmetric. Sensation grossly intact.. ASSESSMENT / PLAN #1 Hypertension Essential Primary #2 Amenorrhea #3 Morbid Obesity Body Mass Index 45.0-49.9 Adult (HCC) 1. Will make no changes to her antihypertensive therapy. I have recommended the patient be consistent with her blood pressure medications. She would also benefit from reducing her salt intake and regular physical activity. 2. Patient reports doing a test last week which was negative. She would like a repeat bearing status today to confirm this. She denies any others symptoms like pelvic pain so will continue toobserve for now. 3. Talked about strategies for weight loss to improve cardiac health. Patient will benefit from smaller portion sizes and regular physical activity to improve cardiac health and help with weight loss. She might also want to consider weight loss surgery but will hold off on this for now. 25 minutes of this visit was spent in odec-ea-uwnh care including counseling on weight management. documented in this encounter Plan of Treatment Upcoming Encounters Date Type Specialty Care Team Description 07/16/2022 Office Visit Family Medicine Karel Gill M.B.B .S., M.D. [address] [place] [address] [phone] (Wo rk) documented as of this encounter Procedures Procedure Name Priority Date/Time Associated Comments Diagnosis HUMAN CHORIONIC Routine 05/21/2019 10:37 Amenorrhea Results for this GONADOTROPIN (HCG), AM CDT procedur e are in JHONNY, the results section. documented in this encounter Results hCG (Human Chorionic Gonadotropin), Quantitative, (05/21/2019 10:37 AM CDT) P athologist Signature HCG, <0.5 <5 IU/L 05/21/2019 Quantitative, 2:16 PM CDT , S Comment: Biotin has been identified by the jessica gastelum as a potential interfering substance. ??Higher concentr ations of biotin may be found in multivitamins, hair/nail supple ments, and workout supplements. ??If the result does not [facility] clinical observations, repeat testing after patient refrains fr om the use of supplements for at least 12 hours. Specimen Anatomical Collection Method Collection Time Receive d Time (Source) Location / / Volume Laterality Blood (Blood, 05/21/2019 10:37 05/21/2019 1:13 Venous) AM CDT PM CDT Karel Alvarez M.D. LAB BLOOD ADD-ON Performing Organization Address City/State/ZIP Code Phon e Number [facility] [address] [place] [address] LAB documented in this encounter Visit Diagnoses Diagnosis Hypertension Essential Primary - Primary Amenorrhea Morbid Obesity Body Mass Index 45.0-49.9 Adult (HCC) documented in this encounter Additional Health Concerns Assessment Noted Time PHQ-9 Depression Total Score: 4 05/21/2019 9:58 AM CDT documented as of this encounter Care Teams Rent And Housing Investigator Relationship Specialty Start Date End Date Odalys Contreras, LAKHWINDER, C.N.P. PCP - General 04/21/17 01/15/21 [address] [place] [address] documented as of this encounter
--- OUTSIDE RECORDS SUMMARY | 2022-06-29 19:17 | XMS_ITS | Encounter Summary ---
:1970 Author Organization [facility] Address [address] [place] [address] Care Team Providers Name Role Phone Odalys Contreras APRN, C.N.P. Primary Care Provider [phone] Reason for Visit Reason Onset Date Comments Appointment 12/26/2018 Encounter Details Date Type Department Care Team Description 12/26/2018 Clinical Communication Department of Erin Lozano, Appointment Medicine, [place] LAKHWINDER, C.N.P. [facility], in [place], [address] [address] [place], [place] [phone] (Work) [phone] Social History Tobacco Use Types Packs/Day Years [...] or relatives? How often do you attend scientologist or muslim More than 4 time s per year 12/25/2021 services? Do you belong to any clubs or organizations Yes 12/25/2021 such as scientologist groups, unions, fraternal or athletic groups, or [...] or slept in a fpc (including now)? Sex Assigned at Date Recorded Female 12/02/2017 9:31 AM CATEGORY SPECIALIST documented as of this encounter Miscellaneous Notes Telephone Encounter - Lynn Arreguin L.P.N. - 2018 9:11 AM CATEGORY SPECIALIST Noted that patient has appointment tomorrow. GORY SPECIALIST Telephone Encounter - Caroline Armstrong L.P.N. - 12/26/2018 10:42 AM CST SUBJECTIVE CHIEF COMPLAINT / REASON FOR CALL Appointment INFORMATION DISCUSSED Attempted to reach patient to notify her that providers schedule is full this week. (Spoke with Provider) was going to suggest urgent care or ED if symptoms are worse. Left her a message to return calland if its okay to leave a detailed message. PLAN Disposition/Recommendation: N/A Information: not applicable Caller agreeable to plan of care: N/A The following references were used: none GORY SPECIALIST Telephone Encounter - Lawrence Kuhn - 12/26/2018 10:21 AM CST Reason for Communication: patient called and wanted an appointment for abdominal issues, nausea, andwanted it this week. Did not want nurse line, I did offer her Tuesday the and Tuesday the and she did not want those appointments. She has been seen 2 times for this already and would like to be seen again for this, this week. Please advise. Current 1dba Can Nursing/Provider leave a detailed message: Did the patient refuse triage through Nurse line? (for symptom based concerns) Action Needed: Name of Medication (if relevant): GORY SPECIALIST documented in this encounter Plan of Treatment Upcoming Encounters Date Type Specialty Care Team Description 07/16/2022 Office Visit Family Medicine Karel Gill M.B.B .S., MRadha [address] [place] [address] [phone] (Wo rk) documented as of this encounter Visit Diagnoses Not on filedocumented in this encounter Care Teams Flame Degreaser Relationship Specialty Start Date End Date Odalys Contreras, LAKHWINDER, C.N.P. PCP - General 04/21/17 01/15/21 [address], [place] [address] documented as of this encounter
--- OUTSIDE RECORDS SUMMARY | 2022-06-29 19:17 | XMS_ITS | Encounter Summary ---
:1970 Author Organization [facility] Address [address] [place] [address] Care Team Providers Name Role Phone Odalys Contreras APRN, C.N.P. Primary Care Provider [phone] Reason for Visit Reason Comments Nausea vomitting, diarrhea,neck sti ffness, abdominal pain - is taking Zofran - Saw Rah on 12/13/2018 Encounter Details Date Type Department Care Team Description 12/15/2018 Office Visit Department of Family Karel Gill Jag roenteritis (Primary Medicine, Jacobo PerazaBChuckySChucky, Dx) Clinic, in [place] [address] [place] [phone] Social History Tobacco Use Types Packs/Day Years [...] or relatives? How often do you attend yarsani or presybeterian More than 4 time s per year 12/25/2021 services? Do you belong to any clubs or organizations Yes 12/25/2021 such as yarsani groups, unions, fraternal or athletic groups, or [...] or slept in a snf (including now)? Sex Assigned at Date Recorded Female 12/02/2017 9:31 AM LEAD SOFTWARE ENGINEER documented as of this encounter Last Filed Vital Signs Vital Sign Reading Time Taken Comments Blood Pressure 149/95 12/15/2018 9:16 AM LEAD SOFTWARE ENGINEER Pulse 78 12/15/2018 9:16 AM LEAD SOFTWARE ENGINEER Temperature 37 ??C (98.6 ??F) 12/15/2018 9:13 AM LEAD SOFTWARE ENGINEER Respiratory Rate 16 12/15/2018 9:13 AM LEAD SOFTWARE ENGINEER Oxygen Saturation - - Inhaled Oxygen Concentration - - Weight 115 kg (252 lb 15.7 oz) 12/15/2018 9:13 AM LEAD SOFTWARE ENGINEER Height 155 cm (5' 1.02) 12/15/2018 9:13 AM LEAD SOFTWARE ENGINEER Body Mass Index 47.76 12/15/2018 9:13 AM LEAD SOFTWARE ENGINEER documented in this encounter H&P Notes Karel Gill M.B.B.S. MAllegra. - 12/15/2018 9:30 AM CST SUBJECTIVE CHIEF COMPLAINT / REASON FOR VISIT Shanda Masterson is a 47 y.o. female who presents for evaluation of Nausea (vomitting, diarrhea,neck stiffness, abdominal pain - is taking Zofran - Saw Rah on 12/13/2018). HISTORY OF PRESENT ILLNESS 47-year-old female with a history of hypertension, morbid obesity and prediabetes here for persistent nausea, vomiting and diarrhea. She was seen 4 days ago and diagnosed with gastroenteritis which was being managed conservatively with Zofran. She reports persistent symptoms. She has had passing 5-6 loose stools per day. There is no blood in her stool. She reports left-sided abdominal pain which is relieved with defecation. She reports fatigue, chills and a low-grade intermittent fever. LMP 12/12/2018. She is not on control. The following portions of the patient's history were reviewed and updated as appropriate: allergies,current medications, family history, medical history, social history, surgical history and problem list. REVIEW OF SYSTEMS Pertinent items are noted in HPI. OBJECTIVE BP (!) 149/95 Pulse 78 Temp 37 ??C (Temporal) Resp 16 Ht 155 cm Wt 114.8 kg LMP 12/13/2018 (Exact Date) BMI 47.76 kg/m?? PHYSICAL EXAM General Appearance: healthy, alert, mild distress, cooperative. Head: normocephalic, no masses, lesions, tenderness or abnormalities. Eyes: Anicteric sclera. Pupils are equally round and reactive to light. Extraocular movements are intact. . Oropharynx: Dry oral mucosa. Neck: Supple, no adenopathy; thyroid symmetric, normal size, no bruits. Lungs: Lungs clear to auscultation. No wheezing or rhonchi.. Heart: RRR without murmur, gallop, or rubs. Abdomen: Abdomen soft, non-tender. Bowel sounds normal. No masses, organomegaly. ASSESSMENT / PLAN #1 Gastroenteritis Patient admits reduced fluid intake. We will screen with stool studies, CBC and a BMP. We will start on loperamide to be taking after each loose stool. She would also continue with Zofran. She will increase fluid intake. I have recommended Gatorade. If symptoms do not improve she may go to the emergency room to be hydrated. SOFTWARE ENGINEER documented in this encounter Plan of Treatment Upcoming Encounters Date Type Specialty Care Team Description 07/16/2022 Office Visit Family Medicine Karel Gill M.B.B .S., M.D. [address] [place], [place] [phone] (Wo rk) documented as of this encounter Procedures Procedure Name Priority Date/Time Associated Diagnosis Comme nts ENTERIC PATHOGENS Routine 12/15/2018 3:30 PM Gastroenteritis R esults for this CULTURE, STOOL LEAD SOFTWARE ENGINEER procedure are in the results section. CBC WITH Routine 12/15/2018 10:17 Gastroenteritis Results for this DIFFERENTIAL, B AM LEAD SOFTWARE ENGINEER procedure ar e in the results section. BASIC METABOLIC Routine 12/15/2018 10:17 Gastroenteritis Resul ts for this PANEL, S/P AM LEAD SOFTWARE ENGINEER procedure are i n the results section. documented in this encounter Results Enteric Pathogens Culture, Stool (12/15/2018 3:30 PM LEAD SOFTWARE ENGINEER) [facility] Method Time Signature Enteric No growth of Salmonella, Shigella, Yersinia, Campyloba cter, 12/19/2018 [facility] Pathogens or Aeromonas. 7:40 AM LEAD SOFTWARE ENGINEER LABORATORIES - Culture, [facility] Specimen Anatomical Collection Method Collection Time Receive d Time (Source) Location / / Volume Laterality Stool (Stool) 12/15/2018 3:30 PM 12/15/19 19 LEAD SOFTWARE ENGINEER 10:20 PM LEAD SOFTWARE ENGINEER Comment: Specimen Source Site: Stool Karel Alvarez M.D. LAB MICROBIOLOGY - [facility] ORDERABLES Performing Organization Address City/State/ZIP Code Phon e Number [facility]ORATORIES - [address] [place], [place] [address] [facility] (ABNORMAL) CBC with Differential, Blood (12/15/2018 10:17 AM LEAD SOFTWARE ENGINEER) [facility] Method Time Signature Hemoglobin 14.0 11.6 - 12/15/2018 [facility] 15.0 g/dL 10:28 AM LEAD SOFTWARE ENGINEER [facility] Hematocrit 43.1 35.5 - 12/15/2018 [facility] 44.9 % 10:28 AM LEAD SOFTWARE ENGINEER [facility] Erythrocytes 4.83 3.92 - 12/15/2018 [facility] 5.13 10:28 AM LEAD SOFTWARE ENGINEER [employer] x10(12)/L SYSTEM[facility] LAB MCV 89.2 78.2 - 12/15/2018 [facility] 97.9 fL 10:28 AM LEAD SOFTWARE ENGINEER [facility] RBC Distrib Width 13.7 12.2 - 12/15/2018 [facility] 16.1 % 10:28 AM [facility]- [employer] [facility] LAB Platelet Count 237 157 - 371 12/15/2018 [facility] x10(9)/L 10:28 AM [facility] LAB Leukocytes 9.7 (H) 3.4 - 9.6 12/15/2018 [facility] x10(9)/L 10:28 AM [facility] LAB Neutrophils 6.65 (H) 1.56 - 12/15/2018 [facility] 6.45 10:28 AM [facility] x[facility]- [employer] [facility] LAB Lymphocytes 2.01 0.95 - 12/15/2018 [facility] 3.07 10:28 AM [facility] x[facility](9)/L SYSTEM- [employer] [facility] LAB Monocytes 0.62 0.26 - 12/15/2018 [facility] 0.81 10:28 AM [facility] x[facility](9[facility]L SYSTEM- [employer] [facility] LAB Eosinophils 0.41 0.03 - 12/15/2018 [facility] 0.48 10:28 AM [facility] x[facility](9)/L SYSTEM- [employer] [facility] LAB Basophils 0.02 0.01 - 12/15/2018 [facility] 0.08 10:28 AM [facility] x[facility](9)/L SYSTEM- [facility] [facility] LAB Specimen Anatomical Collection Method Collection Time Receive d Time (Source) Location / / Volume Laterality Blood (Blood, 12/15/2018 10:17 12/15/2018 Venous) AM LEAD SOFTWARE ENGINEER 10:19 AM LEAD SOFTWARE ENGINEER Karel Alvarez M.D. LAB BLOOD ADD-ON Performing Organization Address City/State/ZIP Code Phon e Number [facility] [address] [facility] [place] [address] LAB Basic Metabolic Panel (12/15/2018 10:17 AM LEAD SOFTWARE ENGINEER) P athologist Signature Potassium, S 4.2 3.6 - 5.2 12/15/2018 [facility] mmol/L 2:50 PM [facility] Sodium, S 142 135 - 145 12/15/2018 [facility] mmol/L 2:50 PM [facility] [facility] Chloride, S 106 98 - 107 12/15/2018 [facility] mmol/L 2:50 PM [facility] [place] [facility] Bicarbonate, S 26 22 - 29 12/15/2018 [facility] mmol/L 2:50 PM [facility] [place] [facility] Anion Gap 10 7 - 15 12/15/2018 [facility] 2:50 PM [facility] [place] [facility] BUN (Blood Urea 10 6 - 21 12/15/2018 [facility] Nitrogen), S mg/dL 2:50 PM [facility] [place] [facility] Creatinine 0.86 0.59 - 12/15/2018 [facility] 1.04 mg/dL 2:50 PM [facility] [place] [facility] eGFR-Non 81 >=60 12/15/2018 [facility] Black/ mL/min/BSA 2:50 PM [facility] [employer] [place] [facility] Comment: ----ADDITIONAL INFORMATION---- Estimated GFR calculated using the 2009 CKD_EPI creatinine equation. eGFR-Black/ >90 >=60 mL/min/BSA 2018 2:50 PM [facility] [place] [facility] Comment: ----ADDITIONAL INFORMATION---- Estimated GFR calculated using the 2009 CKD_EPI creatinine equation. Calcium, Total, S 9.4 8.6 - 10.0 mg/dL 12/15/2018 2 :50 PM [facility] Glucose, S 105 70 - 140 mg/dL 12/15/2018 2:50 PM [facility] [place] [facility] Specimen Anatomical Collection Method Collection Time Receive d Time (Source) Location / / Volume Laterality Blood (Blood, 12/15/2018 10:17 12/15/2018 1:13 Venous) AM LEAD SOFTWARE ENGINEER PM LEAD SOFTWARE ENGINEER Karel Alvarez M.D. LAB BLOOD ADD-ON Performing Organization Address City/State/ZIP Code Phon e Number [facility] [address] [place] [address] LAB documented in this encounter Visit Diagnoses Diagnosis Gastroenteritis - Primary documented in this encounter Care Teams Radiology Specialist Relationship Specialty Start Date End Date Odalys Contreras, LOAN DOCUMENTS CLOSER, C.N.P. PCP - General 04/21/17 01/15/[address] [place] [address] documented as of this encounter
--- OUTSIDE RECORDS SUMMARY | 2022-06-29 19:17 | XMS_ITS | Encounter Summary ---
:1970 Author Organization [facility] Address [address] [place] [address] Care Team Providers Name Role Phone Odalys Contreras APRN, C.N.P. Primary Care Provider [phone] Encounter Details Date Type Department Care Team Description 09/18/2018 Hospital Encounter Department of Odalys Contreras Mammogram Radiology in LAKHWINDER Burton, C.N.P. Average Risk Patient [place], [place] [address] [place] [phone] Social History Tobacco Use Types Packs/Day [...] or relatives? How often do you attend confucianist or congregational More than 4 time s per year 12/25/2021 services? Do you belong to any clubs or organizations Yes 12/25/2021 such as confucianist groups, unions, fraternal or athletic groups, or [...] at Date Recorded Female 12/02/2017 9:31 AM TRAINING AND DEVELOPMENT MANAGER documented as of this encounter Medications [...] Family Medicine Karel Gill M.B.B ChuckySChucky, MRadha [address] [place] [phone] (Wo rk) documented as of this encounter Procedures Procedure Name Priority Date/Time Associated Comments Diagnosis BI BREAST RAD - Routine 09/18/2018 1:11 Screening Results for this SCREENING (most inpatients PM TRAINING AND DEVELOPMENT MANAGER Mammogram Average proced ure are in BILATERAL and all Risk Patient the results outpatients) section. documented in this encounter Results BI Breast Screening Bilateral (09/18/2018 1:11 PM TRAINING AND DEVELOPMENT MANAGER) Anatomical Region Laterality Modality Breast, Breast Imaging RST LOS, Breast Imaging ARZ LOS, [address] Bilateral Mammography Imaging FLA LOS Specimen (Source) Anatomical Collection Method Collection Time Re ceived Time Location / / Volume Laterality 09/18/2018 1:44 PM TRAINING AND DEVELOPMENT MANAGER Impressions 09/18/2018 1:45 PM TRAINING AND DEVELOPMENT MANAGER IMPRESSION: ??Negative. RECOMMENDATION: ??Annual Screening Mammo gram ASSESSMENT: ??BI-RADS: 1: Negative. Narrative 09/18/2018 1:45 PM TRAINING AND DEVELOPMENT MANAGER EXAM: ??BI BREAST SCREENING BILATERAL Current study was evaluated with a Compu ter Aided Detection (CAD) system. INDICATION: ??Screening mammogram. COMPARISON: ??Prior exam(s) were availab le and reviewed for comparison. DENSITY: ??c. The breast(s) are heteroge neously dense, which may obscure small masses. FINDINGS: ??No mammographic findings of malignancy. Procedure Note Jordan Castro M.D. - 09/18/2018Forma tting of this note might be different from the original. EXAM: BI BREAST SCREENING BILATERAL Current study was evaluated with a ViFluxu ter Aided Detection (CAD) system. INDICATION: Screening mammogram. COMPARISON: Prior exam(s) were available and reviewed for comparison. DENSITY: c. The breast(s) are heterogene ously dense, which may obscure small masses. FINDINGS: No mammographic findings of ma lignancy. IMPRESSION: Negative. RECOMMENDATION: Annual Screening Mammogr am ASSESSMENT: BI-RADS: 1: Negative. Odalys Contreras APRN, C.N.P. IMG BI PROCEDURES documented in this encounter Visit Diagnoses Diagnosis Screening Mammogram Average Risk Patient documented in this encounter Care Teams Prosthetics Lab Technician Relationship Specialty Start Date End Date Odalys Contreras APRN, C.N.P. PCP - General 04/21/17 01/15/21 [address] [address] documented as of this encounter
--- OUTSIDE RECORDS SUMMARY | 2022-06-29 19:17 | XMS_ITS | Encounter Summary ---
:1970 Author Organization [facility] Address [address] [place] [address] Care Team Providers Name Role Phone Odalys Contreras APRN, C.N.P. Primary Care Provider Encounter Details Date Type Department Care Team Description 12/29/2018 Orders Only Department of Family Crystal Beltran M.D. Medicine, [facility], [address] [place] [address] [address] [place] [address] [phone] Social History Tobacco Use Types Packs/Day Years [...] How often do you attend presybeterian or druze More than 4 time s per year [...] at Date Recorded Female 12/02/2017 9:31 AM PULMONARY FELLOW documented as of this encounter Plan of Treatment Upcoming Encounters Date Type Specialty Care Team Description 07/16/2022 Office Visit Family Medicine Karel Gill M.B.B .S., M.Be [address] [place] [address] [phone] (Wo rk) documented as of this encounter Visit Diagnoses Not on filedocumented in this encounter Care Teams Horse And Wagon Driver Relationship Specialty Start Date End Date Odalys Contreras, CIVIL ENGINEERING PROFESSIONAL, C.N.P. PCP - General 04/21/17 01/15/21 [address], [place] [address] documented as of this encounter
--- OUTSIDE RECORDS SUMMARY | 2022-06-29 19:17 | XMS_ITS | Encounter Summary ---
:1970 Author Organization [facility] Address [address] [place] [address] Care Team Providers Name Role Phone Odalys Contreras APRN, C.N.P. Primary Care Provider [phone] Reason for Visit Reason Comments Med Refill Encounter Details Date Type Department Care Team Description 07/18/2018 Refill Department of Family Medicine, Erin Contreras APRN, Med Refill [facility], [place] [address] [place] [address] [place], [place] [address] [phone] Social History Tobacco Use Types Packs/Day Years [...] How often do you attend latter-day or mosque More than 4 time s [...] at Date Recorded Female 12/02/2017 9:31 AM HALL TENDER documented as of this encounter Plan of Treatment Upcoming Encounters Date Type Specialty Care Team Description 07/16/2022 Office Visit Family Medicine Karel Gill M.B.B .S., M.DChucky [address] [place] [address] [phone] (Wo rk) documented as of this encounter Visit Diagnoses Diagnosis Asthma Mild Intermittent (HCC) - Primary documented in this encounter Care Teams Electrical And Radio Aircraft Mechanic Relationship Specialty Start Date End Date Odalys Contreras, LAKHWINDER, C.N.P. PCP - General 04/21/17 01/15/[address] [address] documented as of this encounter
--- OUTSIDE RECORDS SUMMARY | 2022-06-29 19:17 | XMS_ITS | Encounter Summary ---
:1970 Author Organization [facility] Address [address] [place] [address] Care Team Providers Name Role Phone Odalys Contreras APRN, C.N.P. Primary Care Provider [phone] Reason for Visit Reason Comments Med Refill Encounter Details Date Type Department Care Team Description 04/14/2018 Refill Department of Family Medicine, Erin Contreras APRN, Med Refill [facility], [place], [place] [address] [place] [address] [place], [place] [address] [phone] Social History Tobacco Use Types Packs/Day Years [...] or relatives? How often do you attend voodoo or jewish More than 4 time s per year 12/25/2021 services? Do you belong to any clubs or organizations Yes 12/25/2021 such as voodoo groups, unions, fraternal or athletic groups, or [...] or slept in a penitentiary (including now)? Sex Assigned at Date Recorded Female 12/02/2017 9:31 AM SENIOR TAX ACCOUNTANT documented as of this encounter Miscellaneous Notes Telephone Encounter - Lynn Arreguin L.P.NChucky - 04/20/2018 11:24 AM CDT Attempted to contact Shanda to complete asthma control test. No return call. Telephone Encounter - Lynn Arreguin L.PChuckyN. - 04/19/2018 11:47 AM CDT Attempted to contact Shanda to do a asthma control test. Message left to return my call. Telephone Encounter - Lynn Arreguin L.P.N. - 04/17/2018 8:50 AM CDT Attempted to contact Shanda. Message left to return my call. documented in this encounter Plan of Treatment Upcoming Encounters Date Type Specialty Care Team Description 07/16/2022 Office Visit Family Medicine WaribKarel cadena M.B.B .S., M.D. [address] [place] [address] [phone] (Wo rk) documented as of this encounter Visit Diagnoses Diagnosis Asthma Mild Intermittent (HCC) - Primary documented in this encounter Care Teams Nonprofit Financial Controller Relationship Specialty Start Date End Date Odalys Contreras, LAKHWINDER, C.N.P. PCP - General 04/21/17 01/15/21 [address], [place] [address] documented as of this encounter
--- OUTSIDE RECORDS SUMMARY | 2022-06-29 19:17 | XMS_ITS | Encounter Summary ---
:1970 Author Organization [facility] Address [address] [place] [address] Care Team Providers Name Role Phone Odalys Contreras APRN CChukcyNChuckyPChucky Primary Care Provider [phone] Reason for Visit Reason Comments Follow-up follow up after Endo with By dari. Done 2 weeks and was seen for results. Continues to have nausea. Wo uld like both ears checked. Painful. Appointment Request (Routine) - Closed Specialty Diagnoses / Procedures Referred By Contact Refer red To Contact Family Medicine Diagnoses PAR [facility] Region Procedures FAM EST LONG Referral ID Status Reason Start Date Expiration Date Visits Requ ested Visits Authorized [id number] Closed 12/29/2017 06/27/2018 1 1 Encounter Details Date Type Department Care Team Description 01/05/2018 [facility] Medicine, [place]ksana elise, [facility], in [place] [address] [place] [address] Social History Tobacco Use Types Packs/Day [...] How often do you attend orthodoxy or orthodoxy More than 4 time s [...] months, you worried that your food Bia baltazar true 12/25/2021 would run out before you [...] at Date Recorded Female 12/02/2017 9:31 AM LINER CHECKER documented as of this encounter Last Filed Vital Signs Vital Sign Reading Time Taken Comments Blood Pressure 118/78 01/05/2018 2:45 PM LINER CHECKER Pulse 64 01/05/2018 2:45 PM LINER CHECKER Temperature 36.5 ??C (97.7 ??F) 01/05/2018 2:45 PM LINER CHECKER Respiratory Rate 16 01/05/2018 2:45 PM LINER CHECKER Oxygen Saturation - - Inhaled Oxygen Concentration - - Weight 125 kg (276 lb 7.3 oz) 01/05/2018 2:45 PM LINER CHECKER Height - - Body Mass Index 51.53 12/02/2017 10:01 AM LINER CHECKER documented in this encounter Progress Notes Oksana Mancera M.D. - 01/05/2018 2:30 PM CST CHIEF COMPLAINT/ REASON FOR VISIT Follow up upper endoscopy. HISTORY OF PRESENT ILLNESS Shanda Masterson is a 47 y.o. female who presents to the clinic today for follow up upper endoscopy. She underwent upper endoscopy 12/19/2017 which was unremarkable. Biopsies were taken which showed some inflammation, but was otherwise normal. He thinks that this may be related to gastroparesis, although he could not make a definitive diagnosis. She saw him on 12/29 and he recommended that she can wait to see if the symptoms resolve over the next couple of weeks, but if they did not, he would suggest a referral to [facility]. She has been taking Zofran three times daily, which has allowed her to eat, but she is still not eating very much. The nausea and vomiting started in November. She initially thought she had the stomach flu because she also had body aches and chills. The nausea and vomiting neverresolved. She is not vomiting as often as she was previously. If she eats more than she knows she should at this point, she will vomit. This discomfort is similar to when she had her gallbladder issues. She does have a rash, which she has had a couple times over the few palafox. She has been following with dermatology and has been on tacrolimus, but this has not been helpful. She states that the rash is itchy. The patient denies any additional questions or concerns at this time. SYSTEMS REVIEW Please see HPI for pertinent positives, otherwise rest of ROS negative. MEDICATIONS Current Outpatient Prescriptions Medication Sig Dispense Refill ??? albuterol (for_ACCUNEB) 2.5 mg /3 mL nebulizer solution Take 3 mL by nebulization 4 (four) timesa day as needed. ??? albuterol (VENTOLIN HFA) 90 mcg/actuation inhaler Inhale 2 puffs every 4 (four) hours as needed. ??? fluticasone-salmeterol (for_ADVAIR DISKUS) 100-50 mcg/actuation diskus inhaler Inhale 1 puff 2 (two) times a day. ??? ondansetron ODT (for_ZOFRAN-ODT) 4 mg disintegrating tablet Take 1 tablet (4 mg total) by mouth every 8 (eight) hours as needed for nausea or vomiting. 90 tablet 3 ??? tacrolimus (for_PROTOPIC) 0.1 % ointment Apply topically daily. ??? triamterene-hydroCHLOROthiazide (for_MAXZIDE-25) 37.5-25 mg per tablet Take 1 tablet by mouth daily. ??? pantoprazole (for_PROTONIX) 40 mg EC tablet Take 1 tablet (40 mg total) by mouth daily. (Patientnot taking: Reported on 01/05/2018 ) 30 tablet 0 No current facility-administered medications for this visit. ALLERGIES Allergies Allergen Reactions ??? Latex Rash ??? Valsartan Other (see comments) and Anaphylaxis Unknown - patient unable to provide information ??? Bupropion Rash Wellbutrin ??? Magnesium Sulfate Anaphylaxis Throat closing PAST MEDICAL / SURGICAL HISTORY Past Medical History: Diagnosis Date ??? [...] KNEE Left with cadevar material PREVENTIVE SERVICES Social History Substance Use Topics ??? Smoking status: Current Every Day Smoker Types: Cigarettes ??? Smokeless tobacco: Never Used ??? Alcohol use 0.6 oz/week 1 Glasses of wine per week VITAL SIGNS BP 118/78 (BP Location: Left arm, Patient Position: Sitting, Cuff Size: Large) Pulse 64 Temp 36.5 ??C (Temporal) Resp 16 Wt 125.4 kg BMI 51.53 kg/m?? PHYSICAL EXAMINATION General: Patient is alert and oriented times three, in no acute distress, good hygiene and is dressed appropriately. Heart: Regular rate and rhythm without murmur. Lungs: Clear to auscultation. Abdomen: Soft with no masses. Mild tenderness in the epigastrim. Extremities: Within normal limits. Skin: No suspicious lesions noted on exposed skin. There is extensive areas of lichenification and excoriations in patches on her trunk and extremities. DIAGNOSTICS CBC, CMP, lipase, and thyroid function cascade are ordered today with results pending. ASSESSMENT / PLAN #1 Nausea And Vomiting #2 Nausea Patient still experiencing nausea and vomiting. Per general surgery recommendation, will refer her to [facility] for further evaluation. The above labs are ordered with results pending. I did renew her Zofran today. Follow up The patient will contact the clinic with any new or worsening symptoms. This document serves as a record of services personally performed by Oksana Sams MD. It was created on their behalf by Ani Patterson, a trained biomedical electronics technician. The creation of this record is based on the scribe's personal observations and the provider's statements to them. This document has been ch ecked and approved by the attending provider. documented in this encounter Plan of Treatment Upcoming Encounters Date Type Specialty Care Team Description 07/16/2022 Office Visit Family Medicine Karel Gill M.B.B .S., M.D. [address] [place] [phone] (Wo rk) documented as of this encounter Procedures Procedure Name Priority Date/Time Associated Comments Diagnosis THYROID FUNCTION Routine 01/05/2018 3:36 PM Nausea And V omiting Results for this CASCADE, S LINER CHECKER Nausea procedure are i n the results section. CBC WITH DIFFERENTIAL, Routine 01/05/2018 3:36 PM Nausea And Vomiting Results for this B LINER CHECKER Nausea procedure are i n the results section. LIPASE, S/P Routine 01/05/2018 3:36 PM Nausea And Vo miting Results for this LINER CHECKER Nausea procedure are i n the results section. COMPREHENSIVE Routine 01/05/2018 3:36 PM Nausea And Vo miting Results for this METABOLIC PANEL, S/P LINER CHECKER Nausea procedu re are in the results section. documented in this encounter Results Lipase (01/05/2018 3:36 PM LINER CHECKER) athologist Signature Lipase, S 37 13 - 60 U/L 01/05/2018 [facility] 6:[address] [facility] [employer]- [employer] LAB Specimen Anatomical Collection Method Collection Time Receive d Time (Source) Location / / Volume Laterality Blood (Blood, 01/05/2018 3:36 PM 01/06/20 18 5:59 Venous) LINER CHECKER PM LINER CHECKER Oksana Mancera M.D. LAB BLOOD ADD-ON Performing Organization Address City/State/ZIP Code Phon e Number [facility] [address] [place] [address] LAB CMP (Comprehensive Metabolic Panel) (01/05/2018 3:36 PM LINER CHECKER) athologist Signature Potassium, S 4.2 3.6 - 5.2 01/05/2018 [facility] mmol/L 6:30 PM [email or web address] Sodium, S 143 135 - 145 01/05/2018 [facility] mmol/L 6:30 PM [facility] LAB Chloride, S 104 98 - 107 01/05/2018 [facility] mmol/L 6:30 PM [email or web address] LAB Bicarbonate, S 26 22 - 29 01/05/2018 [facility] mmol/L 6:30 PM [facility] Anion Gap 13 7 - 15 01/05/2018 [facility] 6:30 PM [facility] BUN (Blood Urea 8 6 - 21 01/05/2018 [facility] Nitrogen), S mg/dL 6:30 PM [facility] Creatinine 0.62 0.59 - 01/05/2018 [facility] 1.04 mg/dL 6:30 PM [facility] LAB eGFR >90 >=60 01/05/2018 [facility] Non-Black/Afric mL/min/BSA 6:30 PM [facility] [employer] [facility] EM- an [place] [facility] LAB Comment: ----ADDITIONAL INFORMATION---- Estimated GFR calculated using the 2009 CKD_EPI creatinine equation. eGFR Black/ >90 >=60 mL/min/BSA 01/05/2018 6:30 PM [facility] [place] [facility] SYSTEM- [facility] [facility] LAB Comment: ----ADDITIONAL INFORMATION---- Estimated GFR calculated using the 2009 CKD_EPI creatinine equation. Calcium, Total, S 9.3 8.9 - 10.1 01/05/2018 6:30 PM [facility] mg/dL [facility] Glucose, S 96 70 - 140 mg/dL 01/05/2018 6:30 PM [facility] Protein, Total, S 7.2 6.3 - 7.9 g/dL 01/05/2018 6:30 P M [facility] Albumin, S 4.2 3.5 - 5.0 g/dL 01/05/2018 6:30 PM [facility] Aspartate Aminotransferase 23 8 - 43 U/L 01/05/2018 6 :30 PM [facility] S [facility] Alkaline Phosphatase, S 70 39 - 100 U/L 01/05/2018 6: 30 PM [facility] Alanine Aminotransferase 28 7 - 45 U/L 01/05/2018 6:3 0 PM [facility] Bilirubin, Total, S 0.2 <=1.2 mg/dL 01/05/2018 6:30 PM [facility] Specimen Anatomical Collection Method Collection Time Receive d Time (Source) Location / / Volume Laterality Blood (Blood, 01/05/2018 3:36 PM 01/06/20 18 5:59 Venous) LINER CHECKER PM LINER CHECKER Oksana Mancera M.D. LAB BLOOD ADD-ON Performing Organization Address City/State/ZIP Code Phon e Number [facility] [address] [place] [address] LAB Thyroid Function [place] (01/05/2018 3:36 PM LINER CHECKER) athologist Signature TSH, Sensitive 1.8 0.3 - 4.2 01/05/2018 [facility] mIU/L 6:30 PM [facility] Comment: Biotin has been identified by the jessica gastelum as a potential interfering substance. ??Higher concentr ations of biotin may be found in multivitamins, hair/nail supple ments, and workout supplements. ??If the result does not ma [facility] clinical observations, repeat testing after patient refrains fr om the use of supplements for at least 12 hours. Specimen Anatomical Collection Method Collection Time Receive d Time (Source) Location / / Volume Laterality Blood (Blood, 01/05/2018 3:36 PM 01/06/20 18 5:59 Venous) LINER CHECKER PM LINER CHECKER Oksana Mancera M.D. LAB BLOOD ADD-ON Performing Organization Address City/State/ZIP Code Phon e Number [employer] [address] [place] [address] LAB (ABNORMAL) CBC with Differential (01/05/2018 3:36 PM LINER CHECKER) [facility] Method Time Signature Hemoglobin 13.3 11.6 - 01/05/2018 [facility] 15.0 g/dL 3:51 PM [facility] [employer] LAB Hematocrit 40.6 35.5 - 01/05/2018 [facility] 44.9 % 3:51 PM [facility] ([employer]) LAB Erythrocytes 4.53 3.92 - 01/05/2018 [facility] 5.13 3:51 PM [facility] HEALTH x10(12)/L [facility] ([employer] LAB MCV 89.6 78.2 - 01/05/2018 [facility] 97.9 fL 3:51 PM [facility] RBC Distrib Width 14.4 12.2 - 01/05/2018 [facility] 16.1 % 3:51 PM [facility] Platelet Count 241 157 - 371 01/05/2018 [facility] x10(9)/L 3:51 PM [facility] Leukocytes 11.0 (H) 3.4 - 9.6 01/05/2018 [facility] x10(9)/L 3:51 PM [facility] Neutrophils 7.04 (H) 1.56 - 01/05/2018 [facility] 6.45 3:51 PM LINER CHECKER HEALTH x10(9)/L SYSTEM- [facility] LabIBAT[facility] LAB Lymphocytes 2.68 0.95 - 01/05/2018 [facility] 3.07 3:51 PM [facility] HEALTH x10(9)/L SYSTEM- [facility] LAB Monocytes 0.68 0.26 - 01/05/2018 [facility] 0.81 3:51 PM LINER CHECKER HEALTH x10(9)/L SYSTEM- [place] [facility] Eosinophils 0.61 (H) 0.03 - 01/05/2018 [facility] 0.48 3:51 PM LINER CHECKER HEALTH x10(9)/L SYSTEM- [place] [facility] Basophils 0.02 0.01 - 01/05/2018 [facility] 0.08 3:51 PM LINER CHECKER HEALTH x10(9)/L SYSTEM- [place] [facility] Specimen Anatomical Collection Method Collection Time Receive d Time (Source) Location / / Volume Laterality Blood (Blood, 01/05/2018 3:36 PM 01/06/20 18 3:37 Venous) LINER CHECKER PM LINER CHECKER Oksana Mancera M.D. LAB BLOOD ADD-ON Performing Organization Address City/State/ZIP Code Phon e Number [facility] [address] [place] [address] [place] [facility]- [address] [place] [address] [facility] documented in this encounter Visit Diagnoses Diagnosis Nausea - Primary Nausea And Vomiting documented in this encounter Care Teams Cloth Handler Relationship Specialty Start Date End Date Odalys Contreras, THEATRE PROGRAM DIRECTOR, C.N.P. PCP - General 04/21/17 01/15/21 [address] [place] [address] documented as of this encounter
--- OUTSIDE RECORDS SUMMARY | 2022-06-29 19:17 | XMS_ITS | Encounter Summary ---
:1970 Author Organization [facility] Address [address] [place] [address] Care Team Providers Name Role Phone Odalys Contreras APRN, C.N.P. Primary Care Provider Encounter Details Date Type Department Care Team Description 09/18/2018 Clinical Communication Department of [facility] Micheal Arreguin [facility], LChuckyPKamer[facility], [facility] [address] [place], [place] [address] [facility] [address] [place], [place] [phone] [address] (Work) [phone] Social History Tobacco Use Types Packs/Day Years [...] How often do you attend bahai or episcopalian More than 4 time s per year [...] slept in a senior care (including now)? Sex Assigned at Date Recorded Female 12/02/2017 9:31 AM CLOTH FINISHER documented as of this encounter Plan of Treatment Upcoming Encounters Date Type Specialty Care Team Description 07/16/2022 Office Visit Family Medicine Karel Gill M.B.B .S., M.Be [address] [place] [address] [phone] (Wo rk) documented as of this encounter Visit Diagnoses Not on filedocumented in this encounter Care Teams Injection Molding Supervisor Relationship Specialty Start Date End Date Odalys Contreras, SULFATE DRIER MACHINE OPERATOR, C.N.P. PCP - General 04/21/17 01/15/[address] [phone] documented as of this encounter
--- OUTSIDE RECORDS SUMMARY | 2022-06-29 19:17 | XMS_ITS | Encounter Summary ---
:1970 Author Organization [facility] Address [address] [place] [address] Care Team Providers Name Role Phone Odalys Contreras APRN, C.NChuckyPChucky Primary Care Provider [phone] Reason for Visit Reason Comments Asthma Encounter Details Date Type Department Care Team Description 04/17/2018 Documentation Department of [facility] Lynn Arreguin, Asthma Medicine, [facility], in [facility] [address] [address] [place] [address] [phone] Social History Tobacco Use Types Packs/Day Years [...] How often do you attend anabaptist or druze More than 4 time s [...] at Date Recorded Female 12/02/2017 9:31 AM PHOTOVOLTAIC PANEL INSTALLER documented as of this encounter Progress Notes Lynn Arreguin L.P.N. - 04/17/2018 8:24 AM CDT . documented in this encounter Plan of Treatment Upcoming Encounters Date Type Specialty Care Team Description 07/16/2022 Office Visit Family Medicine Karel Gill M.B.B .S., MAllegra. [address] [place] [phone] (Wo rk) documented as of this encounter Visit Diagnoses Not on filedocumented in this encounter Care Teams Blanket Winder Operator Relationship Specialty Start Date End Date Odalys Contreras, LAKHWINDER, C.N.P. PCP - General 04/21/17 01/15/[address] [address] documented as of this encounter
--- OUTSIDE RECORDS SUMMARY | 2022-06-29 19:17 | XMS_ITS | Encounter Summary ---
:1970 Author Organization [facility] Address [address] [place] [address] Care Team Providers Name Role Phone Odalys Contreras APRN C.N.P. Primary Care Provider [phone] Reason for Visit Reason Comments Rash eczema hands and arms and sp ot on right side face had for acouple of months Raised Encounter Details Date Type Department Care Team Description 03/24/2018 Office Visit Department of Laly Benson, Eczema Dyshidr otic (Primary Dx); Dermatology in [place] [facility], [place], [place] M.S.N. [address] [place] [address] [place], [place] [phone] [address] Social History Tobacco Use Types Packs/Day [...] How often do you attend buddhism or mormonism More than 4 time s [...] at Date Recorded Female 12/02/2017 9:31 AM CASH APPLICATIONS ANALYST documented as of this encounter Progress Notes Laly Benson APRN, C.N.P., M.S.N. - 03/24/2018 1:30 PM CDT SUBJECTIVE CHIEF COMPLAINT / REASON FOR VISIT Shanda Masterson is a 47 y.o. female who presents for evaluation of Rash (eczema hands and arms and spot on right side face had for acouple of months Raised). HISTORY OF PRESENT ILLNESS Patient presents for evaluation of hand rash and a new lesion on her right cheek for the past 3 months. She was seen recently in family medicine, she was diagnosed with atopic dermatitis on the body and hands. She was given a prescription for Lidex which she used on her torso. This significantly improved her symptoms, however the triamcinolone that she was given for hands has not completely cleared her hand dermatitis. She does feel that it has improved overall, she continues to have scaling and itching of the bilateral hands. She has a longstanding history of eczema, she also has a history of asthma that is well controlled. She denies any new exposures or contacts, she is otherwise in her routinestate of health. The following portions of the patient's history were reviewed and updated as appropriate: allergies,current medications, family history, medical history, social history, surgical history and problem list. REVIEW OF SYSTEMS Constitutional, integumentary, and allergic/immunologic review of systems is negative except as otherwise remarked above or below. OBJECTIVE PHYSICAL EXAM General: Well-appearing female in no acute distress. Well groomed and dressed and answers appropriately to questions. Skin: I have examined the face, upper chest, and bilateral hands on the right cheek there is a 6 mm flesh-colored papule consistent with an intradermal nevus. There is moderate scaling and erythema of the bilateral dorsal hands and digits. No nail changes. ASSESSMENT / PLAN #1 Eczema Dyshidrotic We discussed sensitive skin care, advised patient to avoid topical irritants including excess hand washing. We discussed the importance of moisturizers, patient will apply Lidex cream under occlusion for 1 hour twice daily until the these areas improve. She will then continue with maintenance 3 times per week. Patient will follow up with any new or worsening symptoms. #2 Nevus Reassured patient of this appears to be benign in nature, advised to continue monitoring for any worrisome features. PATIENT EDUCATION Ready to learn, no apparent learning barriers were identified; learning preferences include listening. Explained diagnosis and treatment plan; patient expressed understanding of the content. documented in this encounter Plan of Treatment Upcoming Encounters Date Type Specialty Care Team Description 07/16/2022 Office Visit Family Medicine Karel Gill M.B.B .S., M.DChucky [address] [place] [address] [phone] ( rk) documented as of this encounter Visit Diagnoses Diagnosis Eczema Dyshidrotic - Primary Nevus documented in this encounter Care Teams Model Maker Apprentice Relationship Specialty Start Date End Date Odalys Contreras APRN, C.N.P. PCP - General 04/21/17 01/15/21 [address], [place] [address] documented as of this encounter
--- OUTSIDE RECORDS SUMMARY | 2022-06-29 19:17 | XMS_ITS | Encounter Summary ---
:1970 Author Organization [facility] Address [address] [place] [address] Care Team Providers Name Role Phone Odalys Contreras APRN, C.N.P. Primary Care Provider [phone] Encounter Details Date Type Department Care Team Description 12/26/2018 Orders Only Department of Family Odalys Contreras APR N, Medicine, [facility], C.N. P. in [facility] [address] [place] [id number] [place], [place] [phone] Social History Tobacco Use Types Packs/Day Years [...] How often do you attend uatsdin or judaism More than 4 time s [...] [facility] [place] [facility] ([facility])? Sex Assigned at Date Recorded Female 12/02/2017 9:31 AM FINANCIAL SERVICE REP documented as of this encounter Plan of Treatment Upcoming Encounters Date Type Specialty Care Team Description 07/16/2022 Office Visit Family Medicine Karel Gill M.B.B .S., Emmanuelle [address] [place] [address] [phone] (Wo rk) documented as of this encounter Visit Diagnoses Not on filedocumented in this encounter Care Teams Tack Cutter Relationship Specialty Start Date End Date Odalys Contreras, ALTERATION INSPECTOR, C.N.P. PCP - General 04/21/17 01/15/[address] [phone] documented as of this encounter
--- OUTSIDE RECORDS SUMMARY | 2022-06-29 19:17 | XMS_ITS | Encounter Summary ---
:1970 Author Organization [facility] Address [address] [place] [address] Care Team Providers Name Role Phone Odalys Contreras APRN, C.N.P. Primary Care Provider [phone] Reason for Visit Reason Comments Headache for 3 days, blood vessel bur st in her right eye. feeling of being off, Balance 2 to 3 times daily l ast for seconds. Appointment Request (Routine) - Closed Specialty Diagnoses / Procedures Referred By Contact Refer red To Contact Family Medicine Referral ID Status Reason Start Date Expiration Date Visits Requ ested Visits Authorized [id number] Closed 04/09/2019 04/08/2020 1 1 Encounter Details Date Type Department Care Team Description 04/09/2019 Office Visit Department of Family Amber Contreras APRN, C.N.P. [address] [place] [address] Hypertension Essential Medicine, [place] Karel Gill M.B.B.S., M.Be [address] [place] [address] Primary (Primary Dx) Clinic, in [place], [place] [address] [place] [address] Social History Tobacco Use Types [...] How often do you attend sikh or church More than 4 time s [...] or slept in a assisted (including now)? 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 female who presents for evaluation of Headache (for 3 days, blood vessel burst in her right eye. feeling of being off, Balance 2 to 3 times daily last for seconds.). HISTORY OF PRESENT ILLNESS Pleasant 48-year-old female with a history of hypertension and seasonal allergies. Patient is here with blood in her right eye. She denies any vision changes. She has had no double vision. She denies any loss in vision. Patient admits allergy symptoms like itchy eyes and sneezing. She also been coughing. She has been treating her symptoms with antihistamines and intranasal steroids. Patient's blood pressure is poorly controlled. She claims compliance with her blood pressure medication. She denies any focal weakness, trouble swallowing or speaking. She has had no chest pain, diaphoresis or shortness of breath. The following portions of the patient's history were reviewed and updated as appropriate: allergies,current medications, family history, medical history, social history, surgical history and problem list. REVIEW OF SYSTEMS Pertinent items are noted in HPI. OBJECTIVE BP (!) 158/98 (BP Location: Left arm, Patient Position: Sitting, Cuff Size: Large) Pulse 80 Temp37.2 ??C Resp 16 Wt 117 kg BMI 48.78 kg/m?? PHYSICAL EXAM General Appearance: healthy, alert, no distress, cooperative. Skin: skin color, texture, turgor normal, no suspicious rashes or lesions. Head: normocephalic, no masses, lesions, tenderness or abnormalities. Eyes: Anicteric sclera. Pupils are equally round and reactive to light. Extraocular movements are intact. , subconjunctival hemorrhage noted on the right eye. Lungs: clear to auscultation, no wheezing or rhonchi. Heart: RRR without murmur, gallop, or rubs. Musculoskeletal: Range of motion normal in hips, knees, shoulders, and spine, No joint swelling, deformity, or tenderness. Neurologic: Gait normal. Reflexes normal and symmetric. Sensation grossly intact.. ASSESSMENT / PLAN #1 Hypertension Essential Primary Patient is on triamterene and hydrochlorothiazide. Blood pressure control is still poor. Will start her on lisinopril 5 mg daily. She will follow up with her PCP for further evaluation in 2-4 weeks. documented in this encounter Plan of Treatment Upcoming Encounters Date Type Specialty Care Team Description 07/16/2022 Office Visit Family Medicine Karel Gill M.B.B .S., M.D. [address] [place] [address] [phone] (Wo rk) documented as of this encounter Visit Diagnoses Diagnosis Hypertension Essential Primary - Primary documented in this encounter Care Teams Building Construction Inspector Relationship Specialty Start Date End Date Odalys Contreras, LAKHWINDER, C.N.P. PCP - General 04/21/17 01/15/21 [address], [place] [address] documented as of this encounter
--- OUTSIDE RECORDS SUMMARY | 2022-06-29 19:18 | XMS_ITS | Encounter Summary ---
:1970 Author Organization [facility] Address [address] [place] [address] Care Team Providers Name Role Phone Axel Lopez APRN, C.NChip Primary Care Provider [phone] Encounter Details Date Type Department Care Team Description 05/03/2017 Hospital Encounter [facility] [place] [address] [place], [address] [phone] (Wo rk) Social History Tobacco Use Types Packs/Day Years Used Date Smoking Tobacco: Former Alcohol Habits Answer Date Recorded How often [...] How often do you attend orthodox or baptist More than 4 time s [...] at Date Recorded Female 12/02/2017 9:31 AM [place] documented as of this encounter Last Filed Vital Signs Vital Sign Reading Time Taken Comments Blood Pressure 164/109 05/03/2017 10:43 AM CDT Pulse 93 05/03/2017 10:43 AM CDT Temperature - - Respiratory Rate - - Oxygen Saturation - - Inhaled Oxygen Concentration - - Weight 131 kg (288 lb 9.3 oz) 05/03/2017 10:43 AM CDT Height 156 cm (5' 1.42) 05/03/2017 10:43 AM CDT Body Mass Index 53.79 05/03/2017 10:43 AM CDT documented in this encounter Medications at Time of Discharge Medication Sig Dispensed Refills Start Date End Date albuterol Take 3 mL by 0 12/07/2016 07/18/2018 (for_ACCUNEB) 2.5 mg nebulization 4 (four) /3 mL nebulizer times a day as needed. solution albuterol (VENTOLIN Inhale 2 puffs every 4 0 11/0904/14/2018 HFA) 90 mcg/actuation (four) hours as needed. inhaler butalbital-acetaminoph Take 1 tablet by mouth. 0 05/19/2016 05/01/2021 en-caff (FIORICET, ESGIC) 50-325-40 mg per tablet clobetasol Apply 1 application 0 01/07/201612/12 (for_TEMOVATE) 0.05 % topically 2 (two) times ointment a day as needed. fluticasone-salmeterol Inhale 1 puff 2 (two) 0 03/14/2018 (for_ADVAIR DISKUS) times a day. 100-50 mcg/actuation diskus inhaler LORazepam (ATIVAN) 0.5 Take 1 tablet by mouth 0 0 01/07/2016 12/12/2017 mg tablet 3 (three) times a day as needed. LORazepam (ATIVAN) 0.5 Take 0.5 mg by mouth. 0 04/09/2019 mg tablet tacrolimus Apply topically daily. 0 05/31/2016 (for_PROTOPIC) 0.1 % ointment triamterene-hydroCHLOR Take 1 capsule by 0 201505/21/2019 Othiazide (DYAZIDE) mouth. 37.5-25 mg per capsule triamterene-hydroCHLOR Take 1 tablet by mouth 0 0 12/07/2016 08/12/2018 Othiazide daily. (for_MAXZIDE-25) 37.5-25 mg per tablet documented as of this encounter Progress Notes [place] - 05/03/2017 10:35 AM CDT [id number] CHIEF COMPLAINT/REASON FOR VISIT Dizziness. HISTORY OF PRESENT ILLNESS Jessie is a 46-year-old female who [facility]. For 1 week she reports she has been feeling unwell, fatigued, nauseous. She reports some dizziness that she describes as lightheadedness, a spinning sensation that lasts for 10 minutes at a time. It seems to be provoked when she sitsup, but she denies any provocation with turning her head. She reports she feels like her vision is alittle blurry, but denies any gaps in her vision, scotomas or wavy lines. No flashing lights or floaters. She reports she has had a little bit of a frontal headache as well, but it is not as severe as the migraines she gets. She reports she has had increased thirst and increased urination. She reportsshe had some pain with urination at the beginning of the week. That has subsided. She denies any blood in her urine. No vomiting, no fevers or chills. Her last menstrual period was March 29. She reports she was supposed to get her period 3 weeks ago and has not, but other than this episode of amenorrhea, she has not had any issues with having abnormal cycles. She reports she has kind of felt like shehas had some hot flashes. She does take high blood pressure medication for hypertension, but she hasnot taken it over the last 2 days. Denies any facial numbness or weakness in her lower or upper extremities. She has not gained or lost any weight. She denies any cold intolerance. Patient is concerned she may be developing diabetes as her is diabetic. She checked her blood sugars at home and yesterday it was 156. VITAL SIGNS Temperature 36.9, heart rate 93, blood pressure 164/109. PHYSICAL EXAMINATION GENERAL: Alert and oriented x3. No distress. Nontoxic appearing. HEENT: Eyes nonicteric. Noninjected. No discharge. PERRLA noted with good ocular range of motion. Nonystagmus. Head thrust test negative for nystagmus or dizziness. LUNGS: Bilateral breath sounds clear to auscultation. No wheezing, rhonchi, or rales. HEART: Regular rate and rhythm. 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 Good shoulder shrug. No tongue deviation. Good symmetry of the facial expressions. No lid lag or facial droop. Lower extremities has 5/5 strength dorsiflexion, plantar flexion of her feet, flexion and extension of knees, abduction and adduction of her thighsequally. Bilateral reflexes are mildly hyporeflexic bilaterally. ALLERGIES Diovan, magnesium sulfate. DIAGNOSTICS LABORATORIES: Sedimentation rate 19. BMP: Sodium 137, potassium 4.0, chloride 100, CO2 of 24, anion gap 15, glucose 108, creatinine 0.69, BUN 12, calcium 9.4. UA: Cloudy, small leukocyte esterase, bacteria present. Beta HCG urine negative. IMPRESSION/REPORT/PLAN 1. Possible urinary tract infection. Patient has a possible urinary tract infection that may be causing her symptoms. I am going to treather with Macrobid 2 times a day for 7 days. 2. Amenorrhea. Did a urine test. It was negative. I am going to check a thyroid test given her fatigue and lightheadedness to rule hypo or hyperthyroidism out. However, this could possibly be related to a urinary tract infection. Discussed if her symptoms do not improve, I recommend she follow up with her primary doctor. No neural focal deficits and otherwise her exam was normal. High Blood Pressure Strongly recommended to continue to take her HTN medication. I suspect that ehr blood pressure is elevated to due non complaince for the last 2 days days. [place] P[facility]./wilfrido Electronically Signed By: [place] PA-C On: 05/03/2017 04:23 PM Modified by and Electronically Signed by: [place] PA-C On: 05/03/2017 04:23 PM Source: [facility] MHSDOLBEYNONRADSYGarrett Document Id: [id number] documented in this encounter Miscellaneous Notes Miscellaneous - [place] - 05/05/2017 11:59 AM CDT Normal Results Letter May 05, 2017 JESSIE MCGEE [address] [place] [id number] Dear JESSIE MCGEE, I am pleased to report that your results from the following diagnostic test(s) are normal. Please follow up with us as we discussed during your visit or sooner if you have any concerns. If you have questions or concerns, please do not hesitate to call our office. Would you like to see your lab results quickly? If you have an e-mail account, join the other [phone],000 [facility] patients who use the Patient Online Services to conveniently access their lab results by calling [phone] to sign up for an account. It just takes a few minutes! Result Name Current Result Culture Urine Review 05/03/2017 Sincerely, [place] [address] [place] [id number] Electronic Signature Electronically Signed By: [place] PA-C On: May 05, 2017 This document has images extracted. Source: [facility] POWERCHART Document Id: [id number] Electronically signed by Celestina [facility] Hospital[facility]rett Rush [id number] at 05/12/2017 6:30 AM CDT Miscellaneous - [place] - 05/03/2017 2:55 PM CDT Ambulatory Patient Summary [facility] [address], [place] [id number] Visit Information Name: JESSIE MCGEE [facility] Number: [id number] Current Date: 05/03/2017 14:55:35 Physicians Attending Provider: [place] PA-C Primary Care Provider: AXEL LOPEZ APRN HIGHWAY PAINTER HELPER JESSIE MCGEE has been given the following list of follow-up instructions, medication list, and patient education materials: Follow-up Instructions Your Medications Here is a list of your medications. It is important to take your medications as directed. Use a pillbox or chart to help remind you to take your medications. Please let your doctor or nurse know if you have problems taking your medications. Medication/Strength How to Take Indications/Special Instructions/Comments/Notes for Patient Medication Changes/Routing albuterol (albuterol 2.5 mg/3 mL (0.083%) inhalation solution) 3 Milliliter, Nebulized inhalation, four times a day as needed for Shortness of breath / Wheezing albuterol (Ventolin HFA 90 mcg/inh inhalation aerosol) 2 puff(s), Inhalation, every 4 hours as needed for Shortness of breath / Wheezing *butalbital/acetaminophen/caffeine (Fioricet oral tablet) 1 Tablet(s), Oral, every 4 hours as neededfor headache clobetasol topical (clobetasol 0.05% topical ointment) 1 kalyn, Topical, two times a day as needed foreczema *escitalopram (Lexapro 10 mg oral tablet) 1 Tablet(s), Oral, once a day *fluconazole (fluconazole 150 mg oral tablet) 1 Tablet(s), Oral, once fluticasone-salmeterol (Advair Diskus 100 mcg-50 mcg inhalation powder) 1 puff(s), Inhalation, two times a day LORazepam (Ativan 0.5 mg oral tablet) 1 Tablet(s), Oral, three times a day as needed for Anxiety sulfamethoxazole-trimethoprim (Bactrim DS 800 mg-160 mg oral tablet) 1 Tablet(s), Oral, two times a day x 7 day(s) New Routed to [address] [address] triamterene-hydroCHLOROthiazide (triamterene-hydroCHLOROthiazide 37.5mg-25mg oral tablet) 1 Tablet(s), Oral, once a day * You have let us know that you are not taking this medication as listed. Please talk with your primary care provider or the health care provider who prescribed the medication as soon as possible. Stop Taking the Following Medications: Medication list as of 05-03-17 14:55 Attention: If you have any medications at home that are not on this list, DO NOT take them until youcontact your provider for clarification. Give a copy of your medication list to your primary care provider. Update your medication list any time medications or doses are changed and carry your medication list at all times in case of emergency. Electronically Signed By: [place] PA-C Signed On:03-MAY-2017 14:55:31 Your Allergies & Intolerances Substance Reaction Symptoms Category Comments magnesium sulfate Anaphylactic reaction Drug magnesium sulfate throat closing Drug Diovan Unknown - patient unable to pr Drug Your Problem List Problem Status Onset Comments Body mass index (BMI) 50-59.9 , adult Active 12/07/16 Rule activated problem due to BMI 50-59 postedon 12/07 at 16:08 [place]. Asthma Mild Intermittent Active Hypertension (HTN) Essential Primary NOS Active Migraine Headache (LITTLEJOHN) Classic NOS Active Dermatitis Eczematoid Active Anxiety Generalized Disorder Active Hypertriglyceridemia Active 12/22/2016 Pre Diabetes Mellitus Active 12/22/2016 Your Upcoming Appointments Date Time Location Provider [facility]2017 13[facility] Attention: Contact your local Clinic if further appointment detail needed. Consider Using Patient Online Services Patient Online Services is a secure online and Mobile application that lets you: ?? View lab and test results ?? View portions of your medical record including clinical notes, immunizations and discharge summaries ?? Request an appointment or medication refill ?? Review your appointment schedule ?? Send secure messages to your care team Its easy to create an account if you dont have one. Go to [email or web address] and click on Create Your Account. Then, follow the directions to complete the online form. Youll be asked for your [facility] number which you can find at the top of this document. Your Goals/Additional instructions: Source: [facility] POWERCHART Document Id: [id number] Miscellaneous - [place] - 05/03/2017 2:55 PM CDT Ambulatory Discharge Medication List [facility] [address] [place], [place] [phone] Visit Information Name: TALISHA MCGEEATHBecky LUDWIG [facility] Number: [id number] Current Date: 05/03/2017 14:55:34 Attending Provider: [place] PA-C Primary Care Provider: AXEL LOPEZ APRN HIGHWAY PAINTER HELPER JESSIE MCGEE OZIEL has been given the following list of medications: Your Medications It is important to take your medications as directed. Use a pill box or chart to help remind you to take your medications. Please let your doctor or nurse know if you have problems taking your medications. Medication/Strength How to Take Indications/Special Instructions/Comments/Notes for Patient Medication Changes/Routing albuterol (albuterol 2.5 mg/3 mL (0.083%) inhalation solution) 3 Milliliter, Nebulized inhalation, four times a day as needed for Shortness of breath / Wheezing albuterol (Ventolin HFA 90 mcg/inh inhalation aerosol) 2 puff(s), Inhalation, every 4 hours as needed for Shortness of breath / Wheezing *butalbital/acetaminophen/caffeine (Fioricet oral tablet) 1 Tablet(s), Oral, every 4 hours as neededfor headache clobetasol topical (clobetasol 0.05% topical ointment) 1 kalyn, Topical, two times a day as needed foreczema *escitalopram (Lexapro 10 mg oral tablet) 1 Tablet(s), Oral, once a day *fluconazole (fluconazole 150 mg oral tablet) 1 Tablet(s), Oral, once fluticasone-salmeterol (Advair Diskus 100 mcg-50 mcg inhalation powder) 1 puff(s), Inhalation, two times a day LORazepam (Ativan 0.5 mg oral tablet) 1 Tablet(s), Oral, three times a day as needed for Anxiety sulfamethoxazole-trimethoprim (Bactrim DS 800 mg-160 mg oral tablet) 1 Tablet(s), Oral, two times a day x 7 day(s) [place] [address] triamterene-hydroCHLOROthiazide (triamterene-hydroCHLOROthiazide 37.5mg-25mg oral tablet) 1 Tablet(s), Oral, once a day * You have let us know that you are not taking this medication as listed. Please talk with your primary care provider or the health care provider who prescribed the medication as soon as possible. Stop Taking the Following Medications: Medication list as of 05-03-17 14:55 Attention: If you have any medications at home that are not on this list, DO NOT take them until youcontact your provider for clarification. Give a copy of your medication list to your primary care provider. Update your medication list any time medications or doses are changed and carry your medication list at all times in case of emergency. Electronically Signed By: [place] PA-C Signed On:03-MAY-2017 14:55:31 Additional Information: Source: [facility] POWERCHART Document Id: [id number] Miscellaneous - Jessie Lopez, L.P.N. - 05/03/2017 10:43 AM CDT Adult Log Handling Equipment Operator Intake/History Document Has Been Updated Adult Log Handling Equipment Operator Intake/History Entered On: 05/03/2017 10:45 CDT Performed On: 05/03/2017 10:43 CDT by JESSIE LOPEZ LPN Intake Temperature Core : 36.7 DegC(Converted to: 98.1 DegF) Peripheral Pulse Rate : 93 /min Systolic Blood Pressure : 164 mmHg (>HHI) Diastolic Blood Pressure : 109 mmHg (>HHI) NIBP Mean : 127 mmHg JESSIE LOPEZ LPN - 05/03/2017 10:45 CDT Chief Complaint : dizzy, nausea, not feeling well overall, wondering if she is diabetic, headaches, sweats, increased fatigue JESSIE LOPEZ LPN - 05/03/2017 10:46 CDT Ambulatory Intake Additional Information : period is 3 weeks late BP Location : Right upper extremity Blood Pressure Cuff Size : Large Height : 156 cm(Converted to: 5 ft 1 inch(es), 61 inch(es)) Actual Weight : 130.9 kg(Converted to: 288 lb 9 oz) Dosing Weight Clinic : 130.9 kg Clinic BSA : 2.38 Body Mass Index : 53.79 kg/m2 JESSIE LOPEZ [facility] - 05/03/2017 10:43 CDT General Info Information Given By : Patient Preferred Communication Mode : Verbal Languages : Swazi Is Patient Female and 13-50 no hysterectomy : Yes Status : Possible unconfirmed Are you ? : No JESSIE LOPEZ [facility] - 05/03/2017 10:43 CDT Subjective Pain Symptoms : No JESSIE LOPEZ LPN - 05/03/2017 10:43 CDT Dependent Habits Exposure to Tobacco Smoke : Other: Former smoker: quit 07/2015 Smoking Status : Former smoker Tobacco 2A : Yes Tobacco Use/Currently Using : No Tobacco Use/Last 30 Days : No Tobacco Use/Last 12 months : No Tobacco Last Use/Month : July Tobacco Last Use/Year : 2014 JESSIE LOPEZ [facility] - 05/03/2017 10:43 CDT Source: [employer] POWERCHART Document Id: [id number] documented in this encounter Plan of Treatment Upcoming Encounters Date Type Specialty Care Team Description 07/16/2022 Office Visit Family Medicine Karel Gill M.B.B .S., MRadha [address] [place] [address] [phone] (Wo rk) documented as of this encounter Procedures Procedure Name Priority Date/Time Associated Comments Diagnosis BACTERIAL CULTURE, Routine 05/03/2017 11:57 Resul ts for this AEROBIC, URINE AM CDT procedure are in the results section. HXUR % DYSMORPHIC RBC Routine 05/03/2017 11:45 Re sults for this AM CDT procedure are i n the results section. TEST, U Routine 05/03/2017 11:45 Result s for this AM CDT procedure are i n the results section. URINALYSIS, MIDSTREAM, Routine 05/03/2017 11:45 R esults for this WITH CULTURE IF AM CDT procedure ar e in INDICATED the results section. SEDIMENTATION RATE, B Routine 05/03/2017 11:42 Re sults for this AM CDT procedure are i n the results section. BASIC METABOLIC PANEL, Routine 05/03/2017 11:42 R esults for this S/P AM CDT procedure are i n the results section. THYROID-STIMULATING Routine 05/03/2017 11:42 Resu lts for this HORMONE-SENSITIVE AM CDT procedure are in (S-TSH) the results section. documented in this encounter Results Bacterial Culture, Aerobic, Urine (05/03/2017 11:57 AM CDT) [facility] Method Time Signature Bacterial POWERCHART Culture, Aerobic, Urine HXFinal Mixed taran. No POWERCHART further studies unless notified. [facility] POWERCHART Microbiology laboratory [phone]. Specimen Anatomical Collection Method Collection Time Receive d Time (Source) Location / / Volume Laterality Urine, First 05/03/2017 11:57 05/03/2017 Voided AM CDT 11:57 AM CDT [place] P.A.-C. LAB MICROBIOLOGY - GENERAL O RDERABLES Performing Organization Address City/[facility]/ZIP Code Phon e Number POWERCHART HXUR % DYSMORPHIC RBC (05/03/2017 11:45 AM CDT) athologist Signature Dysmorphic RBC <=25 <=25 POWERCHART Specimen Anatomical Collection Method Collection Time Receive d Time (Source) Location / / Volume Laterality Urine, First 05/03/2017 11:45 05/03/2017 Voided AM CDT 11:45 AM CDT [place] P.A.-C. LAB HISTORICAL ORDERS Performing Organization Address City/[facility]/ZIP Code Phon e Number POWERCHART (ABNORMAL) Urinalysis, Midstream, with culture if indicated (05/03/2017 11:45 AM CDT) [facility] Method Time Signature HXUR WBC. 4-10 None Seen POWERCHART HPF HXUR RBC. 3-10 (A) None Seen POWERCHART HPF Casts, Hyaline 4-10 (A) None Seen POWERCHART LPF Squamous 4-10 (A) None Seen POWERCHART Epithelial HPF HXUR Bacteria, Present (A) None Seen POWERCHART HXUr Color Yellow Yellow POWERCHART Clarity Cloudy (A) Clear POWERCHART Glucose Negative Negative POWERCHART HXBILIRUBIN Negative Negative POWERCHART Ketones, QL(U) Negative Negative POWERCHART Specific 1.027 1.001 - POWERCHART Randolph, POCT, 1.035 U Comment: Reference Range Specific Randolph: 1.000-1.035 pH, POCT, Urine 5.5 POWERCHART Comment: UA pH Reference Range pH: 5.0-8.0 Protein, Ur, Dip Negative Negative POWERCHART Urobilinogen 0.2 0.2 MGDL POWERCHART Comment: Reference Range Urobilinogen: 0.2-1.0 mg/dL HXNITRITE Negative Negative POWERCHART HXBLOOD Negative Negative POWERCHART Leukocyte Esterase Small (A) Negative POWERCHART Specimen (Source) Anatomical Collection Method Collection Time Re ceived Time Location / / Volume Laterality Urine, First 05/03/2017 11:45 Voided AM CDT [place] P.A.-C. LAB URINE ORDERABLES Performing Organization Address City/State/ZIP Code Phon e Number POWERCHART Test, Qualitative, Urine (05/03/2017 11:45 AM CDT) Patholo gist Method Time Signature HXBeta-hCG Negative POWERCHART Qualitative Urine Specimen (Source) Anatomical Collection Method Collection Time Re ceived Time Location / / Volume Laterality Urine 05/03/2017 11:45 AM CDT [place] P.A.-C. LAB URINE ORDERABLES Performing Organization Address City/State/ZIP Code Phon e Number POWERCHART Sedimentation Rate (05/03/2017 11:42 AM CDT) Analysis Performed At Patho logist Time Signature Sedimentation 19 0 - 29 MM POWERCHART Rate, B Specimen (Source) Anatomical Collection Method Collection Time Re ceived Time Location / / Volume Laterality Blood 05/03/2017 11:42 AM CDT [place] P.A.-C. LAB BLOOD ADD-ON Performing Organization Address City/[facility]/ZIP Code Phon e Number POWERCHART BMP (Basic Metabolic Panel) (05/03/2017 11:42 AM CDT) P athologist Signature Sodium, S 137 135 - 145 POWERCHART MMOLL Potassium, S 4.0 3.6 - 5.2 POWERCHART MMOLL Chloride, S 100 98 - 107 POWERCHART MMOLL CO2 Total 24 22 - 29 POWERCHART MMOLL Comment: Reference ranges have not been established for patients that are <12 months of age. BUN (Blood Urea Nitrogen), S 12 6 - 21 MGDL POWERCHART Creatinine 0.69 0.60 - 1.10 MGDL POWERCHART Calcium, Total, S 9.4 8.0 - 10.3 MGDL POWERC PEÑALOZA Anion Gap 13 7 - 15 MMOLL POWERCHART HXeGFR (MDRD) >60 >=60 [id number] POWERCHART eGFR Black/ >60 >=60 [id number] POWERCHART Glucose 108 70 - 139 MGDL POWERCHART Specimen (Source) Anatomical Collection Method Collection Time Re ceived Time Location / / Volume Laterality Blood 05/03/2017 11:42 AM CDT [place] P.A.-C. LAB BLOOD ADD-ON Performing Organization Address City/State/ZIP Code Phon e Number POWERCHART S-TSH (Thyroid-Stimulating Hormone - Sensitive) (05/03/2017 11:42 AM CDT) P athologist Signature TSH 1.85 0.27 - 4.20 POWERCHART (Thyrotropin) MIUL Comment: Biotin has been identified by the jessica gastelum as a potential interfering substance. Higher concentrations of biotin may be found in multivitamins, hair/nail supplements, and workout supplements. If the result does not match clinical observat ions, repeat testing after patient refrains from the use of supplements for at least 12 hours. Specimen (Source) Anatomical Collection Method Collection Time Re ceived Time Location / / Volume Laterality Blood 05/03/2017 11:42 AM CDT [place] P.A.-C. LAB BLOOD ADD-ON Performing Organization Address City/State/ZIP Code Phon e Number POWERCHART documented in this encounter Visit Diagnoses Not on filedocumented in this encounter Additional Health Concerns Assessment Noted Time PHQ-9 Depression Total Score: 2 12/07/2016 4:49 PM [place] documented as of this encounter Care Teams Manager Information Relationship Specialty Start Date End Date Axel Lopez APRN, C.N.P. PCP - General 04/21/17 01/15/21 [address] [phone] documented as of this encounter
--- OUTSIDE RECORDS SUMMARY | 2022-06-29 19:18 | XMS_ITS | Encounter Summary ---
:1970 Author Organization [facility] Address [address] [place] [address] Care Team Providers Name Role Phone Odalys Contreras APRN, C.N.P. Primary Care Provider [phone] Encounter Details Date Type Department Care Team Description 09/06/2017 Orders Only Department of Family Odalys Contreras Mig raine With Aura Not Medicine, [place] LAKHWINDER, C.N.P. 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 [address] [place] [address] [phone] (Wo rk) documented as of this encounter Visit Diagnoses Diagnosis Migraine With Aura Not Intractable Witho ut Status Migrainosus documented in this encounter Additional Health Concerns Assessment Noted Time PHQ-9 Depression Total Score: 4 05/11/2017 1:49 PM CDT documented as of this encounter Care Teams Road Train Driver Relationship Specialty Start Date End Date Odalys Contreras, LAKHWINDER, C.N.P. PCP - General 04/21/17 01/15/[address] [phone] documented as of this encounter
--- OUTSIDE RECORDS SUMMARY | 2022-06-29 19:18 | XMS_ITS | Encounter Summary ---
:1970 Author Organization [facility] Address [address] [place] [address] Care Team Providers Name Role Phone Unavailable Primary Care Provider Unavailable Encounter Details Date Type Department Care Team Description 12/22/2016 Hospital Encounter HX [facility] Odalys Contreras, PRODUCTION LINE TECHNICIAN, C.N.P. [address] [place], [place] [phone] (Wo rk) Social History [...] How often do you attend congregational or latter day More than 4 time [...] or slept in a half-way (including now)? Sex Assigned at Date Recorded Female 12/02/2017 9:31 AM COMPUTER REPAIRER documented as of this encounter Last Filed Vital Signs Vital Sign Reading Time Taken Comments Blood Pressure - - Pulse - - Temperature - - Respiratory Rate - - Oxygen Saturation - - Inhaled Oxygen Concentration - - Weight - - Height 156 cm (5' 1.42) 12/22/2016 7:21 AM COMPUTER REPAIRER Body Mass Index - - documented in this encounter Medications at Time [...] per tablet documented as of this encounter Plan of Treatment Upcoming Encounters Date Type Specialty Care Team Description 07/16/2022 Office Visit Family Medicine Karel Gill M.B.B .S., M.D. [address] [place] [phone] (Wo rk) documented as of this encounter Procedures Procedure Name Priority Date/Time Associated Diagnosis Comme nts BI BREAST SCREENING Routine 12/22/2016 7:43 AM Re sults for this BILATERAL COMPUTER REPAIRER procedure are i n the results section. documented in this encounter Results BI Breast Screening Bilateral (12/22/2016 7:43 AM COMPUTER REPAIRER) Anatomical Region Laterality Modality Breast Bilateral Mammography Specimen (Source) Anatomical Collection Method Collection Time Re ceived Time Location / / Volume Laterality 12/22/2016 7:43 AM COMPUTER REPAIRER Addenda Addendum by Provider, Emmanuelle Pascual 12/22/2016 7:43 AM COMPUTER REPAIRER RAD^^^OW [facility] Mammo Screening w ??CADD 12/22/2016 07:43:17 Impressions 12/23/2016 8:55 AM COMPUTER REPAIRER Negative. No mammographic findings of malignancy. ?? RECOMMENDATIONS: Annual screening mammog fuentes. ?? BI-RADS ASSESSMENT: CODE: 1-NEGATIVE Full field digital mammography is used a nd Computer Aided Detection is performed on the digital mammogram image s. LETTER SENT: L1/2 - negative screen, den se breasts Narrative 12/23/2016 8:55 AM COMPUTER REPAIRER EXAM: MA Mammo Screening w/ CADD INDICATION: Screening. ? COMPARISON: dating back to 2015 DENSITY: c. The breast(s) are heterogene ously dense, which may obscure small masses. ?? FINDINGS: No findings of malignancy. No significant change since prior exams. Procedure Note New Gordon M.D. / Provider, Mindi valdovinos M.D. - 04/25/2017 EXAM: [facility] Mammo Screening w/ CADD INDICATION: Screening. COMPARISON: dating back to 2015 DENSITY: c. The breast(s) are heterogene ously dense, which may obscure small masses. FINDINGS: No findings of malignancy. No significant change since prior exams. IMPRESSION: Negative. No mammographic fi ndings of malignancy. RECOMMENDATIONS: Annual screening mammog fuentes. BI-RADS ASSESSMENT: CODE: 1-NEGATIVE Full field digital mammography is used a nd Computer Aided Detection is performed on the digital mammogram image s. LETTER SENT: L1/2 - negative screen, den se breasts Shefali Carson R.T.(R), R.T.(R)(M) IMG BI PROCEDURES documented in this encounter Visit Diagnoses Not on filedocumented in this encounter Additional Health Concerns Assessment Noted Time PHQ-9 Depression Total Score: 2 12/07/2016 4:49 PM COMPUTER REPAIRER documented as of this encounter
--- OUTSIDE RECORDS SUMMARY | 2022-06-29 19:18 | XMS_ITS | Encounter Summary ---
:[address] [facility] Address [address] [place] [address] Care Team Providers Name Role Phone Unavailable Primary Care Provider Unavailable Encounter Details Date Type Department Care Team Description 12/07/2016 Hospital Encounter HX [facility] FAMILYPRA Axel Lopez, INTERNATIONAL ACCOUNT REPRESENTATIVE, C.N.P. [address] [place], [place] [phone] (Wo rk) Social History [...] How often do you attend faith or temple More than 4 time s [...] slept in a senior living (including now)? Sex Assigned at Date Recorded Female 12/02/2017 9:31 AM FABRIC WORKER documented as of this encounter Last Filed Vital Signs Vital Sign Reading Time Taken Comments Blood Pressure 138/88 12/07/2016 4:13 PM FABRIC WORKER Pulse 72 12/07/2016 4:08 PM FABRIC WORKER Temperature - - Respiratory Rate 20 12/07/2016 4:08 PM FABRIC WORKER Oxygen Saturation - - Inhaled Oxygen Concentration - - Weight 128 kg (281 lb 12 oz) 12/07/2016 4:08 PM FABRIC WORKER Height 156 cm (5' 1.42) 12/07/2016 4:13 PM FABRIC WORKER Body Mass Index 52.52 12/07/2016 4:08 PM FABRIC WORKER documented in this encounter Medications at Time [...] documented as of this encounter Progress Notes Axel Lopez, LAKHWINDER, C.N.P. - 12/07/2016 4:42 PM CST Clinic Full Note CHIEF COMPLAINT/REASON FOR VISIT Establishing care and rechecking blood pressure. Was seen in urgent care in [place] for back pain. Blood pressure was elevated and was advised to see provider. Has had a headache for the last 2 days. Has been sick. Has nasal and chest congestion. Cough HISTORY OF PRESENT ILLNESS This is Diana's first visit to [facility] in [place]. She is here for review of medical concerns, to review medications and to update Preventive Services. She has had sinus congestion with postnasal drip and cough for the past week. Glands are swollen and tender, throat is scratchy. She has anxiety , she has used lorazepam as needed. We discussed a trial of Lexapro, she would liketo try it. Blood pressure was elevated when she was in Urgent Care. She had not taken her medicationfor a couple of days. She has asthma, stable on Advair twice daily and albuterol as needed. She has migraine headaches, she has been on Fioricet, will have see Neurology for medication evaluation. MEDICATIONS Advair Diskus 100 mcg-50 mcg inhalation powder, 1 puff(s), Inhalation, 2xDay clobetasol 0.05% topical ointment, 1 kalyn, Topical, 2xDay, PRN triamterene-hydroCHLOROthiazide 37.5mg-25mg oral tablet, 1 tab(s), PO, Daily Ventolin HFA 90 mcg/inh inhalation aerosol, 2 puff(s), Inhalation, q4hr, PRN ALLERGIES Diovan (Unknown - patient unable to provide information) magnesium sulfate (Anaphylactic reaction,throat closing) PAST MEDICAL HISTORY Chronic Anxiety Generalized Disorder Asthma Mild Intermittent Body mass index (BMI) 50-59.9 , adult Dermatitis Eczematoid Hypertension (HTN) Essential Primary NOS Migraine Headache (LITTLEJOHN) Classic NOS Historical No historical problems PROCEDURES/SURGICAL HISTORY Pap smear (01/20/2016). SOCIAL HISTORY Date Time: 12/07/2016 16:08 Tobacco: Smoking Status: Former smoker Exposure: Other: Former smoker: quit 07/2015 Alcohol: Use: No Results Found Recreational Drugs: Use: No Results Found Type: No Results Found FAMILY HISTORY Mother:Positive: Hyperlipidemia; Hypertension Father:Positive: Hyperlipidemia; Hypertension; Stroke Brother ( at 40 year(s)):Positive: Cirrhosis of liver HEALTH MAINTENANCE Up to date. SYSTEMS REVIEW GENERAL: No weight gain, no weight loss, no fever in past month, no chills, no sweats, no fatigue EENT: No blurred vision, no double vision, no eye pain, no sinus problems, no hoarseness, no difficulty swallowing, no mouth sores, no diminished hearing, no ringing in ears, no enlarged glands PULMONARY: Shortness of breath with cough and occasional wheezing, no sputum, no hemoptysis CARDIAC: No [...] skin sores, no change in moles NEURO: Migraine headaches, no slurred speech, no seizures, no dizziness, no loss of consciousness, no memory loss ENDOCRINE: No excessive thirst, no excessive bruising VITAL SIGNS T: 36.7 ??C (Core) HR: 72 RR: 20 BP: 138 / 88 SpO2: 99% HT: 156 cm WT: 127.80 kg BMI: 52.51 PHYSICAL EXAMINATION GENERAL: In general, the patient is a pleasant female who appears her stated age. SKIN: Without lesion. EYES: PERRLA. EOMI intact. Fundi sharp discs. Conjunctiva and lids normal. ENT: Tympanic membranes clear bilaterally. Nasal mucosa without erythema or congestion. Mouth without erythema or exudate. LYMPH NODES: Neck: Supple without adenopathy, no thyromegaly. Carotid pulses are equal bilaterally. PERIPHERAL VESSELS: Femoral, dorsal, pedal and posterior tibial pulses are equal. HEART: Regular rate and rhythm without murmur. LUNGS: Clear to auscultation, good inspiratory effort. ABDOMEN: Soft, nontender, no palpable mass, no hepatosplenomegaly. EXTREMITIES: Warm, dry, no cyanosis or peripheral edema. MENTAL: Alert and oriented times three. NEUROLOGIC: Deep tendon reflexes are +2 and symmetrical. IMPRESSION/REPORT/PLAN Anxiety Generalized Disorder Worsening, she will start Lexapro 10 mg daily. she understands it will take about 2 weeks to start working and up to 4-6 weeks to be fully effective. She understands she should not discontinue the medication abruptly. I would like to see her back in 4-6 weeks to recheck sooner if symptoms are worsening. Ordered: OV New Pt Level 4 - 04956 - 45 min Encounter for screening mammogram for malignant neoplasm of breast Ordered: OV New Pt Level 4 - 92088 - 45 min Hypertension (HTN) Essential Primary NOS Stable, no change in medication. Refill provided. She will return for fasting labs. Ordered: OV New Pt Level 4 - 32937 - 45 min Migraine Headache (LITTLEJOHN) Classic NOS Scheduling consult with Neurology for medication evaluation. Ordered: OV New Pt Level 4 - 04821 - 45 min Sinusitis Maxillary Worsening, cefuroxime, 500 mg, 1 tab, PO, 2xDay, x 10 days. Encourage fluids, acetaminophen or ibuprofen for fever and discomfort. Rest. Recheck if symptoms do not improve. Ordered: OV New Pt Level 4 - 34857 - 45 min Orders: albuterol, 2 puff(s), Inhalation, q4hr, PRN Shortness of breath / Wheezing, # 1 each, 11 Refill(s),Maintenance, Pharmacy: [facility] albuterol, 2.5 mg = 3 mL, NEB, 4xDay, PRN Shortness of breath / Wheezing, # 360 mL, 3 Refill(s), Maintenance, Pharmacy: [facility] cefuroxime, 500 mg = 1 tab(s), PO, 2xDay, x 10 day(s), # 20 tab(s), 0 Refill(s), Acute, Pharmacy: [facility] escitalopram, 10 mg = 1 tab(s), PO, Daily, # 30 tab(s), 11 Refill(s), Maintenance, Pharmacy: [facility] fluconazole, 150 mg = 1 tab(s), PO, Once, # 1 tab(s), 0 Refill(s), Maintenance, Pharmacy: [facility] triamterene-hydroCHLOROthiazide, 1 tab(s), PO, Daily, # 30 tab(s), 3 Refill(s), Maintenance, Pharmacy: [facility] Basic Metabolic Panel, Fasting* CBC (includes Auto Differential) Consult to Neurology Lipid Panel* MA Mammo Screening w/ CADD Thyroid Stimulating Hormone Electronically Signed By: AXEL LOPEZ APRN, CNP On: 12/07/2016 04:53 PM Source: [facility] POWERCHART Document Id: [id number] IC WORKER documented in this encounter Procedure Notes Axel Lopez APRN, C.N.P. - 12/07/2016 4:24 PM CST Asthma Control Test (12 yrs and older) Asthma Control Test (12 yrs and older) Entered On: 12/07/2016 16:26 FABRIC WORKER Performed On: 12/07/2016 16:24 FABRIC WORKER by AXEL LOPEZ APRN, CNP ACT Past 4 weeks asthma interfered with work, school, or home : Some of the Time Past 4 weeks how often short of breath : Once or twice a week Past 4 weeks symptoms effect sleep : Once or twice Past 4 weeks how often inhaler or nebulizer used : 1 or 2 times per day Past 4 weeks rate your asthma control : Somewhat controlled ACT Score : 16 ED visits past yr for asthma w/o hospital stay : 0 Hospitalizations/Overnight Stays in Past yr for Asthma : 0 Asthma Action Plan Provided/Reviewed : Provided to the patient Asthma Action Plan Copy : Scanned into EMR AXEL LOPEZ APRN, CNP - 12/07/2016 16:24 FABRIC WORKER Source: [facility] [employer]CHART Document Id: [id number] FABRIC WORKER!12 IC WORKER documented in this encounter Nursing Notes Axel Lopez APRN C.N.P. - 12/07/2016 4:36 PM CST Ambulatory Patient Education The following Patient Education Materials have been given to the patient: Patient Education Materials: Ambulatory HYPERTENSION, Established Ambulatory High Blood Pressure --Established High Blood Pressure (Hypertension) is a chronic disease. The cause is unknown in most cases. It can usually be controlled with lifestyle changes and/or medicines. Symptoms of high blood pressure may include headache, dizziness, visual changes, chest pain and shortness of breath. Sometimes it causes no symptoms at all. However, even if there are no symptoms, untreated high blood pressure increases therisk of heart attack, also known as acute myocardial infarction, or AMI, and stroke. It is a serioushealth risk and should not be ignored. A normal blood pressure is 120/80 or less. The first (top) number is the systolic pressure. The second (bottom) number is the diastolic pressure. Hypertension exists when either the top number is 140 or higher, OR the bottom number is 90 or higher on repeated measurements. Home Care: All patients with high blood pressure should do the following to lower their pressure. If you are onmedicines, then these methods may reduce or eliminate your need for medicines in the future. Begin a weight loss program if you are overweight. Reduce your salt intake. ?? Avoid high salt foods (olives, pickles, smoked meats, salted potato chips, etc.). ?? Do not add salt to your food at the table. ?? Use only small amounts of salt when cooking. Begin an exercise program. Discuss with your doctor what type of exercise program would be best for you. It doesn't have to be difficult. Even brisk walking for 20 minutes three times a week is a good form of exercise. Avoid medicines which contain heart stimulants. This includes many cold and sinus decongestant pillsand sprays as well as diet pills. Check the warnings about hypertension on the label. Stimulants such as amphetamine or cocaine could be lethal for someone with hypertension. Never take these. Limit your caffeine intake or switch to caffeine-free products. Stop smoking. If you are a long-time smoker, this can be hard. Enroll in a stop- smoking program to improve your chance of success. Learning how to handle stress better is an important part of any program to lower blood pressure. Learn about relaxation methods such as meditation, yoga or biofeedback. If medicines were prescribed, take them exactly as directed. Missing doses may cause your blood pressure get out of control. Consider buying an automatic blood pressure machine (available at most pharmacies). Use this to monitor your blood pressure at home and report the results to your doctor. Follow Up: Regular visits to your own physician for blood pressure checks and medicine adjustment is an important part of your care. Make a follow-up appointment as directed by our staff. Get Prompt Medical Attention if any of the following occur: ?? Chest pain or shortness of breath ?? Severe headache ?? Throbbing or rushing sound in the ears ?? Nosebleed ?? Sudden severe abdominal pain ?? Extreme drowsiness, confusion or fainting ?? Dizziness or vertigo (dizziness with spinning sensation) ?? Weakness of an arm or leg or one side of the face ?? Difficulty with speech or vision ?? [id number] [place] [address]. All rights reserved. This information is not intended as a substitute for professional medical care. Always follow your healthcare professional's instructions. This document has images extracted. Please consider using [employer] for all your patient education needs. Source: [facility] POWERCHART Document Id: [id number] IC WORKER documented in this encounter Miscellaneous Notes Telephone Encounter - Mary Mosley R.N. - 02/14/2017 10:01 AM CDT nebulizer tubing Document Contains Addenda Addendum by LYNN GONZALEZ LPN on February 14, 2017 10:51:31 CDT Notified that Rx was sent to Pharmacy. Addendum by AXEL LOPEZ APRN, CNP on February 14, 2017 10:47:19 CDT From: AXEL LOPEZ APRN ENGINEERING LIBRARIAN To: LENKA Lopez Nurse; Sent: 02/14/2017 10:47:19 CDT Subject: RE: nebulizer tubing done From: MARY MOSLEY RN ( [place] Medication Refill) To: AXEL LOPEZ APRN ENGINEERING LIBRARIAN; Sent: 02/14/2017 10:01:55 CDT Subject: nebulizer tubing Caller is: ( ) Patient ( ) Mother ( ) Father ( ) Spouse ( ) Daughter ( ) Son ( domonique/silvio ) Pharmacy ( ) Other: Physician: ronald Patient MRN #: Reason for Call: Message: S nebulizer tubing rx B Nebulizer tubers kit now requires rx please send rx today. Please send rx today. Please and Thanks. Advice/Action: Source used: ( ) Verbalizes understanding of instructions ( ) Instructed to call back if symptoms worsen or do not resolve ( ) Refused to see provider ( ) Appointment Scheduled ( ) OK to leave message on voice mail ( ) Patient told to expect return call: ( ) today ( ) tomorrow ( ) next work day ( ) Patient's email ( ) Patient told physician out of office, will call upon return call on ( ) ( ) Patient told physician out of office, routed to other physician ( ) Other ( ) Call back telephone number ( ) Call back cell phone number ( ) Source: [facility] POWERCHART Document Id: [id number] Electronically signed by Conversion, [facility] Stained Glass Installer [id number] at 04/19/2017 4:08 AM CDT Miscellaneous - Lynn Gonzalez L.PChuckyN. - 12/07/2016 4:49 PM CST PHQ-9 PHQ-9 Entered On: 12/07/2016 16:49 FABRIC WORKER Performed On: 12/07/2016 16:49 FABRIC WORKER by LYNN GONZALEZ LPN PHQ-9 Little interest or pleasure in doing things : Not at all Feeling down, depressed, or hopeless : Not at all Trouble falling or staying asleep, or sleeping too much : Not at all Feeling tired or having little energy : Several days Poor appetite or overeating : Not at all Feeling bad about yourself or that you are a failure : Not at all Trouble concentrating on things : Several days Moving or speaking slowly; restless or fidgety : Not at all Thoughts that you would be better off /hurting self : Not at all PHQ-9 Calculated Score : 2 Problems make work, home, or dealing with others : Not difficult at all LYNN GONZALEZ LPN - 12/07/2016 16:49 FABRIC WORKER Source: [employer] Document Id: [id number] FABRIC WORKER!13 IC WORKER Miscellaneous - Axel Lopez APRN, C.N.P. - 12/07/2016 4:36 PM CST Ambulatory Patient Summary [address] [id number] Visit Information Name: JESSIE MCGEE [facility] Number: [id number] Current Date: 12/07/2016 16:36:32 Physicians Attending Provider: AXEL LOPEZ APRN ENGINEERING LIBRARIAN Primary Care Provider: AXEL LOPEZ APRN ENGINEERING LIBRARIAN JESSIE MCGEE has been given the following [...] needed for Shortness of breath / [place] [address] albuterol (Ventolin HFA 90 mcg/inh inhalation aerosol) 2 puff(s), Inhalation, every 4 hours as needed for Shortness of breath / [place] [address] butalbital/acetaminophen/caffeine (Fioricet oral tablet) 1 Tablet(s), Oral, every 4 hours as needed for headache cefuroxime (cefuroxime 500 mg oral tablet) 1 Tablet(s), Oral, two times a day x 10 day(s) New Routedto [place] [id number] clobetasol topical (clobetasol 0.05% topical ointment) 1 kalyn, Topical, two times a day as needed foreczema fluconazole (fluconazole 150 mg oral tablet) 1 Tablet(s), Oral, [place] [address] fluticasone-salmeterol (Advair Diskus 100 mcg-50 mcg inhalation powder) 1 puff(s), Inhalation, two times a day LORazepam (Ativan 0.5 mg oral tablet) 1 Tablet(s), Oral, three times a day as needed for Anxiety triamterene-hydroCHLOROthiazide (triamterene-hydroCHLOROthiazide 37.5mg-25mg oral tablet) 1 Tablet(s), Oral, once [place] [address] Stop Taking the Following Medications: Medication list as of 12-07-16 16:36 Attention: If you have any medications at home that are not on this list, DO NOT take them until youcontact your provider for clarification. Give a copy of your medication list to your primary care provider. Update your medication list any time medications or doses are changed and carry your medication list at all times in case of emergency. Electronically Signed By: AXEL LOPEZ APRN, CNP Signed On:07-DEC-2016 16:36:17 Your Allergies & Intolerances Substance Reaction Symptoms Category Comments magnesium sulfate Anaphylactic reaction Drug magnesium sulfate throat closing Drug Diovan Unknown - patient unable to pr Drug Your Problem List Problem Status Onset Comments Body mass index (BMI) 50-59.9 , adult Active 12/07/16 Rule activated problem due to BMI 50-59 postedon 12/07 at 16:08 FABRIC WORKER. Asthma Mild Intermittent Active Hypertension (HTN) Essential Primary NOS Active Migraine Headache (LITTLEJOHN) Classic NOS Active Dermatitis Eczematoid Active Anxiety Generalized Disorder Active Your Upcoming Appointments Date Time Location Provider No Appointments found Attention: Contact your local Clinic if further appointment detail needed. High Blood Pressure --Established High Blood Pressure (Hypertension) is a chronic disease. The cause is unknown in most cases. It can usually be controlled with lifestyle changes and/or medicines. Symptoms of high blood pressure may include headache, dizziness, visual changes, chest pain and shortness of breath. Sometimes it causes no symptoms at all. However, even if there are no symptoms, untreated high blood pressure increases therisk of heart attack, also known as acute myocardial infarction, or AMI, and stroke. It is a serioushealth risk and should not be ignored. A normal blood pressure is 120/80 or less. The first (top) number is the systolic pressure. The second (bottom) number is the diastolic pressure. Hypertension exists when either the top number is 140 or higher, OR the bottom number is 90 or higher on repeated measurements. Home Care: All patients with high blood pressure should do the following to lower their pressure. If you are onmedicines, then these methods may reduce or eliminate your need for medicines in the future. Begin a weight loss program if you are overweight. Reduce your salt intake. ?? Avoid high salt foods (olives, pickles, smoked meats, salted potato chips, etc.). ?? Do not add salt to your food at the table. ?? Use only small amounts of salt when cooking. Begin an exercise program. Discuss with your doctor what type of exercise program would be best for you. It doesn't have to be difficult. Even brisk walking for 20 minutes three times a week is a good form of exercise. Avoid medicines which contain heart stimulants. This includes many cold and sinus decongestant pillsand sprays as well as diet pills. Check the warnings about hypertension on the label. Stimulants such as amphetamine or cocaine could be lethal for someone with hypertension. Never take these. Limit your caffeine intake or switch to caffeine-free products. Stop smoking. If you are a long-time smoker, this can be hard. Enroll in a stop- smoking program to improve your chance of success. Learning how to handle stress better is an important part of any program to lower blood pressure. Learn about relaxation methods such as meditation, yoga or biofeedback. If medicines were prescribed, take them exactly as directed. Missing doses may cause your blood pressure get out of control. Consider buying an automatic blood pressure machine (available at most pharmacies). Use this to monitor your blood pressure at home and report the results to your doctor. Follow Up: Regular visits to your own physician for blood pressure checks and medicine adjustment is an important part of your care. Make a follow-up appointment as directed by our staff. Get Prompt Medical Attention if any of the following occur: ?? Chest pain or shortness of breath ?? Severe headache ?? Throbbing or rushing sound in the ears ?? [id number] ?? Sudden severe abdominal pain ?? Extreme drowsiness, confusion or fainting ?? Dizziness or vertigo (dizziness with spinning sensation) ?? Weakness of an arm or leg or one side of the face ?? Difficulty with speech or vision ?? [id number] [facility] [address] [place] [address]. All rights reserved. This information is not intended as a substitute for professional medical care. Always follow your healthcare professional's instructions. Consider Using Patient Online Services Patient Online [...] if you dont have one. Go to [email or web address] and click on Create Your Account. Then, follow the directions to complete the online form. Youll be asked for your [facility] number which you can find at the top of this document. Your Goals/Additional instructions: This document has images extracted. Please consider using [employer] for all your patient education needs. Source: [facility] POWERCHART Document Id: [id number] IC WORKER Miscellaneous - Axel Lopez APRN, C.N.P. - 12/07/2016 4:36 PM CST Ambulatory Discharge Medication List [address] [id number] Visit Information Name: KEISHACAROLINE JESSIE OZIEL [facility] Number: [id number] Current Date: 12/07/2016 16:36:31 Attending Provider: AXEL LOPEZ APRN, CNP Primary Care Provider: AXEL LOPEZ APRN [facility] KEISHAGraceTALISHA NICKERSONATHA OZIEL has been given the following list [...] needed for Shortness of breath / Wheezing New Routed to [address] [address] albuterol (Ventolin HFA 90 mcg/inh inhalation aerosol) 2 puff(s), Inhalation, every 4 hours as needed for Shortness of breath / Wheezing New Routed to [address] [address] butalbital/acetaminophen/caffeine (Fioricet oral tablet) 1 Tablet(s), Oral, every 4 hours as needed for headache cefuroxime (cefuroxime 500 mg oral tablet) 1 Tablet(s), Oral, two times a day x 10 day(s) New Routedto [address] [id number] clobetasol topical (clobetasol 0.05% topical ointment) 1 kalyn, Topical, two times a day as needed foreczema fluconazole (fluconazole 150 mg oral tablet) 1 Tablet(s), Oral, once New Routed to [address] [id number] fluticasone-salmeterol (Advair Diskus 100 mcg-50 mcg inhalation powder) 1 puff(s), Inhalation, two times a day LORazepam (Ativan 0.5 mg oral tablet) 1 Tablet(s), Oral, three times a day as needed for Anxiety triamterene-hydroCHLOROthiazide (triamterene-hydroCHLOROthiazide 37.5mg-25mg oral tablet) 1 Tablet(s), Oral, once a day New Routed to [address] [address] Stop Taking the Following Medications: Medication list as of 12-07-16 16:36 Attention: If you have any medications at home that are not on this list, DO NOT take them until youcontact your provider for clarification. Give a copy of your medication list to your primary care provider. Update your medication list any time medications or doses are changed and carry your medication list at all times in case of emergency. Electronically Signed By: AXEL LOPEZ APRN, CNP Signed On:07-DEC-2016 16:36:17 Additional Information: Source: [facility] POWERCHART Document Id: [id number] IC WORKER Miscellaneous - Axel Lopez APRN, C.N.P. - 12/07/2016 4:26 PM CST Quality Measures Quality Measures Entered On: 12/07/2016 16:27 FABRIC WORKER Performed On: 12/07/2016 16:26 FABRIC WORKER by AXEL LOPEZ APRN, CNP Asthma Adult Asthma Control Test Score : 16 ED visits past yr for asthma w/o hospital stay : 0 Hospitalizations/Overnight Stays in Past yr for Asthma : 0 Asthma Action Plan Provided/Reviewed : Provided to the patient Asthma Action Plan Copy : Scanned into EMR AXEL LOPEZ APRN, CNP - 12/07/2016 16:26 FABRIC WORKER Asthma Precipitating Factors Grid Weather/Temperature : Yes Pollen : Yes URI/Bronchitis : Yes Dust Mites : Yes Mold : Yes AXEL LOPEZ APRN ENGINEERING LIBRARIAN - 12/07/2016 16:26 FABRIC WORKER Source: [facility] POWERCHART Document Id: [id number] FABRIC WORKER!13 IC WORKER Miscellaneous - Lynn Gonzalez L.P.N. - 12/07/2016 4:13 PM CST Ambulatory Vitals Height Weight Ambulatory Vitals Height Weight Entered On: 12/07/2016 16:14 FABRIC WORKER Performed On: 12/07/2016 16:13 FABRIC WORKER by LYNN GONZALEZ LPN Vitals/Ht/Wt Systolic Blood Pressure : 138 mmHg Diastolic Blood Pressure : 88 mmHg NIBP Mean : 105 mmHg BP Location : Right upper extremity Blood Pressure Cuff Size : Large Height : 156 cm(Converted to: 5 ft 1 inch(es), 61 inch(es)) LYNN GONZALEZ LPN - 12/07/2016 16:13 FABRIC WORKER [facility] Document Id: [id number] FABRIC WORKER!8 IC WORKER Mirellacellaneous - Lynn Gonzalez L.P.NChucky - 12/07/2016 4:08 PM CST Adult Water Purifier Operator Intake/History Adult Water Purifier Operator Intake/History Entered On: 12/07/2016 16:13 FABRIC WORKER Performed On: 12/07/2016 16:08 FABRIC WORKER by LYNN GONZALEZ LPN Intake Chief Complaint : Establishing care and rechecking blood pressure. Was seen in urgent care in [place] for back pain. Blood pressure was elevated and was advised to see provider. Has had a headache for the last 2 days. Has been sick. Has nasal and chest congestion. Cough Temperature Core : 36.7 DegC(Converted to: 98.1 DegF) Peripheral Pulse Rate : 72 /min Respiratory Rate : 20 /min Heart Rhythm : Regular Systolic Blood Pressure : 148 mmHg (HI) Diastolic Blood Pressure : 98 mmHg (>HHI) NIBP Mean : 115 mmHg BP Location : Right upper extremity Blood Pressure Cuff Size : Large SpO2 : 99 % Oxygen Therapy : Room air Height : 156 cm(Converted to: 5 ft 1 inch(es), 61 inch(es)) Actual Weight : 127.80 kg(Converted to: 281 lb 12 oz) Weight Source : Standing scale Dosing Weight Clinic : 127.8 kg Clinic BSA : 2.35 Body Mass Index : 52.51 kg/m2 LYNN GONZALEZ LPN - 12/07/2016 16:08 FABRIC WORKER General Info Information Given By : Patient Preferred Communication Mode : Verbal Languages : Serbian Is Patient Female and 13-50 no hysterectomy : Yes Status : Patient denies Are you ? : No LYNN GONZALEZ LPN - 12/07/2016 16:08 FABRIC WORKER Subjective Pain Symptoms : Yes LYNN GONZALEZ LPN - 12/07/2016 16:08 FABRIC WORKER Pain Scale Pain Scale Verbal 0-10 : Open LYNN GONZALEZ LPN - 12/07/2016 16:08 FABRIC WORKER Pain Pain Assessment Grid Pain 1 Location : Head (Comment: Headache [LYNN GONZALEZ LPN - 12/07/2016 16:08 FABRIC WORKER] ) Intensity : 7 Time Pattern : Constant LYNN GONZALEZ LPN - 12/07/2016 16:08 FABRIC WORKER Dependent Habits Exposure to Tobacco Smoke : Other: Former smoker: quit 07/2015 Smoking Status : Former smoker Tobacco 2A : Yes Tobacco Use/Currently Using : No Tobacco Use/Last 30 Days : No Tobacco Use/Last 12 months : No Tobacco Last Use/Month : July Tobacco Last Use/Year : 2014 LYNN GONZALEZ LPN - 12/07/2016 16:08 FABRIC WORKER Source: [facility] POWERCHART Document Id: [id number] FABRIC WORKER!46 IC WORKER documented in this encounter Plan of Treatment Upcoming Encounters Date Type Specialty Care Team Description 07/16/2022 Office Visit Family Medicine Karel Gill M.B.B .S., MRadha [address] [place] [address] [place], [place] [phone] (Wo rk) documented as of this encounter Visit Diagnoses Not on filedocumented in this encounter Additional Health Concerns Assessment Noted Time PHQ-9 Depression Total Score: 2 12/07/2016 4:49 PM FABRIC WORKER documented as of this encounter
--- OUTSIDE RECORDS SUMMARY | 2022-06-29 19:18 | XMS_ITS | Encounter Summary ---
:1970 Author Organization [facility] Address [address] [place] [address] Care Team Providers Name Role Phone Axel Lopez APRN, C.NChip Primary Care Provider [phone] Encounter Details Date Type Department Care Team Description 05/13/2017 Hospital Encounter HX [facility] Jairo Esparza M.D. [address] [place], [place] [phone] (Wo rk) Social History [...] How often do you attend buddhist or mandaen More than 4 time s per year [...] or slept in a custodial (including now)? 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 - 05/13/2017 1:40 PM CDT [id number] CHIEF COMPLAINT/REASON FOR VISIT Patient was seen in consultation at the request of her primary provider, Axel Lopez, for a cyst onthe vulva. HISTORY OF PRESENT ILLNESS Jessie is a 46-year-old para 1-0-0-1 female who presents today in consultation due to a cyst on hervulva. She reports that this cyst has been present for the last 6 months. It worsens at the time of her period when it gets larger and becomes uncomfortable and painful. It is not currently painful. When it gets larger she is able to squeeze it and white, thick material comes out. After her period goes away it gets better. It is located on the inner aspect of her labia. When Axel Lopez saw the patient she noted an 8 mm sebaceous cyst on the left labia. The patient reports that it has a white appearance. Jessie also reports that over the last year she gets boils around the time of her period. They start about the week before her period starts and they are painful. They clear up about a week after her period ends and this happens every time she has her period. She currently has none of these lesions. These are located more on the inner aspect of the vaginal opening than the cyst, which is located more externally. Jessie reports that she continues to have regular menses except that her last menstrual period was about 3 weeks plate. Otherwise they have been predictable. She has a history of heavy menses requiring her to use a pad or tampon and change it every hour. She has never soaked through but has been close. MEDICATIONS See medication list updated in the EMR today. ALLERGIES See allergy list updated in the EMR today. SYSTEMS REVIEW GENERAL: Positive for fatigue. No fevers, chills, unintentional weight loss or weight gain. HEENT: Positive for changes in vision. No changes in hearing, no sore throat or nasal congestion. CARDIOVASCULAR: No chest pain, irregular heartbeat or racing heart. RESPIRATORY: No shortness of breath, cough or wheeze. GASTROINTESTINAL: Positive for abdominal pain and pressure. No nausea, vomiting, diarrhea, constipation. GENITOURINARY: Positive for irregular vaginal bleeding and heavy periods - see HPI. No pain or burning with urination, painful periods, abnormal vaginal discharge, leaking urine, leaking stool or gas. SKIN: Positive for eczematous rash. BREASTS: No masses or lumps, no discharge from the nipples. NEUROLOGIC: No difficulty with memory, numbness, tingling, falls. PSYCHIATRIC: No anxiety, depression, or difficulty sleeping. ENDOCRINE: No heat intolerance, cold intolerance, excessive thirst or hair loss. PAST MEDICAL/SURGICAL HISTORY PAST MEDICAL HISTORY: See problem list updated in the EMR today. PAST SURGICAL HISTORY: See procedure list updated in the EMR today. OB-PROFESSIONAL ADVISOR HISTORY: Para 1-0-0-1 female status post 1 section at full term. She underwent menarche at age 10 or 11 and usually has predictable menses until this last that was 3 weeks late. Her periods are heavy as noted above. She has no history of STDs or abnormal Pap smears and she is sexually active. They use natural family planning to prevent and she denies any issues with intercourse. SOCIAL HISTORY Positive for tobacco use, about a half a pack per day. She also occasionally drinks alcohol but denies any drug use. 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 FAMILY HISTORY See family history list updated in the EMR today. VITAL SIGNS See results review section updated in the EMR today. PHYSICAL EXAMINATION GENERAL: Well-nourished female in no acute distress. HEAD: Normocephalic, atraumatic. EENT: Vision and hearing grossly intact. HEART: Regular rate and rhythm, no murmurs, rubs, or gallops. CHEST: Clear to auscultation bilaterally, no wheezes or rales. ABDOMEN: Soft, nondistended, nontender, normoactive bowel sounds. PELVIC: External genitalia with normal pubic hair distribution. On the left labium minus there is a 6 x 6 mm whitish colored cystic structure deep to the epidermis without surrounding erythema, increased warmth or other signs of infection. The area is nontender to palpation. No other lesions or abnormalities of the external genitalia are noted. The urethral meatus is normal in location and appearancewithout masses. LOWER EXTREMITIES: Nontender. No edema. SKIN: No rashes or lesions. NEUROLOGIC: Alert and oriented x3. IMPRESSION/REPORT/PLAN A 46-year-old para 1-0-0-1 female who presents today in consultation for a cystic structure on the vulva and recurrent lesions around the vaginal opening during the time of menses. 1. Cystic structure within the left labium minus: This is deep to the epidermis. It gets larger and painful each time the patient has menses. Therefore excision was offered today. The risks, benefits, and alternatives of excision of this vulvar cyst were discussed with the patient including bleeding, infection, and scarring. The patient wanted to go ahead with excision so this was performed today without difficulty. See the procedure note. The cyst will be sent to pathology. We will be in touch withher with pathology results. She was counseled that she can do sitz baths, use Tylenol or ibuprofen over the counter, and apply frozen peas to the area if she has discomfort. 2. Boils at the vaginal opening: The patient reports that these begin about a week before her periods starts, persist throughout her period, and then resolve the week after her period stops. She currently has none of these lesions. I have recommended that she call me when she has active lesions so that I can examine her at that time and perform any sort of testing that might be warranted. She was given my nurse, Jais, number to call when she has the lesions so that we can squeeze her in. 3. Followup: I will be in touch with the patient with her pathology results. She will call with onset of her next episode of these boils and hopefully I will be able to examine the area of the cyst excision at that time as well as examine the sores. Radha Chris M.D./wilfrido cc: Axel Lopez CNP [facility] in [address] [place] [address] Electronically Signed By: RADHA CHRIS MD On: 05/16/2017 12:58 PM Source: [facility] MHSDOLDUYYNZARISYS Document Id: [id number] documented in this encounter Procedure Notes Radha Chris M.D. - 05/13/2017 12:00 AM CDT 2RPT PROCEDURE: Excision of vulvar cyst. INDICATIONS: 46-year-old para1-0-0-1 female with a cystic lesion within the left labium minus that becomes enlarged and irritated during menses. Therefore excision was offered. The risks and benefits of excision were discussed with the patient and informed consent obtained. PROCEDURE: The patient was placed on the examination table in the dorsal lithotomy position. The area overlying the cyst was swabbed three times with Betadine. 2 mL 1% lidocaine with epinephrine buffered were injected around the cyst to produce adequate anesthesia. A scalpel was then used to make an el liptical incision around the cystic area. The cyst was elevated with a Joan clamp. The incision wasextended around the cyst. The cyst wall was entered and white material did spill from the cyst. The cyst wall was then further elevated and the cyst amputated from the base. The skin was closed with 2 interrupted stitches of 4-0 Vicryl. Excellent hemostasis was noted. The patient tolerated the procedure well. SPECIMEN Cyst from left labium minus. Radha Chris M.D./ashwin Electronically Signed By: RADHA CHRIS MD On: 05/16/2017 12:53 PM Source: [facility] MHSDOLMATEORADSYGarrett Document Id: [id number] documented in this encounter Miscellaneous Notes Miscellaneous - Radha Chris M.D. - 05/16/2017 11:12 AM CDT Results Notification Document Contains Addenda Addendum by RADHA CHRIS MD on May 16, 2017 16:11:05 CDT Noted. Addendum by HEIDI AVILA LPN on May 16, 2017 15:20:03 CDT From: HEIDI AVILA LPN To: RADHA CHRIS MD; Sent: 05/16/2017 15:20:03 CDT Show up: 05/16/2017 15:18:00 CDT Subject: RE: Results Notification Patient notified. She stated that the area is switch tender, she is doing sitz baths,when she can,andtaking Ibuprofen for the pain. She was instructed to call back by the end of the week if she still has concerns. Addendum by HEIDI AVILA LPN on May 16, 2017 15:12:15 CDT Left message for patient to return call. From: RADHA CHRIS MD To: HEIDI AVILA LPN; Sent: 05/16/2017 11:12:05 CDT ! Show up: 05/16/2017 11:12:05 CDT Subject: Results Notification Actions: Note to Nurse Reminder Comments: Please let patient know that the pathology from her cyst returned showing a benign cyst. Please makesure she is doing OK post cyst excision. Results: Date Result Type Result Name 05/16/2017 10:40 Document - DOC Pathology-Surg Path Source: [facility] POWERCHART Document Id: [id number] Electronically signed by Celestina [facility] Retail Worker [id number] at 05/17/2017 7:18 AM CDT Miscellaneous - Radha Chris M.D. - 05/13/2017 3:44 PM CDT Ambulatory Patient Summary [address] [id number] Visit Information Name: JESSIE MCGEE [facility] Number: [id number] Current Date: 05/13/2017 15:44:29 Physicians Attending Provider: RADHA CHRIS MD Primary Care Provider: AXEL LOPEZ APRN PROBATION MANAGER JESSIE MCGEE has been given the following [...] needed for Shortness of breath / Wheezing clobetasol topical (clobetasol 0.05% topical ointment) 1 kalyn, Topical, two times a day as needed foreczema fluticasone-salmeterol (Advair Diskus 100 mcg-50 mcg inhalation powder) 1 puff(s), Inhalation, two times a day rinse mouth and throat after use lisinopril (lisinopril 5 mg oral tablet) 1 Tablet(s), Oral, once a day LORazepam (Ativan 0.5 mg oral tablet) 1 Tablet(s), Oral, three times a day as needed for Anxiety triamterene-hydroCHLOROthiazide (triamterene-hydroCHLOROthiazide 37.5mg-25mg oral tablet) 1 Tablet(s), Oral, once a day Stop Taking the Following Medications: Medication list as of 05-13-17 15:44 Attention: If you have any medications at home that are not on this list, DO NOT take them until youcontact your provider for clarification. Give a copy of your medication list to your primary care provider. Update your medication list any time medications or doses are changed and carry your medication list at all times in case of emergency. Electronically Signed By: RADHA CHRIS MD Signed On:13-MAY-2017 15:44:26 Your Allergies & Intolerances Substance Reaction Symptoms Category Comments magnesium sulfate Anaphylactic reaction Drug magnesium sulfate throat closing Drug Diovan Unknown - patient unable to pr Drug Your Problem List Problem Status Onset Comments Body mass index (BMI) 50-59.9 , adult Active 12/07/16 Rule activated problem due to BMI 50-59 postedon 12/07 at 16:08 RECEIVABLE CLERK. Asthma Mild Intermittent Active Hypertension (HTN) Essential Primary NOS Active Migraine Headache (LITTLEJOHN) Classic NOS Active Dermatitis Eczematoid Active Anxiety Generalized Disorder Active Hypertriglyceridemia Active 12/22/2016 Pre Diabetes Mellitus Active 12/22/2016 Cyst Sebaceous Labia Active Your Upcoming Appointments Date Time Location Provider 05/20/2017 09:00 [facility]LECTRICAL [facility]ER Nurse Attention: Contact your local Clinic if further [...] if you dont have one. Go to [email or web address] and click on Create Your Account. Then, follow the directions to complete the online form. Youll be asked for your [facility] number which you can find at the top of this document. Your Goals/Additional instructions: Source: [facility] POWER[facility]ART Document Id: [id number] Miscellaneous - Radha Chris M.D. - 05/13/2017 3:44 PM CDT Ambulatory Discharge Medication List [address] [id number] Visit Information Name: JESSIE MCGEE [facility] Number: [id number] Current Date: 05/13/2017 15:44:29 Attending Provider: RADHA CHRIS MD Primary Care Provider: AXEL LOPEZ APRN [facility] JESSIE MCGEE has been given the following [...] needed for Shortness of breath / Wheezing clobetasol topical (clobetasol 0.05% topical ointment) 1 kalyn, Topical, two times a day as needed foreczema fluticasone-salmeterol (Advair Diskus 100 mcg-50 mcg inhalation powder) 1 puff(s), Inhalation, two times a day rinse mouth and throat after use lisinopril (lisinopril 5 mg oral tablet) 1 Tablet(s), Oral, once a day LORazepam (Ativan 0.5 mg oral tablet) 1 Tablet(s), Oral, three times a day as needed for Anxiety triamterene-hydroCHLOROthiazide (triamterene-hydroCHLOROthiazide 37.5mg-25mg oral tablet) 1 Tablet(s), Oral, once a day Stop Taking the Following Medications: Medication list as of 05-13-17 15:44 Attention: If you have any medications at home that are not on this list, DO NOT take them until youcontact your provider for clarification. Give a copy of your medication list to your primary care provider. Update your medication list any time medications or doses are changed and carry your medication list at all times in case of emergency. Electronically Signed By: RADHA CHRIS MD Signed On:13-MAY-2017 15:44:26 Additional Information: Source: [facility] POWERCHART Document Id: [id number] Miscellaneous - Heidi Avila L.P.N. - 05/13/2017 3:36 PM CDT Core Composer Machine Tender Documentation Core Composer Machine Tender Documentation Entered On: 05/13/2017 15:36 CDT Performed On: 05/13/2017 15:36 CDT by HEIDI AVILA LPN Core Composer Machine Tender Documentation Exam/Procedure Performed : Pelvic exam/ removal of cyst CD Core Composer Machine Tender Present : Yes CD Core Composer Machine Tender Name : Keya Avila LPN Present in Room During Exam/Procedure : Alone HEIDI AVILA LPN - 05/13/2017 15:36 CDT Source: [facility] [place] Document Id: [id number] CDT!6 Miscellaneous - Heidi Avila L.P.N. - 05/13/2017 1:51 PM CDT Adult Newscast Director Intake/History Adult Newscast Director Intake/History Entered On: 05/13/2017 13:53 CDT Performed On: 05/13/2017 13:51 CDT by HEIDI AVILA LPN Intake Chief Complaint : Consult- recurrent sebaceous cyst Peripheral Pulse Rate : 102 /min (HI) Respiratory Rate : 16 /min Heart Rhythm : Regular Systolic Blood Pressure : 164 mmHg (>HHI) Diastolic Blood Pressure : 100 mmHg (>HHI) NIBP Mean : 121 mmHg BP Location : Right upper extremity Blood Pressure Cuff Size : Large Height : 156 cm(Converted to: 5 ft 1 inch(es), 61 inch(es)) Actual Weight : 131.2 kg(Converted to: 289 lb 4 oz) Weight Source : Standing scale Dosing Weight Clinic : 131.2 kg Clinic BSA : 2.38 Body Mass Index : 53.91 kg/m2 HEIDI AVILA LPN - 05/13/2017 13:51 CDT General Info Languages : Amharic Is Patient Female and 13-50 no hysterectomy : Yes Status : Patient denies Are you ? : No ADEELHEIDI Luciano PERALES - 05/13/2017 13:51 CDT Subjective Pain Symptoms : No HEIDI AVILA ANGELLA - 05/13/2017 13:51 CDT Dependent Habits Exposure to Tobacco Smoke : Patient smokes Smoking Status : Current every day smoker Tobacco 2A : Yes Tobacco Use/Currently Using : Yes Tobacco Use/Last 30 Days : Yes Tobacco Use/Last 12 months : Yes Tobacco Last Use/Month : July Tobacco Last Use/Year : 2014 Type : Cigarettes: Less than 20 per day Tobacco Use/Advised to Quit : Yes ADEELHEIDI Luciano PERALES - 05/13/2017 13:51 CDT Source: [facility] [place] Document Id: [id number] CDT!35 documented in this encounter Plan of Treatment Upcoming Encounters Date Type Specialty Care Team Description 07/16/2022 Office Visit Family Medicine Karel Gill M.B.B .S., M.D. [address] [place] [phone] (Wo rk) documented as of this encounter Procedures Procedure Name Priority Date/Time Associated Diagnosis Comme nts SURGICAL PATHOLOGY Routine 05/13/2017 1:36 PM Res ults for this CDT procedure are i n the results section. documented in this encounter Results Pathology Surgical Pathology (05/13/2017 1:36 PM CDT) Specimen (Source) Anatomical Collection Method Collection Time Re ceived Time Location / / Volume Laterality 05/13/2017 1:36 PM CDT Narrative [facility] - 05/16/2017 10:40 AM CDT [facility] in [address], [address] [place] [address] Patient Name: JESSIE MCGEE OZIEL Patient ID #: [id number] Collected: 05/13/2017 Address: [facility]/Zip: [address] [place] [address], [place] ??[phone] Received: Reported: 05/15/2017 05/16/2017 Soc. Sec. #: ?/Age/Sex 1970 (Age: 46) ??F Physician(s): ERROL CHRIS MD Copy To: ? [facility] ??[id number] [address] [facility] [place], ??[place] ??[id number] SURGICAL PATHOLOGY REPORT FINAL DIAGNOSIS: LEFT LABIA MINORA, BIOPSY: --- EPIDERMOID INCLUSION CYST. [facility]/05/16/2017 PIERCE SALAZAR M.D. Report electronically released. Interpretation by PIERCE SALAZAR M.D. SPECIMEN(S) RECEIVED: LEFT LABIUM MINORA CLINICAL HISTORY: LABIAL CYST GROSS DESCRIPTION: Submitted as left labia minora is a some what distorted 0.3 cm fragment of mane skin with underlying 0.3 cm. apparent white cyst. ??ESB, one cassette. ([id number]) EAE/PAP/05/15/2017 MICROSCOPIC DESCRIPTION: Reviewed by Pierce aSlazar M.D.; Path ologist [facility]/05/16/2017 Radha Chris M.D. LAB SURG PATH ORDERABLES Performing Organization Address City/State/ZIP Code Phon e Number [facility] documented in this encounter Visit Diagnoses Not on filedocumented in this encounter Additional Health Concerns Assessment Noted Time PHQ-9 Depression Total Score: 4 05/11/2017 1:49 PM CDT documented as of this encounter Care Teams Truck Loader Overhead Crane Relationship Specialty Start Date End Date Axel Lopez, LAKHWINDER, C.N.P. PCP - General 04/21/17 01/15/[address] [phone] documented as of this encounter
--- OUTSIDE RECORDS SUMMARY | 2022-06-29 19:18 | XMS_ITS | Encounter Summary ---
:1970 Author Organization [facility] Address [address] [place] [address] Care Team Providers Name Role Phone Odalys Contreras APRN C.N.P. Primary Care Provider [phone] Reason for Visit Reason Comments Other Having nausea and vomiting s mayur 11/09/17. Is scheduled for UGI next week. Was seen at ER in November. Was jamar Chowdary and is out now. 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 documented as of this encounter Last Filed Vital Signs Vital Sign Reading Time Taken Comments Blood Pressure 124/78 12/12/2017 11:39 AM AGRICULTURAL ENGINEERING TECHNICIAN Pulse 60 12/12/2017 11:39 AM AGRICULTURAL ENGINEERING TECHNICIAN Temperature 36.9 ??C (98.4 ??F) 12/12/2017 11:39 AM AGRICULTURAL ENGINEERING TECHNICIAN Respiratory Rate 16 12/12/2017 11:39 AM AGRICULTURAL ENGINEERING TECHNICIAN Oxygen Saturation - - Inhaled Oxygen Concentration - - Weight 125 kg (275 lb 9.2 oz) 12/12/2017 11:39 AM AGRICULTURAL ENGINEERING TECHNICIAN Height - - Body Mass Index 51.36 12/02/2017 10:01 AM AGRICULTURAL ENGINEERING TECHNICIAN documented in this encounter Patient Instructions Patient InstructionsOdalys Contreras APRN, C.N.P. - 12/12/2017 11:45 AM AGRICULTURAL ENGINEERING TECHNICIAN It was a pleasure seeing you in the clinic! My goal is to always provide excellent care for my patients. If you receive a clinic survey in the mail and felt you received great care, I would sure appreciate you filling it out and sending it in. Thanks and take care! CULTURAL ENGINEERING TECHNICIAN AttachmentsThe following attachments cannot be sent through Care Everywhere. Dietary Suggestions for Controlling Nausea and Vomiting (Dominican)documented in this encounter Progress Notes Odalys Contreras, LAKHWINDER, C.N.P. - 12/12/2017 11:45 AM CST SUBJECTIVE CHIEF COMPLAINT: Chief Complaint Patient presents with ??? Other Having nausea and vomiting since 11/09/17. Is scheduled for UGI next week. Was seen at ER in November.Was given Zofran and is out now. HISTORY OF PRESENT ILLNESS: Shanda states she has been dealing with abdominal pain, bloating and nausea and vomiting since November 09, 2017. She denies fever. She has been in the emergency room multiple times and is now scheduledfor EGD with Dr. Malin at [facility] on December 19, 2017. She has been taking Zofran for nausea but ran out of medication. Symptoms worsened and she missed work today. She needs a note excusing her. REVIEW OF SYSTEMS: The following portions of the patient's history were reviewed and updated as appropriate: allergies,current medications, family history, medical history, social history, surgical history and problem list. Answers for HPI/ROS submitted by the patient on 12/02/2017 Fatigue: Yes Weight loss of more than 10 pounds: Yes Loss of appetite: Yes No eye issues: Yes No ENT issues: Yes Chest pain, pressure or tightness: Yes Shortness of breath: Yes Abdominal (belly) pain or cramping: Yes Nausea: Yes Vomiting: Yes Constipation: Yes Diarrhea: Yes Back pain/stiffness: Yes Skin rash: Yes Headache: Yes Light-headedness: Yes Feeling nervous, anxious or on edge: Yes Menses change or abnormal: Yes ALLERGIES: Allergies Allergen Reactions ??? Latex Rash ??? Valsartan Other (see comments) and Anaphylaxis Unknown - patient unable to provide information ??? Bupropion Rash Wellbutrin ??? Magnesium Sulfate Anaphylaxis Throat closing MEDICATIONS: Current Outpatient Prescriptions: ??? albuterol (for_ACCUNEB) 2.5 mg /3 mL nebulizer solution, Take 3 mL by nebulization 4 (four) times a day as needed., Disp: , Rfl: ??? albuterol (VENTOLIN HFA) 90 mcg/actuation inhaler, Inhale 2 puffs every 4 (four) hours as needed., Disp: , Rfl: ??? fluticasone-salmeterol (for_ADVAIR DISKUS) 100-50 mcg/actuation diskus inhaler, Inhale 1 puff 2 (two) times a day., Disp: , Rfl: ??? pantoprazole (for_PROTONIX) 40 mg EC tablet, Take 1 tablet (40 mg total) by mouth daily., Disp: 30 tablet, Rfl: 0 ??? tacrolimus (for_PROTOPIC) 0.1 % ointment, Apply topically., Disp: , Rfl: ??? triamterene-hydroCHLOROthiazide (for_MAXZIDE-25) 37.5-25 mg per tablet, Take 1 tablet by mouth daily., Disp: , Rfl: ??? ondansetron ODT (for_ZOFRAN-ODT) 4 mg disintegrating tablet, Take 1 tablet (4 mg total) by mouthevery 8 (eight) hours as needed for nausea or vomiting., Disp: 30 tablet, Rfl: 1 OBJECTIVE VITAL SIGNS: Temperature: [36.9 ??C] 36.9 ??C Resp Rate: [16] 16 Blood Pressure: (124)/(78) 124/78 Pulse Rate: [60] 60 PHYSICAL EXAM: GENERAL: In general, the patient is pleasant and appears stated age. SKIN: Without lesion. EYES: PERRLA. [...] to auscultation, good inspiratory effort. ABDOMEN: Soft, epigastric and bilateral upper quadrant tenderness, no palpable mass, no hepatosplenomegaly. EXTREMITIES: Warm, dry, no cyanosis or peripheral edema. MENTAL: Alert and oriented times three. NEUROLOGIC: Deep tendon reflexes are +2 and symmetrical. ASSESSMENT /PLAN: #1 Nausea And Vomiting Worsening, Zofran 4 mg disintegrating tablet, take 1 tablet every 8 hours as needed. #2 Pain Generalized Abdominal Worsening, she is scheduled for EGD with Dr. Malin at [facility] on December 19, 2017. She was given a note excusing her from work today and tomorrow. She will call if she is not ableto go back to work on December 14. #3 Bloating Abdominal Continue Protonix 40 mg daily. Rest. HEALTH MAINTENANCE: Up-to-date. CULTURAL ENGINEERING TECHNICIAN documented in this encounter Plan of Treatment Upcoming Encounters Date Type Specialty Care Team Description 07/16/2022 Office Visit Family Medicine Karel Gill M.B.B .S., M.D. [address] [place] [address] [phone] (Wo rk) documented as of this encounter Visit Diagnoses Diagnosis Nausea And Vomiting - Primary Pain Generalized Abdominal Bloating Abdominal documented in this encounter Care Teams Board Setter Relationship Specialty Start Date End Date Odalys Contreras APRN, C.N.P. PCP - General 04/21/17 01/15/21 [address] [address] documented as of this encounter
--- OUTSIDE RECORDS SUMMARY | 2022-06-29 19:18 | XMS_ITS | Encounter Summary ---
:1970 Author Organization [facility] Address [address] [place] [address] Care Team Providers Name Role Phone Unavailable Primary Care Provider Unavailable Encounter Details Date Type Department Care Team Description 11/22/2016 Hospital Encounter HX [facility] OWDerrek Howe, URGENTCAR P.A.-C. [address], [address] [phone] (Wo rk) Social History Tobacco Use Types [...] or relatives? How often do you attend gnosticist or quaker More than 4 time s per year 12/25/2021 services? Do you belong to any clubs or organizations Yes 12/25/2021 such as gnosticist groups, unions, fraternal or athletic groups, or [...] at Date Recorded Female 12/02/2017 9:31 AM MANAGER WOUND documented as of this encounter Last Filed Vital Signs Vital Sign Reading Time Taken Comments Blood Pressure 149/103 11/22/2016 1:16 PM MANAGER WOUND Pulse 92 11/22/2016 1:16 PM MANAGER WOUND Temperature - - Respiratory Rate - - Oxygen Saturation - - Inhaled Oxygen Concentration - - Weight 131 kg (287 lb 14.7 oz) 11/22/2016 1:16 PM MANAGER WOUND Height - - Body Mass Index 53.67 01/07/2016 3:19 PM MANAGER WOUND documented in this encounter Medications at Time of Discharge Medication Sig Dispensed Refills Start Date End Date butalbital-acetaminoph Take 1 tablet by mouth. 0 [...] Othiazide (DYAZIDE) mouth. 37.5-25 mg per capsule documented as of this encounter Progress Notes Derrek Isabel P.A.-C. - 11/22/2016 1:09 PM CST [id number] CHIEF COMPLAINT/REASON FOR VISIT High blood pressure. HISTORY OF PRESENT ILLNESS This is a 45-year-old female that comes in with concerns of her blood pressure. She was seen in [place] earlier today for back injury. She was evaluated and was given Toradol. After the Toradol, herblood was read at 160/110 and 152/105. There are concerns regarding the diastolic pressure. Was toldto be seen by her primary doctor today. Patient was unable to get in with her primary doctor today and she was told to come to the [facility]. VITAL SIGNS Temp 36.3, heart rate 92, blood pressure 149/103. PHYSICAL EXAMINATION GENERAL: Alert and oriented x3, no distress. HEENT: Eyes nonicteric. Noninjected. No discharge. PERRLA noted. Ophthalmic exam: Sandoval optic discs margins. No papilledema. Ears: Bilateral tympanic membranes pearly pickering. No loss of landmarks, erythema, bulging. LUNGS: Bilateral breath sounds clear to auscultation. No wheezing, rhonchi, or rales. HEART: Regular rate rhythm. No murmurs, rubs, or gallops. ALLERGIES Diovan. Magnesium sulfate. MEDICATIONS Hydrochlorothiazide-triamterene. IMPRESSION/REPORT/PLAN High blood pressure. Patient's blood pressure is elevated at 149/103; however, she is showing no signs of end organ damage today. She is not having any headaches. She is not nauseous, not vomiting, no papilledema. Lungs are nice and clear. The patient does have a followup next week with her primary doctor. I recommended having her followup if she could get in sooner, that would be recommended but at this point I would classify this as urgency not an emergency and I would rather have her followup with her primary doctor for blood pressure control and management given normal appearing exam today. I discussed if she were to develop chest pain, hematuria, shortness of breath, increasing headaches or vision changes, she rosi uld present back to the emergency room. Derrek Isabel P.A.-C./wilfrido Electronically Signed By: DERREK ISABEL PA-C On: 11/22/2016 03:29 PM Source: [facility] MHSDOLBEYNONRADSYS Document Id: [id number] GER WOUND documented in this encounter Miscellaneous Notes Miscellaneous - Jessie Lopez L.P.N. 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 Intake/History Adult Poultry Offal Worker Intake/History Entered On: 11/22/2016 13:18 MANAGER WOUND Performed On: 11/22/2016 13:16 MANAGER WOUND by JESSIE LOPEZ LPN Intake Temperature Core : 36.3 DegC(Converted to: 97.3 DegF) (LOW) Peripheral Pulse Rate : 92 /min Heart Rhythm : Regular Systolic Blood Pressure : 149 mmHg (HI) Diastolic Blood Pressure : 103 mmHg (>HHI) NIBP Mean : 118 mmHg BP Location : Right upper extremity Blood Pressure Cuff Size : Large Chief Complaint : high blood pressure after injuring her back [facility] be [facility] by a doctor for the high bp readings bp 160/110, 152/105 JESSIE LOPEZ [facility] - 11/22/2016 13:19 MANAGER WOUND Actual Weight : 130.6 kg(Converted to: 287 lb 15 oz) Dosing Weight Clinic : 130.6 kg JESSIE LOPEZ MAINTENANCE OF WAY FOREMAN - 11/22/2016 13:16 MANAGER WOUND General Info Information Given By : Patient Preferred Communication Mode : Verbal Languages : Greek Is Patient Female and 13-50 no hysterectomy : Yes Status : Patient denies Are you ? : No JESSIE LOPEZ LPN - 11/22/2016 13:16 MANAGER WOUND Subjective Pain Symptoms : No JESSIE LOPEZ LPN - 11/22/2016 13:16 MANAGER WOUND Dependent Habits Smoking Status : Never smoker Tobacco 2A : No Tobacco Use/Currently Using : No Tobacco Use/Last 30 Days : No Tobacco Use/Last 12 months : No JESSIE LOPEZ LPN - 11/22/2016 13:16 MANAGER WOUND Source: [facility] POWERCHART Document Id: [id number] MANAGER WOUND!28 GER WOUND documented in this encounter Plan of Treatment Upcoming Encounters Date Type Specialty Care Team Description 07/16/2022 Office Visit Family Medicine Karel Gill M.B.B .S., M.D. [address] [place] [phone] (Wo rk) documented as of this encounter Visit Diagnoses Not on filedocumented in this encounter
--- OUTSIDE RECORDS SUMMARY | 2022-06-29 19:18 | XMS_ITS | Encounter Summary ---
:1970 Author Organization [facility] Address [address] [place] [address] Care Team Providers Name Role Phone Odalys Contreras APRN, C.NChip Primary Care Provider [phone] Encounter Details Date Type Department Care Team Description 05/13/2017 Hospital Encounter HX NO MAPPING Timothy Miller M.D. [address] [place], [place] [phone] (Wo rk) Social History [...] How often do you attend yazidism or anabaptism More than 4 time s [...] slept in a group home (including now)? Sex Assigned at Date Recorded Female 12/02/2017 9:31 AM SECTIONIZER documented as of this encounter Medications at [...] per tablet documented as of this encounter Miscellaneous Notes Miscellaneous - Conversion, Historical Provider Ser - 05/13/2017 11:59 PM CDT Coding Summary-Paper Based CODING DATE: 05/20/2017 FINAL [facility] STATUS: * Discharged to Home or Self Care PAYOR: [employer] ADMIT DX: REASON FOR VISIT DX: FINAL DX: PRINCIPAL: L72.0 Epidermal cyst SECONDARY: PROCEDURES DOCTOR NAME DATE NOTE: The code number assigned matches the documented diagnosis and / or procedure in the patient's chart. However, the narrative phrase printed from the coding software may appear abbreviated, or result in slightly different terminology. Coded By: LORENZA RODRIGUEZ Date Saved: 05/20/2017 01:52 pm Source: [employer] Document Id: [id number] documented in this encounter Plan of Treatment Upcoming Encounters Date Type Specialty Care Team Description 07/16/2022 Office Visit Family Medicine Karel Gill M.B.B Deb, M.Be [address] [place] [phone] (Wo rk) documented as of this encounter Visit Diagnoses Not on filedocumented in this encounter Additional Health Concerns Assessment Noted Time PHQ-9 Depression Total Score: 4 05/11/2017 1:49 PM CDT documented as of this encounter Care Teams Pipeline Systems Operator Relationship Specialty Start Date End Date Odalys Contreras, WAGON WINDER, C.N.P. PCP - General 04/21/17 01/15/21 [address], [place] [address] documented as of this encounter
--- OUTSIDE RECORDS SUMMARY | 2022-06-29 19:18 | XMS_ITS | Encounter Summary ---
:1970 Author Organization [facility] Address [address] [place] [address] Care Team Providers Name Role Phone Odalys Contreras APRN, C.NChip Primary Care Provider [phone] Encounter Details Date Type Department Care Team Description 05/03/2017 Hospital Encounter HX NO MAPPING [place], P.A.-C. [address] [place], [place] [phone] (Wo rk) Social History Tobacco Use Types [...] or relatives? How often do you attend oriental orthodox or buddhist More than 4 time s per year 12/25/2021 services? 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 However, the narrative phrase printed from the coding software may appear abbreviated, or result in slightly different terminology. Coded By: LORENZA RODRIGUEZ Date Saved: 05/13/2017 02:21 pm Source: [employer] Document Id: [id number] documented in this encounter Plan of Treatment Upcoming Encounters Date Type Specialty Care Team Description 07/16/2022 Office Visit Family Medicine Karel Gill M.B.B Deb, MRadha [address] [place] [phone] (Wo rk) documented as of this encounter Visit Diagnoses Not on filedocumented in this encounter Additional Health Concerns Assessment Noted Time PHQ-9 Depression Total Score: 2 12/07/2016 4:49 PM HOUSEHOLD APPLIANCES SALESPERSON documented as of this encounter Care Teams Grades 7 8 Tutor Relationship Specialty Start Date End Date Odalys Contreras, SOFTWARE LEAD, C.N.P. PCP - General 04/21/17 01/15/[address] [address] documented as of this encounter
--- OUTSIDE RECORDS SUMMARY | 2022-06-29 19:18 | XMS_ITS | Encounter Summary ---
:1970 Author Organization [facility] Address [address] [place] [address] Care Team Providers Name Role Phone Unavailable Primary Care Provider Unavailable Encounter Details Date Type Department Care Team Description 12/22/2016 Hospital Encounter HX [facility] Axel Lopez, Becky WHITTAKER, C.N.P. [address] [place], [place] [phone] (Wo rk) Social History [...] How often do you attend gnosticism or alevism More than 4 time s [...] at Date Recorded Female 12/02/2017 9:31 AM LABOR RELATIONS OR PERSONNEL NEGOTIATOR documented as of this encounter Last Filed Vital Signs Vital Sign Reading Time Taken Comments Blood Pressure - - Pulse - - Temperature - - Respiratory Rate - - Oxygen Saturation - - Inhaled Oxygen Concentration - - Weight - - Height 156 cm (5' 1.42) 12/22/2016 7:01 AM LABOR RELATIONS OR PERSONNEL NEGOTIATOR Body Mass Index - - documented in [...] of this encounter Miscellaneous Notes Miscellaneous - Axel Lopez APRN, C.N.P. - 12/22/2016 4:39 PM CST Schedule Follow-Up Visit December 22, 2016 JESSIE MCGEE [place] [phone] [facility] [phone] Dear JESSIE MCGEE, Thank you for choosing [facility] for your health care needs. You recently had laboratory work performed to assess your overall health. This letter contains the results of your testing and standard ranges to help explain the results. Bood sugar and triglycerides are elevated. Work on diet and exercise with weight loss. I would recommend follow-up to recheck lab in 6 months. If you havequestions prior to our appointment, please contact our office. Result Name Current Result Normal Range Sodium Lvl (mmol/L) 136 12/22/2016 135 - 145 Potassium Lvl (mmol/L) 4.0 12/22/2016 3.6 - 5.2 Chloride (mmol/L) 101 12/22/2016 98 - 107 CO2 (mmol/L) 24 12/22/2016 22 - 29 AGAP (mmol/L) 11 12/22/2016 7 - 15 Glucose Fasting (mg/dL) (H) 124 12/22/2016 70 - 99 Creatinine (mg/dL) 0.68 12/22/2016 0.60 - 1.10 EGFR (MDRD) (mL/min/1.73m2) >60 12/22/2016 >=60 - EGFR (MDRD) (mL/min/1.73m2) >60 12/22/2016 >=60 - BUN (mg/dL) 10 12/22/2016 6 - 21 Calcium Lvl (mg/dL) 9.3 12/22/2016 8.0 - 10.3 Cholesterol (mg/dL) 179 12/22/2016 - <=199 [id number] (mg/dL) (H) 183 12/22/2016 - <=149 HDL (mg/dL) (L) 43 12/22/2016 >=50 - LDL Calculated (mg/dL) 99 12/22/2016 - <=129 Chol/HDL Ratio 4.00 12/22/2016 LDL/HDL 2 12/22/2016 TSH (mIU/L) 2.07 12/22/2016 0.27 - 4.20 Hgb (g/dL) 13.2 12/22/2016 12.0 - 15.5 Hct (%) 40.6 12/22/2016 34.9 - 44.5 WBC (x10(9)/L) (H) 11.6 12/22/2016 3.4 - 10.5 RBC (x10(12)/L) 4.54 12/22/2016 3.90 - 5.03 MCV (fL) 89.4 12/22/2016 82.0 - 98.0 RDW (%) 14.1 12/22/2016 11.9 - 15.5 Platelet (x10(9)/L) 248 12/22/2016 150 - 450 Neutro Absolute (10(9)/L) (H) 7.49 12/22/2016 1.70 - 7.00 Lymph Absolute (x10(9)/L) 2.51 12/22/2016 0.90 - 2.90 [place] Absolute (x10(9)/L) 0.89 12/22/2016 0.30 - 0.90 Eos Absolute (x10(9)/L) (H) 0.65 12/22/2016 0.05 - 0.50 Baso Absolute (x10(9)/L) 0.02 12/22/2016 0.00 - 0.30 Hgb A1c (% A1C) 5.6 12/22/2016 - <=5.6 Sincerely, AXEL LOPEZ [address] [place] [address] Electronic Signature Electronically Signed By: AXEL LOPEZ APRN, CNP On: December 22, 2016 This document has images extracted. Source: [facility] POWERCHART Document Id: [id number] Electronically signed by Celestina, [facility] Clinical Exercise Specialist [id number] at 04/19/2017 12:32 AM CDT documented in this encounter Plan of Treatment Upcoming Encounters Date Type Specialty Care Team Description 07/16/2022 Office Visit Family Medicine Karel Gill M.B.B .S., M.D. [address] [facility] [place] [phone] (Wo rk) documented as of this encounter Procedures Procedure Name Priority Date/Time Associated Comments Diagnosis LIPID PANEL, S Routine 12/22/2016 7:16 AM Results for this LABOR RELATIONS OR PERSONNEL NEGOTIATOR procedure are i n the results section. AUTOMATED Routine 12/22/2016 7:16 AM Results f or this DIFFERENTIAL, B LABOR RELATIONS OR PERSONNEL NEGOTIATOR procedure ar e in the results section. CBC WITH Routine 12/22/2016 7:16 AM Results f or this DIFFERENTIAL, B LABOR RELATIONS OR PERSONNEL NEGOTIATOR procedure ar e in the results section. THYROID-STIMULATING Routine 12/22/2016 7:16 AM Re sults for this HORMONE-SENSITIVE LABOR RELATIONS OR PERSONNEL NEGOTIATOR procedure are in (S-TSH) the results section. BASIC METABOLIC Routine 12/22/2016 7:16 AM Result s for this PANEL, S/P LABOR RELATIONS OR PERSONNEL NEGOTIATOR procedure are i n the results section. HEMOGLOBIN A1C, B Routine 12/22/2016 7:16 AM Resu lts for this LABOR RELATIONS OR PERSONNEL NEGOTIATOR procedure are i n the results section. documented in this encounter Results (ABNORMAL) Automated Differential (12/22/2016 7:16 AM LABOR RELATIONS OR PERSONNEL NEGOTIATOR) [facility] gist Method Time Signature Absolute 7.49 (H) 1.70 - POWERCHART Neutrophils 7.00 109L Lymphocytes 2.51 0.90 - POWERCHART 2.90 X109L Monocytes 0.89 0.30 - POWERCHART 0.90 X109L Eosinophils 0.65 (H) 0.05 - POWERCHART 0.50 X109L Absolute 0.02 0.00 - POWERCHART Basophil 0.30 X109L Specimen Anatomical Collection Method Collection Time Receive d Time (Source) Location / / Volume Laterality Blood 12/22/2016 7:16 AM 7 7:16 LABOR RELATIONS OR PERSONNEL NEGOTIATOR AM LABOR RELATIONS OR PERSONNEL NEGOTIATOR Axel Lopez APRN, C.N.P. LAB BLOOD ADD-ON Performing Organization Address City/State/ZIP Code Phon e Number POWERCHART (ABNORMAL) CBC with Differential (12/22/2016 7:16 AM LABOR RELATIONS OR PERSONNEL NEGOTIATOR) Analysis Performed At Patho logist Time Signature Leukocytes 11.6 (H) 3.4 - 10.5 POWERCHART X109L Erythrocytes 4.54 3.90 - POWERCHART 5.03 [id number] Hemoglobin 13.2 12.0 - POWERCHART 15.5 GDL Hematocrit 40.6 34.9 - POWERCHART 44.5 MCV 89.4 82.0 - POWERCHART 98.0 FL HX RDW 14.1 11.9 - POWERCHART 15.5 Platelet Count 248 150 - 450 POWERCHART X109L Specimen (Source) Anatomical Collection Method Collection Time Re ceived Time Location / / Volume Laterality Blood 12/22/2016 7:16 AM LABOR RELATIONS OR PERSONNEL NEGOTIATOR Axel Lopez APRN, C.N.P. LAB BLOOD ADD-ON Performing Organization Address City/State/ZIP Code Phon e Number POWERCHART Thyroid-Stimulating Hormone-Sensitive (s-TSH) (12/22/2016 7:16 AM LABOR RELATIONS OR PERSONNEL NEGOTIATOR) P athologist Signature TSH 2.07 0.27 - 4.20 POWERCHART (Thyrotropin) MIUL Comment: Biotin has been identified by the [facility] as a potential interfering substance. Higher concentrations of biotin may be found in multivitamins, hair/nail supplements, and workout supplements. If the result does not match clinical observat ions, repeat testing after patient refrains from the use of supplements for at least 12 hours. Specimen (Source) Anatomical Collection Method Collection Time Re ceived Time Location / / Volume Laterality Blood 12/22/2016 7:16 AM LABOR RELATIONS OR PERSONNEL NEGOTIATOR Axel Lopez APRN, C.N.P. LAB BLOOD ADD-ON Performing Organization Address City/State/ZIP Code Phon e Number POWERCHART (ABNORMAL) Lipid Panel (12/22/2016 7:16 AM LABOR RELATIONS OR PERSONNEL NEGOTIATOR) P athologist Signature Cholesterol, 179 <=199 MGDL POWERCHART Total Comment: 2014 National Lipid Association recommen dations for Total Cholesterol in adults ages 18 and up: Desirable <200 mg/dL Borderline high 200-239 mg/dL High 240 mg/dL 2014 National Lipid Association recommen dations for Total Cholesterol in children ages 2 to 17. Acceptable <170 mg/dL Borderline High 170-199 mg/dL High 200 mg/dL HX HDL 43 (L) >=50 MGDL POWERCHART Comment: 2014 National Lipid Association recommen dations for HDL-C in adults ages 18 and up: Low <40 mg/dL (Men) Low <50 mg/dL (Women) 2014 National Lipid Association recommen dations for HDL-C in children ages 2 to 17. Low <40 mg/dL Borderline Low 40-45 mg/dL Acceptable >45 mg/dL Triglycerides 183 (H) <=149 MGDL POWERCHART Comment: 2014 National Lipid Association recommen dations for Triglycerides in adults ages 18 and up: Normal <150 mg/dL Borderline High 150-199 mg/dL High 200-499 mg/dL Very High 500 mg/dL 2014 National Lipid Association recommen dations for Triglycerides in children ages 2 to 9. Acceptable <75 mg/dL Borderline High 75-99 mg/dL High 100 mg/dL 2014 National Lipid Association recommen dations for Triglycerides in children ages 10 to 17. Acceptable <90 mg/dL Borderline High 90-129 mg/dL High 130 mg/dL Trigs >400mg/dL: Triglycerides >400 mg/ dL. Calculated LDL cholesterol is not valid. Non-HDL cholesterol may be used for risk assessment when triglycerides are >400mg/dL. Calculated LDL 99 <=129 MGDL POWERCHART Comment: 2014 National Lipid Association recommen dations for LDL-C in adults ages 18 and up: Desirable <100 mg/dL Above desirable 100-129 mg/dL Borderline high 130-159 mg/dL High 160-189 mg/dL Very High 190 mg/dL 2014 National Lipid Association recommen dations for LDL-C in children ages 2 to 17. Acceptable <110 mg/dL Borderline High 110-129mg/dL High 130 mg/dL LDL-C >190mg/dL: The markedly elevated LDL level is suggestive of a genetic condition such as familial hypercholesterolemia(FH) or familial defective apolipoprotein B-100 (FDB). Molecular genetic t esting for FH and FDB is available rush [facility]: FH/ADH Genetic Reflex [place] el (test ADHP). Acquired (non-genetic) causes of markedly increased LDL cholesterol include cholestatic liver disease due to the presence of LpX. If a genetic form of hypercholesterolemia is suspected, family studies including biochemical testing fo r lipids (total cholesterol,triglycerides, LDL cholesterol and HDL cholesterol) are recommended. ??Please contact the laboratory at or the on-line test catalog at [employer] for information about how to order these yefri ts or to speak with a genetic counselor. Further interpretation would require clinical information. Total Cholesterol/HDL Ratio 4.00 PO WERCHART HXLDL/HDL 2 POWERCHART Specimen (Source) Anatomical Collection Method Collection Time Re ceived Time Location / / Volume Laterality Blood 12/22/2016 7:16 AM LABOR RELATIONS OR PERSONNEL NEGOTIATOR Reese Meyer APRN.N.P. LAB BLOOD ADD-ON Performing Organization Address City/State/ZIP Code Phon e Number POWERCHART (ABNORMAL) BMP (Basic Metabolic Panel) (12/22/2016 7:16 AM LABOR RELATIONS OR PERSONNEL NEGOTIATOR) athologist Signature Sodium, S 136 135 - 145 POWERCHART MMOLL Potassium, S 4.0 3.6 - 5.2 POWERCHART MMOLL Chloride, S 101 98 - 107 POWERCHART MMOLL CO2 Total 24 22 - 29 POWERCHART MMOLL Comment: Reference ranges have not been established for patients that are <12 months of age. Glucose, Fasting, S 124 (H) 70 - 99 MGDL POWERCH ART BUN (Blood Urea Nitrogen), S 10 6 - 21 MGDL POWERCHART Creatinine 0.68 0.60 - 1.10 MGDL POWERCHART Calcium, Total, S 9.3 8.0 - 10.3 MGDL POWERC PEÑALOZA Anion Gap 11 7 - 15 MMOLL POWERCHART HXeGFR (MDRD) >60 >=60 [id number] POWERCHART eGFR Black/ >60 >=60 [id number] POWERCHART Specimen (Source) Anatomical Collection Method Collection Time Re ceived Time Location / / Volume Laterality Blood 12/22/2016 7:16 AM LABOR RELATIONS OR PERSONNEL NEGOTIATOR Axel Lopez APRN, C.N.P. LAB BLOOD ADD-ON Performing Organization Address City/State/ZIP Code Phon e Number POWERCHART Hemoglobin A1c (12/22/2016 7:16 AM LABOR RELATIONS OR PERSONNEL NEGOTIATOR) P athologist Signature Hemoglobin A1c, 5.6 <=5.6 A1C POWERCHART B Specimen (Source) Anatomical Collection Method Collection Time Re ceived Time Location / / Volume Laterality Blood 12/22/2016 7:16 AM LABOR RELATIONS OR PERSONNEL NEGOTIATOR Vignesh Meyer APRNChip LAB BLOOD ADD-ON Performing Organization Address City/State/ZIP Code Phon e Number POWERCHART documented in this encounter Visit Diagnoses Not on filedocumented in this encounter Additional Health Concerns Assessment Noted Time PHQ-9 Depression Total Score: 2 12/07/2016 4:49 PM LABOR RELATIONS OR PERSONNEL NEGOTIATOR documented as of this encounter
--- OUTSIDE RECORDS SUMMARY | 2022-06-29 19:18 | XMS_ITS | Encounter Summary ---
:1970 Author Organization [facility] Address [address] [place] [address] Care Team Providers Name Role Phone Odalys Contreras APRN, C.N.P. Primary Care Provider [phone] Encounter Details Date Type Department Care Team Description 12/02/2017 Abstract Department of Community Internal Provider , [facility] Medicine in [place] [address] [place] [phone] Social History Tobacco Use Types Packs/Day Years [...] or relatives? How often do you attend moravian or mandaen More than 4 time s per year 12/25/2021 services? Do you belong to any clubs or organizations Yes 12/25/2021 such as moravian groups, unions, fraternal or athletic groups, or [...] at Date Recorded Female 12/02/2017 9:31 AM SEAMER ELASTIC BAND documented as of this encounter Plan of Treatment Upcoming Encounters Date Type Specialty Care Team Description 07/16/2022 Office Visit Family Medicine Karel Gill M.B.B Deb, M.Be [address] [place] [phone] (Wo rk) documented as of this encounter Visit Diagnoses Not on filedocumented in this encounter Care Teams Pipe Installer Relationship Specialty Start Date End Date Odalys Contreras, AUTOMOBILE ASSEMBLY SUPERVISOR, C.N.P. PCP - General 04/21/17 01/15/21 [address] [place] [phone] documented as of this encounter
--- OUTSIDE RECORDS SUMMARY | 2022-06-29 19:18 | XMS_ITS | Encounter Summary ---
:1970 Author Organization [facility] Address [address] [place] [address] Care Team Providers Name Role Phone Odalys Contreras APRN, C.NChip Primary Care Provider Reason for Visit Reason Comments Communication Encounter Details Date Type Department Care Team Description 12/07/2017 Clinical Communication Department of Dani Sanchez ommunication General Surgery in Emmanuelle Baum [place] [address] [place] [phone] Social History Tobacco Use Types Packs/Day Years [...] often do you attend latter day or christian More than 4 time s per year [...] at Date Recorded Female 12/02/2017 9:31 AM REED REPAIRER documented as of this encounter Miscellaneous Notes Telephone Encounter - Elodia Issa L.PChuckyN. - 12/07/2017 10:13 AM REED REPAIRER SCHEDULED FOR: EGD AT [facility] WITH DR. SANCHEZ DATE of Procedure: 12/19/17 TIME of Procedure: 1445 Prep instructions have been sent to the patient. *Patient instructed to contact their primary provider if taking any blood thinners or diabetic medication at least 10 days prior to procedure for medication instructions. *Patient advised to not take aspirin, naproxen, fish oil, vitamin E, ibuprofen for 10 days prior to the scheduled procedure. *Insurance referral done REPAIRER documented in this encounter Plan of Treatment Upcoming Encounters Date Type Specialty Care Team Description 07/16/2022 Office Visit Family Medicine Karel Gill M.B.B .S., M.D. [address] [place] [phone] (Wo rk) documented as of this encounter Visit Diagnoses Not on filedocumented in this encounter Care Teams Correctional Therapy Director Relationship Specialty Start Date End Date Odalys Contreras APRN, C.N.P. PCP - General 04/21/17 01/15/[address] [place] [phone] documented as of this encounter
--- OUTSIDE RECORDS SUMMARY | 2022-06-29 19:18 | XMS_ITS | Encounter Summary ---
:1970 Author Organization [facility] Address [address] [place] [address] Care Team Providers Name Role Phone Axel Lopez APRN, C.N.P. Primary Care Provider [phone] Encounter Details Date Type Department Care Team Description 05/11/2017 Hospital Encounter HX [facility] FAMILYPRA Axel Lopez APRN, C.N.P. [address] [place], [place] [phone] (Wo rk) Social History [...] How often do you attend confucianism or evangelical More than 4 time s [...] or slept in a fdc (including now)? 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 - 05/11/2017 1:31 PM CDT Clinic Full Note CHIEF COMPLAINT/REASON FOR VISIT Physical- Concerns about excema on hands,back and legs. Was seen in ER last week for UTI. Put on medication. Having pressure lower abdomen. Having increased thrist. Blood sugars ibll257 and 126. Needsrefill on medications. HISTORY OF PRESENT ILLNESS Jessie is here for health care maintenance exam. She has asthma stable on Advair daily and albuterol as needed. She needs refill of albuterol. ACT score today 19, states she has more symptoms the dueto allergies. She has persistent eczema on her hands, back and legs. She uses clobetasol for 2 weeksat a time as needed. Symptoms worsen almost as soon as she discontinues the clobetasol. We discussedhaving her see Dermatology for further evaluation. She has concerns about possible diabetes. Nonfasting glucose on May 03 was normal at 108. She had no glucose in her urine. She is on triamterene-hydrochlorothiazide for hypertension. Blood pressure was elevated on 2 checks today. She had been on lis inopril and Lasix in the past but that was discontinued. We discussed starting back on lisinopril, at a lower dose, in addition to the triamterene- hydrochlorothiazide. She states she gets what feels like a boil on the labia almost every month around the time of her period. Sometimes she has to pop them, there is usually white discharge and sometimes they go away on their own. MEDICATIONS Advair Diskus 100 mcg-50 mcg inhalation powder, 1 puff(s), Inhalation, 2xDay albuterol 2.5 mg/3 mL (0.083%) inhalation solution, 2.5 mg, 3 mL, NEB, 4xDay, PRN, 3 refills Ativan 0.5 mg oral tablet, 0.5 mg, 1 tab(s), PO, 3xDay, PRN clobetasol 0.05% topical ointment, 1 kalyn, Topical, 2xDay, PRN fluconazole 150 mg oral tablet, 150 mg, 1 tab(s), PO, Once, 0 refills triamterene-hydroCHLOROthiazide 37.5mg-25mg oral tablet, 1 tab(s), PO, Daily, 3 refills Ventolin HFA 90 mcg/inh inhalation aerosol, 2 puff(s), Inhalation, q4hr, PRN, 11 refills ALLERGIES Diovan (Unknown - patient unable to provide information) magnesium sulfate (Anaphylactic reaction,throat closing) PAST MEDICAL HISTORY Chronic Anxiety Generalized Disorder Asthma Mild Intermittent Body mass index (BMI) 50-59.9 , adult Dermatitis Eczematoid Hypertension (HTN) Essential Primary NOS Hypertriglyceridemia Migraine Headache (LITTLEJOHN) Classic NOS Pre Diabetes Mellitus Historical No historical problems PROCEDURES/SURGICAL HISTORY Pap smear (01/20/2016). SOCIAL HISTORY Date Time: 05/11/2017 13:25 Tobacco: Smoking Status: Former smoker Exposure: Other: Former smoker: quit 07/2015 Alcohol: Use: Yes Recreational Drugs: Use: No Results Found Type: No Results Found FAMILY HISTORY Mother:Positive: Hyperlipidemia; Hypertension Father:Positive: Hyperlipidemia; Hypertension; Stroke Brother ( at 40 year(s)):Positive: Cirrhosis of liver HEALTH MAINTENANCE Up-to-date. SYSTEMS REVIEW GENERAL: No weight gain, no [...] no back pain, no back stiffness SKIN: Eczema hands, back and legs, no skin sores, no change in moles NEURO: No significant headaches, no slurred speech, no seizures, no dizziness, no loss of consciousness, no memory loss ENDOCRINE: Excessive thirst, no excessive bruising VITAL SIGNS T: 36.5 ??C (Core) HR: 68 RR: 16 BP: 132 / 16 HT: 156 cm WT: 130.90 kg BMI: 53.79 PHYSICAL EXAMINATION GENERAL: In general, the patient is a pleasant female who appears her stated age. SKIN: Erythematous, macular, papular, rash on backs of hands. No vesicles or pustules or sign of infection. Rash is pruritic. EYES: PERRLA. EOMI intact. Fundi sharp discs. [...] nontender, no palpable mass, no hepatosplenomegaly. GENITALIA: 8 mm sebaceous cyst left labia. Bartholin, urethra, vagina without lesion. Bimanual examination reveals no masses or tenderness in the uterine or adnexal areas. SPINE: Normal range of motion. No CVA tenderness. JOINTS: Normal range of motion. EXTREMITIES: Warm, dry, no cyanosis or peripheral edema. MENTAL: Alert and oriented times three. NEUROLOGIC: Deep tendon reflexes are +2 and symmetrical. LAB RESULTS Sodium Lvl 137 mmol/L 05/03/2017 11:42 CDT Potassium Lvl 4.0 mmol/L 05/03/2017 11:42 CDT Chloride 100 mmol/L 05/03/2017 11:42 CDT CO2 24 mmol/L 05/03/2017 11:42 CDT AGAP 13 mmol/L 05/03/2017 11:42 CDT Glucose Lvl 108 mg/dL 05/03/2017 11:42 CDT Creatinine 0.69 mg/dL 05/03/2017 11:42 CDT EGFR (MDRD) >60 mL/min/1.73m2 05/03/2017 11:42 CDT BUN 12 mg/dL 05/03/2017 11:42 CDT Calcium Lvl 9.4 mg/dL 05/03/2017 11:42 CDT TSH 1.85 mIU/L 05/03/2017 11:42 CDT Sed Rate 19 mm 05/03/2017 11:42 CDT UA Glucose Negative 05/03/2017 11:45 CDT IMPRESSION/REPORT/PLAN Asthma Mild Intermittent Stable on Advair daily and albuterol as needed. Asthma control test score today 19 due to allergies. Asthma action plan updated. Medication refills provided. Ordered: OV Est Pt Level 3 - 54061 - 15 min Cyst Sebaceous Labia Worsening, scheduling consult with Gynecology for possible excision. General Medical Exam Adult (GME) Continue to work on healthy diet and regular exercise program with weight loss. Return for completephysical exam and mammogram in one year. Ordered: OV Est Pt Prev 40-64 - 63791 Hypertension (HTN) Essential Primary NOS Worsening, adding lisinopril 5 mg daily to triamterene-hydrochlorothiazide. Return for blood pressure check in 1 week. Ordered: OV Est Pt Level 3 - 30286 - 15 min Hypertriglyceridemia Worsening, fasting triglycerides elevated at 263 in December 2016. Continue to work on weight loss.Recheck fasting lipids in 6 months. Ordered: OV Est Pt Level 3 - 46619 - 15 min Pre Diabetes Mellitus Stable, reason on fasting blood glucose 108. Continue to watch carbohydrate intake. Ordered: OV Est Pt Level 3 - 46729 - 15 min Orders: albuterol, 2 puff(s), Inhalation, q4hr, PRN Shortness of breath / Wheezing, # 1 each, 11 Refill(s),Maintenance, Pharmacy: [facility] 1656 albuterol, 2.5 mg = 3 mL, NEB, 4xDay, PRN Shortness of breath / Wheezing, # 360 mL, 3 Refill(s), Maintenance, Pharmacy: [facility]56 fluticasone-salmeterol, 1 puff(s), Inhalation, 2xDay, rinse mouth and throat after use, # 1 each, 11 Refill(s), Maintenance, Pharmacy: [facility] 1656 lisinopril, 5 mg = 1 tab(s), PO, Daily, # 30 tab(s), 3 Refill(s), Maintenance, Pharmacy: [facility]56 triamterene-hydroCHLOROthiazide, 1 tab(s), PO, Daily, # 90 tab(s), 3 Refill(s), Maintenance, Pharmacy: [facility] 1656 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 Vital Signs - Nurse Visit Electronically Signed By: AXEL LOPEZ APRN WELFARE ELIGIBILITY INTERVIEWER On: 05/11/2017 02:19 PM [facility] POWER[facility] Document Id: [id number] documented in this encounter Procedure Notes Lynn Gonzalez, LChuckyPChuckyNChucky - 05/11/2017 1:20 PM CDT Asthma Control Test (12 yrs and older) Asthma Control Test (12 yrs and older) Entered On: 05/11/2017 13:23 CDT Performed On: 05/11/2017 13:20 CDT by LYNN GONZALEZ LPN ACT Past 4 weeks asthma interfered with work, school, or home : None of the Time Past 4 weeks how often short of breath : Once or twice a week Past 4 weeks symptoms effect sleep : Once or twice Past 4 weeks how often inhaler or nebulizer used : 1 or 2 times per day Past 4 weeks rate your asthma control : Well controlled ACT Score : 19 ED visits past yr for asthma w/o hospital stay : 0 Hospitalizations/Overnight Stays in Past yr for Asthma : 0 ADDYLYNN Baum AGUSTIN ANGELLA - 05/11/2017 13:20 CDT Source: [facility] [employer] Document Id: [id number] CDT!10 documented in this encounter Nursing Notes Axel Lopez APRN, C.N.P. - 05/11/2017 1:47 PM CDT Ambulatory Patient Education The following Patient Education Materials have been given to the patient: Patient Education Materials: Ambulatory ASTHMA, Acute (Adult) Ambulatory Asthma [Adult] Asthma is a disease where the small air passages within the lung go into spasm and restrict the flowof air. Inflammation and swelling of the airways cause further restriction. During an acute asthma attack, these factors cause difficulty breathing, wheezing, cough and chest tightness. An asthma attack can be triggered by many things. Common triggers include the common cold, bronchitis, pneumonia, irritants such as smoke or pullutants in the air, emotional upset and heavy exercise. In many adults with asthma, allergies to dust, mold, pollen and animal dander can cause an asthma attack. Skipping doses of daily asthma medicine can also bring on an asthma attack. Asthma can be controlled with proper medicines and decreased exposure to known allergens. Home Care: ?? Take prescribed medicine exactly at the times advised. If you have a hand- held inhaler or aerosolbreathing medicine, do not use it more than once every four hours, unless told to do so. (If you need this medicine more than every four hours, you may need to return to the Emergency Room.) If prescribed an antibiotic or prednisone, take all of the medicine even if you are feeling better after a few days. ?? Do not smoke. Avoid being exposed to the smoke of others. ?? Some persons with asthma have worsening of their symptoms when they take aspirin and non-steroidal medicines like ibuprofen (Motrin, Advil) and naproxen (Aleve, Naprosyn). Talk to your doctor if youthink this may apply to you. Acetaminophen (Tylenol) should be safe to use. Follow Up with your doctor, or as advised by our staff. Always bring all of your current medicines with you for your doctor to see. If you do not already have one, talk to your doctor about developing a personalized Asthma Action Plan. [NOTE: A pneumococcal vaccine and yearly flu shot (every fall) are recommended. Ask your doctor about this.] Get Prompt Medical Attention if any of the following occur: ?? Increased wheezing or shortness of breath ?? Need to use your inhalers more often than usual without relief ?? Fever of 100.4??F (38??C) or higher, or as directed by your healthcare provider ?? Coughing up lots of dark-colored or bloody sputum (mucus) ?? Chest pain with each breath ?? You do not start to improve within 24 hours Call 911 If Any Of The Following Occur : ?? Trouble walking or talking because of shortness of breath ?? If you use a peak flow meter and you are still in the red zone (less than 50 percent) 15 minutes after using inhaler medication ?? Lips or fingernails turning pickering or blue ?? [phone] [place] [address]. All rights reserved. This information is not intended as a substitute for professional medical care. Always follow your healthcare professional's instructions. This document has images extracted. Please consider using [employer] for all your patient education needs. Source: [facility] POWERCHART Document Id: [id number] documented in this encounter Miscellaneous Notes Miscellaneous - Myriam Bolivar - 05/31/2017 8:16 AM CDT Health Maintenance Reminder May 31, 2017 JESSIE MCGEE [address] [place] [phone] Dear JESSIE MCGEE, We have developed a six-month overview of preventive and recommended services that apply to your unique health care needs. Some may be past due or may be coming due in the next three months. If youhave already scheduled any or all of these services, thank you. We recognize that this may or may not include all of your individualized health care needs; however, we are happy to help you with any and all primary care concerns you may have. Past Due Pap Smear Test for Cervical Cancer Screening Coming Due (in the next three months) Blood Pressure Check (on or soon after Aug 11, 2017) Planning for the future (three to six months from now) Asthma Control Test Questionnaire (on or soon after Nov 09, 2017) Please call me directly at [phone] and I will help you complete this over the phone. It may be possible to bundle some of the above services together to make your visit with us more convenient. Please call [phone] to schedule services that are past due or that may shortly become due (thank you if you have already done so). We will follow up in three to six months should you have more services to schedule at that time. If you have already received any of the listed past due or upcoming services outside of [facility], please call [phone] to add them to your medical record. You may want to consider contacting your health insurance company to make sure these services are covered and find out if there will be any [id number]-[id number] expense. If you have any questions about the services listed above, or if you are no longer receiving care from [facility], please contact us at [phone]. Thank you for partnering to provide you with the best care possible. We encourage you to set up your Patient Online Services account [email or web address], where you can communicate in a convenient way with us, schedule appointments, receive lab results and more. To set up your account, you will need your [facility] Number, which is [id number]. Thank you for choosing the Axel Lopez APRN, C.N.P. care team for your health care needs! You are receiving this notice based on [facility]'s recommended standard for preventive care and ongoing condition-specific services you may need. If you have completed or do not believe you need these services, please contact your provider or care team to discuss this further. Sincerely, MYRIAM BOLIVAR Electronic Signature Electronically Signed By: MYRIAM BOLIVAR LPN On: May 31, 2017 This document has images extracted. Source: [facility] POWERCHART Document Id: [id number] Miscellaneous - Lynn Gonzalez L.PChuckyNChucky - 05/11/2017 1:49 PM CDT PHQ-9 PHQ-9 Entered On: 05/11/2017 13:50 CDT Performed On: 05/11/2017 13:49 CDT by LYNN GONZALEZ LPN PHQ-9 Little interest or pleasure in doing things : Several days Feeling down, depressed, or hopeless : Not at all Trouble falling or staying asleep, or sleeping too much : Several days Feeling tired or having little energy : Several days Poor appetite or overeating : Several days Feeling bad about yourself or that you are a failure : Not at all Trouble concentrating on things : Not at all Moving or speaking slowly; restless or fidgety : Not at all Thoughts that you would be better off /hurting self : Not at all PHQ-9 Calculated Score : 4 Problems make work, home, or dealing with others : Not difficult at all LYNN GONZALEZ LPN - 05/11/2017 13:49 CDT Source: [employer] Document Id: [id number] CDT!13 Miscellaneous - Axel Lopez APRN, C.NChuckyP. - 05/11/2017 1:47 PM CDT Ambulatory Patient Summary [address] [id number] Visit Information Name: JESSIE MCGEE [facility] Number: [id number] Current Date: 05/11/2017 13:47:10 Physicians Attending Provider: AXEL LOPEZ APRN WELFARE ELIGIBILITY INTERVIEWER Primary Care Provider: AXEL LOPEZ APRN WELFARE ELIGIBILITY INTERVIEWER JESSIE MCGEE has been given the following [...] needed for Shortness of breath / [place] [address] albuterol (Ventolin HFA 90 mcg/inh inhalation aerosol) 2 puff(s), Inhalation, every 4 hours as needed for Shortness of breath / [place] [address] clobetasol topical (clobetasol 0.05% topical ointment) 1 kalyn, Topical, two times a day as needed foreczema fluticasone-salmeterol (Advair Diskus 100 mcg-50 mcg inhalation powder) 1 puff(s), Inhalation, two times a day lisinopril (lisinopril 5 mg oral tablet) 1 Tablet(s), Oral, once [place] [address] LORazepam (Ativan 0.5 mg oral tablet) 1 Tablet(s), Oral, three times a day as needed for Anxiety triamterene-hydroCHLOROthiazide (triamterene-hydroCHLOROthiazide 37.5mg-25mg oral tablet) 1 Tablet(s), Oral, once a day Routed to [address] [address] Stop Taking the Following Medications: Medication list as of 05-11-17 13:47 Attention: If you have any medications at [...] of emergency. 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 Asthma Mild Intermittent Active Hypertension (HTN) Essential Primary NOS Active Migraine Headache (LITTLEJOHN) Classic NOS Active Dermatitis Eczematoid Active Anxiety Generalized Disorder Active Hypertriglyceridemia Active 12/22/2016 Pre Diabetes Mellitus Active 12/22/2016 Your Upcoming Appointments Date Time Location Provider No Appointments found Attention: Contact your local Clinic if further appointment detail needed. Asthma [Adult] Asthma is a disease where the small air passages within the lung go into spasm and restrict the flowof air. Inflammation and swelling of the airways cause further restriction. During an acute asthma attack, these factors cause difficulty breathing, wheezing, cough and chest tightness. An asthma attack can be triggered by many things. Common triggers include the common cold, bronchitis, pneumonia, irritants such as smoke or pullutants in the air, emotional upset and heavy exercise. In many adults with asthma, allergies to dust, mold, pollen and animal dander can cause an asthma attack. Skipping doses of daily asthma medicine can also bring on an asthma attack. Asthma can be controlled with proper medicines and decreased exposure to known allergens. Home Care: ?? Take prescribed medicine exactly at the times advised. If you have a hand- held inhaler or aerosolbreathing medicine, do not use it more than once every four hours, unless told to do so. (If you need this medicine more than every four hours, you may need to return to the Emergency Room.) If prescribed an antibiotic or prednisone, take all of the medicine even if you are feeling better after a few days. ?? Do not smoke. Avoid being exposed to the smoke of others. ?? Some persons with asthma have worsening of their symptoms when they take aspirin and non-steroidal medicines like ibuprofen (Motrin, Advil) and naproxen (Aleve, Naprosyn). Talk to your doctor if youthink this may apply to you. Acetaminophen (Tylenol) should be safe to use. Follow Up with your doctor, or as advised by our staff. Always bring all of your current medicines with you for your doctor to see. If you do not already have one, talk to your doctor about developing a personalized Asthma Action Plan. [NOTE: A pneumococcal vaccine and yearly flu shot (every fall) are recommended. Ask your doctor about this.] Get Prompt Medical Attention if any of the following occur: ?? Increased wheezing or shortness of breath ?? Need to use your inhalers more often than usual without relief ?? Fever of 100.4?F (38?C) or higher, or as directed by your healthcare provider ?? Coughing up lots of dark-colored or bloody sputum (mucus) ?? Chest pain with each breath ?? You do not start to improve within 24 hours Call 911 If Any Of The Following Occur : ?? Trouble walking or talking because of shortness of breath ?? If you use a peak flow meter and you are still in the red zone (less than 50 percent) 15 minutes after using inhaler medication ?? Lips or fingernails turning pickering or blue ?? [phone] [place] [address]. All rights reserved. This information is not [...] if you dont have one. Go to [email or web address] and click on Create Your Account. Then, follow the directions to complete the online form. Youll be asked for your [facility] number which you can find at the top of this document. Your Goals/Additional instructions: This document has images extracted. Please consider using [employer] for all your patient education needs. Source: [facility] [employer]OWERCHART Document Id: [id number] Miscellaneous - Axel Lopez APRN, C.N.P. - 05/11/2017 1:47 PM CDT Ambulatory Discharge Medication List [address] [id number] Visit Information Name: JESSIE MCGEE [facility] Number: [id number] Current Date: 05/11/2017 13:47:09 Attending Provider: AXEL LOPEZ APRN, CNP Primary Care Provider: AXEL LOPEZ APRN, CNP JESSIE MCGEE has been given the following [...] needed for Shortness of breath / Wheezing Routed to [address] [address] albuterol (Ventolin HFA 90 mcg/inh inhalation aerosol) 2 puff(s), Inhalation, every 4 hours as needed for Shortness of breath / Wheezing Routed to [facility] [address] [place] [address] clobetasol topical (clobetasol 0.05% topical ointment) 1 kalyn, Topical, two times a day as needed foreczema fluticasone-salmeterol (Advair Diskus 100 mcg-50 mcg inhalation powder) 1 puff(s), Inhalation, two times a day lisinopril (lisinopril 5 mg oral tablet) 1 Tablet(s), Oral, once a day New Routed to [address] [id number] LORazepam (Ativan 0.5 mg oral tablet) 1 Tablet(s), Oral, three times a day as needed for Anxiety triamterene-hydroCHLOROthiazide (triamterene-hydroCHLOROthiazide 37.5mg-25mg oral tablet) 1 Tablet(s), Oral, once a day Routed to [address] [address] Stop Taking the Following Medications: Medication list as of 05-11-17 13:47 Attention: If you have any medications at [...] Signed By: AXEL LOPEZ APRN, CNP Signed On:11-MAY-2017 13:46:37 Additional Information: Source: [facility] [employer] Document Id: [id number] Ezequiel - Lynn Gonzalez L.P.N. - 05/11/2017 1:31 PM CDT Ambulatory Vitals Height Weight Ambulatory Vitals Height Weight Entered On: 05/11/2017 13:33 CDT Performed On: 05/11/2017 13:31 CDT by LYNN GONZALEZ LPN Vitals/Ht/Wt Systolic Blood Pressure : 128 mmHg Diastolic Blood Pressure : 90 mmHg (HI) NIBP Mean : 103 mmHg BP Location : Right upper extremity Blood Pressure Cuff Size : Large Height : 156 cm(Converted to: 5 ft 1 inch(es), 61 inch(es)) LYNN GONZALEZ LPN - 05/11/2017 13:31 CDT Source: [facility] [employer] Document Id: [id number] CDT!8 Miscellaneous - Lynn Gonzalez L.P.N. - 05/11/2017 1:25 PM CDT Adult Medical Sonographer Intake/History Adult Medical Sonographer Intake/History Entered On: 05/11/2017 13:30 CDT Performed On: 05/11/2017 13:25 CDT by LYNN GONZALEZ LPN Intake Chief Complaint : Physical- Concerns about excema on hands,back and legs. Was seen in ER last week for UTI. Put on medication. Having pressure lower abdomen. Having increased thrist. Blood sugars aapd651 and 126. Needs refill on medications. LMP Date : Premenarchal Temperature Core : 36.5 DegC(Converted to: 97.7 DegF) Peripheral Pulse Rate : 68 /min Respiratory Rate : 16 /min Heart Rhythm : Regular Systolic Blood Pressure : 132 mmHg Diastolic Blood Pressure : 16 mmHg (<LLOW) NIBP Mean : 55 mmHg BP Location : Right upper extremity Blood Pressure Cuff Size : Large Height : 156 cm(Converted to: 5 ft 1 inch(es), 61 inch(es)) Actual Weight : 130.90 kg(Converted to: 288 lb 9 oz) Weight Source : Standing scale Dosing Weight Clinic : 130.9 kg Clinic BSA : 2.38 Body Mass Index : 53.79 kg/m2 LYNN GONZALEZ LPN - 05/11/2017 13:25 CDT General Info Information Given By : Patient Preferred Communication Mode : Verbal Languages : Malay Is Patient Female and 13-50 no hysterectomy : Yes Status : Patient denies Are you ? : No LYNN GONZALEZ LPN - 05/11/2017 13:25 CDT Subjective Pain Symptoms : No LYNN GONZALEZ LPN - 05/11/2017 13:25 CDT Dependent Habits Exposure to Tobacco Smoke : Other: Former smoker: quit 07/2015 Smoking Status : Former smoker Tobacco 2A : Yes Tobacco Use/Currently Using : No Tobacco Use/Last 30 Days : No Tobacco Use/Last 12 months : No Tobacco Last Use/Month : July Tobacco Last Use/Year : 2014 Alcohol Use : Yes LYNN GONZALEZ LPN - 05/11/2017 13:25 CDT Source: [facility] POWERCHART Document Id: [id number] CDT!38 Miscellaneous - Lnyn Gonzalez L.P.N. - 05/11/2017 1:23 PM CDT Quality Measures Quality Measures Entered On: 05/11/2017 13:24 CDT Performed On: 05/11/2017 13:23 CDT by LYNN GONZALEZ LPN Asthma Adult Asthma Control Test Score : 19 ED visits past yr for asthma w/o hospital stay : 0 Hospitalizations/Overnight Stays in Past yr for Asthma : 0 LYNN GONZALEZ LPN - 05/11/2017 13:23 CDT Asthma Precipitating Factors Grid Emotions : Yes Pollen : Yes Odors : Yes Outdoor Air : Yes Dust Mites : Yes Pet Dander : Yes Mold : Yes LYNN GONZALEZ LPN - 05/11/2017 13:23 CDT Source: [employer] Document Id: [id number] CDT!13 Miscellaneous - Lynn Gonzalez L.P.NChucky - 05/11/2017 1:18 PM CDT Health Assessment Health Assessment Entered On: 05/11/2017 13:20 CDT Performed On: 05/11/2017 13:18 CDT by LYNN GONZALEZ LPN Health Assessment Complete Health Assessment Complete or Modified : Annual Health Assessment Annual Health Assessment Completed : Yes LYNN GONZALEZ LPN - 05/11/2017 13:18 CDT Nutrition Nutrition Risk Factors by History Adult : None LYNN GONZALEZ LPN - 05/11/2017 13:18 CDT Functional Current Daily Living Assistance : None LYNN GONZALEZ LPN - 05/11/2017 13:18 CDT Dependent Habits Exposure to Tobacco Smoke : Other: Former smoker: quit 07/2015 Smoking Status : Former smoker Tobacco 2A : Yes Tobacco Use/Currently Using : No Tobacco Use/Last 30 Days : No Tobacco Use/Last 12 months : No Tobacco Last Use/Month : July Tobacco Last Use/Year : 2014 Alcohol Use : Yes LYNN GONZALEZ LPN - 05/11/2017 13:18 CDT AUDIT Tool How Often Do You Have A Drink : Monthly or less How Many Drinks in a Day When Drinking : 1 or 2 Six or More Drinks On One Occassion : Never Audit Phase 1 Score : 1 LYNN GONZALEZ ANGELLA - 05/11/2017 13:18 CDT Psychosocial Domestic Abuse Concerns : None Behavioral Health Screen/Safety Assmt : No Congregation Preference : No qualifying data available. LYNN GONZALEZ ANGELLA - 05/11/2017 13:18 CDT Advance Directive Advanced Directives : No Advance Directive Additional Information : No LYNN GONZALEZ ANGELLA - 05/11/2017 13:18 CDT Educ Needs Learning Style Preference Adult Grid Patient : Printed materials, Verbal explanation Family : Verbal explanation, Printed materials LYNN GONZALEZ ANGELLA - 05/11/2017 13:18 CDT Source: [employer] Document Id: [id number] CDT!34 documented in this encounter Plan of Treatment Upcoming Encounters Date Type Specialty Care Team Description 07/16/2022 Office Visit Family Medicine Karel Gill M.B.B Deb, MRadha [address] [place] [address] [phone] (Wo rk) documented as of this encounter Visit Diagnoses Not on filedocumented in this encounter Additional Health Concerns Assessment Noted Time PHQ-9 Depression Total Score: 4 05/11/2017 1:49 PM CDT documented as of this encounter Care Teams Contract Mail Carrier Relationship Specialty Start Date End Date Axel Lopez, LAKHWINDER, C.N.P. PCP - General 04/21/17 01/15/[address] [address] documented as of this encounter
--- OUTSIDE RECORDS SUMMARY | 2022-06-29 19:18 | XMS_ITS | Encounter Summary ---
:1970 Author Organization [facility] Address [address] [place] [address] Care Team Providers Name Role Phone Odalys Contreras APRN, C.N.P. Primary Care Provider [phone] Encounter Details Date Type Department Care Team Description 11/28/2017 Orders Only Department of Family Odalys Contreras, Hyp erlipidemia (Primary Dx); Medicine, [place] LAKHWINDER, C.N.P. Hypertension Essential Primary; Clinic, in [place], [address] Screening Mammogram Average Risk Patient [place], [place] [address] [facility] [address] [place], [place] [phone] (Work) [phone] Social History Tobacco Use Types Packs/Day Years [...] How often do you attend yazidi or rastafari More than 4 time s [...] at Date Recorded Female 12/02/2017 9:31 AM SAT MATH TUTOR documented as of this encounter Plan of Treatment Upcoming Encounters Date Type Specialty Care Team Description 07/16/2022 Office Visit Family Medicine Karel Gill M.B.B .S., M.D. [address] [place] [address] [phone] (Wo rk) documented as of this encounter Results BI Breast Screening Bilateral (09/18/2018 1:11 PM SAT MATH TUTOR) Anatomical Region Laterality Modality Breast, Breast Imaging RST LOS, Breast Imaging [facility], [place] Bilateral Mammography Imaging [facility] Specimen (Source) Anatomical Collection Method Collection Time Re ceived Time Location / / Volume Laterality 09/18/2018 1:44 PM SAT MATH TUTOR Impressions 09/18/2018 1:45 PM SAT MATH TUTOR IMPRESSION: ??Negative. RECOMMENDATION: ??Annual Screening Mammo gram ASSESSMENT: ??BI-RADS: 1: Negative. Narrative 09/18/2018 1:45 PM SAT MATH TUTOR EXAM: ??BI BREAST SCREENING BILATERAL Current study [...] am ASSESSMENT: BI-RADS: 1: Negative. Odalys Contreras APRN C.N.P. IMG BI PROCEDURES documented in this encounter Visit Diagnoses Diagnosis Hyperlipidemia - Primary Hypertension Essential Primary Screening Mammogram Average Risk Patient Screening Mammogram Average Risk Patient documented in this encounter Additional Health Concerns Assessment Noted Time PHQ-9 Depression Total Score: 4 05/11/2017 1:49 PM CDT documented as of this encounter Care Teams Instant Potato Processing Supervisor Relationship Specialty Start Date End Date Odalys Contreras APRN, C.N.P. PCP - General 04/21/17 01/15/[address] [phone] documented as of this encounter
--- OUTSIDE RECORDS SUMMARY | 2022-06-29 19:18 | XMS_ITS | Encounter Summary ---
:1970 Author Organization [facility] Address [address] [place] [address] Care Team Providers Name Role Phone Odalys Contreras APRN, C.N.P. Primary Care Provider [phone] Reason for Visit Reason Onset Date Comments Prior Auth 12/02/2017 Encounter Details Date Type Department Care Team Description 12/02/2017 Clinical Communication [facility] [place] [facility], [place] elise, [facility], in [place] [address] [phone] Social History Tobacco Use Types Packs/Day Years [...] or relatives? How often do you attend scientology or anabaptism More than 4 time s per year 12/25/2021 services? Do you belong to any clubs or organizations Yes 12/25/2021 such as scientology groups, unions, fraternal or athletic groups, or [...] slept in a care home (including now)? Sex Assigned at Date Recorded Female 12/02/2017 9:31 AM POWER ELECTRONICS ENGINEER documented as of this encounter Miscellaneous Notes Telephone Encounter - Elizabeth Demarco - 12/08/2017 9:13 AM CST Referral sent R ELECTRONICS ENGINEER Telephone Encounter - Elodia Issa L.PChuckyNChucky - 12/07/2017 10:04 AM POWER ELECTRONICS ENGINEER Patient Referred to Provider or Facility: _DO Ordering Provider: _DANIEL Appointment Date (if known): _12/19/17 Procedure/Test: egd Diagnosis (CPT code if Known): _epigastric pain R ELECTRONICS ENGINEER Telephone Encounter - Elodia Issa L.P.NChucky - 12/07/2017 9:34 AM POWER ELECTRONICS ENGINEER Spoke with patient, will check to see what dates work and will call back to schedule. R ELECTRONICS ENGINEER Telephone Encounter - Oksana Mancera M.D. - 12/02/2017 10:54 AM CST Shanda is having severe epigastric pain suspected gastric ulcer. She needs EGD to confirm. Please schedule. R ELECTRONICS ENGINEER documented in this encounter Plan of Treatment Upcoming Encounters Date Type Specialty Care Team Description 07/16/2022 Office Visit Family Medicine Karel Gill M.B.B .S., M.D. [address] [place] [address] [phone] (Wo rk) documented as of this encounter Visit Diagnoses Not on filedocumented in this encounter Care Teams Distance Learning Coordinator Relationship Specialty Start Date End Date Odalys Contreras, POPULATION HEALTH MANAGER, C.N.P. PCP - General 04/21/17 01/15/21 [address] [phone] documented as of this encounter
--- OUTSIDE RECORDS SUMMARY | 2022-06-29 19:18 | XMS_ITS | Encounter Summary ---
:1970 Author Organization [facility] Address [address] [place] [address] Care Team Providers Name Role Phone Unavailable Primary Care Provider Unavailable Encounter Details Date Type Department Care Team Description 01/07/2016 Hospital Encounter HX [facility] Adrienne Hardy APRN, C.N.P., M.S. [address] [place] [address] (Wo rk) Social History Tobacco Use Types Packs/Day Years Used Date Smoking Tobacco: Never Assessed Alcohol Habits Answer Date Recorded How often [...] How often do you attend moravian or orthodoxy More than 4 time s [...] at Date Recorded Female 12/02/2017 9:31 AM CLINICAL REHABILITATION COORDINATOR documented as of this encounter Last Filed Vital Signs Vital Sign Reading Time Taken Comments Blood Pressure 134/86 01/07/2016 3:19 PM CLINICAL REHABILITATION COORDINATOR Pulse 64 01/07/2016 3:19 PM CLINICAL REHABILITATION COORDINATOR Temperature - - Respiratory Rate 16 01/07/2016 3:19 PM CLINICAL REHABILITATION COORDINATOR Oxygen Saturation - - Inhaled Oxygen Concentration - - Weight 125 kg (276 lb 7.3 oz) 01/07/2016 3:19 PM CLINICAL REHABILITATION COORDINATOR Height 156 cm (5' 1.42) 01/07/2016 3:19 PM CLINICAL REHABILITATION COORDINATOR Body Mass Index 51.53 01/07/2016 3:19 PM CLINICAL REHABILITATION COORDINATOR documented in this encounter Medications at Time of Discharge Medication Sig Dispensed Refills Start Date End Date clobetasol Apply 1 application 0 01/07/201612/12 (for_TEMOVATE) 0.05 % topically 2 (two) times ointment a day as needed. LORazepam (ATIVAN) 0.5 Take 1 tablet by mouth 0 0 01/07/2016 12/12/2017 mg tablet 3 (three) times a day as needed. documented as of this encounter Progress Notes Adrienne Agrawal APRN, R.N. - 01/07/2016 3:02 PM CST [id number] CHIEF COMPLAINT/REASON FOR VISIT Rash. HISTORY OF PRESENT ILLNESS Patient presents today for evaluation of rash which began 3 days ago. She states it started on her trunk and has spread outward on her extremities. She states that all areas of her body except her feetare involved. She states the rash is incredibly itchy. She has a history of eczema and had an old supply of clobetasol cream available, and she tried application of this to the rash without any improvement in her symptoms. She has also been using Anita as well as large amounts of moisturizing lotion(CereVe). Patient has used a humidifier in her bedroom, but this as well as other interventions havenot improved the rash. She denies any changes to her diet or new soaps, lotions, detergents, etc. She reports that she did recently move into a new apartment with her boyfriend. They have a new bed which they purchased since moving into the apartment as well as new sheets. The patient reports that shedid wash the sheets in her usual laundry detergent. The new apartment is relatively new, having beenbuilt in 2009. She states it is well updated and there have been no signs or symptoms of bedbugs or any other infestation. The patient reports that the rash has been keeping her up at night. She has nausea and headache today as well as loss of appetite. She reports that she has not eaten very much today. Patient's boyfriend shares a bed with her and does not have a similar skin rash. MEDICATIONS Advair Diskus 250 mcg/50 mcg inhalation 1 puff inhaled 2 times daily. Albuterol 90 mcg per inhalation HFA 2 puffs every 4 hours as needed for shortness of breath or wheezing. Albuterol 2.5 mg per 3 mL nebulized solution 3 mL nebulized 4 times daily as needed for shortness ofbreath or wheezing. Ativan 0.5 mg tablet 1 tablet by mouth 3 times daily as needed for anxiety. Fioricet oral tablet 1 tablet by mouth every 4 hours as needed for headache. Clobetasol topical cream 0.05% applied topically 2 times daily as needed for eczema. Anita 180 mg by mouth daily as needed for allergy symptoms. Lasix 40 mg by mouth daily. ALLERGIES Diovan and magnesium sulfate. SYSTEMS REVIEW RESPIRATORY: The patient denies cough, wheezing, shortness of breath. HEART: Negative for chest painor regular heartbeats. ENT: No reports of sore throat, runny nose, ear pain. GENERAL: Negative for fever. HISTORY OF PRESENT ILLNESS Atopic dermatitis. Asthma. SOCIAL HISTORY HEALTH HABITS: Patient is a non-tobacco user. PATIENT PROFILE: Patient recently relocated to [place] and resides with her significant other. VITAL SIGNS Height 156, weight 125.4, temperature 36.6, heart rate 64, respiratory rate 16, blood pressure 134/86. PHYSICAL EXAMINATION GENERAL: Patient is an obese 45-year-old female, in no acute distress. Her behavior, appearance, andspeech are appropriate today. SKIN: Warm to the touch. Good turgor. Patient has noted maculopapular rash on the anterior and posterior trunk, bilateral upper extremities, bilateral upper legs (anterior and posterior), scalp, and bilateral axilla. Patient has small papular lesions scattered across the affected areas with macular round lesions approximately 0.25 to 0.5 cm in size. She has multiple excoriations from scratching on her arms. She also has a patch of eczema on her left hand 2nd and 3rd fingers. She states that this is her normal location for eczema and this is unchanged. Feet and lower extremities below the knees are not affected by rash. LUNGS: Clear to auscultation bilaterally in all boland without rales, rhonchi, wheezing, or diminished breath sounds. CARDIOVASCULAR: S1, S2. Regular rate and rhythm without murmurs, rubs, or gallops. NEUROLOGIC/MENTAL STATUS: Alert and oriented x3. Normal affect. IMPRESSION/REPORT/PLAN Rash. Discussed possible etiologies of patient's rash. Advised that it is difficult to confirm that this is an allergic reaction, dermatitis or arthropod bites. Patient was advised to launder her bed linens again and to observe her new home for any signs or symptoms of bedbugs. Patient will be treatedwith a Medrol Dosepak for reduction in inflammation and pruritus. She will also treat herself with permethrin cream 1 time this week and repeating a course 1 time next week. She will observe to see if her partner or any of his children develop any similar rashes. If the interventions discussed at today's visit do not resolve the patient's rash, she will return for further evaluation. She can also continue use of antihistamines such as Benadryl at night and nonsedating antihistamines like Anita during the day. She will continue with her usual skin care regimen of thick unscented lotion applied multiple times throughout the day and following shower. Patient agrees with the plan of care from today's visit. Denies further questions or concerns. Adrienne Agrawal R.N. (Meg)/wilfrido Electronically Signed By: ADRIENNE AGRAWAL APRN On: 01/10/2016 09:35 AM Modified by and Electronically Signed by: ADRIENNE AGRAWAL AUTOMOTIVE WORKER On: 01/10/2016 09:35 AM Source: [facility] MHSDOLBEYNONRADSYS Document Id: [id number] ICAL REHABILITATION COORDINATOR documented in this encounter Miscellaneous Notes Telephone Encounter - Linnette Garcia, RChuckyN. - 01/07/2016 5:51 PM CLINICAL REHABILITATION COORDINATOR Provider advice within 30_ minutes from the Nurse Call Center Document Contains Addenda Addendum by LINNETTE GARCIA RN on 07 January 2016 18:11:39 CLINICAL REHABILITATION COORDINATOR called made back to the pharmacy . Addendum by JONN SAHA MD on 07 January 2016 18:07:17 CLINICAL REHABILITATION COORDINATOR From: JONN SAHA MD To: [facility] Nurse leather cleaner; Sent: 01/07/2016 18:07:17 CLINICAL REHABILITATION COORDINATOR Subject: RE: Provider advice within 30_ minutes from the Nurse Call Center Clarified for pharmacy. From: LINNETTE GARCIA RN ([facility] Nurse leather cleaner) To: JONN SAHA MD; Cc: [facility] Nurse leather cleaner; Sent: 01/07/2016 17:51:49 CLINICAL REHABILITATION COORDINATOR Subject: Provider advice within 30_ minutes from the Nurse Call Center Provider of the Day: Provider advice within 30_ minutes from the Nurse Call Center _ Phone Message/Call CHIEF COMPLAINT / PURPOSE OF VISIT Triage nurse call: Marion De La Cruz (patient's pharmacist) is calling on behalf of Darryl Manzo, a 45 year old woman Marion that is at [facility] states that instead of the permathrin topical 1% lotion it should be 5% cream instead for scabies. She is requesting a prescription be sent to them. Calling from:[phone] The patient is with the caller NOTE: To see complete documentation of the patients symptoms, view the Expert RN note created on _. This information is located in [employer]: 1. Go to Notes 2. Select Messages 3. Select Nurse Call Center Note 4. Find the correct date and click on it. Note will appear in viewing area 5. Please respond back to the [facility] Nurse Call Center Pool Source: [facility] POWERCHART Document Id: [id number] Miscellaneous - Adrienne Agrawal APRN, R.N. - 01/07/2016 5:45 PM CLINICAL REHABILITATION COORDINATOR Ambulatory Patient Summary [facility] [address], [place] [id number] Visit Information Name: JOVANY DARRYL [facility] Number: [id number] Current Date: 01/07/2016 17:45:43 Physicians Attending Provider: ADRIENNE AGRAWAL APRN Primary Care Provider: PCP, ELSEWHERE JOVANYDARRYL has been given the following list of [...] Indications/Special Instructions/Comments/Notes for Patient Medication Changes/Routing albuterol (Ventolin HFA 90 mcg/inh inhalation aerosol) 2 puff(s), Inhalation, every 4 hours as needed for Shortness of breath / Wheezing albuterol (albuterol 2.5 mg/3 mL (0.083%) inhalation solution) 3 Milliliter, Nebulized inhalation, four times a day as needed for Shortness of breath / Wheezing butalbital/acetaminophen/caffeine (Fioricet oral tablet) 1 Tablet(s), Oral, every 4 hours as needed for headache clobetasol topical (clobetasol 0.05% topical ointment) 1 kalyn, Topical, two times a day as needed foreczema fexofenadine (Anita Allergy) Oral, once a day as needed for Allergy symptoms fluticasone-salmeterol (Advair Diskus 250 mcg-50 mcg inhalation powder) 1 puff(s), Inhalation, two times a day furosemide (Lasix 40 mg oral tablet) 1 Tablet(s), Oral, once a day LORazepam (Ativan 0.5 mg oral tablet) 1 Tablet(s), Oral, three times a day as needed for Anxiety methylPREDNISolone (Medrol Dosepak 4 mg oral tablet) See special instructions, Oral, as directed x 6day(s) New Routed to [address] [address] permethrin topical (permethrin 1% topical lotion) See Instructions Apply topically from neck to feetat bedtime one time. Wash off in morning. Repeat one week later. New Routed to [address] [address] Stop Taking the Following Medications: Medication list as of 01-07-16 17:45 Attention: If you have any medications at home that are not on this list, DO NOT take them until youcontact your provider for clarification. Give a copy of your medication list to your primary care provider. Update your medication list any time medications or doses are changed and carry your medication list at all times in case of emergency. Electronically Signed By: ADRIENNE AGRAWAL APRN Signed On:07-JAN-2016 17:45:35 Your Allergies & Intolerances Substance Reaction Symptoms Category Comments magnesium sulfate Anaphylactic reaction Drug magnesium sulfate throat closing Drug Diovan Unknown - patient unable to pr Drug Your Problem List Problem Status Onset Comments No Problems found Your Upcoming Appointments Date Time Location Provider [...] if you dont have one. Go to [email or web address] and click on Create Your Account. Then, follow the directions to complete the online form. Youll be asked for your [facility] number which you can find at the top of this document. Your Goals/Additional instructions: Source: [facility] POWERCHART Document Id: [id number] ICAL REHABILITATION COORDINATOR Miscellaneous - Adrienne Agrawal APRN, R.N. - 01/07/2016 5:45 PM CLINICAL REHABILITATION COORDINATOR Ambulatory Discharge Medication List [address] [id number] Visit Information Name: DARRYL MANZO [facility] Number: [id number] Visit Date: 01/07/2016 17:45:41 Attending Provider: ADRIENNE AGRAWAL APRN Primary Care Provider: PCP, ELSEWHERE DARRYL MANZO has been given the following list of medications: Your Medications It is important to take your medications as directed. Use a pill box or chart to help remind you to take your medications. Please let your doctor or nurse know if you have problems taking your medications. Medication/Strength How to Take Indications/Special Instructions/Comments/Notes for Patient Medication Changes/Routing albuterol (Ventolin HFA 90 mcg/inh inhalation aerosol) 2 puff(s), Inhalation, every 4 hours as needed for Shortness of breath / Wheezing albuterol (albuterol 2.5 mg/3 mL (0.083%) inhalation solution) 3 Milliliter, Nebulized inhalation, four times a day as needed for Shortness of breath / Wheezing butalbital/acetaminophen/caffeine (Fioricet oral tablet) 1 Tablet(s), Oral, every 4 hours as needed for headache clobetasol topical (clobetasol 0.05% topical ointment) 1 kalyn, Topical, two times a day as needed foreczema fexofenadine (Anita Allergy) Oral, once a day as needed for Allergy symptoms fluticasone-salmeterol (Advair Diskus 250 mcg-50 mcg inhalation powder) 1 puff(s), Inhalation, two times a day furosemide (Lasix 40 mg oral tablet) 1 Tablet(s), Oral, once a day LORazepam (Ativan 0.5 mg oral tablet) 1 Tablet(s), Oral, three times a day as needed for Anxiety methylPREDNISolone (Medrol Dosepak 4 mg oral tablet) See special instructions, Oral, as directed x 6day(s) New Routed to [address] [address] permethrin topical (permethrin 1% topical lotion) See Instructions Apply topically from neck to feetat bedtime one time. Wash off in morning. Repeat one week later. New Routed to [address] [address] Stop Taking the Following Medications: Medication list as of 01-07-16 17:45 Attention: If you have any medications at home that are not on this list, DO NOT take them until youcontact your provider for clarification. Give a copy of your medication list to your primary care provider. Update your medication list any time medications or doses are changed and carry your medication list at all times in case of emergency. Electronically Signed By: ADRIENNE AGRAWAL APRN Signed On:07-JAN-2016 17:45:35 Additional Information: Source: [facility] POWERCHART Document Id: [id number] ICAL REHABILITATION COORDINATOR Miscellaneous - Brigitte Funes, CChuckyMChuckyAChucky - 01/07/2016 3:19 PM CST Adult Airconditioning Engineer Intake/History Adult Airconditioning Engineer Intake/History Entered On: 01/07/2016 15:25 CLINICAL REHABILITATION COORDINATOR Performed On: 01/07/2016 15:19 CLINICAL REHABILITATION COORDINATOR by BRIGITTE FUNES [facility] Intake Ambulatory Intake Additional Information : Pt states she has hx of asthma & eczema BRIGITTE UFNES [facility] - 01/07/2016 15:34 CLINICAL REHABILITATION COORDINATOR Chief Complaint : Rash all over, LITTLEJOHN/nausea Onset of Symptoms : rash x 3days, LITTLEJOHN/nausea today LMP Date : 12/18/2015 Temperature Oral : 36.6 DegC(Converted to: 97.9 DegF) Peripheral Pulse Rate : 64 /min Respiratory Rate : 16 /min Systolic Blood Pressure : 134 mmHg Diastolic Blood Pressure : 86 mmHg NIBP Mean : 102 mmHg BP Location : Right upper extremity Blood Pressure Cuff Size : Large Height : 156 cm(Converted to: 5 ft 1 inch(es), 61 inch(es)) Actual Weight : 125.4 kg(Converted to: 276 lb 7 oz) Dosing Weight Clinic : 125.4 kg Clinic BSA : 2.33 Body Mass Index : 51.53 kg/m2 BRIGITTE FUNES [facility] - 01/07/2016 15:19 CLINICAL REHABILITATION COORDINATOR General Info Information Given By : Patient Preferred Communication Mode : Verbal Languages : Welsh Is Patient Female and 13-50 no hysterectomy : Yes Status : Patient denies Are you ? : No BRIGITTE FUNES [facility] - 01/07/2016 15:19 CLINICAL REHABILITATION COORDINATOR Subjective Pain Symptoms : Yes Skin Symptoms : Itching, Rash BRIGITTE FUNES [facility] - 01/07/2016 15:19 CLINICAL REHABILITATION COORDINATOR Pain Scale Pain Scale Verbal 0-10 : Open BRIGITTE FUNES [facility] - 01/07/2016 15:19 CLINICAL REHABILITATION COORDINATOR Pain Pain Assessment Grid Pain 1 Location : Head BRIGITTE FUNES [facility] - 01/07/2016 15:19 CLINICAL REHABILITATION COORDINATOR Dependent Habits Exposure to Tobacco Smoke : Other: Former smoker: quit 07/2015 Smoking Status : Former smoker Tobacco 2A : Yes Tobacco Use/Currently Using : No Tobacco Use/Last 30 Days : No Tobacco Use/Last 12 months : No Tobacco Last Use/Month : July Tobacco Last Use/Year : 2014 BRIGITTE FUNES [facility] - 01/07/2016 15:19 CLINICAL REHABILITATION COORDINATOR Source: [facility] POWERCHART Document Id: [id number] CLINICAL REHABILITATION COORDINATOR!3 ICAL REHABILITATION COORDINATOR Miscellaneous - Brigitte Funes, C.M.A. - 01/07/2016 3:19 PM CST Health Assessment Health Assessment Entered On: 01/07/2016 15:27 CLINICAL REHABILITATION COORDINATOR Performed On: 01/07/2016 15:19 CLINICAL REHABILITATION COORDINATOR by BRIGITTE FUNES [facility] Health Assessment Complete Health Assessment Complete or Modified : Annual Health Assessment Annual Health Assessment Completed : Yes CHANDABRIGITTE Luciano [facility] - 01/07/2016 15:19 CLINICAL REHABILITATION COORDINATOR Nutrition Nutrition Risk Factors by History Adult : Unintentional weight loss greater than 10 lbs in last 6 months Eating Difficulties : Other: Had gallbladder out recently & had diarrhea problems from that. MYRIAMADAMABRIGITTE ESCALANTE Luciano [facility] - 01/07/2016 15:19 CLINICAL REHABILITATION COORDINATOR Functional Current Daily Living Assistance : None CHANDA BRIGITTE L [facility] - 01/07/2016 15:19 CLINICAL REHABILITATION COORDINATOR Dependent Habits Smoking Status : Former smoker Tobacco 2A : Yes Tobacco Use/Currently Using : No Tobacco Use/Last 30 Days : No Tobacco Use/Last 12 months : No Tobacco Last Use/Month : July Tobacco Last Use/Year : 2014 Alcohol Use : Yes BRIGITTE FUNES [facility] - 01/07/2016 15:19 CLINICAL REHABILITATION COORDINATOR Psychosocial Domestic Abuse Concerns : None Behavioral Health Screen/Safety Assmt : No [facility] Preference : No qualifying data available. BRIGITTE FUNES [facility] - 01/07/2016 15:19 CLINICAL REHABILITATION COORDINATOR Advance Directive Advanced Directives : No Advance Directive Additional Information : No CHANDA BRIGITTE L [facility] 01/07/2016 15:19 CLINICAL REHABILITATION COORDINATOR Educ Needs Learning Style Preference Adult Grid Patient : None Family : None BRIGITTE FUNES [facility] - 01/07/2016 15:19 CLINICAL REHABILITATION COORDINATOR Source: [facility] POWERCHART Document Id: [id number] CLINICAL REHABILITATION COORDINATOR!29 ICAL REHABILITATION COORDINATOR documented in this encounter Plan of Treatment Upcoming Encounters Date Type Specialty Care Team Description 07/16/2022 Office Visit Family Medicine Karel Gill M.B.B .S., M.Be [address] [place] [address] [phone] (Wo rk) documented as of this encounter Visit Diagnoses Not on filedocumented in this encounter
--- OUTSIDE RECORDS SUMMARY | 2022-06-29 19:18 | XMS_ITS | Encounter Summary ---
:1970 Author Organization [facility] Address [address] [place] [address] Care Team Providers Name Role Phone Odalys Contreras APRN, C.N.P. Primary Care Provider Reason for Visit Reason Comments Follow-up emergency rooms visits x 4 s mayur 11/14/2017 for stomach pain, nausea, and vomiting Encounter Details Date Type Department Care Team Description 12/02/2017 Office Visit Department of Family Amber Contreras APRN, C.N.P. [address] [address] Pre[facility] Exam (Primary Dx[facility] [address] [address] [facility] V[facility], in [place] [address] [place] [phone] Social History Tobacco Use Types Packs/Day Years [...] How often do you attend moravian or muslim More than 4 time s [...] Date Recorded Female 12/02/2017 9:31 AM COMMERCIAL PEST CONTROL TECHNICIAN documented as of this encounter Last Filed Vital Signs Vital Sign Reading Time Taken Comments Blood Pressure 138/86 12/02/2017 10:01 AM COMMERCIAL PEST CONTROL TECHNICIAN Pulse 64 12/02/2017 10:01 AM COMMERCIAL PEST CONTROL TECHNICIAN Temperature 36.1 ??C (97 ??F) 12/02/2017 10:01 AM COMMERCIAL PEST CONTROL TECHNICIAN Respiratory Rate 16 12/02/2017 10:01 AM COMMERCIAL PEST CONTROL TECHNICIAN Oxygen Saturation - - Inhaled Oxygen Concentration - - Weight 125 kg (274 lb 14.6 oz) 12/02/2017 10:01 AM COMMERCIAL PEST CONTROL TECHNICIAN Height 156 cm (5' 1.42) 12/02/2017 10:01 AM COMMERCIAL PEST CONTROL TECHNICIAN Body Mass Index 51.24 12/02/2017 10:01 AM COMMERCIAL PEST CONTROL TECHNICIAN documented in this encounter H&P Notes Oksana Mancera M.D. - 12/02/2017 9:45 AM CST CHIEF COMPLAINT/ REASON FOR VISIT ER followup with ongoing symptoms. Proposed surgery date: to be determined. Surgeon: to be determined. Proposed surgery: Upper GI endoscopy. Location: to be determined. HISTORY OF PRESENT ILLNESS Shanda Masterson is a 46 y.o. female who presents to the clinic today ER followup with ongoing symptoms. She started getting sick on November 09 with nausea, vomiting, diarrhea, fever and chills. [facility] where she was subsequently treated for gastroenteritis. Significant lab result at that visit was CRP of 1.72. She was given a prescription for Cipro because bacterial infection could not be ruled out. She continued to have abdominal pain, diarrhea, nauseaand vomiting. She was seen again at the ER on 11/23. An abdominal x-ray was obtained which showed the followin. No free air. 2. Slight prominence of a few small bowel loops centrally. This could reflect gastroenteritis. 3. No obstruction or ileus. She was given prescriptions for Flagyl and Cipro on 11/23 with directions to take both prescriptions for 14 days. She was seen again in the ER on 11/26 after she became lightheaded, dizzy and nearly passed out. EKG was performed which showed that she was in sinus rhythm. Her potassium was slightly low at 3.2 and she was given supplementation while in the emergency room. Based on her symptoms it was recommended that she start [id number] Prilosec. Since starting the Prilosec she has continued to have abdominal pain, bloating and nausea and vomiting. The diarrhea/loose stools stopped a couple days ago. Sometimes she will wake up at 3 am due to stomach pain and will get up and start moving around. Then around7 am she will start gagging and throw up. She always brings up some acid when she vomits. She vomits 3 times a day. She does not eat much and the idea of eating makes her feel nauseated. She has asthma and needs to use her albuterol inhaler 6-7 times per week. There are no further concerns at this time. SYSTEMS REVIEW Please see HPI for pertinent positives, otherwise rest of ROS negative. Cardiac risk factors: yes, hypertension - on medication. Pulmonary risk factors: yes, asthma. Sleep Apnea: none Steroid use within the past 12 months: none Diabetes: none Bleeding risk factors: none Anesthesia reactions: none Need for prophylactic antibiotics: none Beta sary: none The remainder of the review of systems is negative. MEDICATIONS Current Outpatient Prescriptions Medication Sig Dispense Refill ??? acetaminophen-codeine (for_TYLENOL #3) 300-30 mg per tablet ??? albuterol (for_ACCUNEB) 2.5 mg /3 mL nebulizer solution Take 3 mL by nebulization 4 (four) timesa day as needed. ??? albuterol (VENTOLIN HFA) 90 mcg/actuation inhaler Inhale 2 puffs every 4 (four) hours as needed. ??? ciprofloxacin (for_CIPRO) 500 mg tablet ??? fluticasone-salmeterol (for_ADVAIR DISKUS) 100-50 mcg/actuation diskus inhaler Inhale 1 puff 2 (two) times a day. ??? LORazepam (ATIVAN) 0.5 mg tablet Take 1 tablet by mouth 3 (three) times a day as needed. ??? metroNIDAZOLE (for_FLAGYL) 500 mg tablet ??? ondansetron ODT (for_ZOFRAN-ODT) 4 mg disintegrating tablet ??? tacrolimus (for_PROTOPIC) 0.1 % ointment Apply topically. ??? triamterene-hydroCHLOROthiazide (for_MAXZIDE-25) 37.5-25 mg per tablet Take 1 tablet by mouth daily. ??? clobetasol (for_TEMOVATE) 0.05 % ointment Apply 1 application topically 2 (two) times a day as needed. ??? fluconazole (for_DIFLUCAN) 150 mg tablet ??? prochlorperazine (for_COMPAZINE) 10 mg tablet No current facility-administered medications for this visit. ALLERGIES Allergies Allergen Reactions ??? Latex Rash ??? Valsartan Other (see comments) and Anaphylaxis Unknown - patient unable to provide information ??? Bupropion Rash Wellbutrin ??? Magnesium Sulfate Anaphylaxis Throat closing PAST MEDICAL / SURGICAL HISTORY Past Medical History: Diagnosis Date ??? Abuse Tobacco Smoking ??? Asthma (HCC) ??? Dermatitis Eczematoid ??? Hypertension Essential Primary ??? Hypertriglyceridemia ??? Menorrhagia ??? Migraine Headache ??? Morbid Obesity Body Mass Index 50.0-59.9 Adult (HCC) ??? PreDiabetes Past Surgical History: Procedure Laterality Date ??? APPENDECTOMY N/A Appendectomy ??? SECTION N/A 1992 with delivery ??? HAND SURGERY Left dislocated 3rd and 4th metacarpal on left hand ??? LAPAROSCOPIC CHOLECYSTECTOMY N/A Laparoscopic cholecystectomy ??? OVARIAN CYST REMOVAL Right Laparoscopic right ovarian cystectomy ??? RECONSTRUCTION OF ANTERIOR CRUCIATE LIGAMENT OF KNEE Left ACL - Repair of anterior cruciate ligament - with cadaver material PREVENTIVE SERVICES Mammogram: 12/22/2016. Lipid panel: 12/22/2016. Colonoscopy: 12/22/2016. Immunization History Administered Date(s) Administered ??? Influenza (IM) Preservative Free 08/22/2017 ??? Influenza TIV (IM) 08/01/2010 ??? Influenza, Unspecified 08/02/2016 ??? Tdap 04/21/2011 SOCIAL HISTORY Social History Social History ??? Marital status: Spouse name: N/A ??? Number of children: N/A ??? Years of education: N/A Social History Main Topics ??? Smoking status: Current Every Day Smoker Types: Cigarettes ??? Smokeless tobacco: Never Used ??? Alcohol use 0.6 oz/week 1 Glasses of wine per week ??? Drug use: Unknown ??? Sexual activity: Not Asked Other Topics Concern ??? None Social History Narrative ??? None History Alcohol Use ??? 0.6 oz/week ??? 1 Glasses of wine per week History Drug use: Unknown FAMILY HISTORY Family History Problem Relation Age of Onset ??? Hyperlipidemia Mother ??? Hypertension Mother ??? Hyperlipidemia Father ??? Hypertension Father ??? Stroke Father ??? Cirrhosis Brother ??? Breast cancer Grandmother ??? Diabetes Grandmother VITAL SIGNS BP 138/86 (BP Location: Left arm, Patient Position: Sitting, Cuff Size: Large) Pulse 64 Temp 36.1 ??C (Temporal) Resp 16 Ht 156 cm Wt 124.7 kg BMI 51.24 kg/m?? PHYSICAL EXAMINATION General: Alert and orientated x3, good hygiene, appropriately dressed. HEENT: Tympanic membranes are normal bilaterally. Oropharynx is without erythema or exudate. Nasal mucosa is without injection. Neck is without adenopathy. Lymph nodes: Not palpably enlarged and no nodules are palpated. Heart: Regular rate and rhythm without murmur. Lungs: Clear to auscultation. Abdomen: Tendernss in the suprapubic area, epigastrium and bilateral upper quadrants. Extremities: Within normal limits. Skin: No suspicious lesions or rashes noted on exposed skin. ASSESSMENT / PLAN #1 Persistent nausea and vomiting. This needs to be evaluated further with EGD. Her name has been forwarded to Dr. Malin's office for scheduling. If she is unable to get in with Dr. Malin in the next week or so will refer to one of our general surgeons in [place]. #2 Preoperative evaluation for surgery The patient is cleared for anesthesia necessary to perform endoscopic procedure. Follow up The patient will contact the clinic with any new or worsening symptoms. This document serves as a record of services personally performed by Oksana Sams MD. It was created on their behalf by Candida Burton, a trained medical laboratory technician. The creation of this record is based on the scribe's personal observations and the provider's statements to them. This document has been aleks cked and approved by the attending provider. ERCIAL PEST CONTROL TECHNICIAN documented in this encounter Plan of Treatment Upcoming Encounters Date Type Specialty Care Team Description 07/16/2022 Office Visit Family Medicine Karel Gill M.B.B .S., M.D. [address] [place] [address] [phone] (Wo rk) documented as of this encounter Visit Diagnoses Diagnosis Preoperative Exam - Primary Nausea And Vomiting documented in this encounter Care Teams [place] Relationship Specialty Start Date End Date Odalys Contreras, LAKHWINDER, C.N.P. PCP - General 04/21/17 01/15/21 [address] [place] [address] documented as of this encounter
--- OUTSIDE RECORDS SUMMARY | 2022-06-29 19:18 | XMS_ITS | Encounter Summary ---
:1970 Author Organization [facility] Address [address] [place] [address] Care Team Providers Name Role Phone Odalys Contreras APRN, C.NChip Primary Care Provider [phone] Reason for Visit Reason Comments Post-procedure egd 12/19 Appointment Request (Routine) - Closed Specialty Diagnoses / Procedures Referred By Contact Refer red To Contact General Surgery Diagnoses GNS POST OP Dani Malin M.D. [facility] Procedures GNS POST OP [address] [place] [address] Referral ID Status Reason Start Date Expiration Date Visits Requ ested Visits Authorized [id number] Closed 12/20/2017 06/18/2018 1 1 Encounter Details Date Type Department Care Team Description 12/29/2017 Office Visit Department of General Dani Malin, Nausea And Vomiting Surgery in [place] (Prima ry Dx) [place] [address] [place] [phone] Social History Tobacco Use Types Packs/Day Years [...] How often do you attend evangelical or evangelical More than 4 time s [...] place to sleep or slept in a fci (including now)? 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 - 12/29/2017 1:30 PM CST SUBJECTIVE Shanda Masterson is here for follow up after undergoing an upper GI endoscopy. Biopsies for H pylori and celiac disease were negative. She had a little striped erythema of the antrum consistent with a mild gastroc that the but the biopsies were all negative. She continues to have nausea and occasional vomiting about 1- 2 hours postprandial. She has had a cholecystectomy in the past. In November she had a gastroenteritis which was associated with diarrhea as well as nausea and vomiting. Her diarrhea has resolved but the nausea and vomiting persisted. I spent about 15 minutes with her in the clinic today. OBJECTIVE Vitals: 12/29/17 1335 BP: 145/87 Pulse: Temp: Examination None ASSESSMENT / PLAN #1 Nausea And Vomiting There is no clear etiology of the nausea and vomiting that the patient is having on an ongoing basis. The Zofran that she was given has improved her symptoms of nausea. She is no longer taking a protonpump inhibitor. I would suggest a possible diagnosis of gastroparesis although we have no be basis for making that diagnosis at this time. I suggested to the patient that she give the problem 2 or 3 weeks and see if it gradually resolved on its own. If it does not I think a referral to [facility] might be helpful. They could certainly evaluate her for gastroparesis if that was part of the problem. I recommended the patient make a of appointment with her primary care provider. T MANAGER documented in this encounter Plan of Treatment Upcoming Encounters Date Type Specialty Care Team Description 07/16/2022 Office Visit Family Medicine Karel Gill M.B.B .S., M.D. [address] [place] [phone] (Wo rk) documented as of this encounter Visit Diagnoses Diagnosis Nausea And Vomiting - Primary documented in this encounter Care Teams [employer] Supervisor Relationship Specialty Start Date End Date Odalys Contreras APRN, C.N.P. PCP - General 04/21/17 01/15/[address] [address] documented as of this encounter
--- OUTSIDE RECORDS SUMMARY | 2022-06-29 19:20 | XMS_ITS ---
:1970 Author Care Team Providers Name Role Phone MesaJoao Primary Care Provider Unavailable Allergies Code Code System Name Reaction Severity Status Onset 441400 RxNorm Diovan ? ? Active ? 6585 RxNorm Magnesium Sulfate ? ? Active ? Medications Name Status Start Date Stop Date ? ? Advair Diskus 250 mcg-50 mcg/dose powder for inhalation Active ? Not available INHALE 1 DOSE BY MOUTH TWICE DAILY - RI NSE MOUTH WITH WATER AFTER USE TO REDUCE AFTERTASTE AND INCIDENCE OF CANDIDIASIS - DO NOT SWALLOW albuterol sulfate 2.5 mg/3 mL (0.083 %) solution for nebulizatio n Active ? Not available USE 1 VIAL IN NEBULIZER EVERY 4 HOURS NEEDED FOR WHEEZING albuterol sulfate HFA 90 mcg/actuation aerosol inhaler Active ? Not available amoxicillin 500 mg capsule Active ? Not a vailable amoxicillin 875 mg-potassium clavulanate 125 mg tablet Active ? Not available TAKE 1 TABLET BY MOUTH EVERY 12 HOURS FOR 10 DAYS azithromycin 250 mg tablet Active ? Not a vailable benzonatate 100 mg capsule Active ? Not a vailable TAKE 1 CAPSULE BY MOUTH THREE TIMES DAILY NEEDED COUGH binaxnow cov kit home yefri Active ? Not av ailable BinaxNOW COVID-19 Ag Self Test kit Active ? Not available TEST DIRECTED TODAY ciprofloxacin 500 mg tablet Completed ? 05/08 TAKE 1 TABLET BY MOUTH TWICE DAILY FOR 10 DAYS codeine 10 mg-guaifenesin 100 mg/5 mL oral liquid Active ? Not available TAKE 5 TO 10 MLS BY MOUTH EVERY 6 HOURS NEEDED FOR COUGH. MAX DOSE 60 MLS PER 24 HOURS fluconazole 150 mg tablet Active ? Not av ailable TAKE ONE TABLET BY MOUTH A ONE-TIME DOSE REPEAT IN 1 WEEK NEEDED fluocinonide 0.05 % topical cream Completed ? 05/29/2021 fluticasone propionate 50 mcg/actuation nasal Active ? Not available spray,suspension hydrocodone 5 mg-acetaminophen 325 mg tablet Completed ? 05/29/2021 TAKE 1 TABLET BY MOUTH EVERY 6 HOURS NEEDED FOR PAIN lisinopril 10 mg tablet Active ? Not avai lable lisinopril 20 mg tablet Active ? Not avai lable lisinopril 5 mg tablet Active ? Not avail able TAKE 1 TABLET BY MOUTH ONCE DAILY lorazepam 0.5 mg tablet Active ? Not avai lable meloxicam 15 mg tablet Completed ? TAKE 1 TABLET BY MOUTH ONCE DAILY metronidazole 500 mg tablet Completed ? 05/08 TAKE 1 TABLET BY MOUTH EVERY 8 HOURS FOR 10 DAYS omeprazole 20 mg capsule,delayed release Active ? Not available ondansetron 4 mg disintegrating tablet Active ? Not available DISSOLVE 1 TABLET IN MOUTH EVERY 8 HOURS NEEDED FOR NAUSEA F OR VOMITING prednisone 20 mg tablet Active ? Not avai lable topiramate 25 mg tablet Active ? Not avai lable TAKE 2 TABLETS BY MOUTH TWICE DAILY trazodone 50 mg tablet Active ? Not avail able triamterene 37.5 mg-hydrochlorothiazide 25 mg capsule Active ? Not available TAKE 1 CAPSULE BY MOUTH ONCE DAILY triamterene 75 mg-hydrochlorothiazide 50 mg tablet Active ? Not available TAKE 1 TABLET BY MOUTH ONCE DAILY venlafaxine ER 150 mg capsule,extended release 24 hr Active ? Not available TAKE 1 CAPSULE BY MOUTH ONCE DAILY venlafaxine ER 75 mg capsule,extended release 24 hr Active ? Not available TAKE 1 CAPSULE BY MOUTH ONCE DAILY WITH FOOD Problems Name Status Onset Date Source ? Acute Sinusitis Active 03/04/2022 ? Congestion of Nasal Sinus Active 03/04/2022 ? Wheezing Active 03/04/2022 ? Asthma Active 03/16/2022 ? Cough Active 04/21/2022 ? Procedures Date Name Performed by ? 05/29/2021 XR, Chest, 2 View [facility] [place] [address] [facility] [address] [place] [address] (Work Place) Results Lab Results Date Name Specimen Result Interpretation Description Value Range Status Address ? 03/16/2022 SARS CoV 2 RNA, Nose (nasal ? Result negative ? ? [facility] QL, MILLICENT+probe, passage) [facility] [place]: [address] [facility] [address] , [place] 03/04/2022 SARS CoV 2 RNA, Nose (nasal ? Result negative ? ? [facility] QL, MILLICENT+probe, passage) [facility] Nose [place]: [address] [facility] [address] , [place] Past Encounters 06/16/2022 Acute Sinusitis Romeo Quintero PA: [address], [address], [place] [address], Ph. 04/21/2022 Cough; Acute Bronchitis Phyllis Finnegan, TEST RACK OPERATOR: [address], [address], [place] [address], Ph. 03/16/2022 Exposure to SARS-CoV-2; Seasonal Allergi c Rhinitis Tiara Binta Medeiros, PA: [address], [address], [place] [address], Ph. 03/04/2022 Acute Sinusitis; Wheezing Romeo Quintero PA: [address], [address], [place] [address], Ph. 12/30/2021 Romeo Quintero PA: [address], [address], [place] [address], Ph. 12/02/2021 Acute Sinusitis Romeo Quintero PA: [address], [address], [place] [address], Ph. 05/29/2021 Acute Sinusitis; Acute Bronchitis IVETT KrausUP: [address], [address], [place] [address], Ph. Social History Tobacco Smoking Status Never Smoker Vaccine List Vaccine Type COVID-19, mRNA, LNP-S, PF, 100 mcg/0.5 m L dose (Moderna) 01/21/2021 02/18/2021 influenza, injectable, quadrivalent, pre servative free 10/29/2019 08/20/2020 12/25/2021 influenza, seasonal, injectable, preserv ative free 08/22/2017 influenza, unspecified formulation 08/02/2016 pneumococcal polysaccharide PPV23 01/02/2021 Tdap 04/21/2011 05/08/2021 zoster recombinant 02/05/2022 Plan of Care Patient Instructions Push fluids and rest. Tylenol or Ibuprofen as needed for pain or fever. Continue current meds. Mucinex otc as needed for congestion. Nasal saline flushes for congestion. Take Amoxicillin as prescribed. Diflucan to cover for yeast vaginitis. See care instructions. PCP follow up in 4-5 days, sooner if pro blems, to ED if worsening. Push fluids and rest as much as possibl e. Tylenol or Ibuprofen as needed for pain or fever. Mucinex otc as needed for cough or conge stion. Take Prednisone as prescribed. Take Zithromax as prescribed. Use Diflucan if needed for anbx induced yeast vaginitis. Continue current medications. See care instructions. PCP follow up in 4-5 days if not improvi ng, sooner if problems, to ED if worsening. Discussed rapid covid results with nury ent. Patient appears well, no immediate concerns. Patient understands and agrees with treatment plan and instructions. Symptom management discussed to continue OTC cough/cold/allergy medications as needed. Medication side effects discusse d. Discussed risks‚ benefits? alternatives? side effects of treatment. If symptoms progress or worsen, patient should proceed to the emergency room imm ediately. All questions answered. Push fluids and rest as much as possibl e. Tylenol or Ibuprofen as needed for pain or fever. Mucinex otc as needed for cough or conge stion. Continue Advair, use Albuterol MDI every 4-6 hours as needed for wheezing. Take Augmentin as prescribed. See care instructions. PCP follow up in 4-5 days if not improvi ng, sooner if problems, to ED if worsening. Sinusitis, patient doing well, no worri some findings, symptomatic cares advised, cover with Augmentin. Patient verbally agrees to the following plan. Push fluids and rest. Tylenol or Ibuprofen as needed for pain or fever. Mucinex otc as needed for congestion. Continue Albuterol as needed for cough. See care instructions. PCP follow up in 4-5 days if not improvi ng, sooner if problems, to ED if worsening. Patient and/or Guardian understands and agrees with treatment plan and instructions. Symptom management discussed. Medication side effects discussed. Discussed risks? benefits? alternativ es? side effects of treatment. If sympto ms progress or worsen, patient should proceed to the emergency room immediately. Reminders Provider Appointments None recorded. ? ? Lab None recorded. ? ? Referral None recorded. ? ? Procedures None recorded. ? ? Surgeries None recorded. ? ? Imaging None recorded. ? ? Vitals 06/16/2022 11:40AM URGENT CARE Blood Pressure 149/105 mm[Hg] 04/21/2022 01:20PM URGENT CARE Blood Pressure 114/81 mm[Hg] 03/16/2022 11:40AM URGENT CARE Blood Pressure 142/97 mm[Hg] 03/04/2022 11:40AM URGENT CARE Blood Pressure 138/93 mm[Hg] 12/02/2021 11:15AM URGENT CARE Blood Pressure 129/90 mm[Hg] 05/29/2021 10:00AM URGENT CARE Blood Pressure 130/68 mm[Hg]
--- OUTSIDE RECORDS SUMMARY | 2022-06-29 19:20 | XMS_ITS | Encounter Summary ---
:1970 Author Reason for Visit cough Assessment and Plan Assessment Note Cough, likely post viral given hx of vi ral respiratory infx 6 weeks ago at onset, patient doing well, no worrisome finding s today. Will cover atypical infx with Zmax. Inflammation with Prednisone. Continue c urrent meds. Patient requests Rx of Diflucan given use of anbx for yeast vaginitis. P CP follow up in 1 week if not resolving with hx of prior Covid infx. Patient verbally agrees to the following plan. 1. Cough Patient has taken and tolerated below m edications in the past. ? prednisone 20 mg tablet ? Zithromax Z-Max 250 mg tablet ? Diflucan 150 mg tablet ? cough: care instructions 2. Acute bronchitis Discussion Note: None recorded. Plan of Care Patient Instructions Push fluids and rest as much as [...] sooner if problems, to ED if worsening. Reminders Provider Appointments None recorded. ? ? Lab None recorded. ? ? Referral None recorded. ? ? Procedures None recorded. ? ? Surgeries None recorded. ? ? Imaging None recorded. ? ? Medications Name Start Date ? ? Advair Diskus 250 mcg-50 mcg/dose powder for inhalatio n ? INHALE 1 DOSE BY MOUTH TWICE DAILY - RI NSE MOUTH WITH WATER AFTER USE TO REDUCE AFTERTASTE AND INCIDENCE OF CANDIDIASIS - DO NOT SWALLOW albuterol sulfate 2.5 mg/3 mL (0.083 %) solution for n ebulization ? USE 1 VIAL IN NEBULIZER EVERY 4 HOURS NEEDED FOR W HEEZING albuterol sulfate HFA 90 mcg/actuation aerosol inhaler ? INHALE 2 PUFFS BY MOUTH EVERY 4 HOURS A S NEEDED FOR WHEEZING AND FOR SHORTNESS OF BREATH amoxicillin 500 mg capsule ? Take 1 capsule every 8 hours by oral route for 10 day s. amoxicillin 875 mg-potassium clavulanate 125 mg tablet ? TAKE 1 TABLET BY MOUTH EVERY 12 HOURS FOR 10 DAYS azithromycin 250 mg tablet ? TAKE 2 TABLETS (500 MG) BY ORAL ROUTE O NCE DAILY FOR 1 DAY THEN 1 TABLET (250 MG) BY ORAL ROUTE ONCE DAILY FOR 4 DAYS benzonatate 100 mg capsule ? TAKE 1 CAPSULE BY MOUTH THREE TIMES DAILY NEEDED C OUGH [employer] cov kit home yefri ? [employer] COVID-19 Ag Self Test kit ? TEST DIRECTED TODAY codeine 10 mg-guaifenesin 100 mg/5 mL oral liquid ? TAKE 5 TO 10 MLS BY MOUTH EVERY 6 HOURS NEEDED FOR COUGH. MAX DOSE 60 MLS PER 24 HOURS fluconazole 150 mg tablet ? TAKE ONE TABLET BY MOUTH A ONE-TIME DOSE REPEAT IN 1 WEEK NEEDED fluticasone propionate 50 mcg/actuation nasal spray,sin spension ? USE 2 SPRAY(S) IN EACH NOSTRIL ONCE DAILY lisinopril 10 mg tablet ? TAKE 1 TABLET BY MOUTH ONCE DAILY lisinopril 20 mg tablet ? TAKE 1 TABLET BY MOUTH ONCE DAILY lisinopril 5 mg tablet ? TAKE 1 TABLET BY MOUTH ONCE DAILY lorazepam 0.5 mg tablet ? TAKE 1 TABLET BY MOUTH AT BEDTIME NEEDED FOR ANXIE TY omeprazole 20 mg capsule,delayed release ? ondansetron 4 mg disintegrating tablet ? DISSOLVE 1 TABLET IN MOUTH EVERY 8 HOURS NEEDED FO R NAUSEA FOR VOMITING prednisone 20 mg tablet ? 3 po as single dose days 1-2, 2 po as s brenton dose days 3-4, 1 po days 5-6, then discontinue. topiramate 25 mg tablet ? TAKE 2 TABLETS BY MOUTH TWICE DAILY trazodone 50 mg tablet ? triamterene 37.5 mg-hydrochlorothiazide 25 mg capsule ? TAKE 1 CAPSULE BY MOUTH ONCE DAILY triamterene 75 mg-hydrochlorothiazide 50 mg tablet ? TAKE 1 TABLET BY MOUTH ONCE DAILY venlafaxine ER 150 mg capsule,extended release 24 hr ? TAKE 1 CAPSULE BY MOUTH ONCE DAILY venlafaxine ER 75 mg capsule,extended release 24 hr ? TAKE 1 CAPSULE BY MOUTH ONCE DAILY WITH FOOD Medications Administered None recorded. Vitals Blood Pressure 114/81 mm[Hg] Results Lab Results None recorded. Allergies Code Code System Name Reaction Severity Onset 466609 RxNorm Diovan ? ? ? 6585 RxNorm Magnesium Sulfate ? ? ? Problems Name Status Onset Date Source ? Acute Sinusitis Active 03/04/2022 ? Congestion of Nasal Sinus Active 03/04/2022 ? Wheezing Active 03/04/2022 ? Asthma Active 03/16/2022 ? Cough Active 04/21/2022 ? Procedures None recorded. Vaccine List Vaccine Type COVID-19, mRNA, LNP-S, PF, 100 mcg/0.5 m L dose (Moderna) 01/21/2021 02/18/2021 influenza, injectable, quadrivalent, pre servative free 10/29/2019 08/20/2020 12/25/2021 influenza, seasonal, injectable, preserv ative free 08/22/2017 influenza, unspecified formulation 08/02/2016 pneumococcal polysaccharide PPV23 01/02/2021 Tdap 04/21/2011 05/08/2021 zoster recombinant 02/05/2022 Social History Tobacco Smoking Status Never Smoker What is your level of alcohol consumption? Occasional Do you or have you ever used any other forms of tobacco or n icotine? N Functional Status Unknown. Past Encounters 04/21/2022 Cough; Acute Bronchitis Phyllis Finnegan, DATA MANAGEMENT ASSOCIATE: [address] , [facility] [address], [place] [address], Ph. History of Present Illness ? Cough Reported By: Patient HPI: Quality: dry. Severity: mode rate. Duration: subacute (3-8 weeks). Context: non-smoker, worse a t night, history of asthma. Modifying Factors: inhaler Notes: <div>Dry non-productive coug h x 6-7 weeks. Hx of asthma, using albuterol with relief. Had Covid prior to onset, is vaccinated to covid. Denies fever or chills. Denies CP o r SOB. </div> Review of Systems ? Urgent Care ROS, Comprehensi ve Adult Problem ROS Reported By: Patient Constitutional: Constitutional: no fever, no night sweats, no significant weight gain, no significant weight loss, no exercise intolerance, no chills, no m alaise Eyes: Eyes: no dry eyes, no vision change, no irritation, no eye disease/injury. Eyes: no eye pain, no eye redness, no eye itchiness, no eye swelling, no eye discharge, normal movement ENMT: Ears: no difficulty hearing, no ear pain, no ear pain, no ear discharge, no sinus pressure , no drooling, no facial swelling, no congestion, no hoarseness . Nose: no frequent nosebleeds, no nose problems, no sinus prob lems, no congestion, loss of taste/smell: normal. Mouth/T hroat: no sore throat, no bleeding gums, no snoring, no dry mariela th, no mouth ulcers, no oral abnormalities, no teeth prob lems, no ringing in the ears, no sinusitis Cardiovascular: Cardiovascular: no chest jason n, no arm pain on exertion, no shortness of breath when wal ivonne, no shortness of breath when lying down, no palpitations, no known heart murmur, no ankle swelling. Cardiovascular: no rmal heart rate Respiratory: Respiratory: no wheezing, no shortness of breath, no coughing up blood, no sleep apnea, co ugh. Respiratory: no chest tightness, no pain with resp iration, normal respiration Gastrointestinal: Gastrointestinal: no abdomin al pain, no nausea, no vomiting, no constipation, normal appe tite, no diarrhea, not vomiting blood, no dyspepsia, no GERD , No loose stools. GI: no difficulty swallowing, no na usea, no diarrhea, no constipation, no blood in st ools, no mucous in stool Genitourinary: Genitourinary: no incontinen ce, no difficulty urinating, no hematuria, no increased freq uency, no dysuria. : no discharge, no pain with urin ation, no voiding urgency, no vaginal discharge Musculoskeletal: Musculoskeletal: no muscle a ches, no arthralgias/joint pain, no back pain, no swelling in the extremities, no neck pain, no difficulty walking, muscle w eakness, no cramps, no osteoporosis, no fractures, no soft tissue swelling, no joint swelling, no myalgia, moves all extremities well, no previous injuries, no trauma Integumentary: Skin: no abnormal mole, no j aundice, no rashes, no laceration, no non-healing areas, no kadie nges in hair/nails, no psoriasis, no change in skin color, no breast lump, no pain, no skin dryness, no flaking, no redn ess, no skin lesions, no skin growths, no skin lumps, no s welling, no insect bites Neurologic: Neurologic: no loss of consc iousness, no weakness, no numbness, no seizures, no di zziness, no migraines, no tremor, no gait dysfunction, no para lysis. Neuro: no tingling, no burning, no shooting pain, n o headache Psychiatric: Psych: no depression, no sle ep disturbances, feeling safe in a relationship, no alcohol abu se, no anxiety, no hallucinations, no suicidal thoughts, no moo d swings, no memory loss, no agitation, no dementia, no d elirium, no insomnia, no stress, no loss of interest Endocrine: Endocrine: no fatigue, alen l drinking, no temperature intolerance Hematologic/Lymphatic: Hematologic/Lymphatic no swo llen glands, no bruising, no excessive bleeding, no anemi a, no phlebitis Allergic/Immunologic: Allergy/Immunologic: no runn y nose, no sinus pressure, no itching, no hives, no freque nt sneezing Constitutional: Constitutional: no significa nt weight change, happy/content, normal activity level Chest/Breasts: Breasts: no tenderness, no d ischarge Physical Exam ? Upper Respiratory Exam Reported By: Patient Constitutional: General Appearance: healthy- appearing, well-nourished, well-developed Head and Face: Inspection of face: no swell ing Eyes: Lids and Conjunctivae: no in jection, conjunctiva: no mucoid discharge ENMT: EACs and TMs outer ear: righ t and left external auditory canals normal, tympanic membranes m obile and reactive to light bilateral. Nasal Passages: no nasal dis charge. Hearing: normal. Oropharynx: no erythema, no enlarged tonsil s, no exudates, uvula midline Neck: Neck: suppleness, non-tender , no masses, symmetrical Lymphatic System: Cervical lymph nodes: not pa lpable Respiratory: Respiratory effort: breathin g normally, no inspiratory retraction. Auscultation: no wheezes, no rhonchi, no crackles, breath sounds normal; Slight diminished ex cursion Cardiovascular: Auscultation: RRR, no rubs, no murmur Skin: skin inspection: no rashes
--- OUTSIDE RECORDS SUMMARY | 2022-06-29 19:20 | XMS_ITS | Encounter Summary ---
:1970 Author Reason for Visit sinus symptoms Assessment and Plan Assessment Note Sinusitis, patient doing well, no worri some findings today. Cover with Amoxicillin, symptomatic cares advised. Patient delfino webber agrees to the following plan. 1. Acute sinusitis Diflucan by request to cover yeast vagi nitis. ? amoxicillin 500 mg capsule ? Diflucan 150 mg tablet ? sinusitis: care instructions ? saline nasal washes: care instruction s Discussion Note: None recorded. Plan of Care Patient Instructions Push fluids and rest. Tylenol or Ibuprofen as needed for pain or fever. Continue current meds. Mucinex otc as needed for congestion. Nasal saline flushes for congestion. Take Amoxicillin as prescribed. Diflucan to cover for yeast vaginitis. See care instructions. PCP follow up in 4-5 days, sooner if pro blems, to ED if worsening. Reminders Provider Appointments [...] MOUTH THREE TIMES DAILY NEEDED C OUGH [employer]now cov kit home yefri ? [employer] COVID-19 Ag Self Test kit ? TEST [...] Medications Administered None recorded. Vitals Blood Pressure 149/105 mm[Hg] Results Lab Results None recorded. Allergies Code Code System Name Reaction Severity Onset 312303 RxNorm Diovan ? ? ? 6585 RxNorm [...] icotine? N Functional Status Unknown. Past Encounters 06/16/2022 Acute Sinusitis JAVAD Agosto: [address], [address], [place] [address], Ph. History of Present Illness ? Sinusitis UC Reported By: Patient HPI: Location: frontal. Onset/Claudio ing: resolved, gradual onset, initially started 2, weeks2, weeks ago . Quality: no throbbing, minimal discomfort, worsening, congested, colore d phlegm. Duration: resolved. Severity: moderate. Associated Symptom s: no fever/chills, no hemoptysis, no sore throat, no thick phlegm in t hroat, not constantly clearing the throat, no ear fullness, no pain beh ind the eyes, no cough, no dental pain, nasal discharge from both no strils, difficulty breathing, headache cheek, facial pain bilateral ly, sinus pain forehead, nasal passage blockage bilaterally Notes: <div>Nasal congestion x 1 mo nth, headache and congestion, suspects sinus infx. </div> Review of Systems ? Urgent Care ROS Reported By: Patient Constitutional: Constitutional: no fever, no night sweats, no significant weight gain, no significant weight loss, no exercise intolerance, no chills, no m alaise, headache Eyes: Eyes: no dry eyes, no vision change, no irritation, no eye disease/injury ENMT: Ears: no difficulty hearing, no ear pain. Nose: no frequent nosebleeds, no nose problems , loss of taste/smell: normal, congestion, sinus problems; going to ENT visit 07/25/22. Mouth/Throat: no sore throat , no bleeding gums, no snoring, no dry mouth, no mouth ulcers, no oral abnormalities, no teeth problems, no ringing in the ears, no sinusitis Cardiovascular: Cardiovascular: no chest jason n, no arm pain on exertion, no shortness of breath when wal [place], no shortness of breath when lying down, no palpitations, no known heart murmur, no ankle swelling Respiratory: Respiratory: no cough, no wh eezing, no shortness of breath, no coughing up blood, no sleep apnea Gastrointestinal: Gastrointestinal: no abdomin al pain, no nausea, no vomiting, no constipation, normal appe tite, no diarrhea, not vomiting blood, no dyspepsia, no GERD , No loose stools Genitourinary: Genitourinary: no incontinen ce, no difficulty urinating, no hematuria, no increased freq uency, no dysuria Musculoskeletal: Musculoskeletal: no muscle a ches, no arthralgias/joint pain, no back pain, no swelling in the extremities, no neck pain, no difficulty walking, muscle w eakness, no cramps, no osteoporosis, no fractures Integumentary: Skin: no abnormal mole, no j aundice, no rashes, no laceration, no non-healing areas, no kadie nges in hair/nails, no psoriasis, no change in skin color, no breast lump Neurologic: Neurologic: no loss of consc iousness, no weakness, no numbness, no seizures, no di zziness, no migraines, no tremor, no gait dysfunction, no para lysis Psychiatric: Psych: no depression, no sle ep disturbances, feeling safe in a relationship, no alcohol abu se, no anxiety, no hallucinations, no suicidal thoughts, no moo d swings, no memory loss, no agitation, no dementia, no d elirium Endocrine: Endocrine: no fatigue Hematologic/Lymphatic: Hematologic/Lymphatic no swo llen glands, no bruising, no excessive bleeding, no anemi a, no phlebitis Allergic/Immunologic: Allergy/Immunologic: no runn y nose, no sinus pressure, no itching, no hives, no freque nt sneezing Physical Exam ? COVID-19 Exam Reported By: Patient General Appearance: General Appearance normal ap pearance, no distress ENMT: Ears: hearing grossly intact , canals clear, TM landmarks clear, pearly mckoy on the left, pea rly mckoy on the right. Nose: no erythema, no edema, nasal di scharge: rhinorrhea. Oral Cavity: moist mucous membranes, norm al dentition. Pharynx: no erythema, no exudates, uvula midline Lymph Nodes: Lymph Nodes no lymphadenopat hy Lungs: Auscultation non-labored res piration, clear to auscultation, no rales/crackles, no rhonchi, no wheezing Cardiovascular: Rate And Rhythm RRR. Heart S ounds normal s1, normal s2, no murmurs Abdomen: Abdomen not distended
--- NOTE | 2022-07-13 12:09 | W.PM.SLEEP ---
Sleep Study Details Details Interpreting Provider: Po Kessler MD Date of Sleep Study: 07/30/22 Sleep Study Details: STUDY TYPE:? Home ? BMI:? 54.9 ORDERING PROVIDER:? Silver INDICATION:? Concerns about sleep apnea ? SLEEP SUMMARY:? Monitor x3 124.3 minutes RESPIRATORY SUMMARY:? AHI 14.2, supine AHI 49.8, left lateral AHI 9.6, right lateral AHI 11.6. Low oxygen 84%. 1.5% of study oxygen was less than 90%, 0.2% of the study oxygen less than 85%. Snoring 16.1% PERIODIC LIMB MOVEMENTS OF SLEEP:? Not recorded CARDIAC:? 64-111, average 85 beats per IMPRESSION:? Mild obstructive sleep apnea with significant supine position dependency. Treatment options include AutoSet CPAP at a pressure of 4-17, dental appliance, weight loss and/or airway expansion surgery. Would favor AutoSet CPAP. RECOMMENDATION: See impression
== END 2022-06-29 19:09 | disposition home or self-care (01) ==
LOC: SLEEP 19:11
PROVIDERS: PCP Nurse Practitioner; Visit Provider Otolaryngology
DX: G47.33 Obstructive sleep apnea (adult) (pediatric) (principal)
CPT/HCPCS: 95806

== ENCOUNTER 2023-08-30 10:19 | Outpatient (CLI) | payer BC, SELFPAY | END 2023-08-30 10:20 | disposition home or self-care (01) | LOC: FRMREF 10:20 | PROVIDERS: PCP Family Medicine; Visit Provider Family Medicine | DX: Z01.818 Encounter for other preprocedural examination (principal) | CPT/HCPCS: 80048 ==

== ENCOUNTER 2023-08-31 06:12 | Day surgery (SDC) | payer BC, SELFPAY ==
[2023-08-31] VITALS (24 sets, daily range): BP systolic 130–186; BP diastolic 63–115; PULSE 72–115; RESP 10–20; TEMP 36.1–37.2; O2SAT 92–100; BMI 59.3
[2023-08-31 06:44] LABS: Ur HCG Qualitative* Negative (Negative)
--- NOTE | 2023-08-31 06:48 | SUR.PREOP ---
has bruising to left lower leg and cast to right arm
[2023-08-31] MEDS: OXYMETAZOLINE 0.05% NASAL SPRAY 2 SPRAY NOSTRIL-B (07:06)
[2023-08-31] MEDS: LACTATED RINGERS 1000 ML 1,000 ML 35 ML IV (07:10)
[2023-08-31] MEDS: SODIUM CHLORIDE 0.9 % (FLUSH) 10 ML SYRINGE IVF (07:10)
--- NOTE | 2023-08-31 07:18 | W.ANESCHARGE ---
Anesthesia Charges Start Date/Time Anesthesia Start Date: 08/31/23 Anesthesia Start Time: 07:29 Stop Date/Time Anesthesia Stop Date: 08/31/23 Anesthesia Stop Time: 08:17
[2023-08-31] MEDS: COCAINE HCL 4 % 4 ML SOLUTION NOSTRIL-B (07:46)
[2023-08-31] MEDS: MUPIROCIN 1 GM PACKET 1 APPLIC TOPICAL (07:54)
[2023-08-31] MEDS: BUPIVACAINE 0.5 %/EPI 1:200K 30 ML INJECTION (08:10)
[2023-08-31] MEDS: fentaNYL 100 MCG/2 ML inj 50 MCG IVP ×3 (08:20→08:40)
[2023-08-31] MEDS: HYDROmorphone 0.5 mg/0.5 ml inj IVP ×3 (08:31→08:56)
--- NOTE | 2023-08-31 08:55 | W.ANESCHARGE ---
Anesthesia Charges Start Date/Time Anesthesia Start Date: 08/31/23 Anesthesia Start Time: 07:29 Stop Date/Time Anesthesia Stop Date: 08/31/23 Anesthesia Stop Time: 08:17
--- NOTE | 2023-08-31 09:19 | W.PM.ENTPROC ---
Procedure Note Date of procedure: 08/31/23 Procedure: Preop diagnosis depressed right nasal fracture, deviated septum, nasal obstruction Postoperative diagnosis same Procedure nasal septoplasty, closed reduction nasal fracture Under general trach anesthesia patient was prepped and draped in usual fashion the nose decongested and injected. A right hemitransfixion incision was made left anterior tunnel was created. The cartilage was fractured in 3 places. I was able to realign this to just a left anterior tunnel. The hemitransfixion was closed with 2 4-0 chromic sutures and silastic stents secured with 3-0 nylon. The depressed right nasal fracture was marked externally with the fracture elevator and was inserted into the nose and the nasal bone elevated back into what appeared to be good position. Two Merocel packs were placed on the right and 1 on the left. External dressing of benzoin and Steri tapes was applied. The patient procedure well was taken recovery in satisfactory condition. Blood loss was 25 mL. Surgeon: Po Kessler MD
[2023-08-31] MEDS: OXYCODONE 5 MG TABLET PO ×3 (09:39→21:20)
[2023-08-31] MEDS: IBUPROFEN 200 MG TABLET PO ×3 (10:56→20:16)
[2023-08-31] MEDS: LORazepam 0.5 MG TABLET PO (11:47)
--- NOTE | 2023-08-31 12:52 | RESP.RT ---
Assessed patient home cpap device. Device is clean, and all pieces in tact. Patient does not have a qualifying diagnoses for home oxygen. Discussed with hospitalist, PA and RN. RN will speak with the surgeon. Patient upright, speaking in full sentences on room air with spo2 of 96%. No respiratory distress or desaturation noted.
--- NOTE | 2023-08-31 14:11 | PM.IMCN1 ---
Date of Consult Patient: [facility] Patient Consult date: 08/31/23 Requesting Physician: Other (ENT, Dr. Kessler) Primary Care Provider: Karel Gill MD Consult Narrative Reason for consult: Medical management Narrative: Shanda Masterson is a 52 year old female POD#0 s/p nasal septoplasty, closed reduction nasal fracture for depressed right nasal fracture, deviated septum, nasal obstruction sustained during a fall on 08/20/2023. Patient reports pain is currently appropriately managed. Denies headache or dizziness. No postoperative nausea. Past medical history significant for hypertension, sleep apnea on CPAP though inconsistent with use and none since recent nasal fracture, prediabetes, vitamin-D deficiency, asthma, environmental allergies, some peripheral edema for which she uses hydrochlorothiazide as needed. Denies chest pain or shortness of breath. Denies recent fevers. Denies recent nausea vomiting diarrhea. Currently being followed by orthopedic surgery for right wrist fracture also sustained during fall on 08/20/2023. Currently using Tylenol and ibuprofen for pain management. Review of Systems Narrative: REVIEW OF SYSTEMS: Complete review of systems performed and negative unless otherwise stated in HPI or below. [facility] Medical History (Updated 08/31/23 @ 14:27 by Chelo Prado PA-C) Asthma ?J45.909 - Unspecified asthma, uncomplicated (ICD-10) FIDENCIO on CPAP ?G47.33 - Obstructive sleep apnea (adult) (pediatric) (ICD-10) Deviated nasal septum ?J34.2 - Deviated nasal septum (ICD-10) Nasal fracture ?S02.2XXA - Fracture of nasal bones, initial encounter for closed fracture (ICD-10) Anxiety ?F41.9 - Anxiety disorder, unspecified (ICD-10) Hypertension ?I10 - Essential (primary) hypertension (ICD-10) Family History Maternal Grandmother Breast cancer Social History Narrative: -Celso former smoker 01/2020 Smoking Status: Former smoker What tobacco products do you use: cigarettes Smoking quit date/years: <= 15 years ago Do you use any of these nicotine containing products: None Second hand tobacco smoke exposure: No How often do you have a drink containing alcohol: monthly or less AUDIT-C Alcohol total score: 1 Non-prescribed substance use: denies use Caffeine: No Meds Home Medications and Allergies Home Medications Medication Instructions Recorded Confirmed Type albuterol sulfate 2.5 mg/3 mL 2.5 mg continuous nebulization 05/20/22 08/30/23 History (0.083 %) solution for nebulization albuterol sulfate 90 mcg/actuation 2 inh inhalation PRN 05/20/22 08/30/23 History aerosol inhaler fluticasone propionate 115 1 inhalation 05/20/22 08/30/23 History mcg-salmeterol 21 mcg/actuation HFA inhaler lisinopril 20 mg tablet 20 mg PO 05/20/22 08/30/23 History venlafaxine 150 mg mg PO 05/20/22 08/30/23 History capsule,extended release 24 hr estradiol 0.075 mg/24 hr weekly 1 patch transdermal 08/22/23 08/30/23 History transdermal patch ergocalciferol (vitamin D2) 1,250 1,250 mcg PO 08/25/23 08/30/23 History mcg (50,000 unit) capsule progesterone micronized 100 mg 100 mg PO DAILY 08/25/23 08/31/23 History capsule triamterene 37.5 1 tab PO DAILY 08/31/23 08/31/23 History mg-hydrochlorothiazide 25 mg tablet Allergies Allergy/AdvReac Type Severity Reaction Status Date / Time magnesium sulfate Allergy Severe throat Verified 08/31/23 06:26 swells valsartan Allergy Severe throat Verified 08/31/23 06:26 swells latex Allergy Mild hives, rash Verified 08/31/23 06:26 Exam Narrative: Exam Narrative: PHYSICAL EXAM General: Pleasant, conversant, NAD HEENT: Normocephalic, postoperative nasal dressing in place, dry Cardiovascular: RRR, S1S2. Pulmonary: CTA bilaterally without rhonchi, rales, expiratory wheezes. No dyspnea Abdominal: Soft, morbidly obese, nondistended, NTTP Neurological: Alert, answering questions appropriately, cranial nerves intact, no focal findings Extremities: Right upper extremity in a cast. Bilateral lower extremity edema. Neurovascularly intact Skin: Warm, dry. Const: Vital Signs, click to edit/add: Vital Signs - 24 hr 08/31/23 06:49 08/31/23 08:11 08/31/23 08:15 Temperature 98.0 F 99 F Pulse Rate 100 115 H 109 H Pulse Rate [Left P ulse Oximeter] Respiratory Rate 20 18 10 L Blood Pressure 157/88 H 186/111 H 147/101 H Blood Pressure [Le ft Arm] Pulse Oximetry 96 99 100 Oxygen Delivery Me thod Room Air Face Tent Oxygen Flow Rate 10 Fraction of Inspir ed Oxygen 100 08/31/23 08:20 08/31/23 08:25 08/31/23 08:30 Temperature Pulse Rate 107 H 105 H 104 H Pulse Rate [Left P ulse Oximeter] Respiratory Rate 12 14 12 Blood Pressure 157/89 H 154/99 H 150/95 H Blood Pressure [Le ft Arm] Pulse Oximetry 100 92 99 Oxygen Delivery Me thod Room Air Oxygen Flow Rate 6 Fraction of Inspir ed Oxygen 08/31/23 08:35 08/31/23 08:40 08/31/23 08:45 Temperature Pulse Rate 109 H 107 H 105 H Pulse Rate [Left P ulse Oximeter] Respiratory Rate 10 L 12 14 Blood Pressure 148/92 H 145/96 H 136/99 H Blood Pressure [Le ft Arm] Pulse Oximetry 99 98 99 Oxygen Delivery Me thod Face Tent Oxygen Flow Rate 6 Fraction of Inspir ed Oxygen 08/31/23 08:50 08/31/23 08:55 08/31/23 09:00 Temperature 98.6 F Pulse Rate 106 H 105 H 108 H Pulse Rate [Left P ulse Oximeter] Respiratory Rate 12 14 18 Blood Pressure 133/91 H 153/63 H 130/88 Blood Pressure [Le ft Arm] Pulse Oximetry 99 99 98 Oxygen Delivery Me thod Face Tent Oxygen Flow Rate 6 Fraction of Inspir ed Oxygen 100 08/31/23 09:05 08/31/23 09:45 08/31/23 10:00 Temperature 98.6 F 98.6 F Pulse Rate 101 H 110 H Pulse Rate [Left P ulse Oximeter] 100 Respiratory Rate 18 18 18 Blood Pressure 144/92 H Blood Pressure [Le ft Arm] 147/98 H 143/96 H Pulse Oximetry 98 98 Oxygen Delivery Me thod Face Tent Face Tent Oxygen Flow Rate 5 5 Fraction of Inspir ed Oxygen Assessment and Plan Assessment and plan (1) Deviated nasal septum: Problem comment: -POD#0. Perioperative management including pain management per ENT -discharge recommendations per ENT Status: Acute (2) Hypertension: Problem comment: -mildly hypertensive postoperatively with regular adult size cuff -recommend appropriate cuff size given morbid obesity -1st dose lisinopril now, continue to monitor Status: Acute (3) FIDENCIO on CPAP: Problem comment: -inconsistent use at home, has not used since fracture on 08/20 -oxygen as needed overnight. Does not have a qualifying diagnosis for home oxygen. -recommendation for resuming CPAP per ENT Status: Acute (4) Pain of left lower leg: Problem comment: -After fall and injury dated 08/20/2023. Continue Tylenol and ibuprofen as needed Status: Acute (5) Distal radius fracture, right: Problem comment: -Date of injury 08/20/2023, mildly displaced intra-articular, casted -followed by outpatient orthopedic surgery -continue Tylenol and ibuprofen as needed Status: Acute (6) Asthma: Problem comment: -continue home inhalers, incentive spirometry, encourage postoperative pulmonary hygiene Status: Acute
[2023-08-31] MEDS: lisinopriL 20 MG TABLET PO (15:36)
--- NOTE | 2023-08-31 18:18 | PC.NURSE ---
End of shift: The patient arrived to the floor this morning after rhinoplasty due to nare fracture and septal deviation. Post op VS were completed. VSS on RA.. Moderate facial edema..Nose has mild ecchymosis on the bridge... steri strips on top. Under both nares there is a gauze to absorb drainage changed PRN- 2x due to drainage of serosanguineous/bright red bloody drainage. Per Dr Keyon Lyman there is packing in her nares as well. IBU and Oxy were taken to help control her pain throughout the day. SCD's on... patient is tolerating PO intake with no nausea. Up ad toma as tolerated. PO Ativan was given once due to anxiety this afternoon... adequate relaxation was expressed by the patient post administration. Sleep apnea HX. CPAP is in the room but the patient is to NOT WEAR it due to nasal surgery. Order for PRN oxygen overnight for desaturation. No IV.. it fell out this afternoon. Call light within reach and will call appropriately. Carley GOLDBERGN, RN
[2023-09-01] MEDS: ACETAMINOPHEN 325 MG TABLET PO ×2 (00:10→06:27)
[2023-09-01] MEDS: ONDANSETRON ODT 4 MG TAB PO (00:41)
[2023-09-01] MEDS: OXYCODONE 5 MG TABLET PO ×2 (02:57→07:52)
[2023-09-01 03:20] VITALS: O2SAT 98
[2023-09-01] MEDS: IBUPROFEN 200 MG TABLET PO ×2 (06:28→10:07)
[2023-09-01 07:00] VITALS: RESP 20; O2SAT 100
[2023-09-01 07:58] VITALS: BP 170/99; PULSE 82; RESP 20; TEMP 36.1; O2SAT 100
--- NOTE | 2023-09-01 10:47 | PC.NURSE ---
discharge: Pt alert, oriented, and cooperative during shift. Pt tolerated regular diet and liquids well, no nausea reported. Pt up independently in room and to the bathroom. Dressing changed per pt request. Brown mucus and dried blood present on dressing. Pt reported pain as 6/10 which was managed with pain medications per MAR with verbalized improvement. Discharge documents reviewed and signed, pt verbalized understanding of discharge teaching. Pt left with spouse to home. Discharge at approximately 10:40.
== END 2023-09-01 10:40 | disposition home or self-care (01) ==
LOC: OR 06:13 → MEDSURG 08:16
PROVIDERS: PCP Family Medicine; Visit Provider Otolaryngology
PROC: 0NSBXZZ Reposition Nasal Bone, External Approach (ICD-10-PCS; CPT 30520; principal; 2023-08-31 07:30)
PROC: (CPT 30520; 2023-08-31 07:30)
DX: J34.2 Deviated nasal septum (principal); S02.2XXA Fracture of nasal bones, initial encounter for closed fracture; J34.89 Other specified disorders of nose and nasal sinuses; I10 Essential (primary) hypertension; G47.33 Obstructive sleep apnea (adult) (pediatric); J45.909 Unspecified asthma, uncomplicated; M79.662 Pain in left lower leg; S52.571D Other intraarticular fracture of lower end of right radius, subsequent encounter for closed fracture with routine healing
CPT/HCPCS: 30520; 21320; 00160; 81025; A9270; J0330; J1100; J1170; J2250; J2405; J2704; J3010; J3490; J7120

== ENCOUNTER 2023-09-08 07:40 | Day surgery (SDC) | payer BC, SELFPAY ==
[2023-09-08] VITALS (9 sets, daily range): BP systolic 123–151; BP diastolic 63–99; PULSE 96–104; RESP 16–18; TEMP 36.5–36.7; O2SAT 95–99; BMI 59.3
[2023-09-08] MEDS: LACTATED RINGERS 1000 ML 1,000 ML 100 ML IV (08:10)
[2023-09-08] MEDS: CELECOXIB 200 MG CAPSULE PO (08:25)
[2023-09-08] MEDS: ACETAMINOPHEN 500 MG TABLET 1000 MG PO (08:25)
[2023-09-08] MEDS: OXYCODONE (CR) 10 MG TAB.ER.12H PO (08:26)
[2023-09-08] MEDS: SODIUM CHLORIDE 0.9 % (FLUSH) 10 ML SYRINGE IVF (08:26)
[2023-09-08 08:36] LABS: Ur HCG Qualitative* Negative (Negative)
[2023-09-08] MEDS: MIDAZOLAM HCL 1 MG/ML inj IVP (08:44)
[2023-09-08] MEDS: fentaNYL 100 MCG/2 ML inj IVP (08:44)
--- NOTE | 2023-09-08 08:52 | SUR.PREOP ---
TIME?OUT:?0843 PT/RN/MDA?VERIFICATION?OF?SURGICAL?SITE Right Arm,?PROCEDURE Axe Block,?AND?CONSENT OBTAINED?PRIOR?TO?INVASIVE?PROCEDURE.
--- NOTE | 2023-09-08 09:00 | CRLHL7_ITS ---
For Patients: As a result of the Cures Act, medical imaging exams and procedure reports are released immediately into your electronic medical record. You may view this report before your referring provider. If you have questions, please contact your health care provider. Indication: ORIF Right Wrist Fx Technique: Three fluoroscopic images of the right wrist. Fluoroscopic time 37.4 seconds. IMPRESSION: Fluoroscopic guidance for open reduction internal fixation distal radial fracture. Dictated by Jorge Bella MD @ 09/08/2023 1:17:19 PM (Electronically Signed)
--- NOTE | 2023-09-08 09:15 | W.ANESCHARGE ---
Anesthesia Charges Start Date/Time Anesthesia Start Date: 09/08/23 Anesthesia Start Time: 08:58 Stop Date/Time Anesthesia Stop Date: 09/08/23 Anesthesia Stop Time: 10:31
--- NOTE | 2023-09-08 09:16 | P.NB_ITS ---
Nerve Block Nerve Block Time Seen by Provider: 08:50 Date Seen: 09/08/23 Type of block requested by surgeon for post-operative analgesia: axillary Side: right Time out performed: Yes Verification of patient name: Yes Verification of date of : Yes Site marking: site marked Name of person performing procedure: Nacho Continuous monitoring Was continuous monitoring of O2 sat, B/P, electronic device monitor, recorded every 15 minutes?: Yes Procedure Checklist: sterile prep, needles and gloves Ultrasound guided. Images saved: Yes Medications given in 5ml increments after negative aspiration: Ropivicaine %: 0.5 mL: 30 Needle gauge: 22 Decadron (mg): 10 Precedex (mcg): 25 Patient tolerated procedure well: Yes Additional comments: Needle noted adjacent to nerve Block Charges Block Charge (with Pro Fee): Brachial Plexus Use of Ultrasound Machine for Block: Yes- US Guidance/pain block
--- NOTE | 2023-09-08 10:12 | PM.ORPRC ---
Procedure Note Date of procedure: 09/08/23 Procedure: PREOPERATIVE DIAGNOSIS: Angulated and shortened 2 part extra-articular right upper extremity distal radius fracture POSTOPERATIVE DIAGNOSIS: Angulated and shortened 2 part extra-articular right upper extremity distal radius fracture NAME OF OPERATION: Open reduction internal fixation SURGEON: Duke Payne MD DEHYDROGENATION CONVERTER HELPER: MIROSLAVA Wilson ANESTHESIA: Supraclavicular block plus monitored anesthesia care ESTIMATED BLOOD LOSS: 0 mL COMPLICATIONS: None SPECIMENS: None DRAINS: None PREOPERATIVE ANTIBIOTICS: Ancef 3 grams INDICATIONS: The patient is a 52-year-old who fell landing on their upper extremity sustaining the above injury. Given the amount of angulation, reduction and plate fixation were recommended. The risks, benefits and expected outcomes were discussed in detail. These included but were not limited to: Infection, bleeding, injury to blood vessel or nerve, venous thromboembolism. All questions were answered to their satisfaction. Use of an diversional therapist's assistant was necessary throughout the case for patient positioning and safety, maintenance of the reduction, surgical site dressing and splint application. PROCEDURE: A supraclavicular block was placed by Anesthesia. The patient was placed supine on the operating room table. IV sedation was administered. The reduction was obtained with longitudinal traction and volar force on the distal fragment, held by the diversional therapist's assistant. The image intensifier was used to confirm an excellent reduction. The extremity was prepped and draped in the usual sterile fashion. The limb was exsanguinated with the Talha bandage. The pneumatic tourniquet was inflated to 250 mm of mercury. A longitudinal incision was made over the flexor carpi radialis. Subcutaneous dissection was taken sharply through the FCR sheath. The FCR was retracted radially. Sharp dissection was carried through the floor of the FCR sheath. The flexor pollicis longus was retracted ulnarly. Sharp dissection was carried through the radial border of the pronator quadratus which was elevated ulnarly, exposing the fracture site. The diversional therapist's assistant held retractors to expose the fracture. The volar cortex of the fracture is anatomically aligned. We placed a Synthes standard, 3 hole volar locking plate over the volar cortex. It was provisionally held with a BB tack x 2, while the diversional therapist's assistant held the reduction. Its placement was confirmed with the image intensifier. We placed a cortical screw in the slot. We placed a locking screw in the shaft. We then filled the distal screw holes with smooth locking pegs using the image intensifier to confirm their extra-articular placement. Finally, a 2nd locking screw was placed in the shaft fragment. This construct was imaged in multiple views and was felt to be well placed with an anatomic reduction and well placed implants. The wound was irrigated normal saline. Subcutaneous tissues were reapproximated a 2-0 Vicryl, skin with a running 3-0 Monocryl in a subcuticular fashion. Glue was used to seal the skin. A dry dressing and short-arm volar splint was applied. These steps were all completed by the diversional therapist's assistant. The tourniquet was released, sponge and needle counts were correct x2. The patient tolerated the procedure well, there were no apparent complications. They were taken to the postanesthesia care unit in satisfactory condition. PLAN: The patient will be discharged home. They will work on elevation of the hand and active range of motion of the fingers. They will follow up next week in the office for a wound check with a PA, oblique, lateral and fossa lateral view of the wrist out of the splint prior to being seen in preparation for early active motion with Orthoplast splint protection.
--- NOTE | 2023-09-08 10:37 | W.ANESCHARGE ---
Anesthesia Charges Start Date/Time Anesthesia Start Date: 09/08/23 Anesthesia Start Time: 08:58 Stop Date/Time Anesthesia Stop Date: 09/08/23 Anesthesia Stop Time: 10:31
[2023-09-08] MEDS: fentaNYL 100 MCG/2 ML inj 50 MCG IVP (11:00)
[2023-09-08] MEDS: hydrOXYzine pamoate 25 MG CAPSULE PO (11:00)
== END 2023-09-08 11:58 | disposition home or self-care (01) ==
PROVIDERS: Anesthesiology; PCP Family Medicine; Visit Provider Orthopaedic Surgery
PROC: (CPT 25575; principal; 2023-09-08 09:00)
DX: S52.551A Other extraarticular fracture of lower end of right radius, initial encounter for closed fracture (principal); G89.18 Other acute postprocedural pain
CPT/HCPCS: 25607; 01830; 64415; 73110; 76000; 76942; 81025; A4580; A9270; C1713; J2250; J2704; J3010; J3490; J7120